=== PATIENT | female | born 1945 | race Caucasian/White ===

== ENCOUNTER 2021-07-05 03:56 | Emergency (ER) | payer MEDICARE, SELFPAY ==
[2021-07-05 03:57] VITALS: BP 142/79; PULSE 58; RESP 12; TEMP 36.3; O2SAT 94; BMI 33.4
--- NOTE | 2021-07-05 04:05 | EDS_ITS ---
HPI History of Present Illness Chief Complaint: Syncope Informant: patient and spouse/S.O. Narrative Narrative: Patient presents with a spinning sensation and fall. Patient got up to go to the restroom which is a common thing she does at night. When she was walking to the bathroom she felt as though things were spinning around her. She got to the bathroom and her legs gave out from under her. She did not hurt herself but she did go down to the ground. She did not lose consciousness. She had no chest pain or palpitations or abnormal heartbeats. She notes that if she stays still she has minimal if any dizziness. But if she moves in any direction she gets a spinning sensation. She has felt a little nauseated a couple times but has never vomited. She has no headache. Patient has had heart disease and strokes. She is on essentially maximal therapy for strokes. She is on Eliquis, Plavix, blood pressure management and Lipitor. [facility] Medical History Coronary artery disease Stroke/cerebrovascular accident Home Medications adalimumab [Humira] SUBCUT 07/05/21 [History Last Taken Unknown] apixaban [Eliquis] 5 mg PO BID 07/05/21 [History Last Taken Unknown] atorvastatin [Lipitor] 80 mg PO DAILY 07/05/21 [History Last Taken Unknown] carvedilol [Coreg] 6.25 mg PO BID 07/05/21 [History Last Taken Unknown] clopidogrel [Plavix] 75 mg PO DAILY 07/05/21 [History Last Taken Unknown] omeprazole [Prilosec] 20 mg PO DAILY 07/05/21 [History Last Taken Unknown] Allergy/AdvReac Type Severity Reaction Status Date / Time No Known Allergies Allergy Verified 07/05/21 04:00 Social History Smoking Status: Never smoker ROS ROS ED Constitutional Constitutional ED: Denies chills or fever(s) Eyes Eyes: Reports other Details: She had a sense of spinning but no decrease or loss of vision. ENT ENT ED: Denies rhinorrhea or sore throat Cardiovascular Cardiovascular: Denies chest pain, palpitations or racing heartbeat Respiratory/Chest Respiratory/Chest: Denies cough or dyspnea Gastrointestinal Gastrointestinal: Reports nausea; Denies abdominal pain, constipation, diarrhea, melena or vomiting Genitourinary Genitourinary ED: Denies dysuria Musculoskeletal Musculoskeletal: Denies arthralgias, back pain, myalgias or neck pain Integumentary Denies rash Neurologic Neurologic: Reports other Details: See history of present illness. ; Denies headache(s), paresthesias or weakness Psychiatric Psychiatric: Denies depression Endocrine Endocrinology: Denies polydipsia or polyuria Allergic/Immunologic Allergic/Immunologic ED: Denies urticaria EXAM Physical Exam Const Vital Signs: 07/05/21 03:57 07/05/21 05:52 Temperature 97.3 F L Temperature Source Oral Pulse Rate 58 L 74 Respiratory Rate 12 16 Blood Pressure 142/79 H 120/66 Blood Pressure Mean 100 84 Pulse Ox 94 98 Oxygen Delivery Method Room Air Room Air Positive well nourished and well developed; Negative for unkempt General Appearance ED: well developed and NAD; Negative for unkempt, cyanotic, diaphoretic or pallor HEENT Reports moist mucous membranes; Denies dry mucous membranes HEENT Narrative: No facial rash or signs of trauma. trauma Mouth ED: No dry mucous membranes Mouth: No dry mucous membranes Eyes PERRL and EOMs intact bilaterally Eyes Narrative: Pupillary responses normal. If I have the patient sit up or move to either side she gets vertigo and she gets some horizontal nystagmus. It is hard for her to keep her eyes open to see which is the fast component. If I keep her still it gets better. General Eye ED: Negative for pale conjunctiva or scleral icterus Neck no JVD Chest Wall inspection of chest normal Resp normal respiratory effort and clear to auscultation bilaterally Effort and Inspection: Negative for pain with movement Auscultation: Negative for rales, rhonchi or wheezes Cardio regular rhythm Rate: bradycardia and other Other Details: Heart rate is about 60. But she has normal blood pressure. GI normal to inspection, nondistended, normoactive bowel sounds and non-tender Palpation: soft Back/Spine no CVA tenderness Extremity normal to inspection General Extremety ED: Negative for edema or tenderness General Extremity: Negative for edema Neuro oriented x3 and no sensory deficits noted Neuro Narrative: Patient has an NIH of zero. She is awake alert appropriate. No weakness in strength. No facial asymmetry. Visual vela are normal. Sensorium / Orientation: alert; Negative for orientation impaired, lethargic or stuporous Sensory Exam: No sensory level loss detected Motor Exam: strength 5/5 throughout; Negative for general weakness or strength abnormal Psych mental status grossly normal Appearance: Negative for unkempt Skin no rashes or lesions noted General Skin Exam: Negative for jaundice or pallor MDM MDM MDM Narrative Medical decision making narrative: Patient's blood work showed normal CBC. Electrolytes showed minimal elevation of glucose and chloride. She also had a slight elevation in BUN to creatinine ratio consistent with mild dehydration. She was treated with some IV fluids. She also received meclizine. Her troponin was negative. Meclizine did seem to help her symptoms but did not completely resolve them. But she could turn side to side without getting significantly dizzy. There is no nausea. She seemed to have more symptoms when she turned to look to the left. The right cause some symptoms but not as much. Therefore we did Cheryl maneuver starting to the left. When we sat her up she was feeling better. She can now turn side to side and had almost no symptoms. We will let her rest. We will get her up and try ambulation to see how she does. This patient is certainly at risk for stroke as a cause of dizziness. However, she is also on maximal therapy at this time. Her history is more consistent with vertigo as it is very motion sensitive, is associated with nausea and is more to 1 side. She also improved with Cheryl. We got the patient up and walked. She states her symptoms are completely resolved now. After the Cheryl she is able to turn left right look up and down. She walked easily. She is completely resolved. We discussed risk benefits but I think going home is appropriate. They agree. Her will drive. I will write for some meclizine in case she has any return of symptoms. We also discussed that the Cheryl maneuver can be done at home. Lab Data Labs: Laboratory Results - last 24 hr 07/05/21 07/05/21 04:05 04:05 WBC 4.4 RBC 4.63 Hgb 14.1 Hct 41.8 MCV 90.3 MCH 30.5 MCHC 33.7 RDW Std Deviation 45.4 H RDW Coeff of Nafisa 13.7 Plt Count 179 MPV 11.4 Immature Gran % (Auto) 0.200 Neut % (Auto) 39.6 L Lymph % (Auto) 46.9 H [place]att % (Auto) 9.2 Eos % (Auto) 3.0 Baso % (Auto) 1.1 H Absolute Neuts (auto) 1.7 L Absolute Lymphs (auto) 2.04 Nucleated RBC % 0 Sodium 142 Potassium 3.5 Chloride 113 H Carbon Dioxide 25.0 Anion Gap 4 L BUN 20 H Creatinine 0.86 Estim Creat Clear Calc 48.81 Est GFR (MDRD) Af Amer 83 Est GFR (MDRD) Non-Af 69 BUN/Creatinine Ratio 23.3 H Glucose 131 H Calcium 9.1 Troponin I High Sens 6 Radiography Diagnostic Testing: Clinical Impression(s) from Imaging Studies Brain CT 07/05/21 04:12 IMPRESSION: 1. No acute intracranial pathology. 2. No acute calvarial fracture. 3. 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 Electronically Signed: Omkar Henson MD at 4:44 EST Reading Location ID and State: [facility]– [place] / [place] Tel , Service support , EKG Initial EKG: Comments: EKG done as part of lightheadedness work-up read by me showed sinus rhythm with bradycardic rate at 55. No ventricular ectopy. No acute significant ST elevation or depression but there is some nonspecific T wave abnormalities. FL interval, QRS duration and QTc is normal. Although I do not have the actual EKG from 02/23/2012, this EKG is read as normal sinus rhythm with left axis deviation, poor R wave progression and nonspecific T wave changes. This sounds similar to what I am seeing now. That EKG had a heart rate of 66. Discharge Plan Triage Chief Complaint: Syncope ED Provider: Chapincito Reynolds Dx/Rx/DC Orders Clinical Impression: Vertigo Instructions: ED Vertigo, Unspecified Prescriptions: No Action atorvastatin [Lipitor] 80 mg Tablet 80 mg PO DAILY RF: 0 carvedilol [Coreg] 6.25 mg Tablet 6.25 mg PO BID RF: 0 clopidogrel [Plavix] 75 mg Tablet 75 mg PO DAILY RF: 0 omeprazole [Prilosec] 20 mg Capsule,Delayed Release(Dr/Ec) 20 mg PO DAILY RF: 0 Eliquis 5 mg Tablet 5 mg PO BID RF: 0 Humira 10 mg/0.2 mL Syringe Kit SUBCUT RF: 0 Referrals: STEW QUINTANA [Other] - 1-2 Days if not improving Disposition Disposition: Home, Self Care
--- NOTE | 2021-07-05 04:12 | EKG12_ITS ---
Test Reason : SYNCOPE Blood Pressure : / mmHG Vent. Rate : 055 BPM Atrial Rate : 055 BPM P-R Int : 174 ms QRS Dur : 096 ms QT Int : 444 ms P-R-T Axes : -06 -36 007 degrees QTc Int : 424 ms Sinus bradycardia Left axis deviation Nonspecific T wave abnormality Poor R wave progression Abnormal ECG Confirmed by KIMBERLY HERRON, MANUEL ([id number]), editor magazine GRISELDA GALLARDO ([id number]) on 07/08/2021 10:02:48 AM Referred By: LALA Confirmed By:MANUEL HARRIS MD
--- NOTE | 2021-07-05 04:12 | CT_ITS ---
EXAM: CT HEAD WITHOUT INTRAVENOUS CONTRAST CLINICAL INDICATION: fall TECHNIQUE: Multiple axial images were obtained of the head without intravenous contrast. CTDIvol = ( 44.99 ) mGy, DLP = ( 829.85 ) mGycm This CT exam was performed using one or more of the following dose reduction techniques: automated exposure control, adjustment of the mA and/or kV according to patient size, and/or use of iterative reconstruction technique. This report was created using [email or web address] report generation technology. COMPARISON: CT head 02/22/2012 FINDINGS: BRAIN AND EXTRA-AXIAL SPACES: Old infarct involving the left occipital lobe and the posterior left parietal lobe. Chronic ischemic small vessel white matter disease and diffuse parenchymal atrophy. No midline shift or hydrocephalus. No acute infarct or acute intracranial hemorrhage. Basal cisterns are patent. BONES/JOINTS: No acute calvarial fracture. No discrete lytic or blastic abnormalities. SINUSES: Small air-fluid level involving the left sphenoid sinus. MASTOID AIR CELLS: Unremarkable. Clear. ORBITS: Visualized globes, extraocular muscles, optic nerves and retrobulbar fat appear unremarkable. CT/Brain/Head without Contrast IMPRESSION: 1. No acute intracranial pathology. 2. No acute calvarial fracture. 3. 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 Electronically Signed: Omkar Henson MD at 4:44 EST ,
[2021-07-05 04:21] LABS: Absolute Lymphocyte Count 2.04 X10^3/uL (0.83-4.51); Absolute Neutrophil Count 1.7 X10^3/uL (2.0-7.7); Basophil# 0.05 X10^3/uL; Basophil% 1.1 % (0-1); Eosinophil# 0.13 X10^3/uL; Hematocrit 41.8 % (37-47); Hemoglobin 14.1 g/dL (12.0-15.0); Lymphocyte # 2.04 X10^3/ul (0.83-4.51); Lymphocyte % 46.9 % (19-41); Mean Corp Hgb Conc 33.7 g/dL (32-36); Mean Corpuscular Hgb 30.5 pg (27.0-32.0); Mean Corpuscular Volume 90.3 fL (81-99); Mean Platelet Vol. 11.4 fl (6.2-12.0); Monocyte% 9.2 % (0-10); NRBC Flagged by Analyzer 0 % (0-5); Neutrophil # 1.72 X10^3/uL (2.7-7.7); Neutrophil % 39.6 % (47-70); Platelet Count 179 K/mm3 (150-450); RBC Distribution Width CV 13.7 % (11.6-14.6); RBC Distribution Width SD 45.4 fl (35.1-43.9); Red Blood Count 4.63 M/mm3 (4.2-5.4); White Blood Count 4.4 K/mm3 (4.4-11.0)
[2021-07-05] MEDS: Meclizine HCl 25 MG Tablet PO (04:34)
[2021-07-05 04:37] LABS: Anion Gap 4 (5-15); BUN 20 mg/dL (7-18); BUN/Creat Ratio 23.3 RATIO (10-20); Calcium,Total 9.1 mg/dL (8.5-10.1); Chloride 113 mmol/L (98-107); Creatinine, Serum 0.86 mg/dL (0.55-1.02); EST Glomerular Filtration Rate 69 mL/min (>60); Est Glom Filt Rate - Afr Amer 83 mL/min (>60); Estimated Creatinine Clearance 48.81 ml/min; Glucose 131 mg/dL (74-106); Potassium 3.5 mmol/L (3.5-5.1); Sodium Level 142 mmol/L (136-145); Troponin-I HS 6 pg/mL (3.0-54.0)
[2021-07-05 05:52] VITALS: BP 120/66; PULSE 74; RESP 16; O2SAT 98
[2021-07-05 06:06] VITALS: PULSE 74; RESP 17; O2SAT 99
== END 2021-07-05 23:59 | disposition home or self-care (01) ==
PROVIDERS: Emergency Provider Emergency Medicine; Visit Provider Emergency Medicine
DX: R42 Dizziness and giddiness (principal); R73.9 Hyperglycemia, unspecified; I25.10 Atherosclerotic heart disease of native coronary artery without angina pectoris; Z86.73 Personal history of transient ischemic attack (TIA), and cerebral infarction without residual deficits; Z79.01 Long term (current) use of anticoagulants; Z79.02 Long term (current) use of antithrombotics/antiplatelets; Z79.899 Other long term (current) drug therapy
CPT/HCPCS: 70450; 80048; 84484; 85025; 93005; 96360; 99285; J7040; A4216

== ENCOUNTER → 2022-05-22 | Outpatient (CLI) | payer MEDICARE, SELFPAY ==
--- NOTE | 2022-05-22 16:51 | RAD_ITS ---
STUDY: X-RAY - LUMBAR SPINE REASON FOR EXAM: Female, 77 years old. Lower back pain radiating into the shoulders when standing for one year. TECHNIQUE: 4 view(s) of the lumbar spine were obtained. COMPARISON: None FINDINGS: Normal lumbar lordosis. There is no substantial scoliosis. There is a normal alignment of the vertebrae. Normal vertebral bodies and endplates. Minimal disc space narrowing most marked at L4-5 and L5-S1. There is no evidence of acute fracture or loss of vertebral axial height. There is no demonstrated spondylolysis of the pars interarticulares. There is atherosclerotic calcification of the abdominal aorta without a demonstrated aneurysm. RAD/L/S Spine Min 4 Views IMPRESSION: Degenerative changes of the spine, as detailed above. Electronically Signed: Sebastián Caro DO at 23:52 EST ,
== END | disposition home or self-care (01) ==
LOC: RAD 16:43
DX: M51.36 Other intervertebral disc degeneration, lumbar region (principal); I70.0 Atherosclerosis of aorta; M47.816 Spondylosis without myelopathy or radiculopathy, lumbar region
CPT/HCPCS: 72110

== ENCOUNTER 2022-09-30 11:42 | Emergency (ER) | payer MEDICARE, SELFPAY ==
[2022-09-30 11:43] VITALS: BP 139/115; PULSE 70; RESP 18; TEMP 36.1; O2SAT 97; BMI 32.9
--- NOTE | 2022-09-30 12:04 | CT_ITS ---
CT/Abdomen/Pelvis W IV Cont ONLY IMPRESSION: Diffuse sigmoid diverticulosis and mild degree of diverticulitis without evidence of abscess or fluid collection. 3 mm nonobstructive catheter is in the upper pole calyx of the left kidney. Moderate amount of material is seen in the colon. Electronically Signed: Jose Castle MD at 13:29 EDT ,
--- NOTE | 2022-09-30 12:06 | EDS_ITS ---
HPI HPI - GI History of Present Illness Chief Complaint: Constipation Informant: patient and spouse/S.O. Narrative Narrative: Patient presents with abdominal pain stating she is constipated. This patient has not had a good bowel movement for about a week. She normally does not have significant problems with constipation. She did have surgery in her left carotid endarterectomy about a week ago. She initially took some pain meds but has not been on them for several days. She is having no issues directly related to the surgery. She states she is having pain across her lower abdomen for the last 2 or 3 days. It is constant. Does not seem like anything specifically makes it worse or better. She denies urinary symptoms. She denies nausea or vomiting. She denies fevers or chills. On review of systems I do find out that she has had diverticulitis. Only abdominal surgery is total abdominal hysterectomy years ago. She has restarted her Eliquis but has not been having any blood in the stool or anywhere else that she knows of. She does not have back or flank pain. [facility] Medical History Coronary artery disease Stroke/cerebrovascular accident Home Medications adalimumab 10 mg/0.2 mL subcutaneous syringe kit subcut 07/05/21 [History Last Taken Unknown] apixaban 5 mg tablet (Eliquis) 5 mg PO BID 07/05/21 [History Last Taken Unknown] atorvastatin 80 mg tablet (Lipitor) 80 mg PO DAILY 07/05/21 [History Last Taken Unknown] carvedilol 6.25 mg tablet (Coreg) 6.25 mg PO BID 07/05/21 [History Last Taken Unknown] clopidogrel 75 mg tablet (Plavix) 75 mg PO DAILY 07/05/21 [History Last Taken Unknown] omeprazole 20 mg capsule,delayed release 20 mg PO DAILY 07/05/21 [History Last Taken Unknown] amlodipine 5 mg tablet 5 mg PO DAILY 09/30/22 [History Last Taken Unknown] amoxicillin 875 mg-potassium clavulanate 125 mg tablet 875 mg PO Q12H #20 TABLETS 09/30/22 [Rx Last Taken Unknown] ondansetron 4 mg disintegrating tablet 4 mg PO Q8H PRN PRN Nausea #10 tabs 09/30/22 [Rx Last Taken Unknown] peg 3350-electrolytes 236 gram-22.74 gram-6.74 gram-5.86 gram solution (Golytely) 240 ml PO Q10M PRN #4,000 mL 09/30/22 [Rx Last Taken Unknown] Allergy/AdvReac Type Severity Reaction Status Date / Time No Known Allergies Allergy Verified 09/30/22 11:47 Social History Smoking Status: Never smoker ROS ROS ED ROS Narrative A complete review of systems was performed and is negative except as documented in the history of present illness. Some specific details below. Constitutional: No recent fevers or chills. No malaise. EYE: No visual complaints or pain. ENT: No difficulty swallowing. No swelling. No pain. CV: No chest pain or palpitations. No syncope or Respiratory: No dyspnea. No hemoptysis. No difficulty taking breaths. GI: Please see history of present illness. : No frequency dysuria or hematuria. No change in output. Musculoskeletal: No recent trauma. No pains. No back pains. Skin: No rash. Nondiaphoretic. Neuro: No weakness or numbness. Endocrine: No polyuria or polydipsia. EXAM Physical Exam Narrative Exam Narrative: CONSTITUTIONAL: Patient is nontoxic in appearance. The patient looks mildly uncomfortable. HEENT: No notable trauma. Mucous membranes moist. No sinus tenderness. No indication of pain with swallowing. EYES: No conjunctival injection. No proptosis. Neck shows healing incision on the left. Mild local bruising. No sign of infection or drainage at all. CARDIOVASCULAR: Regular rate. Regular rhythm. No notable murmur. No JVD. RESPIRATORY: No respiratory distress. Breathing is unlabored. No wheezes. No rhonchi. No rales. No pain with a deep breath. GASTROINTESTINAL: Not distended. Bowel sounds are normal. Patient does have some mild tenderness in the lower abdomen more central. It does not seem to localize left or right. There is no rebound or guarding. I am not able to appreciate a mass. GENITOURINARY: No tenderness over the bladder. No CVA tenderness. MUSCULOSKELETAL: Atraumatic. No peripheral edema. NEUROLOGICAL: Patient is alert and appropriate. No focal deficit noted. SKIN: No noted rashes. No diaphoresis. PSYCHIATRIC: Patient is calm. Mood is appropriate. Const Vital Signs: 09/30/22 11:43 Temperature 97 F L Temperature Source Temporal Pulse Rate 70 Respiratory Rate 18 Blood Pressure 139/115 H Blood Pressure Mean 123 Pulse Ox 97 Oxygen Delivery Method Room Air MDM MDM MDM Narrative Medical decision making narrative: Patient CBC is normal. Patient's electrolytes showed minimal dehydration with elevated BUN/creatinine ratio but she was given some IV fluids. Minimal elevation of glucose of 151. Urinalysis was not a clean-catch. No convincing evidence of UTI and she has no symptoms of UTI. My independent her potation of her CT scan does show some increased stool but no sign of ileus or obstruction. There is question of a little bit of diverticulitis. Final reading does show diverticulosis and mild degree of diverticulitis without abscess or fluid collection. There is also moderate material in the colon. I think this patient's symptoms are mixed because. I think the pain that she feels on a constant basis is likely diverticulitis. But I also do feel like she has some constipation. She has not had bleeding. She is eating and drinking. No nausea or vomiting. I think she can go home. We will treat with antibiotics. I do not want to do an enema because of this diverticulitis. But we will have her do the GoLytely from above. I think with her recent immobility, diverticulitis and constipation we need to get her moving promptly. We discussed reasons to return that would include worsening pain, fevers, vom iting. I think we do need to provide something for moderate pain relief for her. Lab Data Attestation: I reviewed the patient's lab results. Labs: Laboratory Results - last 24 hr 09/30/22 09/30/22 09/30/22 12:15 12:15 12:35 WBC 8.4 RBC 4.78 Hgb 14.2 Hct 43.1 MCV 90.2 MCH 29.7 MCHC 32.9 RDW Std Deviation 42.6 RDW Coeff of Nafisa 12.8 Plt Count 211 MPV 11.9 Immature Gran % (Auto) 0.400 Neut % (Auto) 82.4 H Lymph % (Auto) 10.5 L [place] % (Auto) 5.0 Eos % (Auto) 1.2 Baso % (Auto) 0.5 Absolute Neuts (auto) 6.9 Absolute Lymphs (auto) 0.88 Nucleated RBC % 0 Sodium 144 Potassium 3.5 Chloride 113 H Carbon Dioxide 24.0 Anion Gap 7 BUN 19 H Creatinine 0.80 Estim Creat Clear Calc 51.66 Est GFR (MDRD) Af Amer 90 Est GFR (MDRD) Non-Af 74 BUN/Creatinine Ratio 23.8 H Glucose 151 H Calcium 9.5 Urine Color Yellow Urine Clarity Sl. Cloudy Urine pH 7.0 Ur Specific [place] 1.020 Urine Protein 30 H Urine Glucose (UA) Normal Urine Ketones 15 H Urine Occult Blood 10 H Urine Nitrite Negative Urine Bilirubin 3 H Urine Urobilinogen 8 H Ur Leukocyte Esterase 100 H Urine RBC 0-5 SEEN Urine WBC 10-25 SEEN Ur Squamous Epith Cells 10-25 SEEN Calcium Oxalate Crystal 2+ Urine Bacteria 1+ Urine Mucus 0 SEEN Radiography Diagnostic Testing: Clinical Impression(s) from Imaging Studies Abdomen/Pelvis CT 09/30/22 12:04 IMPRESSION: Diffuse sigmoid diverticulosis and mild degree of diverticulitis without evidence of abscess or fluid collection. 3 mm nonobstructive catheter is in the upper pole calyx of the left kidney. Moderate amount of material is seen in the colon. Electronically Signed: Jose Castle MD at 13:29 EDT , Discharge Plan Triage Chief Complaint: Constipation ED Provider: Chapincito Reynolds Dx/Rx/DC Orders Clinical Impression: Diverticulitis, Constipation Instructions: ED Constipation (Adult), ED Diverticulitis Prescriptions: New ondansetron [ondansetron] 4 mg tablet,disintegrating 4 mg PO Q8H PRN PRN (Reason: Nausea) Qty: 10 0RF amoxicillin-pot clavulanate [amoxicillin-pot clavulanate] 875-125 mg tablet 875 mg PO Q12H Qty: 20 0RF peg 3350-electrolytes [Golytely] 236-22.74-6.74 -5.86 gram recon soln 240 ml PO Q10M PRN Qty: 4000 0RF Rx Instructions: until prominent fecal movement occurs No Action atorvastatin [Lipitor] 80 mg Tablet 80 mg PO DAILY carvedilol [Coreg] 6.25 mg Tablet 6.25 mg PO BID clopidogrel [Plavix] 75 mg Tablet 75 mg PO DAILY omeprazole [Prilosec] 20 mg Capsule,Delayed Release(Dr/Ec) 20 mg PO DAILY Eliquis 5 mg Tablet 5 mg PO BID Humira 10 mg/0.2 mL Syringe Kit SUBCUT amlodipine 5 mg tablet 5 mg PO DAILY Primary Care Provider: STEW QUINTANA Referrals: STEW QUINTANA [Other] - 3-5 Days Activity Restrictions/Additional Instructions: Use your pain medication if needed for abdominal pain but try to use sparingly as it can worsen constipation. After bowel motion occurs, start MiraLAX to keep regular for several days. Disposition Disposition: Home, Self Care
[2022-09-30] MEDS: Ondansetron 4 MG/2 ML Vial IV (12:26)
[2022-09-30] MEDS: Morphine 4 MG/ML Syringe IV (12:27)
[2022-09-30 12:35] LABS: Anion Gap 7 (5-15); BUN 19 mg/dL (7-18); BUN/Creat Ratio 23.8 RATIO (10-20); Calcium,Total 9.5 mg/dL (8.5-10.1); Chloride 113 mmol/L (98-107); EST Glomerular Filtration Rate 74 mL/min (>60); Est Glom Filt Rate - Afr Amer 90 mL/min (>60); Estimated Creatinine Clearance 51.66 ml/min; Glucose 151 mg/dL (74-106); Potassium 3.5 mmol/L (3.5-5.1); Sodium Level 144 mmol/L (136-145)
[2022-09-30 12:37] LABS: Mucous, Urine 0 SEEN /hpf (<or=2+)
[2022-09-30 12:47] LABS: Absolute Lymphocyte Count 0.88 X10^3/uL (0.83-4.51); Absolute Neutrophil Count 6.9 X10^3/uL (2.0-7.7); Basophil# 0.04 X10^3/uL; Basophil% 0.5 % (0-1); Eosinophils% 1.2 % (0-5); Hematocrit 43.1 % (37-47); Hemoglobin 14.2 g/dL (12.0-15.0); Lymphocyte # 0.88 X10^3/ul (0.83-4.51); Lymphocyte % 10.5 % (19-41); Mean Corp Hgb Conc 32.9 g/dL (32-36); Mean Corpuscular Hgb 29.7 pg (27.0-32.0); Mean Corpuscular Volume 90.2 fL (81-99); Mean Platelet Vol. 11.9 fl (6.2-12.0); Monocyte# 0.42 X10^3/uL; NRBC Flagged by Analyzer 0 % (0-5); Neutrophil # 6.91 X10^3/uL (2.7-7.7); Neutrophil % 82.4 % (47-70); Platelet Count 211 K/mm3 (150-450); RBC Distribution Width CV 12.8 % (11.6-14.6); RBC Distribution Width SD 42.6 fl (35.1-43.9); Red Blood Count 4.78 M/mm3 (4.2-5.4); White Blood Count 8.4 K/mm3 (4.4-11.0)
[2022-09-30 12:50] LABS: Color, Urine Yellow (Yellow); Glucose, Dipstick Normal (Normal); Ketone-Dipstick 15 mg/dl (Negative); Leukocyte Esterase-Dipstick 100 /ul (Negative); Nitrite-Dipstick Negative (Negative); Occult Blood-Urine 10 /ul (Negative); Protein-Dipstick 30 mg/dl (Negative); Urine Clarity Sl. Cloudy (Clear); Urine Urobilinogen 8 mg/dl (Normal)
[2022-09-30 12:51] LABS: Urine Bilirubin Dipstick 3 mg/dL (Negative)
[2022-09-30 12:59] LABS: Bacteria 1+ /hpf (None Seen); Calcium Oxalate Crystals Ur 2+ /hpf (<or=2+); Red Blood Cells-Urine 0-5 SEEN /hpf (0-5); Squamous Epithelial Cells - UA 10-25 SEEN /hpf (5-10); White Blood Cells 10-25 SEEN /hpf (0-5)
[2022-09-30 14:54] VITALS: BP 159/69; PULSE 62; RESP 14; O2SAT 96
== END 2022-09-30 14:56 | disposition home or self-care (01) ==
PROVIDERS: Emergency Provider Emergency Medicine; Visit Provider Emergency Medicine
DX: K57.32 Diverticulitis of large intestine without perforation or abscess without bleeding (principal); I25.10 Atherosclerotic heart disease of native coronary artery without angina pectoris; E86.0 Dehydration; K59.00 Constipation, unspecified
CPT/HCPCS: 74177; 80048; 81001; 85025; 96361; 96374; 96375; 99283; Q9967; J2405

== ENCOUNTER 2022-10-20 20:05 | Observation (INO) | payer MEDICARE, SELFPAY ==
[2022-10-20 20:06] VITALS: BP 148/91; PULSE 77; RESP 15; TEMP 37.2; O2SAT 95; BMI 32.1
[2022-10-20 21:08] LABS: Absolute Lymphocyte Count 1.28 X10^3/uL (0.83-4.51); Absolute Neutrophil Count 2.7 X10^3/uL (2.0-7.7); Basophil# 0.04 X10^3/uL; Basophil% 0.9 % (0-1); Eosinophil# 0.15 X10^3/uL; Eosinophils% 3.2 % (0-5); Hematocrit 41.3 % (37-47); Hemoglobin 13.3 g/dL (12.0-15.0); Lymphocyte # 1.28 X10^3/ul (0.83-4.51); Lymphocyte % 27.4 % (19-41); Mean Corp Hgb Conc 32.2 g/dL (32-36); Mean Corpuscular Hgb 29.8 pg (27.0-32.0); Mean Corpuscular Volume 92.4 fL (81-99); Mean Platelet Vol. 11.5 fl (6.2-12.0); Monocyte# 0.45 X10^3/uL; Monocyte% 9.6 % (0-10); NRBC Flagged by Analyzer 0 % (0-5); Neutrophil # 2.73 X10^3/uL (2.7-7.7); Neutrophil % 58.5 % (47-70); Platelet Count 171 K/mm3 (150-450); RBC Distribution Width CV 13.2 % (11.6-14.6); RBC Distribution Width SD 44.4 fl (35.1-43.9); Red Blood Count 4.47 M/mm3 (4.2-5.4); White Blood Count 4.7 K/mm3 (4.4-11.0)
--- NOTE | 2022-10-20 21:24 | EDS_ITS ---
HPI HPI - GI History of Present Illness Chief Complaint: GI Bleed Narrative Narrative: 77-year-old female on Eliquis presenting with black stools. She states she had developed diarrhea about 3 days ago and noted that it was initially brown. She has been taking [id number] antidiarrheal but states that she still having diarrhea and now it is turned black started yesterday and has been black all day today. She does admit to a little bit of lightheadedness. PFSH PFSH Medical History Coronary artery disease Myocardial infarction Stroke/cerebrovascular accident Home Medications adalimumab 10 mg/0.2 mL subcutaneous syringe kit subcut 07/05/21 [History Last Taken Unknown] apixaban 5 mg tablet (Eliquis) 5 mg PO BID 07/05/21 [History Last Taken Unknown] atorvastatin 80 mg tablet (Lipitor) 80 mg PO DAILY 07/05/21 [History Last Taken Unknown] carvedilol 6.25 mg tablet (Coreg) 6.25 mg PO BID 07/05/21 [History Last Taken Unknown] clopidogrel 75 mg tablet (Plavix) 75 mg PO DAILY 07/05/21 [History Last Taken Unknown] omeprazole 20 mg capsule,delayed release 20 mg PO DAILY 07/05/21 [History Last Taken Unknown] amlodipine 5 mg tablet 5 mg PO DAILY 09/30/22 [History Last Taken Unknown] amoxicillin 875 mg-potassium clavulanate 125 mg tablet 875 mg PO Q12H #20 TABLETS 09/30/22 [Rx Last Taken Unknown] ondansetron 4 mg disintegrating tablet 4 mg PO Q8H PRN PRN Nausea #10 tabs 09/30/22 [Rx Last Taken Unknown] peg 3350-electrolytes 236 gram-22.74 gram-6.74 gram-5.86 gram solution (Golytely) 240 ml PO Q10M PRN #4,000 mL 09/30/22 [Rx Last Taken Unknown] Allergy/AdvReac Type Severity Reaction Status Date / Time No Known Allergies Allergy Verified 10/20/22 20:11 Social History Smoking Status: Never smoker EXAM Physical Exam Const Vital Signs: 10/20/22 20:06 10/20/22 21:26 10/20/22 23:12 Temperature 98.9 F Temperature Source Temporal Pulse Rate 77 63 Pulse Rate [Lying] 63 Pulse Rate [Sitting (for 1 minute prior to obtaining)] 68 Pulse Rate [Standing (for 1 minute prior to obtaining)] 84 Respiratory Rate 15 16 Blood Pressure 148/91 H 150/76 H Blood Pressure [Lying] 148/70 H Blood Pressure [Sitting (for 1 minute prior to obtaining)] 150/78 H Blood Pressure [Standing (for 1 minute prior to obtaining)] 113/69 Blood Pressure Mean 110 100 Blood Pressure Mean [Lying] 96 Blood Pressure Mean [Sitting (for 1 minute prior to obtaining)] 102 Blood Pressure Mean [Standing (for 1 minute prior to obtaining)] 83 Pulse Ox 95 97 Oxygen Delivery Method Room Air Room Air Positive well nourished General Appearance ED: NAD; Negative for pallor HEENT Reports moist mucous membranes normocephalic and atraumatic Eyes PERRL and EOMs intact bilaterally Resp normal respiratory effort and clear to auscultation bilaterally Auscultation: Negative for rales, rhonchi or wheezes Cardio regular rate and regular rhythm GI non-tender GI Narrative: Rectal exam deferred by patient Neuro CN's II-XII intact bilaterally and moves all extremities Sensorium / Orientation: alert Psych mental status grossly normal Skin no wounds General Skin Exam: Negative for jaundice or pallor MDM MDM MDM Narrative Medical decision making narrative: Patient presenting with black stools which have been present since yesterday. She initially started with diarrhea. She not have any abdominal pain. No fevers or chills. Patient is on Eliquis however. She does states she is a little lightheaded so I did obtain orthostatic vital signs which were positive. Patient's orthostatic vitals show a blood pressure drop of 148/70 to 113/69. Heart rate goes from 63-84. CBC shows a normal white blood cell count. Hemoglobin 13.3, hematocrit 41.3, platelets 175. Renal function and electrolytes within normal limits. Liver function normal. Patient was able to give a stool sample and I did send this off for an occult. It is black. Hemoccult positive. Patient given Protonix 40 mg IV. Will discuss with Dr. Baker from GI. Patient discussed with hospitalist for admission. Impression: 1. Upper GI bleed 2. Orthostatic hypotension Lab Data Labs: Laboratory Results - last 24 hr 10/20/22 10/20/22 10/20/22 20:45 20:45 21:40 WBC 4.7 RBC 4.47 Hgb 13.3 Hct 41.3 MCV 92.4 MCH 29.8 MCHC 32.2 RDW Std Deviation 44.4 H RDW Coeff of Nafisa 13.2 Plt Count 171 MPV 11.5 Immature Gran % (Auto) 0.400 Neut % (Auto) 58.5 Lymph % (Auto) 27.4 [place] % (Auto) 9.6 Eos % (Auto) 3.2 Baso % (Auto) 0.9 Absolute Neuts (auto) 2.7 Absolute Lymphs (auto) 1.28 Nucleated RBC % 0 Sodium 144 Potassium 3.6 Chloride 113 H Carbon Dioxide 22.0 Anion Gap 9 BUN 20 H Creatinine 0.68 Estim Creat Clear Calc 41.33 Est GFR (MDRD) Af Amer 109 Est GFR (MDRD) Non-Af 90 BUN/Creatinine Ratio 29.5 H Glucose 98 Calcium 9.9 Total Bilirubin 0.60 AST 15 ALT 16 Alkaline Phosphatase 88 Total Protein 7.1 Albumin 3.7 Globulin 3.4 Albumin/Globulin Ratio 1.1 Blood Type O POSITIVE Antibody Screen NEGATIVE Discharge Plan Triage Chief Complaint: GI Bleed ED Provider: Willam Ball Dx/Rx/DC Orders Prescriptions: No Action atorvastatin [Lipitor] 80 mg Tablet 80 mg PO DAILY carvedilol [Coreg] 6.25 mg Tablet 6.25 mg PO BID clopidogrel [Plavix] 75 mg Tablet 75 mg PO DAILY omeprazole [Prilosec] 20 mg Capsule,Delayed Release(Dr/Ec) 20 mg PO DAILY Eliquis 5 mg Tablet 5 mg PO BID Humira 10 mg/0.2 mL Syringe Kit SUBCUT amlodipine 5 mg tablet 5 mg PO DAILY ondansetron [ondansetron] 4 mg tablet,disintegrating 4 mg PO Q8H PRN PRN (Reason: Nausea) Qty: 10 0RF amoxicillin-pot clavulanate [amoxicillin-pot clavulanate] 875-125 mg tablet 875 mg PO Q12H Qty: 20 0RF peg 3350-electrolytes [Golytely] 236-22.74-6.74 -5.86 gram recon soln 240 ml PO Q10M PRN Qty: 4000 0RF Rx Instructions: until prominent fecal movement occurs Primary Care Provider: STEW QUINTANA Referrals: STEW QUINTANA [Other]
[2022-10-20 21:26] VITALS: BP 113/69; BP 148/70; BP 150/78; PULSE 63; PULSE 68; PULSE 84
[2022-10-20 21:26] LABS: ALB/GLOB Ratio 1.1 RATIO (0.9-2.4); AST(SGOT) 15 U/L (15-37); Alanine Aminotransfer ALT/SGPT 16 U/L (13-56); Albumin, Serum 3.7 g/dL (3.2-5.0); Alkaline Phosphatase 88 U/L (45-117); Anion Gap 9 (5-15); BUN 20 mg/dL (7-18); BUN/Creat Ratio 29.5 RATIO (10-20); Calcium,Total 9.9 mg/dL (8.5-10.1); Chloride 113 mmol/L (98-107); Creatinine, Serum 0.68 mg/dL (0.55-1.02); EST Glomerular Filtration Rate 90 mL/min (>60); Est Glom Filt Rate - Afr Amer 109 mL/min (>60); Estimated Creatinine Clearance 41.33 ml/min; Globulin 3.4 g/dL (2.2-4.2); Glucose 98 mg/dL (74-106); Potassium 3.6 mmol/L (3.5-5.1); Protein, Total 7.1 g/dL (6.4-8.2); Sodium Level 144 mmol/L (136-145)
[2022-10-20] MEDS: 0.9% Normal Saline 1,000 ML 999 ML IV (23:10)
[2022-10-20 23:12] VITALS: BP 150/76; PULSE 63; RESP 16; O2SAT 97
--- NOTE | 2022-10-20 23:30 | CON.PCM.GI_ITS ---
HPI Consult Data Date of Consult: 10/20/22 HPI Narrative Reason for Consultation: GI bleeding HPI Narrative: VINITA PHILLIPS, is a 77-year-old female on Eliquis presenting with black stools.? She states she had developed diarrhea about 3 days ago and noted that it was initially brown.? She has been taking [id number] antidiarrheal but states that she still having diarrhea and now it is turned black started yesterday and has been black all day today.? She does admit to a little bit of lightheadedness. This is new and the patient has not had a previous symptom of melena. She was recently seen here for constipation (atypical for her but thought due to her recent surgery) and was put on antibiotics for a possible diverticulitis. The patient denies abdominal pain, and denies bright red blood per rectum. She has no vomiting/hematemesis. She denies NSAID use, and has been on Plavix and Eliquis since stent placement. [facility] Medical History Coronary artery disease Myocardial infarction Stroke/cerebrovascular accident Home Medications apixaban 5 mg tablet (Eliquis) 5 mg PO BID Check with primary doctor 07/05/21 [History Last Taken 10/20/22 08:00] atorvastatin 80 mg tablet (Lipitor) 80 mg PO DAILY Check with primary doctor 07/05/21 [History Last Taken 10/20/22 08:00] carvedilol 6.25 mg tablet (Coreg) 6.25 mg PO BID Check with primary doctor 07/05/21 [History Last Taken 10/20/22 08:00] clopidogrel 75 mg tablet (Plavix) 75 mg PO DAILY Check with primary doctor 07/05/21 [History Last Taken 10/20/22 08:00] omeprazole 20 mg capsule,delayed release 20 mg PO DAILY Check with primary doctor 07/05/21 [History Last Taken 10/20/22 08:00] amlodipine 5 mg tablet 5 mg PO DAILY Check with primary doctor 09/30/22 [History Last Taken 10/20/22 08:00] acetaminophen 500 mg capsule 1,000 mg PO Q6H PRN Pain 10/21/22 [History Last Taken Unknown] Allergy/AdvReac Type Severity Reaction Status Date / Time No Known Allergies Allergy Verified 10/20/22 20:11 Social History Smoking Status: Never smoker ROS ROS Narrative pertinent positives/negatives as above. Physical Exam Narrative GENERAL: cooperative HEENT: Atraumatic; normocephalic EYES; Anicteric, Normal Conjunctiva NECK; supple, normal thyroid, RESPIRATORY: Diminished to auscultation CARDIOVASCULAR: Regular S1 S2, GI: soft, normoactive bowel sounds, : No Renal angle tenderness; EXTREMITIES: No edema, no clubbing, MUSCULOSKELETAL: no muscle wasting NEURO: Awake; no lateralizing signs. SKIN: No Rash PSYCH; Flat affect Lab / Micro Data Result Diagrams: 10/21/22 05:40 10/21/22 05:40 Labs: Laboratory Results - last 24 hr 10/20/22 20:45: WBC 4.7, RBC 4.47, Hgb 13.3, Hct 41.3, MCV 92.4, MCH 29.8, MCHC 32.2, RDW Std Deviation 44.4 H, RDW Coeff of Nafisa 13.2, Plt Count 171, MPV 11.5, Immature Gran % (Auto) 0.400, Neut % (Auto) 58.5, Lymph % (Auto) 27.4, [place] % (Auto) 9.6, Eos % (Auto) 3.2, Baso % (Auto) 0.9, Absolute Neuts (auto) 2.7, Absolute Lymphs (auto) 1.28, Nucleated RBC % 0 10/20/22 20:45: Sodium 144, Potassium 3.6, Chloride 113 H, Carbon Dioxide 22.0, Anion Gap 9, BUN 20 H, Creatinine 0.68, Estim Creat Clear Calc 41.33, Est GFR (MDRD) Af Amer 109, Est GFR (MDRD) Non-Af 90, BUN/Creatinine Ratio 29.5 H, Glucose 98, Calcium 9.9, Total Bilirubin 0.60, AST 15, ALT 16, Alkaline Phosphatase 88, Total Protein 7.1, Albumin 3.7, Globulin 3.4, Albumin/Globulin Ratio 1.1 10/20/22 21:40: Blood Type O POSITIVE, Antibody Screen NEGATIVE 10/21/22 05:40: WBC 4.1 L, RBC 4.37, Hgb 13.1, Hct 40.6, MCV 92.9, MCH 30.0, MCHC 32.3, RDW Std Deviation 44.2 H, RDW Coeff of Nafisa 12.9, Plt Count 146 L, MPV 11.4, Immature Gran % (Auto) 0.000, Neut % (Auto) 51.6, Lymph % (Auto) 32.8, [place] % (Auto) 10.5 H, Eos % (Auto) 3.9, Baso % (Auto) 1.2 H, Absolute Neuts (auto) 2.1, Absolute Lymphs (auto) 1.34, Nucleated RBC % 0 10/21/22 05:40: Sodium 146 H, Potassium 3.5, Chloride 117 H, Carbon Dioxide 22.0, Anion Gap 7, BUN 13, Creatinine 0.55, Estim Creat Clear Calc 41.33, Est GFR (MDRD) Af Amer 137, Est GFR (MDRD) Non-Af 114, BUN/Creatinine Ratio 23.6 H, Glucose 92, Calcium 9.1 Micro: Microbiology 10/20/22 22:40 Stool Stool Occult Blood (MICHAEL) - Final Occult Blood Positive Assessment & Plan Assessment/Plan (1) Melena: (2) HTN (hypertension): PLAN: Plan Melena - Hgb with 1 pt drop 14>13s - Hold AC, begin PPI twice a day - NPO status - EGD tomorrow - [place] scale of 3. - Monitor Hgb - Give IV 100 ml/hr Cardiac disease - Continue Asa, hold eliquis and plavix - resume home meds HTN - Resume Norvasc HLD - Statin - Recent endarterectomy
[2022-10-21] VITALS (14 sets, daily range): BP systolic 120–161; BP diastolic 63–84; PULSE 50–89; RESP 16–18; TEMP 36.6–37.3; O2SAT 94–98; BMI 32.1
--- NOTE | 2022-10-21 00:34 | PCM.HP.STD ---
HPI - General General Date of Admission: 10/21/22 Chief Complaint: black stool HPI Narrative VINITA PHILLIPS, is a 77 F who presents with diarrhea, with black stool over 1 day. This is new and the patient has not had a previous symptom of melena. She was recently seen here for constipation (atypical for her but thought due to her recent surgery) and was put on antibiotics for a possible diverticulitis. The patient denies abdominal pain, and denies bright red blood per rectum. She has no vomiting/hematemesis. She denies NSAID use, and has been on Plavix and Eliquis since stent placement. She has hx of 6 cardiac stents She has never had EGD. Takes Tylenol for pain. [facility] Medical History (Updated 10/21/22 @ 00:[address] Collin Vázquez MD) Coronary artery disease Myocardial infarction Stroke/cerebrovascular accident Home Medications apixaban 5 mg tablet (Eliquis) 5 mg PO BID Check with primary doctor 07/05/21 [History Last Taken Unknown] atorvastatin 80 mg tablet (Lipitor) 80 mg PO DAILY Check with primary doctor 07/05/21 [History Last Taken Unknown] carvedilol 6.25 mg tablet (Coreg) 6.25 mg PO BID Check with primary doctor 07/05/21 [History Last Taken Unknown] clopidogrel 75 mg tablet (Plavix) 75 mg PO DAILY Check with primary doctor 07/05/21 [History Last Taken Unknown] omeprazole 20 mg capsule,delayed release 20 mg PO DAILY Check with primary doctor 07/05/21 [History Last Taken Unknown] amlodipine 5 mg tablet 5 mg PO DAILY Check with primary doctor 09/30/22 [History Last Taken Unknown] acetaminophen 500 mg capsule 1,000 mg PO Q6H PRN Pain 10/21/22 [History Last Taken Unknown] Allergy/AdvReac Type Severity Reaction Status Date / Time No Known Allergies Allergy Verified 10/20/22 20:11 Social History Smoking Status: Never smoker ROS ROS Narrative pertinent positives/negatives as above. Vital Signs Vital Signs Vital Signs: 10/20/22 20:06 10/20/22 21:26 10/20/22 23:12 Temperature 98.9 F Temperature Source Temporal Pulse Rate 77 63 Pulse Rate [Lying] 63 Pulse Rate [Sitting (for 1 minute prior to obtaining)] 68 Pulse Rate [Standing (for 1 minute prior to obtaining)] 84 Respiratory Rate 15 16 Blood Pressure 148/91 H 150/76 H Blood Pressure [Lying] 148/70 H Blood Pressure [Sitting (for 1 minute prior to obtaining)] 150/78 H Blood Pressure [Standing (for 1 minute prior to obtaining)] 113/69 Blood Pressure Mean 110 100 Blood Pressure Mean [Lying] 96 Blood Pressure Mean [Sitting (for 1 minute prior to obtaining)] 102 Blood Pressure Mean [Standing (for 1 minute prior to obtaining)] 83 Pulse Ox 95 97 Oxygen Delivery Method Room Air Room Air Weight Weight: 187 lb Body Mass Index (BMI) 32.1 Physical Exam Const alert and no apparent distress General Appearance: cooperative HEENT normocephalic and head/scalp atraumatic Eyes PERRL and EOMs intact bilaterally Neck no lymphadenopathy Resp normal respiratory effort Cardio regular rate and regular rhythm GI normal to inspection, nondistended, normoactive bowel sounds Psych affect normal Results Medical Records Data Attestation: I reviewed the patient's medical records Lab / Micro Data Attestation: I reviewed the patient's lab results. Result Diagrams: 10/20/22 20:45 10/20/22 20:45 Labs: Laboratory Results - last 24 hr 10/20/22 20:45: WBC 4.7, RBC 4.47, Hgb 13.3, Hct 41.3, MCV 92.4, MCH 29.8, MCHC 32.2, RDW Std Deviation 44.4 H, RDW Coeff of Nafisa 13.2, Plt Count 171, MPV 11.5, Immature Gran % (Auto) 0.400, Neut % (Auto) 58.5, Lymph % (Auto) 27.4, [place] % (Auto) 9.6, Eos % (Auto) 3.2, Baso % (Auto) 0.9, Absolute Neuts (auto) 2.7, Absolute Lymphs (auto) 1.28, Nucleated RBC % 0 10/20/22 20:45: Sodium 144, Potassium 3.6, Chloride 113 H, Carbon Dioxide 22.0, Anion Gap 9, BUN 20 H, Creatinine 0.68, Estim Creat Clear Calc 41.33, Est GFR (MDRD) Af Amer 109, Est GFR (MDRD) Non-Af 90, BUN/Creatinine Ratio 29.5 H, Glucose 98, Calcium 9.9, Total Bilirubin 0.60, AST 15, ALT 16, Alkaline Phosphatase 88, Total Protein 7.1, Albumin 3.7, Globulin 3.4, Albumin/Globulin Ratio 1.1 10/20/22 21:40: Blood Type O POSITIVE, Antibody Screen NEGATIVE Micro: Microbiology 10/20/22 22:40 Stool Stool Occult Blood (MICHAEL) - Final Occult Blood Positive Assessment & Plan Assessment/Plan (1) Melena: (2) HTN (hypertension): PLAN: Plan Melena - Hgb with 1 pt drop 14>13s - Hold AC, begin PPI twice a day - NPO status - Gastro consult for EGD consideration - [place] scale of 3. - Monitor Hgb - Give IV 100 ml/hr Cardiac disease - Continue Asa, hold eliquis and plavix - resume home meds HTN - Resume Norvasc HLD - Statin - Recent endarterectomy Charges/Coding Visit Charges Inpatient E&M: 08732 Init Hosp L2
[2022-10-21] MEDS: 0.9% Normal Saline 1,000 ML 100 ML IV (01:15)
[2022-10-21 05:51] LABS: Absolute Lymphocyte Count 1.34 X10^3/uL (0.83-4.51); Absolute Neutrophil Count 2.1 X10^3/uL (2.0-7.7); Basophil# 0.05 X10^3/uL; Basophil% 1.2 % (0-1); Eosinophil# 0.16 X10^3/uL; Eosinophils% 3.9 % (0-5); Hematocrit 40.6 % (37-47); Hemoglobin 13.1 g/dL (12.0-15.0); Lymphocyte # 1.34 X10^3/ul (0.83-4.51); Lymphocyte % 32.8 % (19-41); Mean Corp Hgb Conc 32.3 g/dL (32-36); Mean Corpuscular Volume 92.9 fL (81-99); Mean Platelet Vol. 11.4 fl (6.2-12.0); Monocyte# 0.43 X10^3/uL; Monocyte% 10.5 % (0-10); NRBC Flagged by Analyzer 0 % (0-5); Neutrophil # 2.11 X10^3/uL (2.7-7.7); Neutrophil % 51.6 % (47-70); Platelet Count 146 K/mm3 (150-450); RBC Distribution Width CV 12.9 % (11.6-14.6); RBC Distribution Width SD 44.2 fl (35.1-43.9); Red Blood Count 4.37 M/mm3 (4.2-5.4); White Blood Count 4.1 K/mm3 (4.4-11.0)
[2022-10-21 06:34] LABS: Anion Gap 7 (5-15); BUN 13 mg/dL (7-18); BUN/Creat Ratio 23.6 RATIO (10-20); Calcium,Total 9.1 mg/dL (8.5-10.1); Chloride 117 mmol/L (98-107); Creatinine, Serum 0.55 mg/dL (0.55-1.02); EST Glomerular Filtration Rate 114 mL/min (>60); Est Glom Filt Rate - Afr Amer 137 mL/min (>60); Estimated Creatinine Clearance 41.33 ml/min; Glucose 92 mg/dL (74-106); Potassium 3.5 mmol/L (3.5-5.1); Sodium Level 146 mmol/L (136-145)
--- NOTE | 2022-10-21 07:25 | PCM.PN.HOSP ---
Reason for Visit Reason for Visit: Diagnoses Essential (primary) hypertension (10/21/22) Melena (10/21/22) Subjective Subjective Patient is a 77-year-old lady who presented with melenic stools. Admitted to regular nursing floor with consultation placed to GI Objective Data Objective Data Vital Signs: Vital Signs Temp Pulse Resp BP Pulse Ox O2 Del Method 98.2 F 63 16 156/72 H 98 Room Air 10/21/22 05:25 10/21/22 05:25 10/21/22 05:25 10/21/22 05:25 10/21/22 05:25 10/21/22 05:25 Oxygen Delivery Method Room Air Weight: 85 kg Body Mass Index (BMI) 32.1 Intake & Output: Intake and Output for Last 24 Hours 10/19/22 10/20/22 10/21/22 23:59 23:59 23:59 Intake Total 1110 / 1110 Balance 1110 / 1110 Lab / Micro Data Result Diagrams: 10/21/22 05:40 10/21/22 05:40 Labs: Laboratory Results - last 24 hr 10/20/22 20:45: WBC 4.7, RBC 4.47, Hgb 13.3, Hct 41.3, MCV 92.4, MCH 29.8, MCHC 32.2, RDW Std Deviation 44.4 H, RDW Coeff of Nafisa 13.2, Plt Count 171, MPV 11.5, Immature Gran % (Auto) 0.400, Neut % (Auto) 58.5, Lymph % (Auto) 27.4, [place] % (Auto) 9.6, Eos % (Auto) 3.2, Baso % (Auto) 0.9, Absolute Neuts (auto) 2.7, Absolute Lymphs (auto) 1.28, Nucleated RBC % 0 10/20/22 20:45: Sodium 144, Potassium 3.6, Chloride 113 H, Carbon Dioxide 22.0, Anion Gap 9, BUN 20 H, Creatinine 0.68, Estim Creat Clear Calc 41.33, Est GFR (MDRD) Af Amer 109, Est GFR (MDRD) Non-Af 90, BUN/Creatinine Ratio 29.5 H, Glucose 98, Calcium 9.9, Total Bilirubin 0.60, AST 15, ALT 16, Alkaline Phosphatase 88, Total Protein 7.1, Albumin 3.7, Globulin 3.4, Albumin/Globulin Ratio 1.1 10/20/22 21:40: Blood Type O POSITIVE, Antibody Screen NEGATIVE 10/21/22 05:40: WBC 4.1 L, RBC 4.37, Hgb 13.1, Hct 40.6, MCV 92.9, MCH 30.0, MCHC 32.3, RDW Std Deviation 44.2 H, RDW Coeff of Nafisa 12.9, Plt Count 146 L, MPV 11.4, Immature Gran % (Auto) 0.000, Neut % (Auto) 51.6, Lymph % (Auto) 32.8, [place] % (Auto) 10.5 H, Eos % (Auto) 3.9, Baso % (Auto) 1.2 H, Absolute Neuts (auto) 2.1, Absolute Lymphs (auto) 1.34, Nucleated RBC % 0 10/21/22 05:40: Sodium 146 H, Potassium 3.5, Chloride 117 H, Carbon Dioxide 22.0, Anion Gap 7, BUN 13, Creatinine 0.55, Estim Creat Clear Calc 41.33, Est GFR (MDRD) Af Amer 137, Est GFR (MDRD) Non-Af 114, BUN/Creatinine Ratio 23.6 H, Glucose 92, Calcium 9.1 Micro: Microbiology 10/20/22 22:40 Stool Stool Occult Blood (MICHAEL) - Final Occult Blood Positive Physical Exam Narrative GENERAL: cooperative HEENT: Atraumatic; normocephalic EYES; Anicteric, Normal Conjunctiva NECK; supple, normal thyroid, RESPIRATORY: Diminished to auscultation CARDIOVASCULAR: Regular S1 S2, GI: soft, normoactive bowel sounds, : No Renal angle tenderness; EXTREMITIES: No edema, no clubbing, MUSCULOSKELETAL: no muscle wasting NEURO: Awake; no lateralizing signs. SKIN: No Rash PSYCH; Flat affect Assessment & Plan Assessment/Plan (1) Melena: (2) HTN (hypertension): PLAN: Plan Patient is a 77-year-old lady who presented with melenic stools. Admitted to regular nursing floor with consultation placed to GI. 1. Upper GI bleed ? Patient is on apixaban aspirin as well as Plavix. All the above medications held admitted to regular nursing floor started on PPI ordered every 6 H&H patient was typed and screened and consultation placed to GI 2. History of left carotid endarterectomy ? Patient is on dual antiplatelet therapy which is currently being held 3. Coronary artery disease ? With previous multiple PCI's with FLAQUITO. Patient is on dual antiplatelet therapy which is currently being held given her presentation 4. Systemic use of anticoagulation with Eliquis ? 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 Hypertension - Blood pressure controlled, home medications continued with dose adjustment as needed 6. Dyslipidemia -Patient is on statin therapy, continued at home dose 7.. GERD ? Patient on a PPI 8. Psoriasis ? Patient was previously on Humira which was subsequently discontinued by her rice drier operator. Patient to follow-up with her rice drier operator for subsequent care following her discharge Time spent in the patient's overall evaluation,decision-making process, review of diagnostic data, adjustment of management, discussion with other providers, nursing nursing and ancillary staff involved in patient's care documentation,50 Minutes Charges/Coding Visit Charges Inpatient E&M: 87394 [facility] L3
[2022-10-21] MEDS: Lactated Ringers 1,000 ML 15 ML IV (14:52)
--- NOTE | 2022-10-21 15:28 | CASEMGMT ---
BUCK CM into pt room to complete SLATER form, pt is off of the floor at this time.
--- NOTE | 2022-10-21 15:32 | CASEMGMT ---
BUCK CM into pt room to review SLATER form, pt states she is going home after her test and will not need to sign this. Pt is agreeable to sign in the morning if she stays the night.
--- NOTE | 2022-10-21 15:47 | NURSING ---
pt off floor for procedure
--- NOTE | 2022-10-21 16:52 | OP.CCLET_ITS ---
10/21/2022 Ann-Marie Re : Upper GI endoscopy procedure for Cynthia Jacobsen This procedure was performed on Friday, October 21, 2022. My impressions and recommendations are as follows: Impressions : - Grade II esophageal varices. - Normal lower third of esophagus. - Medium-sized hiatal hernia. - Multiple gastric polyps. - Three bleeding angiodysplastic lesions in the duodenum. Treated with a heater probe. - No specimens collected. Recommendations : - Discharge patient to home. - Resume previous diet. - Continue present medications. - Protonix 40 mg p.o. twice daily - Follow-up in the clinic for capsule endoscopy - Outpatient work-up for upper esophageal varices status likely secondary to underlying lung disease My findings are described in the full procedure note, which is enclosed. If I can be of further assistance, please feel free to contact me at . Sincerely, Thad Baker, 10/21/2022 4:51:56 PM This report has been signed electronically.
--- NOTE | 2022-10-21 16:52 | OP.EGD_ITS ---
Patient Name: Cynthia Robertson Procedure Date: 10/21/2022 4:26 PM Date of : 1945 Age: 77 Procedure: Upper GI endoscopy Indications: Melena Providers: Thad Baker DO Medicines: Monitored Anesthesia Care Patient Profile: This is a 77 year old female. Refer to note in patient chart for documentation of history and physical. Patient has symptoms of acute right upper quadrant abdominal pain. Complications: No immediate complications. Procedure: Pre-Anesthesia Assessment: - Prior to the procedure, a History and Physical was performed, and patient medications and allergies were reviewed. The risks and benefits of the procedure and the sedation options and risks were discussed with the patient. All questions were answered and informed consent was obtained. Patient identification and proposed procedure were verified by the physician. Mental Status Examination: normal. Prophylactic Antibiotics: The patient does not require prophylactic antibiotics. Prior Anticoagulants: The patient has taken no previous anticoagulant or antiplatelet agents. ASA Grade Assessment: II - A patient with mild systemic disease. After reviewing the risks and benefits, the patient was deemed in satisfactory condition to undergo the procedure. The anesthesia plan was to use moderate sedation / analgesia (conscious sedation). Immediately prior to administration of medications, the patient was re-assessed for adequacy to receive sedatives. The heart rate, respiratory rate, oxygen saturations, blood pressure, adequacy of pulmonary ventilation, and response to care were monitored throughout the procedure. The physical status of the patient was re-assessed after the procedure. After obtaining informed consent, the endoscope was passed under direct vision. Throughout the procedure, the patient's blood pressure, pulse, and oxygen saturations were monitored continuously. The gastroscope was introduced through the mouth, and advanced to the second part of duodenum. Scope In: 4:35:56 PM Scope Out: 4:39:51 PM Total Procedure Duration Time 0 hours 3 minutes 55 seconds Findings: Grade II varices were found in the upper third of the esophagus. They were 5 mm in largest diameter. The lower third of the esophagus was normal. A medium-sized hiatal hernia was present. Multiple 5 mm sessile polyps with no bleeding and no stigmata of recent bleeding were found in the gastric body. Three 5 mm angiodysplastic lesions with bleeding were found in the second portion of the duodenum. Coagulation for hemostasis using heater probe was successful. Estimated blood loss was minimal. Impression: - Grade II esophageal varices. - Normal lower third of esophagus. - Medium-sized hiatal hernia. - Multiple gastric polyps. - Three bleeding angiodysplastic lesions in the duodenum. Treated with a heater probe. - No specimens collected. Recommendation: - Discharge patient to home. - Resume previous diet. - Continue present medications. - Protonix 40 mg p.o. twice daily - Follow-up in the clinic for capsule endoscopy - Outpatient work-up for upper esophageal varices status likely secondary to underlying lung disease Procedure Code(s): --- Professional --- 50009, Esophagogastroduodenoscopy, flexible, transoral; with control of bleeding, any method CPT copyright 2017 [employer]. All rights reserved. The codes documented in this report are preliminary and upon load dispatcher review may be revised to meet current compliance requirements. Thad Baker DO 10/21/2022 4:51:56 PM This report has been signed electronically. Number of Addenda: 0 Note Initiated On: 10/21/2022 4:26 PM
[2022-10-21] MEDS: Pantoprazole Sodium 40 MG Tablet PO (20:26)
[2022-10-21] MEDS: Atorvastatin Calcium 80 MG Tablet PO (20:26)
[2022-10-22 05:00] LABS: Absolute Lymphocyte Count 1.26 X10^3/uL (0.83-4.51); Absolute Neutrophil Count 1.9 X10^3/uL (2.0-7.7); Basophil# 0.05 X10^3/uL; Basophil% 1.4 % (0-1); Eosinophil# 0.11 X10^3/uL; Hematocrit 37.8 % (37-47); Hemoglobin 12.4 g/dL (12.0-15.0); Lymphocyte # 1.26 X10^3/ul (0.83-4.51); Lymphocyte % 34.5 % (19-41); Mean Corp Hgb Conc 32.8 g/dL (32-36); Mean Corpuscular Hgb 30.3 pg (27.0-32.0); Mean Corpuscular Volume 92.4 fL (81-99); Mean Platelet Vol. 11.2 fl (6.2-12.0); Monocyte# 0.33 X10^3/uL; NRBC Flagged by Analyzer 0 % (0-5); Neutrophil # 1.89 X10^3/uL (2.7-7.7); Neutrophil % 51.8 % (47-70); Platelet Count 147 K/mm3 (150-450); RBC Distribution Width CV 12.8 % (11.6-14.6); RBC Distribution Width SD 43.4 fl (35.1-43.9); Red Blood Count 4.09 M/mm3 (4.2-5.4); White Blood Count 3.7 K/mm3 (4.4-11.0)
[2022-10-22 05:30] LABS: Anion Gap 6 (5-15); BUN 12 mg/dL (7-18); BUN/Creat Ratio 24.6 RATIO (10-20); Chloride 114 mmol/L (98-107); Creatinine, Serum 0.49 mg/dL (0.55-1.02); EST Glomerular Filtration Rate 131 mL/min (>60); Est Glom Filt Rate - Afr Amer 158 mL/min (>60); Estimated Creatinine Clearance 41.33 ml/min; Glucose 93 mg/dL (74-106); Potassium 3.5 mmol/L (3.5-5.1); Sodium Level 143 mmol/L (136-145)
[2022-10-22 06:02] VITALS: BP 124/66; PULSE 61; RESP 16; TEMP 36.6; O2SAT 97
--- NOTE | 2022-10-22 08:58 | CASEMGMT ---
BUCK QIU in to discuss SLATER form with patient. BUCK QIU explained SLATER form, patient voiced understanding and asked her who is present in room to sign form. Pt signed form and filed in chart. Pt and provided with a copy of signed SLATER form. Patient had no further questions or concerns at this time.
[2022-10-22] MEDS: Carvedilol 6.25 MG Tablet PO (09:02)
[2022-10-22] MEDS: Pantoprazole Sodium 40 MG Tablet PO (09:02)
[2022-10-22] MEDS: amLODIPine 5 MG Tablet PO (09:02)
[2022-10-22 09:03] VITALS: BP 170/73; PULSE 59; RESP 18; TEMP 36.7; O2SAT 98
--- NOTE | 2022-10-22 10:30 | PN.HOSP_ITS ---
Reason for Visit Reason for Visit: Diagnoses Essential (primary) hypertension (10/21/22) Melena (10/21/22) Subjective Subjective Patient underwent EGD by Dr. Baker results are as below Objective Data Objective Data Vital Signs: Vital Signs Temp Pulse Resp BP Pulse Ox O2 Del Method O2 Flow Rate 98.0 F 59 L 18 170/73 H 98 Room Air 2 10/22/22 09:03 10/22/22 09:03 10/22/22 09:03 10/22/22 09:03 10/22/22 09:03 10/22/22 09:03 10/21/22 16:55 Oxygen Flow Rate (L/min) 2 Oxygen Delivery Method Room Air Weight: 85 kg Body Mass Index (BMI) 32.1 Intake & Output: Intake and Output for Last 24 Hours 10/20/22 10/21/22 10/22/22 23:59 23:59 23:59 Intake Total 2165.5 / 2165.5 Output Total 0 / 0 Balance 2165.5 / 2165.5 Lab / Micro Data Result Diagrams: 10/22/22 04:35 10/22/22 04:35 Labs: Laboratory Results - last 24 hr 10/22/22 04:35: WBC 3.7 L, RBC 4.09 L, Hgb 12.4, Hct 37.8, MCV 92.4, MCH 30.3, MCHC 32.8, RDW Std Deviation 43.4, RDW Coeff of Nafisa 12.8, Plt Count 147 L, MPV 11.2, Immature Gran % (Auto) 0.300, Neut % (Auto) 51.8, Lymph % (Auto) 34.5, [place] % (Auto) 9.0, Eos % (Auto) 3.0, Baso % (Auto) 1.4 H, Absolute Neuts (auto) 1.9 L, Absolute Lymphs (auto) 1.26, Nucleated RBC % 0 10/22/22 04:35: Sodium 143, Potassium 3.5, Chloride 114 H, Carbon Dioxide 23.0, Anion Gap 6, BUN 12, Creatinine 0.49 L, Estim Creat Clear Calc 41.33, Est GFR (MDRD) Af Amer 158, Est GFR (MDRD) Non-Af 131, BUN/Creatinine Ratio 24.6 H, Glucose 93, Calcium 9.0 Micro: Microbiology 10/20/22 22:40 Stool Stool Occult Blood (MICHAEL) - Final Occult Blood Positive Physical Exam Narrative GENERAL: cooperative HEENT: Atraumatic; normocephalic EYES; Anicteric, Normal Conjunctiva NECK; supple, normal thyroid, RESPIRATORY: Diminished to auscultation CARDIOVASCULAR: Regular S1 S2, GI: soft, normoactive bowel sounds, : No Renal angle tenderness; EXTREMITIES: No edema, no clubbing, MUSCULOSKELETAL: no muscle wasting NEURO: Awake; no lateralizing signs. SKIN: No Rash PSYCH; Flat affect Assessment & Plan Assessment/Plan (1) Melena: (2) HTN (hypertension): PLAN: Plan Patient is a 77-year-old lady who presented with melenic stools. Admitted to regular nursing floor with consultation placed to GI. 1. Upper GI bleed ? Patient is on apixaban aspirin as well as Plavix. All the above medications held admitted to regular nursing floor started on PPI ordered every 6 H&H patient was typed and screened and consultation placed to GI ? 10/22/2022 patient underwent EGD results are as below Impressions : - Grade II esophageal varices. - Normal lower third of esophagus. - Medium-sized hiatal hernia. - Multiple gastric polyps. - Three bleeding angiodysplastic lesions in the duodenum.? Treated with a heater?probe. - No specimens collected. Recommendations : - Discharge patient to home. - Resume previous diet. - Continue present medications. - Protonix 40 mg p.o. twice daily - Follow-up in the clinic for capsule endoscopy - Outpatient work-up for upper esophageal varices status likely secondary to?underlying lung disease 2. History of left carotid endarterectomy ? Patient is on dual antiplatelet therapy which is currently being held 3. Coronary artery disease ? With previous multiple PCI's with FLAQUITO. Patient is on dual antiplatelet therapy which is currently being held given her presentation 4. Systemic use of anticoagulation with Eliquis ? Patient not sure of the indication did request for old records from patient's mental health nurse practitioner in [place] 5.. Hypertension - Blood pressure controlled, home medications continued with dose adjustment as needed 6. Dyslipidemia -Patient is on statin therapy, continued at home dose 7.. GERD ? Patient on a PPI 8. Psoriasis ? Patient was previously on Humira which was subsequently discontinued by her cognos administrator. Patient to follow-up with her cognos administrator for subsequent care following her discharge Time spent in the patient's overall evaluation,decision-making process, review of diagnostic data, adjustment of management, discussion with other providers, nursing nursing and ancillary staff involved in patient's care documentation, 35 Minutes Charges/Coding Visit Charges Inpatient E&M: 35863 Subs Hosp L2
--- NOTE | 2022-10-22 10:31 | PCM.DC.SUM ---
Providers Date of Admission: 10/21/22 Date of Discharge: 10/22/22 Primary Care Physician: STEW QUINTANA Consultations 10/21/22 04:51 Consult: Gastroenterology Routine Consulting Provider: Thad Baker Reason for Consult: melena EMERGENT Consult: No MD Notified: Yes Date Notified: 10/21/22 Time Notified: 06:19 Method of Notification: Text Reason For Visit: MELENA Diagnosis Discharge Diagnosis (1) Melena: Status: Acute Code(s): K92.1 - Melena (2) HTN (hypertension): Status: Chronic Code(s): I10 - Essential (primary) hypertension Plan Patient is a 77-year-old lady who presented with melenic stools. Admitted to regular nursing floor with consultation placed to GI. 1. Upper GI bleed ? Patient is on apixaban aspirin as well as Plavix. All the above medications held admitted to regular nursing floor started on PPI ordered every 6 H&H patient was typed and screened and consultation placed to GI ? 10/22/2022 patient underwent EGD results are as below Impressions : - Grade II esophageal varices. - Normal lower third of esophagus. - Medium-sized hiatal hernia. - Multiple gastric polyps. - Three bleeding angiodysplastic lesions in the duodenum.? Treated with a heater?probe. - No specimens collected. Recommendations : - Discharge patient to home. - Resume previous diet. - Continue present medications. - Protonix 40 mg p.o. twice daily - Follow-up in the clinic for capsule endoscopy - Outpatient work-up for upper esophageal varices status likely secondary to?underlying lung disease 2. History of left carotid endarterectomy ? Patient is on dual antiplatelet therapy which is currently being held 3. Coronary artery disease ? With previous multiple PCI's with FLAQUITO. Patient is on dual antiplatelet therapy which is currently being held given her presentation 4. Systemic use of anticoagulation with Eliquis ? Patient not sure of the indication did request for old records from patient's telecommunications line installer in [place] 5.. Hypertension - Blood pressure controlled, home medications continued with dose adjustment as needed 6. Dyslipidemia -Patient is on statin therapy, continued at home dose 7.. GERD ? Patient on a PPI 8. Psoriasis ? Patient was previously on Humira which was subsequently discontinued by her sr solutions consultant. Patient to follow-up with her sr solutions consultant for subsequent care following her discharge Time spent in the patient's overall evaluation,decision-making process, review of diagnostic data, adjustment of management, discussion with other providers, nursing nursing and ancillary staff involved in patient's care documentation, 35 Minutes Medications at Discharge Home Medications atorvastatin 80 mg tablet (Lipitor) 80 mg PO DAILY Check with primary doctor 07/05/21 carvedilol 6.25 mg tablet (Coreg) 6.25 mg PO BID Check with primary doctor 07/05/21 omeprazole 20 mg capsule,delayed release 20 mg PO DAILY Check with primary doctor 07/05/21 amlodipine 5 mg tablet 5 mg PO DAILY Check with primary doctor 09/30/22 acetaminophen 500 mg capsule 1,000 mg PO Q6H PRN Pain 10/21/22 apixaban 5 mg tablet (Eliquis) 5 mg PO BID Check with primary doctor #1 TAB 10/22/22 clopidogrel 75 mg tablet (Plavix) 75 mg PO DAILY Check with primary doctor #1 TAB 10/22/22 pantoprazole 40 mg tablet,delayed release 40 mg PO BID #120 tabs 10/22/22 Hospital Course Summary of Care Provided Minutes Spent on Discharge: 35 Physical Exam Narrative GENERAL: cooperative HEENT: Atraumatic; normocephalic EYES; Anicteric, Normal Conjunctiva NECK; supple, normal thyroid, RESPIRATORY: Diminished to auscultation CARDIOVASCULAR: Regular S1 S2, GI: soft, normoactive bowel sounds, : No Renal angle tenderness; EXTREMITIES: No edema, no clubbing, MUSCULOSKELETAL: no muscle wasting NEURO: Awake; no lateralizing signs. SKIN: No Rash PSYCH; Flat affect Weight / BMI Weight Weight: 85 kg Body Mass Index (BMI) 32.1 ABG / Lab / Microbiology Data Result Diagrams: 10/22/22 04:35 10/22/22 04:35 Laboratory: Laboratory Results - last 24 hr 10/22/22 04:35: WBC 3.7 L, RBC 4.09 L, Hgb 12.4, Hct 37.8, MCV 92.4, MCH 30.3, MCHC 32.8, RDW Std Deviation 43.4, RDW Coeff of Nafisa 12.8, Plt Count 147 L, MPV 11.2, Immature Gran % (Auto) 0.300, Neut % (Auto) 51.8, Lymph % (Auto) 34.5, [place] % (Auto) 9.0, Eos % (Auto) 3.0, Baso % (Auto) 1.4 H, Absolute Neuts (auto) 1.9 L, Absolute Lymphs (auto) 1.26, Nucleated RBC % 0 10/22/22 04:35: Sodium 143, Potassium 3.5, Chloride 114 H, Carbon Dioxide 23.0, Anion Gap 6, BUN 12, Creatinine 0.49 L, Estim Creat Clear Calc 41.33, Est GFR (MDRD) Af Amer 158, Est GFR (MDRD) Non-Af 131, BUN/Creatinine Ratio 24.6 H, Glucose 93, Calcium 9.0 Microbiology: Microbiology 10/20/22 22:40 Stool Stool Occult Blood (MICHAEL) - Final Occult Blood Positive D/C Instructions Discharge Diet: No restrictions Discharge Activity: Return to Normal Activity Call your doctor if you observe: Fever of 101 or Higher, Shortness of breath, Fainting spells and Chest pain Meaningful Use Info Meaningful Use Diagnoses (Choose all that apply): None applicable Discharge Plan Admission Admit Date/Time: 10/21/22 01:48 Attending Provider: Stew Robison Primary Care Provider: STEW QUINTANA Consulting Providers: Thad Baker ; Collin Vázquez Discharge Orders/Prescriptions Prescriptions: New pantoprazole 40 mg Tablet,Delayed Release (Dr/Ec) 40 mg PO BID Qty: 120 0RF Continued atorvastatin [Lipitor] 80 mg Tablet 80 mg PO DAILY carvedilol [Coreg] 6.25 mg Tablet 6.25 mg PO BID amlodipine 5 mg tablet 5 mg PO DAILY acetaminophen 500 mg Capsule 1,000 mg PO Q6H PRN (Reason: Pain) clopidogrel [Plavix] 75 mg Tablet 75 mg PO DAILY Qty: 1 0RF Rx Instructions: Patient to hold Plavix for 5 days Eliquis 5 mg Tablet 5 mg PO BID Qty: 1 0RF Rx Instructions: Patient to hold Eliquis for 5 days and to follow-up with primary care physician/telecommunications line installer to determine ongoing indication No Action omeprazole [Prilosec] 20 mg Capsule,Delayed Release(Dr/Ec) 20 mg PO DAILY Referrals / Follow Up: STEW QUINTANA [Other] STEW QUINTANA [Other] - In 1 Week Disposition Disposition (needs filled in before D/C Order can be placed): Home, Self Care Charges/Coding Visit Charges Inpatient E&M: 16542 Disch Hosp >30min
== END 2022-10-22 11:20 | disposition home or self-care (01) ==
LOC: ED 10-21 00:08 → MS3 10-21 01:53
PROVIDERS: Internal Medicine Gastroenterology; Admitting Provider Hospitalist; Emergency Provider Student in an Organized Health Care Education/Training Program; Visit Provider Internal Medicine
PROC: 0DJ08ZZ Inspection of Upper Intestinal Tract, Via Natural or Artificial Opening Endoscopic (ICD-10-PCS; CPT 43235; principal; 2022-10-21 16:25)
DX: K31.811 Angiodysplasia of stomach and duodenum with bleeding (principal); I85.00 Esophageal varices without bleeding; I10 Essential (primary) hypertension; Z79.01 Long term (current) use of anticoagulants; Z79.02 Long term (current) use of antithrombotics/antiplatelets; K31.7 Polyp of stomach and duodenum; Z95.5 Presence of coronary angioplasty implant and graft; K44.9 Diaphragmatic hernia without obstruction or gangrene; R19.7 Diarrhea, unspecified; I25.10 Atherosclerotic heart disease of native coronary artery without angina pectoris; I95.1 Orthostatic hypotension; Z79.899 Other long term (current) drug therapy; R00.1 Bradycardia, unspecified; E78.5 Hyperlipidemia, unspecified; K21.9 Gastro-esophageal reflux disease without esophagitis; L40.9 Psoriasis, unspecified
CPT/HCPCS: 43255; 36415; 80048; 80053; 82274; 85025; 86850; 86900; 86901; 93005; 96361; 96365; 99221; 99284; J7030; J7120; A4216; G0378

== ENCOUNTER 2023-02-05 14:51 | Emergency (ER) | payer MEDICARE, SELFPAY ==
[2023-02-05 14:53] VITALS: BP 139/84; PULSE 79; RESP 18; TEMP 36.2; O2SAT 95
[2023-02-05 15:48] LABS: AST(SGOT) 19 U/L (15-37); Alanine Aminotransfer ALT/SGPT 20 U/L (13-56); Alkaline Phosphatase 100 U/L (45-117); Anion Gap 3 (5-15); BUN 19 mg/dL (7-18); BUN/Creat Ratio 21.3 RATIO (10-20); Calcium,Total 9.2 mg/dL (8.5-10.1); Chloride 115 mmol/L (98-107); Creatinine, Serum 0.89 mg/dL (0.55-1.02); EST Glomerular Filtration Rate 65 mL/min (>60); Est Glom Filt Rate - Afr Amer 79 mL/min (>60); Globulin 3.9 g/dL (2.2-4.2); Glucose 111 mg/dL (74-106); Protein, Total 7.9 g/dL (6.4-8.2); Sodium Level 140 mmol/L (136-145)
[2023-02-05 16:02] LABS: Lipase 46 U/L (13-75)
[2023-02-05 16:20] LABS: Absolute Lymphocyte Count 1.78 X10^3/uL (0.83-4.51); Basophil# 0.06 X10^3/uL; Basophil% 1.1 % (0-1); Eosinophil# 0.15 X10^3/uL; Eosinophils% 2.8 % (0-5); Hematocrit 47.9 % (37-47); Hemoglobin 14.6 g/dL (12.0-15.0); Lymphocyte # 1.78 X10^3/ul (0.83-4.51); Lymphocyte % 33.3 % (19-41); Mean Corp Hgb Conc 30.5 g/dL (32-36); Mean Corpuscular Hgb 28.5 pg (27.0-32.0); Mean Corpuscular Volume 93.4 fL (81-99); Mean Platelet Vol. 11.9 fl (6.2-12.0); Monocyte# 0.38 X10^3/uL; Monocyte% 7.1 % (0-10); NRBC Flagged by Analyzer 0 % (0-5); Neutrophil # 2.96 X10^3/uL (2.7-7.7); Neutrophil % 55.3 % (47-70); Platelet Count 209 K/mm3 (150-450); RBC Distribution Width CV 13.6 % (11.6-14.6); RBC Distribution Width SD 46.6 fl (35.1-43.9); Red Blood Count 5.13 M/mm3 (4.2-5.4); White Blood Count 5.4 K/mm3 (4.4-11.0)
--- NOTE | 2023-02-05 16:49 | CT_ITS ---
INDICATION: abdominal pain EXAMINATION: CT ABDOMEN AND PELVIS WITH CONTRAST - CT Abdomen And Pelvis W/ Contrast Injection TECHNIQUE: Helically acquired images were obtained of the abdomen and pelvis following IV contrast. A radiation dose optimization technique was used for this scan. IV Contrast dosage and agent: 100 cc [id number] Oral contrast: None. COMPARISON: 09/30/2022 FINDINGS: LOWER CHEST: Lung bases are clear. No cardiomegaly or pericardial effusion. LIVER: Homogeneous. No focal mass. GALLBLADDER AND BILIARY TREE: No calcified gallstones. No gallbladder distension or wall edema. No intra- or extrahepatic biliary ductal dilation. PANCREAS: No focal cystic or solid mass. SPLEEN: Normal size without focal cystic or solid mass. ADRENAL GLANDS: No nodules. KIDNEYS AND URETERS: Normal renal size and position. No hydronephrosis. PERITONEUM: No ascites or free air. BOWEL: No evidence of acute appendicitis. No stomach or bowel distension. No focal inflammatory change. LYMPH NODES: No enlarged mesenteric or retroperitoneal lymph nodes. VESSELS: Aorta is non-dilated. URINARY BLADDER: Nondistended. REPRODUCTIVE ORGANS: Uterus absent. ABDOMINAL WALL: Small fat-containing umbilical hernia. BONES: No acute or aggressive abnormality. CT/Abdomen/Pelvis W IV Cont ONLY IMPRESSION: No acute findings in the abdomen or pelvis. Electronically Signed: Nicholas Hernandez MD at 17:38 EDT ,
[2023-02-05 16:59] LABS: Mucous, Urine 0 SEEN /hpf (<or=2+)
[2023-02-05 17:03] LABS: Color, Urine Yellow (Yellow); Glucose, Dipstick Normal (Normal); Ketone-Dipstick 5 mg/dl (Negative); Leukocyte Esterase-Dipstick 500 /ul (Negative); Nitrite-Dipstick Positive (Negative); Occult Blood-Urine 50 /ul (Negative); Protein-Dipstick 30 mg/dl (Negative); Specific Gravity, Urine 1.025 (1.002-1.030); Urine Bilirubin Dipstick Negative (Negative); Urine Clarity Sl. Cloudy (Clear); Urine Urobilinogen Normal (Normal)
[2023-02-05] MEDS: Ondansetron 4 MG/2 ML Vial IV (17:19)
[2023-02-05] MEDS: 0.9% Normal Saline (1000mL) 1,000 ML 999 ML IV (17:19)
[2023-02-05 17:22] LABS: Bacteria 2+ /hpf (None Seen); Squamous Epithelial Cells - UA 10-25 SEEN /hpf (5-10); White Blood Cells >100 SEEN /hpf (0-5)
[2023-02-05 17:24] LABS: Red Blood Cells-Urine 0-5 SEEN /hpf (0-5)
--- NOTE | 2023-02-05 17:24 | ED.VIS.GI ---
HPI HPI - GI History of Present Illness Chief Complaint: Abd Pain Narrative Narrative: 77-year-old female presenting with diarrhea. She has history of diverticulitis but she states this time this is not painful. Stool is brown and not black. But is loose. No fevers or chills. Nausea without vomiting. Patient states she feels weak generally. She was able to ambulate into the ER. Patient on Eliquis and concern for GI bleed. She has a history of upper GI bleed and was scoped by Dr. Baker and had some ulcers cauterized per the patient. [facility] Medical History Coronary artery disease Myocardial infarction Stroke/cerebrovascular accident Home Medications atorvastatin 80 mg tablet (Lipitor) 80 mg PO DAILY Check with primary doctor 07/05/21 [History Last Taken 10/20/22 08:00] carvedilol 6.25 mg tablet (Coreg) 6.25 mg PO BID Check with primary doctor 07/05/21 [History Last Taken 10/20/22 08:00] omeprazole 20 mg capsule,delayed release 20 mg PO DAILY Check with primary doctor 07/05/21 [History Last Taken 10/20/22 08:00] amlodipine 5 mg tablet 5 mg PO DAILY Check with primary doctor 09/30/22 [History Last Taken 10/20/22 08:00] acetaminophen 500 mg capsule 1,000 mg PO Q6H PRN Pain 10/21/22 [History Last Taken Unknown] apixaban 5 mg tablet (Eliquis) 5 mg PO BID Check with primary doctor #1 TAB 10/22/22 [Rx Last Taken 10/20/22 08:00] clopidogrel 75 mg tablet (Plavix) 75 mg PO DAILY Check with primary doctor #1 TAB 10/22/22 [Rx Last Taken 10/20/22 08:00] pantoprazole 40 mg tablet,delayed release 40 mg PO BID #120 tabs 10/22/22 [Rx Last Taken Unknown] cephalexin 500 mg capsule 500 mg PO Q12 #14 CAPSULES 02/05/23 [Rx Last Taken Unknown] Allergy/AdvReac Type Severity Reaction Status Date / Time No Known Allergies Allergy Verified 02/05/23 14:52 Social History Smoking Status: Never smoker ROS ROS ED Constitutional Constitutional ED: Denies chills, fever(s) or sweats Eyes Eyes: Denies blurry vision or change in vision ENT ENT ED: Denies ear pain or sore throat Cardiovascular Cardiovascular: Denies chest pain, palpitations or racing heartbeat Respiratory/Chest Respiratory/Chest: Denies cough, dyspnea or sputum Gastrointestinal Gastrointestinal: Reports diarrhea and nausea; Denies abdominal pain, constipation or vomiting Genitourinary Genitourinary ED: Denies dysuria, hematuria or urinary frequency Musculoskeletal Musculoskeletal: Denies arthralgias, myalgias or neck pain Integumentary Denies abscess, Abrasions or rash Neurologic Neurologic: Denies headache(s), paresthesias or weakness Psychiatric Psychiatric: Denies anxiety, depression, suicidal ideation or suicidal thoughts Endocrine Endocrinology: Denies polydipsia or polyuria EXAM Physical Exam Const Vital Signs: 02/05/23 14:53 Temperature 97.2 F L Temperature Source Temporal Pulse Rate 79 Respiratory Rate 18 Blood Pressure 139/84 H Blood Pressure Mean 102 Pulse Ox 95 Oxygen Delivery Method Room Air Positive well nourished General Appearance ED: NAD; Negative for pallor HEENT Reports moist mucous membranes normocephalic and atraumatic Eyes General Eye ED: Negative for pale conjunctiva or scleral icterus Neck no lymphadenopathy Resp normal respiratory effort and clear to auscultation bilaterally Auscultation: Negative for rales, rhonchi or wheezes Cardio regular rate and regular rhythm GI non-tender and non-distended Back/Spine no CVA tenderness Neuro CN's II-XII intact bilaterally Sensorium / Orientation: alert Motor Exam: strength 5/5 throughout Psych mental status grossly normal Skin no wounds General Skin Exam: Negative for jaundice or pallor MDM MDM MDM Narrative Medical decision making narrative: Diarrhea. Differential includes viral source, colitis, diverticulitis, lower GI bleed, upper GI bleed, electrolyte normalities, dehydration, gastritis, pancreatitis. CBC was obtained to assess white blood cell count, hemoglobin, platelets. CMP to assess liver function, renal function, electrolytes. Lipase to assess for pancreatitis. This is to assess for UTI. Order stool studies. I will obtain a CT pelvis to rule out diverticulitis. He shows no leukocytosis. Hemoglobin and hematocrit are stable. Platelets are normal. Renal function electrolytes within normal limits. Normal. Lipase is normal. This is positive nitrites, 500 leukocyte esterase, 2+ bacteria with white blood cells. There is some contamination of 10-25 epithelial cells. CBC and CMP unremarkable. Abdomen pelvis negative. No evidence of anemia. There is evidence of UTI and since the patient is feeling unwell started on Keflex. First dose given in the ED. Impression: 1. Weakness 2. UTI 3. Diarrhea Lab Data Attestation: I reviewed the patient's lab results. Labs: Laboratory Results - last 24 hr 02/05/23 02/05/23 02/05/23 15:00 16:00 16:56 WBC 5.4 RBC 5.13 Hgb 14.6 Hct 47.9 H MCV 93.4 MCH 28.5 MCHC 30.5 L RDW Std Deviation 46.6 H RDW Coeff of Nafisa 13.6 Plt Count 209 MPV 11.9 Immature Gran % (Auto) 0.400 Neut % (Auto) 55.3 Lymph % (Auto) 33.3 [place] % (Auto) 7.1 Eos % (Auto) 2.8 Baso % (Auto) 1.1 H Absolute Neuts (auto) 3.0 Absolute Lymphs (auto) 1.78 Nucleated RBC % 0 Sodium 140 Potassium 4.0 Chloride 115 H Carbon Dioxide 22.0 Anion Gap 3 L BUN 19 H Creatinine 0.89 Est GFR (MDRD) Af Amer 79 Est GFR (MDRD) Non-Af 65 BUN/Creatinine Ratio 21.3 H Glucose 111 H Calcium 9.2 Total Bilirubin 0.70 AST 19 ALT 20 Alkaline Phosphatase 100 Total Protein 7.9 Albumin 4.0 Globulin 3.9 Albumin/Globulin Ratio 1.0 Lipase 46 Urine Color Yellow Urine Clarity Sl. Cloudy Urine pH 6.0 Ur Specific [place] 1.025 Urine Protein 30 H Urine Glucose (UA) Normal Urine Ketones 5 H Urine Occult Blood 50 H Urine Nitrite Positive H Urine Bilirubin Negative Urine Urobilinogen Normal Ur Leukocyte Esterase 500 H Urine RBC 0-5 SEEN Urine WBC >100 SEEN Ur Squamous Epith Cells 10-25 SEEN Urine Bacteria 2+ Urine Mucus 0 SEEN Blood Type O POSITIVE Antibody Screen NEGATIVE Radiography Diagnostic Testing: Clinical Impression(s) from Imaging Studies Abdomen/Pelvis CT 02/05/23 16:49 IMPRESSION: No acute findings in the abdomen or pelvis. Electronically Signed: Nicholas Hernandez MD at 17:38 EDT , Discharge Plan Triage Chief Complaint: Abd Pain ED Provider: Willam Ball Dx/Rx/DC Orders Instructions: ED Diarrhea, Unknown Cause, ED Cystitis Female Adult Prescriptions: New cephalexin 500 mg capsule 500 mg PO Q12 Qty: 14 0RF No Action atorvastatin [Lipitor] 80 mg Tablet 80 mg PO DAILY carvedilol [Coreg] 6.25 mg Tablet 6.25 mg PO BID omeprazole [Prilosec] 20 mg Capsule,Delayed Release(Dr/Ec) 20 mg PO DAILY amlodipine 5 mg tablet 5 mg PO DAILY acetaminophen 500 mg Capsule 1,000 mg PO Q6H PRN (Reason: Pain) pantoprazole 40 mg Tablet,Delayed Release (Dr/Ec) 40 mg PO BID Qty: 120 0RF clopidogrel [Plavix] 75 mg Tablet 75 mg PO DAILY Qty: 1 0RF Rx Instructions: Patient to hold Plavix for 5 days Eliquis 5 mg Tablet 5 mg PO BID Qty: 1 0RF Rx Instructions: Patient to hold Eliquis for 5 days and to follow-up with primary care physician/other sports coach or instructor to determine ongoing indication Primary Care Provider: Bharat Reid,Out of Referrals: Bharat Reid,Out of [Primary Care Provider] - Disposition Disposition: Home, Self Care Discharge Date/Time: 02/05/23 19:04
[2023-02-05] MEDS: Cephalexin 250 MG Capsule 500 MG PO (19:01)
== END 2023-02-05 19:04 | disposition home or self-care (01) ==
PROVIDERS: Emergency Provider Student in an Organized Health Care Education/Training Program; Visit Provider Student in an Organized Health Care Education/Training Program
DX: N39.0 Urinary tract infection, site not specified (principal); R53.1 Weakness; I25.10 Atherosclerotic heart disease of native coronary artery without angina pectoris; R19.7 Diarrhea, unspecified; Z79.01 Long term (current) use of anticoagulants; Z79.899 Other long term (current) drug therapy; I25.2 Old myocardial infarction; Z87.19 Personal history of other diseases of the digestive system; Z86.73 Personal history of transient ischemic attack (TIA), and cerebral infarction without residual deficits
CPT/HCPCS: 74177; 80053; 81001; 83690; 85025; 86850; 86900; 86901; 96361; 96374; 99284; J7030; Q9967; A4216; J2405

== ENCOUNTER 2023-02-17 18:11 | Observation (INO) | payer MEDICARE, SELFPAY ==
[2023-02-17] VITALS (8 sets, daily range): BP systolic 111–168; BP diastolic 68–86; PULSE 55–67; RESP 14–16; TEMP 36.1–36.4; O2SAT 95–100; BMI 31.6; BMI 30.9
--- NOTE | 2023-02-17 18:44 | RAD_ITS ---
STUDY: X-RAY CHEST REASON FOR EXAM: Female, 77 years old. chest pain TECHNIQUE: Single AP portable view of the chest. COMPARISON: None. FINDINGS: Trace right basilar atelectasis. Otherwise the lungs are clear and expanded. There is no demonstrated pleural abnormality. Normal size heart. Normal mediastinum and edbbie. Normal visualized pulmonary arteries. There is atherosclerotic calcification of the aortic arch with tortuosity. There are diffuse degenerative changes of the visualized thoracic spine. There is degenerative osteoarthritis of the bilateral shoulders. There is no demonstrated abnormality of the visualized soft tissue structures of the upper abdomen. RAD/Chest 1 View (Portable) IMPRESSION: Minimal right basilar atelectasis. Otherwise no acute cardiopulmonary disease. Electronically Signed: Suyapa Ocampo MD at 19:13 EDT ,
--- NOTE | 2023-02-17 19:15 | EDS_ITS ---
HPI History of Present Illness Chief Complaint: Chest Pain Informant: patient and spouse/S.O. Narrative Narrative: Chest pain. Patient states that for 2 weeks she has been having episodes of chest pain. She has had at least 3 significant ones of these. They usually go away with 1 and occasionally 2 nitroglycerin. She describes them as pain in the left chest. She gets short of breath with them. She has gotten sweaty. She states she is nauseated all the time so she cannot tell if she gets more nauseated with these. She has a history of heart disease. She has had about 5 or 6 stents. Her last stent and heart cath was in 2017. She talk to her doctor about these episodes so she was actually set up to have a heart catheterization in [place] this . She is establishing locally with a chart clerk, Dr. Luna, not yet seen him. At this time the patient is not having pain. [facility] Medical History Arthritis Coronary artery disease GI bleed Ischemic cardiomyopathy Morbid obesity Myocardial infarction Patent foramen ovale Psoriasis Sleep apnea Stroke/cerebrovascular accident Home Medications atorvastatin 80 mg tablet (Lipitor) 80 mg PO DAILY Check with primary doctor 07/05/21 [History Last Taken 10/20/22 08:00] carvedilol 6.25 mg tablet (Coreg) 6.25 mg PO BID Check with primary doctor 07/05/21 [History Last Taken 10/20/22 08:00] amlodipine 5 mg tablet 5 mg PO DAILY Check with primary doctor 09/30/22 [History Last Taken 10/20/22 08:00] apixaban 5 mg tablet (Eliquis) 5 mg PO BID Check with primary doctor #1 TAB 10/22/22 [Rx Last Taken 10/20/22 08:00] clopidogrel 75 mg tablet (Plavix) 75 mg PO DAILY Check with primary doctor #1 TAB 10/22/22 [Rx Last Taken 10/20/22 08:00] pantoprazole 40 mg tablet,delayed release 40 mg PO BID #120 tabs 10/22/22 [Rx Last Taken Unknown] cephalexin 500 mg capsule 500 mg PO Q12 #14 CAPSULES 02/05/23 [Rx Last Taken Unknown] acetaminophen 500 mg capsule 500 mg PO Q6H PRN Pain 02/16/23 [History Last Taken Unknown] clobetasol 0.05 % scalp solution topical 02/16/23 [History Last Taken Unknown] escitalopram oxalate 10 mg tablet 10 mg PO DAILY 02/16/23 [History Last Taken Unknown] escitalopram oxalate 10 mg tablet mg PO 02/16/23 [History Last Taken Unknown] isosorbide mononitrate 30 mg tablet,extended release 24 hr 30 mg PO DAILY 02/16/23 [History Last Taken Unknown] nitroglycerin 0.4 mg sublingual tablet 0.4 mg sublingual Q5M PRN chest pain 02/16/23 [History Last Taken Unknown] omeprazole 10 mg capsule,delayed release 20 mg PO DAILY 02/16/23 [History Last Taken Unknown] Allergy/AdvReac Type Severity Reaction Status Date / Time lisinopril Allergy unknown Verified 02/17/23 18:12 pravastatin Allergy unknown Verified 02/17/23 18:12 promethazine Allergy unknown Verified 02/17/23 18:12 rosuvastatin Allergy unknown Verified 02/17/23 18:12 ticagrelor Allergy unknown Verified 02/17/23 18:12 amoxicillin Allergy unknown Uncoded 02/16/23 13:07 Family History Father Heart disease Cataracts, bilateral Mother Cataracts, bilateral Surgical History History of bilateral cataract extraction History of carotid endarterectomy History of colonoscopy History of coronary angioplasty with insertion of stent History of hysterectomy History of left heart catheterization (LHC) by cutdown History of surgery on left wrist History of tonsillectomy Social History Smoking Status: Never smoker alcohol intake: current substance use type: does not use caffeine: No ROS ROS ED ROS Narrative A complete review of systems was performed and is negative except as documented in the history of present illness. Some specific details below. Constitutional: No recent fevers or chills. Have some overall tiredness this is worse than normal. EYE: No discharge, visual complaints, or pain. ENT: No difficulty swallowing. No swelling. No pain. No reflux symptoms. CV: See history of present illness. Respiratory: See history of present illness. Short of breath now. GI: No abdominal pain. She has chronic nausea but no vomiting. : No frequency dysuria or hematuria. Musculoskeletal: No recent trauma. No pains. No swelling. Skin: No rash. Nondiaphoretic. Neuro: No weakness or numbness. Endocrine: No polyuria or polydipsia. EXAM Physical Exam Narrative Exam Narrative: CONSTITUTIONAL: Patient is nontoxic in appearance. The patient looks comfortable. Work of breathing looks normal. HEENT: No notable trauma. No indication of pain with swallowing. EYES: No conjunctival injection. No proptosis. NECK:No JVD. No stridor. CARDIOVASCULAR: Regular rate. Regular rhythm. No notable murmur. No JVD. RESPIRATORY: No respiratory distress. Breathing is unlabored. No wheezes. No rhonchi. No rales. No pain with a deep breath. No chest wall tenderness. GASTROINTESTINAL: Not distended. Bowel sounds are normal. No tenderness. GENITOURINARY: No tenderness over the bladder. No CVA tenderness. MUSCULOSKELETAL: Atraumatic. No peripheral edema. NEUROLOGICAL: Patient is alert and appropriate. No focal deficit noted. SKIN: No noted rashes. No diaphoresis. PSYCHIATRIC: Patient is calm. Mood is appropriate. Const Vital Signs: 02/17/23 18:13 02/17/23 18:16 02/17/23 18:46 Temperature 97.6 F L Temperature Source Temporal Pulse Rate 59 L Respiratory Rate 14 Respiratory Effort Normal Non-Labored Blood Pressure 168/84 H Blood Pressure Mean 112 Pulse Ox 99 95 Oxygen Delivery Method Room Air Room Air 02/17/23 19:11 02/17/23 20:11 02/17/23 21:11 Temperature Temperature Source Pulse Rate 67 65 67 Respiratory Rate 15 16 16 Respiratory Effort Blood Pressure 111/68 Blood Pressure Mean 82 Pulse Ox 100 97 98 Oxygen Delivery Method Room Air Room Air Room Air 02/17/23 22:00 02/17/23 22:28 Temperature 97.6 F L Temperature Source Temporal Pulse Rate 64 62 Respiratory Rate 16 16 Respiratory Effort Blood Pressure 115/70 115/70 Blood Pressure Mean 85 85 Pulse Ox 97 98 Oxygen Delivery Method Room Air Room Air Heart Score History: Moderately Suspicious ECG: Nonspecific Repolarization Age: >/= 65 years Risk Factors: >/= 3 Risk Factors or History of CAD Troponin: </= Normal Limit Score: 6 MDM MDM MDM Narrative Medical decision making narrative: Interpretation the patient's single AP view chest x-ray shows some localized eventration of the right hemidiaphragm but no other acute process. Final reading does mention minimal right basilar atelectasis. Patient CBC shows mildly low white count. Platelets hemoglobin normal. Patient's electrolytes are normal. Patient's troponin is negative. Discussed the case with Dr. Molina. He recommended admission. I talk with the patient. She is set to have a heart catheterization next week up in [place]. But she is trying to establish care here and would prefer to stay here. I then did discuss case with the hospitalist. Patient will be admitted here. She has a high heart score and she is not appropriate for discharge. Lab Data Attestation: I reviewed the patient's lab results. Labs: Laboratory Results - last 24 hr 02/17/23 02/17/23 18:35 20:57 WBC 3.9 L RBC 4.52 Hgb 13.1 Hct 41.1 MCV 90.9 MCH 29.0 MCHC 31.9 L RDW Std Deviation 45.8 H RDW Coeff of Nafisa 13.6 Plt Count 157 MPV 12.6 H Immature Gran % (Auto) 0.300 Neut % (Auto) 55.5 Lymph % (Auto) 32.4 [place] % (Auto) 7.4 Eos % (Auto) 3.1 Baso % (Auto) 1.3 H Absolute Neuts (auto) 2.2 Absolute Lymphs (auto) 1.27 Nucleated RBC % 0 Sodium 142 Potassium 3.8 Chloride 113 H Carbon Dioxide 24.0 Anion Gap 5 BUN 17 Creatinine 0.76 Estim Creat Clear Calc 41.33 Est GFR (MDRD) Af Amer 95 Est GFR (MDRD) Non-Af 78 BUN/Creatinine Ratio 22.3 H Glucose 137 H Calcium 8.8 Troponin I High Sens 5 5 Radiography Diagnostic Testing: Clinical Impression(s) from Imaging Studies Chest X-Ray 02/17/23 18:44 IMPRESSION: Minimal right basilar atelectasis. Otherwise no acute cardiopulmonary disease. Electronically Signed: Suyapa Ocampo MD at 19:13 EDT , EKG Initial EKG: Comments: My independent interpretation the patient's EKG shows a normal sinus rhythm with overall rate of 60. Nonspecific ST and T wave change but no sign of ST elevation or depression. VA interval, QRS duration and QTc are normal. Discharge Plan Dx/Rx/DC Orders Clinical Impression: Medication induced coagulopathy, History of CAD (coronary artery disease), Chest pain Disposition Disposition: Acute Care Hospital [facility]
[2023-02-17 19:17] LABS: Absolute Lymphocyte Count 1.27 X10^3/uL (0.83-4.51); Absolute Neutrophil Count 2.2 X10^3/uL (2.0-7.7); Basophil# 0.05 X10^3/uL; Basophil% 1.3 % (0-1); Eosinophil# 0.12 X10^3/uL; Eosinophils% 3.1 % (0-5); Hematocrit 41.1 % (37-47); Hemoglobin 13.1 g/dL (12.0-15.0); Lymphocyte # 1.27 X10^3/ul (0.83-4.51); Lymphocyte % 32.4 % (19-41); Mean Corp Hgb Conc 31.9 g/dL (32-36); Mean Corpuscular Volume 90.9 fL (81-99); Mean Platelet Vol. 12.6 fl (6.2-12.0); Monocyte# 0.29 X10^3/uL; Monocyte% 7.4 % (0-10); NRBC Flagged by Analyzer 0 % (0-5); Neutrophil # 2.18 X10^3/uL (2.7-7.7); Neutrophil % 55.5 % (47-70); Platelet Count 157 K/mm3 (150-450); RBC Distribution Width CV 13.6 % (11.6-14.6); RBC Distribution Width SD 45.8 fl (35.1-43.9); Red Blood Count 4.52 M/mm3 (4.2-5.4); White Blood Count 3.9 K/mm3 (4.4-11.0)
[2023-02-17 19:32] LABS: Anion Gap 5 (5-15); BUN 17 mg/dL (7-18); BUN/Creat Ratio 22.3 RATIO (10-20); Calcium,Total 8.8 mg/dL (8.5-10.1); Chloride 113 mmol/L (98-107); Creatinine, Serum 0.76 mg/dL (0.55-1.02); EST Glomerular Filtration Rate 78 mL/min (>60); Est Glom Filt Rate - Afr Amer 95 mL/min (>60); Estimated Creatinine Clearance 41.33 ml/min; Glucose 137 mg/dL (74-106); Potassium 3.8 mmol/L (3.5-5.1); Sodium Level 142 mmol/L (136-145); Troponin-I HS (w/2H Reflex) 5 pg/mL (3.0-54.0)
[2023-02-17 20:51] LABS: Reflex Troponin-HS? (from REC) Y
[2023-02-17 21:25] LABS: Troponin-I HS 5 pg/mL (3.0-54.0)
--- NOTE | 2023-02-17 22:04 | PCM.HP.STD ---
HPI - General General Date of Admission: 02/17/23 Date of Service: 02/17/23 Chief Complaint: Chest pain HPI Narrative VINITA PHILLIPS, is a 77 F patient is a 77-year-old female with a significant history of ischemic cardiomyopathy; patent sin ovale; and CAD status post 6 stents in 2017 who presents emergency department with chest pain. Chronically patient is on Plavix and Eliquis. Reportedly 2 weeks ago patient had an episode of chest pain. She took nitroglycerin and it went away. And on the day of presentation he had 2 episode of chest pain which was about 45 minutes to 1 hour apart. The first chest pain started after she had pulled some weeds while while sitting. She laid down and the chest pain went away. She had a second chest pain that went away after taking nitroglycerin. Her chest pain is located at the left side of her chest. The chest pain radiates to the right side of the chest. She described the chest pain as a burning sensation like fire. She reports shortness of breath and little diaphoresis with the chest pain. She has chronic nausea that she attributes to dyspepsia and that has not changed. Of note patient was scheduled to have a heart cath at [facility] with the same cardiology who stented him in 2017. However he also wanted to move his care locally so he was trying to see Dr. Luna, career technology teacher at [facility]. On presentation patient requested that she stays at the hospital. ED doctor discussed the case with Dr. Molina cardiology who said it was okay for patient to stay at our hospital ([facility]) COUNT INCLUDES THE [facility] Medical History Arthritis Coronary artery disease GI bleed Ischemic cardiomyopathy Morbid obesity Myocardial infarction Patent foramen ovale Psoriasis Sleep apnea Stroke/cerebrovascular accident Home Medications atorvastatin 80 mg tablet (Lipitor) 80 mg PO DAILY Check with primary doctor 07/05/21 [History Last Taken 10/20/22 08:00] carvedilol 6.25 mg tablet (Coreg) 6.25 mg PO BID Check with primary doctor 07/05/21 [History Last Taken 10/20/22 08:00] amlodipine 5 mg tablet 5 mg PO DAILY Check with primary doctor 09/30/22 [History Last Taken 10/20/22 08:00] apixaban 5 mg tablet (Eliquis) 5 mg PO BID Check with primary doctor #1 TAB 10/22/22 [Rx Last Taken 10/20/22 08:00] clopidogrel 75 mg tablet (Plavix) 75 mg PO DAILY Check with primary doctor #1 TAB 10/22/22 [Rx Last Taken 10/20/22 08:00] pantoprazole 40 mg tablet,delayed release 40 mg PO BID #120 tabs 10/22/22 [Rx Last Taken Unknown] acetaminophen 500 mg capsule 500 mg PO Q6H PRN Pain 02/16/23 [History Last Taken Unknown] clobetasol 0.05 % scalp solution topical 02/16/23 [History Last Taken Unknown] escitalopram oxalate 10 mg tablet 10 mg PO DAILY 02/16/23 [History Last Taken Unknown] escitalopram oxalate 10 mg tablet mg PO 02/16/23 [History Last Taken Unknown] isosorbide mononitrate 30 mg tablet,extended release 24 hr 30 mg PO DAILY 02/16/23 [History Last Taken Unknown] nitroglycerin 0.4 mg sublingual tablet 0.4 mg sublingual Q5M PRN chest pain 02/16/23 [History Last Taken Unknown] omeprazole 10 mg capsule,delayed release 20 mg PO DAILY 02/16/23 [History Last Taken Unknown] Allergy/AdvReac Type Severity Reaction Status Date / Time lisinopril Allergy unknown Verified 02/17/23 18:12 pravastatin Allergy unknown Verified 02/17/23 18:12 promethazine Allergy unknown Verified 02/17/23 18:12 rosuvastatin Allergy unknown Verified 02/17/23 18:12 ticagrelor Allergy unknown Verified 02/17/23 18:12 amoxicillin Allergy unknown Uncoded 02/16/23 13:07 Family History Father Heart disease Cataracts, bilateral Mother Cataracts, bilateral Surgical History History of bilateral cataract extraction History of carotid endarterectomy History of colonoscopy History of coronary angioplasty with insertion of stent History of hysterectomy History of left heart catheterization (LHC) by cutdown History of surgery on left wrist History of tonsillectomy Social History Smoking Status: Never smoker alcohol intake: current substance use type: does not use caffeine: No ROS ROS Narrative Pertinent positives and pertinent negatives as noted in HPI. All other systems were reviewed and are negative Vital Signs Vital Signs Vital Signs: 02/17/23 18:13 02/17/23 18:16 02/17/23 18:46 Temperature 97.6 F L Temperature Source Temporal Pulse Rate 59 L Respiratory Rate 14 Respiratory Effort Normal Non-Labored Blood Pressure 168/84 H Blood Pressure Mean 112 Pulse Ox 99 95 Oxygen Delivery Method Room Air Room Air 02/17/23 19:11 02/17/23 20:11 02/17/23 21:11 Temperature Temperature Source Pulse Rate 67 65 67 Respiratory Rate 15 16 16 Respiratory Effort Blood Pressure 111/68 Blood Pressure Mean 82 Pulse Ox 100 97 98 Oxygen Delivery Method Room Air Room Air Room Air Weight Weight: 83.5 kg Body Mass Index (BMI) 31.6 Physical Exam Narrative Physical exam: General: Well-nourished, well-developed. Head: Normocephalic, atraumatic, no tenderness Eyes: Vision is grossly intact. EOMI ENT, no trauma, moist mucous membranes, no rhinorrhea Neck: Nontender, No thyromegaly. CVS: Regular rate and rhythm. S1-S2 present. No murmur, gallop or rub. Respiratory : clear to auscultation bilaterally, chest wall nontender Abdomen: Soft, nontender, nondistended, normal bowel sounds, no masses : Deferred Back: Nontender, no CVA tenderness. Extremities: Nontender full range of motion, no trauma Skin: Normal color, no trauma, abrasions Neuro: Alert, oriented, cranial nerves II through XII grossly intact. Psychiatry: Normal mood. Normal affect. Not depressed. Not anxious. Results Lab / Micro Data 02/17/23 18:35 02/17/23 18:35 Labs: Laboratory Results - last 24 hr 02/17/23 18:35: WBC 3.9 L, RBC 4.52, Hgb 13.1, Hct 41.1, MCV 90.9, MCH 29.0, MCHC 31.9 L, RDW Std Deviation 45.8 H, RDW Coeff of Nafisa 13.6, Plt Count 157, MPV 12.6 H, Immature Gran % (Auto) 0.300, Neut % (Auto) 55.5, Lymph % (Auto) 32.4, [place] % (Auto) 7.4, Eos % (Auto) 3.1, Baso % (Auto) 1.3 H, Absolute Neuts (auto) 2.2, Absolute Lymphs (auto) 1.27, Nucleated RBC % 0, Sodium 142, Potassium 3.8, Chloride 113 H, Carbon Dioxide 24.0, Anion Gap 5, BUN 17, Creatinine 0.76, Estim Creat Clear Calc 41.33, Est GFR (MDRD) Af Amer 95, Est GFR (MDRD) Non-Af 78, BUN/Creatinine Ratio 22.3 H, Glucose 137 H, Calcium 8.8, Troponin I High Sens 5 02/17/23 20:57: Troponin I High Sens 5 Radiology Impression Chest X-Ray 02/17/23 18:44 IMPRESSION: Minimal right basilar atelectasis. Otherwise no acute cardiopulmonary disease. Electronically Signed: Suyapa Ocampo MD at 19:13 EDT Reading Location ID and State: [facility] / [place] , Service support , Assessment & Plan Assessment/Plan (1) Chest pain: QUALIFIERS: Chest pain type: unspecified Qualified Code(s): R07.9 - Chest pain, unspecified (2) History of CAD (coronary artery disease): (3) Ischemic cardiomyopathy: PLAN: Plan Chest pain Place on a monitored bed at progressive care unit Impression of chest x-ray by radiology: Minimal right basilar atelectasis. Otherwise no acute cardiopulmonary disease. Ted interpretation of chest x-ray: Agrees with radiologist impression. Actual EKG tracing was independently visualized. EKG tracing showed T wave inversions in lead V4 through V6 that appears to be a little more deeper than that of September 2022. There appears to be unchanged T wave flattening in leads I; II; III; aVF and V1. Hold home Eliquis. ASA 81 mg p.o. daily ordered. Hold Plavix. SL NTG 0.4 mg prn as needed for chest pain ordered High sensitive troponin continued. We will check lipid panel. Serial high-sensitivity troponin was unremarkable. Serial cardiac enzymes ordered Stat EKG as needed for chest pain With her high heart score and plans to do a heart cath at outside hospital with a note to hold Plavix for 5 days, cardiology consulted. We will check echocardiogram Hypertension Initial blood pressure on presentation was not within goal. Follow-up blood pressures were stable. Continue home blood pressure medications. Trend blood pressures. Ischemic cardiomyopathy Stable as patient has no edema or chest x-ray findings of infiltrates. Will check echocardiogram. DVT prophylaxis: SCDs ordered. Time spent in the patient's overall evaluation,decision-making process, review of diagnostic data, adjustment of management, discussion with other providers, nursing nursing and ancillary staff involved in patient's care documentation, 60 minutes. Charges/Coding Visit Charges Inpatient E&M: 09344 Init Hosp L3
[2023-02-18 00:18] LABS: Troponin-I HS 6 pg/mL (3.0-54.0)
[2023-02-18 05:11] VITALS: BP 141/87; PULSE 60; RESP 16; TEMP 36.1; O2SAT 96
--- NOTE | 2023-02-18 05:55 | ECHOD_ITS ---
Reason For Study: CHEST PAIN Procedure This was a 2D Doppler, Color Flow transthoracic echocardiogram. Exam performed portable in patient room. Left Ventricle Normal LV size. Mild concentric left ventricular hypertrophy. The left ventricular ejection fraction is 50 %. Mild inferior and inferior septal hypokinesis. Right Ventricle Normal right ventricle. Atria The left atrium is severely enlarged. Normal right atrium. Mitral Valve Mild focal mitral valve calcification. Mild (1+) mitral valve insufficiency. Tricuspid Valve Mild tricuspid valve insufficiency. Normal pulmonary artery pressure. Aortic Valve Aortic sclerosis, no stenosis. Mild (1+) aortic valve insufficiency. Pulmonic Valve The pulmonic valve is not well visualized. Great Vessels Mildly dilated aortic root. Pericardium/Pleural No pericardial effusion. MMode/2D Measurements & Calculations LVIDd: 4.7 cm IVSd: 1.0 cm Ao root diam: 4.0 cm LVIDs: 3.2 cm LVPWd: 1.3 cm FS: 31.8 % LAV(MOD-bp): 56.2 ml LVAd ap4: 24.3 cm2 LVAd ap2: 21.6 cm2 LAV(MOD-bp) Indexed: 30.1 ml/m2 LVLd ap4: 6.7 cm LVLd ap2: 7.0 cm LAV(MOD-sp2): 45.9 ml EDV(MOD-sp4): 72.4 ml EDV(MOD-sp2): 57.8 ml LAV(MOD-sp4): 62.9 ml EDV(sp4-el): 74.7 ml EDV(sp2-el): 56.9 ml LVAs ap4: 15.7 cm2 LVAs ap2: 14.5 cm2 LVLs ap4: 5.6 cm LVLs ap2: 6.3 cm ESV(MOD-sp4): 37.0 ml ESV(MOD-sp2): 28.9 ml ESV(sp4-el): 37.3 ml ESV(sp2-el): 28.0 ml EF(MOD-sp4): 48.9 % EF(MOD-sp2): 50.0 % EF(sp4-el): 50.1 % SV(MOD-sp4): 35.4 ml SV(MOD-sp2): 28.9 ml SV(sp4-el): 37.4 ml LA dimension(2D): 3.2 cm LA A4 area: 21.7 cm2 RA A4 area: 11.9 cm2 TAPSE: 2.3 cm Time Measurements MV dec time: 0.46 sec Doppler Measurements & Calculations MV E max carlos: 57.2 cm/sec Lat Peak E' Carlos: 3.4 cm/sec Med Peak E' Carlos: 5.6 cm/sec MV A max carlos: 107.2 cm/sec E/E' lat: 17.0 E/E' med: 10.3 MV E/A: 0.53 MV V2 max: 118.6 cm/sec MV dec slope: 133.1 cm/sec2 Ao V2 max: 119.2 cm/sec MV max P.6 mmHg Ao max P.7 mmHg MV V2 mean: 52.0 cm/sec Ao V2 mean: 83.0 cm/sec MV mean P.4 mmHg Ao mean P.2 mmHg MV V2 VTI: 31.4 cm Ao V2 VTI: 31.7 cm AV (velocity ratio): 0.80 AI max carlos: 396.9 cm/sec LV V1 max: 104.1 cm/sec TR max carlos: 240.9 cm/sec AI max P.0 mmHg LV V1 max P.3 mmHg TR max P.2 mmHg AI dec slope: 169.3 cm/sec2 LV V1 mean P.6 mmHg AI P1/2t: 686.7 msec LV V1 mean: 75.9 cm/sec LV V1 VTI: 25.4 cm ECHO/Echo Complete Interpretation Summary The left ventricular ejection fraction is 50 %. Mild inferior and inferior septal hypokinesis. The left atrium is severely enlarged. Mild (1+) mitral valve insufficiency. Mild tricuspid valve insufficiency. Aortic sclerosis, no stenosis. Mild (1+) aortic valve insufficiency. Mildly dilated aortic root. Ordering Physician: Aj Ruiz Referring Physician: LAURYN PCP Performed By: Dilma Yen RCS
[2023-02-18 07:21] VITALS: O2SAT 97
[2023-02-18 07:31] LABS: Absolute Lymphocyte Count 1.42 X10^3/uL (0.83-4.51); Absolute Neutrophil Count 2.6 X10^3/uL (2.0-7.7); Basophil# 0.04 X10^3/uL; Basophil% 0.9 % (0-1); Eosinophil# 0.12 X10^3/uL; Eosinophils% 2.7 % (0-5); Hematocrit 41.3 % (37-47); Lymphocyte # 1.42 X10^3/ul (0.83-4.51); Lymphocyte % 31.7 % (19-41); Mean Corp Hgb Conc 31.5 g/dL (32-36); Mean Corpuscular Hgb 28.4 pg (27.0-32.0); Mean Corpuscular Volume 90.2 fL (81-99); Mean Platelet Vol. 12.1 fl (6.2-12.0); Monocyte# 0.32 X10^3/uL; Monocyte% 7.1 % (0-10); NRBC Flagged by Analyzer 0 % (0-5); Neutrophil # 2.58 X10^3/uL (2.7-7.7); Neutrophil % 57.6 % (47-70); Platelet Count 157 K/mm3 (150-450); RBC Distribution Width CV 13.5 % (11.6-14.6); RBC Distribution Width SD 44.3 fl (35.1-43.9); Red Blood Count 4.58 M/mm3 (4.2-5.4); White Blood Count 4.5 K/mm3 (4.4-11.0)
[2023-02-18 07:56] LABS: Troponin-I HS 6 pg/mL (3.0-54.0)
[2023-02-18 08:01] LABS: Anion Gap 5 (5-15); BUN 14 mg/dL (7-18); BUN/Creat Ratio 22.1 RATIO (10-20); Chloride 115 mmol/L (98-107); Cholesterol 104 mg/dL (200); Creatinine, Serum 0.63 mg/dL (0.55-1.02); EST Glomerular Filtration Rate 97 mL/min (>60); Est Glom Filt Rate - Afr Amer 117 mL/min (>60); Estimated Creatinine Clearance 41.33 ml/min; Glucose 99 mg/dL (74-106); High Density Lipoprotein 43 mg/dL; Potassium 3.7 mmol/L (3.5-5.1); Sodium Level 142 mmol/L (136-145); Triglycerides 72 mg/dL; Very Low Density Lipoprotein 14 mg/dL (5-40)
--- NOTE | 2023-02-18 09:52 | CON.PCM.CA_ITS ---
Assessment & Plan Assessment/Plan (1) Angina pectoris: PLAN: History of coronary artery disease with percutaneous intervention in the past. Continue Plavix. Start aspirin. Nitrates. Beta-blockers. Recommend coronary angiography with possible revascularization. Risks benefits and alternatives explained to the patient. She understand these and wishes to proceed. She took her apixaban last night and we will hold that. Schedule coronary angiography for tomorrow. (2) Coronary artery disease: PLAN: See #1 above. We will try and get records from patient's vehicle operator technician's office. (3) HTN (hypertension): PLAN: Amlodipine, carvedilol. Nitrates. (4) Ischemic cardiomyopathy: PLAN: Check echo. (5) Dyslipidemia: PLAN: Atorvastatin. (6) Carotid artery disease: PLAN: History of carotid endarterectomy. Continue Plavix. HPI Consult Data Date of Consult: 02/18/23 HPI Narrative Reason for Consultation: Chest pain HPI Narrative: 77-year-old female with past medical history significant for ischemic cardiomyopathy, coronary artery disease, PFO and hypertension. For the past month or so, she reports feeling extremely weak with exertion. She feels as if she is going to pass out. Yesterday she has had 2 episodes of chest discomfort that were relieved with sublingual nitroglycerin. According to the patient, she is scheduled for cardiac catheterization with her vehicle operator technician at [place] for next week. She is wondering if she could establish cardiac care with us here at [facility] and wishes to have any procedures done here. [facility] Medical History Arthritis Coronary artery disease GI bleed Ischemic cardiomyopathy Morbid obesity Myocardial infarction Patent foramen ovale Psoriasis Sleep apnea Stroke/cerebrovascular accident Home Medications atorvastatin 80 mg tablet (Lipitor) 80 mg PO DAILY Check with primary doctor 07/05/21 [History Last Taken 10/20/22 08:00] carvedilol 6.25 mg tablet (Coreg) 6.25 mg PO BID Check with primary doctor 07/05/21 [History Last Taken 10/20/22 08:00] amlodipine 5 mg tablet 5 mg PO DAILY Check with primary doctor 09/30/22 [History Last Taken 10/20/22 08:00] apixaban 5 mg tablet (Eliquis) 5 mg PO BID Check with primary doctor #1 TAB 0 10/22/22 [Rx Last Taken 10/20/22 08:00] clopidogrel 75 mg tablet (Plavix) 75 mg PO DAILY Check with primary doctor #1 TAB 10/22/22 [Rx Last Taken 10/20/22 08:00] acetaminophen 500 mg capsule 500 mg PO Q6H PRN Pain 02/16/23 [History Last Taken Unknown] escitalopram oxalate 10 mg tablet 10 mg PO DAILY 02/16/23 [History Last Taken Unknown] escitalopram oxalate 10 mg tablet 10 mg PO DAILY as directed 02/16/23 [History Last Taken Unknown] isosorbide mononitrate 30 mg tablet,extended release 24 hr 30 mg PO DAILY 02/16/23 [History Last Taken Unknown] nitroglycerin 0.4 mg sublingual tablet 0.4 mg sublingual Q5M PRN chest pain 02/16/23 [History Last Taken Unknown] omeprazole 10 mg capsule,delayed release 20 mg PO DAILY PRN gi symptoms 02/16/23 [History Last Taken Unknown] Allergy/AdvReac Type Severity Reaction Status Date / Time amoxicillin Allergy NEEDS Verified 02/18/23 09:25 FOLLOW-UP lisinopril Allergy unknown Verified 02/17/23 18:12 pravastatin Allergy unknown Verified 02/17/23 18:12 promethazine Allergy unknown Verified 02/17/23 18:12 rosuvastatin Allergy unknown Verified 02/17/23 18:12 ticagrelor Allergy unknown Verified 02/17/23 18:12 Family History Father Heart disease Cataracts, bilateral Mother Cataracts, bilateral Surgical History History of bilateral cataract extraction History of carotid endarterectomy History of colonoscopy History of coronary angioplasty with insertion of stent History of hysterectomy History of left heart catheterization (LHC) by cutdown History of surgery on left wrist History of tonsillectomy Social History household members: spouse housing: other number of children: 3 pets and animals: Yes Smoking Status: Never smoker alcohol intake: current substance use type: does not use caffeine: No Physical Exam Const Constitutional Narrative: Comfortable. No apparent distress. Heart sounds 1 and 2 are normal. No murmurs or rubs are noted. Chest is clear to auscultation bilaterally. Abdomen soft. Bowel sounds positive. Alert oriented x3. No ankle edema. Risk Stratification Risk Stratification Applicable: No Objective Data Vital Signs: Vital Signs Temp Pulse Resp BP Pulse Ox O2 Del Method 97.0 F L 60 16 141/87 H 97 Room Air 02/18/23 05:11 02/18/23 05:11 02/18/23 05:11 02/18/23 05:11 02/18/23 07:21 02/18/23 07:35 Oxygen Delivery Method Room Air Weight: 180 lb 8.937 oz Body Mass Index (BMI) 30.9 Intake & Output: Intake and Output for Last 24 Hours 02/16/23 02/17/23 02/18/23 23:59 23:59 23:59 Intake Total 0 / 0 Balance 0 / 0 Lab / Micro Data 02/18/23 06:59 02/18/23 06:59 Labs: Laboratory Results - last 24 hr 02/17/23 18:35: WBC 3.9 L, RBC 4.52, Hgb 13.1, Hct 41.1, MCV 90.9, MCH 29.0, MCHC 31.9 L, RDW Std Deviation 45.8 H, RDW Coeff of Nafisa 13.6, Plt Count 157, MPV 12.6 H, Immature Gran % (Auto) 0.300, Neut % (Auto) 55.5, Lymph % (Auto) 32.4, [place] % (Auto) 7.4, Eos % (Auto) 3.1, Baso % (Auto) 1.3 H, Absolute Neuts (auto) 2.2, Absolute Lymphs (auto) 1.27, Nucleated RBC % 0, Sodium 142, Potassium 3.8, Chloride 113 H, Carbon Dioxide 24.0, Anion Gap 5, BUN 17, Creatinine 0.76, Estim Creat Clear Calc 41.33, Est GFR (MDRD) Af Amer 95, Est GFR (MDRD) Non-Af 78, BUN/Creatinine Ratio 22.3 H, Glucose 137 H, Calcium 8.8, Troponin I High Sens 5 02/17/23 20:57: Troponin I High Sens 5 02/17/23 23:50: Troponin I High Sens 6 02/18/23 06:59: WBC 4.5, RBC 4.58, Hgb 13.0, Hct 41.3, MCV 90.2, MCH 28.4, MCHC 31.5 L, RDW Std Deviation 44.3 H, RDW Coeff of Nafisa 13.5, Plt Count 157, MPV 12.1 H, Immature Gran % (Auto) 0.000, Neut % (Auto) 57.6, Lymph % (Auto) 31.7, [place] % (Auto) 7.1, Eos % (Auto) 2.7, Baso % (Auto) 0.9, Absolute Neuts (auto) 2.6, Absolute Lymphs (auto) 1.42, Nucleated RBC % 0, Sodium 142, Potassium 3.7, Chloride 115 H, Carbon Dioxide 22.0, Anion Gap 5, BUN 14, Creatinine 0.63, Estim Creat Clear Calc 41.33, Est GFR (MDRD) Af Amer 117, Est GFR (MDRD) Non-Af 97, BUN/Creatinine Ratio 22.1 H, Glucose 99, Calcium 9.0, Troponin I High Sens 6, Triglycerides 72, Cholesterol 104, LDL Cholesterol 47, VLDL Cholesterol 14, HDL Cholesterol 43 Rhythm Strip Rhythm Strip: Sinus Rhythm Cardiology Labs/Tests 02/17/23 18:35: WBC 3.9 L, RBC 4.52, Hgb 13.1, Hct 41.1, MCV 90.9, MCH 29.0, MCHC 31.9 L, Plt Count 157, MPV 12.6 H, Immature Gran % (Auto) 0.300, Neut % (Auto) 55.5, Lymph % (Auto) 32.4, [place] % (Auto) 7.4, Eos % (Auto) 3.1, Baso % (Auto) 1.3 H, Absolute Neuts (auto) 2.2, Nucleated RBC % 0, Sodium 142, Potass ium 3.8, Chloride 113 H, Carbon Dioxide 24.0, Anion Gap 5, BUN 17, Creatinine 0.76, Est GFR (MDRD) Af Amer 95, Est GFR (MDRD) Non-Af 78, BUN/Creatinine Ratio 22.3 H, Glucose 137 H, Calcium 8.8 02/18/23 06:59: WBC 4.5, RBC 4.58, Hgb 13.0, Hct 41.3, MCV 90.2, MCH 28.4, MCHC 31.5 L, Plt Count 157, MPV 12.1 H, Immature Gran % (Auto) 0.000, Neut % (Auto) 57.6, Lymph % (Auto) 31.7, [place] % (Auto) 7.1, Eos % (Auto) 2.7, Baso % (Auto) 0.9, Absolute Neuts (auto) 2.6, Nucleated RBC % 0, Sodium 142, Potassium 3.7, Chloride 115 H, Carbon Dioxide 22.0, Anion Gap 5, BUN 14, Creatinine 0.63, Est GFR (MDRD) Af Amer 117, Est GFR (MDRD) Non-Af 97, BUN/Creatinine Ratio 22.1 H, Glucose 99, Calcium 9.0, Triglycerides 72, Cholesterol 104, LDL Cholesterol 47, VLDL Cholesterol 14, HDL Cholesterol 43 Rhythm: EKG: Sinus rhythm with no ischemic changes. ECHO: Stress Test: Cardiac Cath: PCI: CT Surgery: Holter monitor: EPS: PPM: CXR: Chest CT Scan: Radiography Diagnostic Testing: Radiology Impression Chest X-Ray 02/17/23 18:44 IMPRESSION: Minimal right basilar atelectasis. Otherwise no acute cardiopulmonary disease. Electronically Signed: Suyapa Ocampo MD at 19:13 EDT ,
[2023-02-18 10:52] VITALS: BP 158/69; PULSE 57; RESP 18; TEMP 37.2; O2SAT 97
[2023-02-18] MEDS: Aspirin E.C. 81 MG Tablet PO (11:32)
[2023-02-18] MEDS: Clopidogrel Bisulfate 75 MG Tablet PO (11:32)
[2023-02-18] MEDS: Escitalopram Oxalate 10 MG Tablet PO (11:33)
[2023-02-18] MEDS: Isosorbide Mononitrate 30 MG Tablet PO (11:33)
[2023-02-18] MEDS: amLODIPine 5 MG Tablet PO (11:33)
--- NOTE | 2023-02-18 12:34 | PCM.PN.HOSP ---
Subjective Subjective Doing well, no significant chest pain this morning Objective Data Objective Data Vital Signs: Vital Signs Temp Pulse Resp BP Pulse Ox O2 Del Method 98.9 F 57 L 18 158/69 H 97 Room Air 02/18/23 10:52 02/18/23 10:52 02/18/23 10:52 02/18/23 10:52 02/18/23 10:52 02/18/23 10:52 Oxygen Delivery Method Room Air Weight: 180 lb 8.937 oz Body Mass Index (BMI) 30.9 Intake & Output: Intake and Output for Last 24 Hours 02/17/23 02/18/23 02/19/23 03:59 03:59 03:59 Intake Total 240 / 240 Balance 240 / 240 Lab / Micro Data 02/18/23 06:59 02/18/23 06:59 Labs: Laboratory Results - last 24 hr 02/17/23 18:35: WBC 3.9 L, RBC 4.52, Hgb 13.1, Hct 41.1, MCV 90.9, MCH 29.0, MCHC 31.9 L, RDW Std Deviation 45.8 H, RDW Coeff of Nafisa 13.6, Plt Count 157, MPV 12.6 H, Immature Gran % (Auto) 0.300, Neut % (Auto) 55.5, Lymph % (Auto) 32.4, [place] % (Auto) 7.4, Eos % (Auto) 3.1, Baso % (Auto) 1.3 H, Absolute Neuts (auto) 2.2, Absolute Lymphs (auto) 1.27, Nucleated RBC % 0, Sodium 142, Potassium 3.8, Chloride 113 H, Carbon Dioxide 24.0, Anion Gap 5, BUN 17, Creatinine 0.76, Estim Creat Clear Calc 41.33, Est GFR (MDRD) Af Amer 95, Est GFR (MDRD) Non-Af 78, BUN/Creatinine Ratio 22.3 H, Glucose 137 H, Calcium 8.8, Troponin I High Sens 5 02/17/23 20:57: Troponin I High Sens 5 02/17/23 23:50: Troponin I High Sens 6 02/18/23 06:59: WBC 4.5, RBC 4.58, Hgb 13.0, Hct 41.3, MCV 90.2, MCH 28.4, MCHC 31.5 L, RDW Std Deviation 44.3 H, RDW Coeff of Nafisa 13.5, Plt Count 157, MPV 12.1 H, Immature Gran % (Auto) 0.000, Neut % (Auto) 57.6, Lymph % (Auto) 31.7, [place] % (Auto) 7.1, Eos % (Auto) 2.7, Baso % (Auto) 0.9, Absolute Neuts (auto) 2.6, Absolute Lymphs (auto) 1.42, Nucleated RBC % 0, Sodium 142, Potassium 3.7, Chloride 115 H, Carbon Dioxide 22.0, Anion Gap 5, BUN 14, Creatinine 0.63, Estim Creat Clear Calc 41.33, Est GFR (MDRD) Af Amer 117, Est GFR (MDRD) Non-Af 97, BUN/Creatinine Ratio 22.1 H, Glucose 99, Calcium 9.0, Troponin I High Sens 6, Triglycerides 72, Cholesterol 104, LDL Cholesterol 47, VLDL Cholesterol 14, HDL Cholesterol 43 Radiography Diagnostic Testing: Radiology Impression Chest X-Ray 02/17/23 18:44 IMPRESSION: Minimal right basilar atelectasis. Otherwise no acute cardiopulmonary disease. Electronically Signed: Suyapa Ocampo MD at 19:13 EDT , Rhythm Strip Rhythm Strip: Sinus Rhythm Physical Exam Narrative General: Alert, Oriented x3, Cooperative, No apparent distress HEENT: Atraumatic, PERRLA, EOMI, Normocephalic Oral: Moist Mucosa Neck: Supple, No JVD Lungs: Diminished, Normal air movement, No rhonchi, No wheeze, No rales Cardiovascular: Regular rate, Regular Rhythm, Normal S1, Normal S2, No murmurs Abdomen: Soft, Non Tender, Non-Distended, No Hepato-splenomegaly Extremities: No edema, Capillary Refill Less than 3 Seconds Skin: No rashes, No breakdown Musculoskeletal: No Tenderness to Palpation of Joints or Extremities Neurological: Cranial nerves II-XII grossly intact, Motor Exam 5/5 strength throughout, Sensory exam intact to light touch and pain Psych/Mental Status: Normal Affect, Appropriate Assessment & Plan Assessment/Plan (1) Chest pain: QUALIFIERS: Chest pain type: unspecified Qualified Code(s): R07.9 - Chest pain, unspecified (2) History of CAD (coronary artery disease): (3) Ischemic cardiomyopathy: PLAN: Plan 1. Unstable angina/HTN/HLD/peripheral vascular disease status post left endarterectomy ? We will proceed with a cardiac cath it was supposed to be today however she did take her Eliquis last night this will be held ? Troponins are unremarkable but she was supposed to have an outpatient cath ? Continue with her blood pressure occasions ? Continue with her antiplatelet medication and ? Appreciate cardiology's assistance ? Echo is pending 2. Anxiety/depression ? Stable ? Continue with escitalopram 3. GERD ? Stable ? Continue with PPI DVT: SCDs Charges/Coding Visit Charges Inpatient E&M: 90566 Subs Hosp L2
--- NOTE | 2023-02-18 15:49 | CASEMGMT ---
Insurance review for hospitals [facility] if transfer is recommended is as follows:. [facility], [place], [place], [facility], [facility], [facility], [facility], [facility]), and . Shaylee Echols, Discharge Planning Asst.
--- NOTE | 2023-02-18 16:17 | CHAPLAIN ---
Type of Pastoral Visit _x__ Initial Visit ___ Follow-up Visit ___ On-call Visit ___ General Patient Visit ___ Spiritual Assessment ___ Family Conference ___ Bereavement ___ Rapid Response ___ Code Blue ___ Other (describe below) Pastoral Care Referral From _x__ Patient ___ Family ___ Nurse ___ Physician ___ Through Freight Engineer ___ Practicing Dermatologist ___ Other (describe below) Sacrament/Intervention _x__ Active listening ___ Anointing ___ Yazidi ___ Bereavement ___ Communion ___ Miya exploration ___ _x__ Life review _x__ Prayer ___ Reconciliation ___ Sacrament of Sick _x__ Supportive presence ___ Wedding ___ Other (describe below) Pastoral Comments patient has had long history of heart disease and states that I know what to expect; pt has moved to [place] and looking for new doctors so this is part of her goal and concern; pt will have procedure most likely tomorrow so she is trying to rest; pt welcomes the visit and the prayers for her support; pt does not have a adventism connection in this community yet
--- NOTE | 2023-02-18 16:25 | CASEMGMT ---
Social Work SW met with pt to discuss advance directives.? Pt denies having completed a living will or health care POA and is not interested in additional information at this time. Pt made aware that SW is available for to assist with completing documents if pt changes their mind. AHMET Merino
--- NOTE | 2023-02-18 16:34 | CASEMGMT ---
Patient presented with Restrepo form and acknowledged understanding. However, patient declined to sign the form, stating that her takes care of such things. I offered to call him and she stated that he would be sleeping and asked that I come back tomorrow. Shaylee Echols, Discharge Planning Asst.
[2023-02-18 16:50] VITALS: BP 122/88; PULSE 56; RESP 18; TEMP 36.8; O2SAT 95
[2023-02-18] MEDS: Atorvastatin Calcium 80 MG Tablet PO (19:34)
[2023-02-18 21:13] VITALS: BP 122/72; PULSE 62; RESP 16; TEMP 36.4; O2SAT 95
[2023-02-19] VITALS (14 sets, daily range): BP systolic 120–159; BP diastolic 70–88; PULSE 52–64; RESP 16–18; TEMP 36.6–36.9; O2SAT 92–98
[2023-02-19] MEDS: Escitalopram Oxalate 10 MG Tablet PO (07:49)
[2023-02-19] MEDS: Isosorbide Mononitrate 30 MG Tablet PO (07:49)
[2023-02-19] MEDS: amLODIPine 5 MG Tablet PO (07:49)
[2023-02-19] MEDS: Clopidogrel Bisulfate 75 MG Tablet PO (07:49)
[2023-02-19] MEDS: Aspirin E.C. 81 MG Tablet PO (07:52)
--- NOTE | 2023-02-19 09:23 | NURSING ---
report given to catheter finisher and inspector prior to heart cath @ approx. 9:20 am
--- NOTE | 2023-02-19 10:51 | CL.D_ITS ---
Patient Name: VINITA PHILLIPS OCTOBER Study Date: 02/19/2023 Performing: Ivonne Molina MD Ht: 64 inches 162.56 cm : 1945 Wt: 180.8 lbs 81.9 kg Age: 77 Gender: female BSA: 1.87 PROCEDURE(S) PERFORMED DC02-([id number])LHC/COR IC10-([id number])FFR, CORONARY OR GRAFT, INITIAL VESSEL CLINICAL PROFILE AND INDICATIONS Indications: New Onset Angina <= 2 months Heart Failure: None Stress/Imaging Stress/Image Study Performed: No CAD Presentations: Stable angina. CONCLUSIONS Stents to LMCA/LAD patent 40-50% ISR ostial LCX 60-65% Prox RCA (FFR 0.91) RECOMMENDATIONS Medical therapy DESCRIPTION OF PROCEDURE The patient arrived to the procedure lab. The risks and benefits of the procedure as well as a full description of our services here and current unavailability of surgical backup were fully explained to the patient and/or their significant other prior to the catheterization. The Timeout was completed, verifying the correct patient and procedure. The patient's procedural site was prepped and draped in the usual fashion. Local anesthetic was given subcutaneously to right radial region with Lidocaine 2%. Using a modified Seldinger technique, arterial access was obtained via the right radial artery, a 6Fr sheath was inserted. Left Coronary Artery selective angiography was performed in multiple views using a 5 Fr. 4.0 Independence catheter. Right Coronary Artery selective angiography was then performed in multiple views using a 5 Fr. 4.0 Independence catheter.The arterial sheath was pulled and a TR Band was applied for hemostasis w/ 14ml air CORONARY ANGIOGRAPHY DOMINANCE: Right Dominant LEFT MAIN: 30% Mid LMCA; Stent to Mid LMCA into Prox LAD patent Ostial/Prox D2 patent CIRCUMFLEX ARTERY: Stent to ostial LCX 40-50% ISR CIRCUMFLEX: In-Stent Restenosis 50% Ostial lesion in Circumflex RIGHT CORONARY ARTERY: 60% Prox RCA (FFR 0.91) RCA: Calcified 60% Proximal lesion in RCA COMPLICATIONS No Complications PROCEDURE MEDICATIONS Versed 1 mg IV Fentanyl 50 mcg IV Oxygen: 2 L/min via nasal cannula Adenosine drip for FFR 29.6ml IV @ 02/19/2023 10:12:21 Heparin given IA 02/19/2023 09:46:53 Heparin 2000 unit(s) IV 02/19/2023 09:49:05 Heparin 5000 unit(s) IV 02/19/2023 10:05:29 Verapamil 2.5mg, Ntg 200mcgs, 2000 units of Heparin given IA 02/19/2023 09:46:53 IV Bolus: .9 NaCl 250 ml total 02/19/2023 09:46:47 SUMMARY OF HEMODYNAMIC DATA Time AIR REST ECG 09:32:17 AO 99/47 (71) SA 09:50:25 Signed By Ivonne Molina MD On 02/19/2023 13:28:40 Ivonne Molina MD
--- NOTE | 2023-02-19 11:39 | PCM.PN.BLA ---
Progress Note Coronary angiography performed. Please see report for details. Stents to left main coronary artery/LAD/left circumflex patent. 60% proximal RCA with nonsignificant FFR. Continue medical management. Restart beta-blockers. Monitor heart rate. May discharge home later today or tomorrow morning.
--- NOTE | 2023-02-19 12:40 | CASEMGMT ---
RN?CM?LEATHER STRIPPING MACHINE OPERATOR?CM?to room to meet with patient for initial transition planning/care coordination?assessment.?RN?CM?introduced self and role at [facility].? Pt voices understanding and consents to?assessment?at this time.? Pt resting in bed in no distress at this time.? and son @ bedside and pt agreeable to them being present during assessment. Pt is A/O at this time and answers all questions appropriately.?? Care providers, pharmacy, and demographics verified/updated at this time. PCP: Dr Rush-pt has initial appt scheduled for 02/22 @ 1:20 PM. This was added to d/c plan Specialists: Dr Luna/cardiology-pt has appt scheduled for 02/23 @ 2 PM. This was added to d/c plan [facility]erred [facility]acy: [facility] Insurance: Minda VALENTE Prescription Benefit:?Yes Living Will/HPOA:?Pt does not currently have LW/HCPOA and interested in completing. Made aware SW will not be available to meet w/her today, but this can be completed as an OP and instructed on how to schedule an appt. LNOK: [place] Living Arrangements: Lives w/her in mobile home w/4 steps to enter and states does okay with the stairs. Independent w/ADL's. Pt and share home mgnt tasks. Transportation:?Pt states drives self and states no transportation concerns at this time.? also drives. DME: ? Has a cane she uses on occasion. Pt states no need for further DME at this time.? HHC/SNF: No hx of either. No needs identified. Pt wishes to return home and states has no concerns with going home at time of discharge.? CM?to follow for any discharge planning/needs.? Pt and family voice no further concerns/needs at this time.? Advised them to ask for?CM?if any further questions/concerns/needs arise.? They voice understanding. PLAN:??Home Rey BRANDTN?RN?CM
[2023-02-19] MEDS: 0.9% Normal Saline (1000mL) 1,000 ML 100 ML IV (13:11)
[2023-02-19] MEDS: Carvedilol 3.125 MG TABLET PO (13:11)
--- NOTE | 2023-02-19 13:43 | PCM.DC ---
Discharge Instructions Diet Discharge Diet: Low fat / Low cholesterol Activity Discharge Activity: Return to Normal Activity Dressing / Incision Call your doctor if you observe: Fever of 101 or Higher, Shortness of breath, Dizziness, Fainting spells, Swelling in the ankles, Chest pain and Increased palpitations (irregular heartbeat) Follow Up Care Test Results: Test results from this visit will be discussed in further detail at your follow-up appointment, if applicable. Discharge Plan Admission Admit Date/Time: 02/18/23 17:17 Attending Provider: Alexander Bryant Primary Care Provider: Care Physician,Jackie Primary Consulting Providers: Ivonne Molina; Aj Ruiz Discharge Orders/Prescriptions Prescriptions: New isosorbide mononitrate 60 mg Tablet Extended Release 24 Hr 60 mg PO DAILY 30 Days Qty: 30 0RF carvedilol 3.125 mg Tablet 3.125 mg PO BID 30 Days Qty: 60 0RF Continued nitroglycerin 0.4 mg tablet, sublingual 0.4 mg sublingual Q5M PRN (Reason: chest pain) Rx Instructions: do not exceed 3 doses per episode omeprazole 10 mg capsule,delayed release(DR/EC) 20 mg PO DAILY PRN (Reason: gi symptoms) escitalopram oxalate 10 mg tablet 10 mg PO DAILY atorvastatin [Lipitor] 80 mg Tablet 80 mg PO DAILY amlodipine 5 mg tablet 5 mg PO DAILY clopidogrel [Plavix] 75 mg Tablet 75 mg PO DAILY Qty: 1 0RF Rx Instructions: Patient to hold Plavix for 5 days Eliquis 5 mg Tablet 5 mg PO BID Qty: 1 0RF Rx Instructions: Patient to hold Eliquis for 5 days and to follow-up with primary care physician/cardboard cutter to determine ongoing indication acetaminophen 500 mg capsule 500 mg PO Q6H PRN (Reason: Pain) Discontinued escitalopram oxalate 10 mg tablet 10 mg PO DAILY Patient Comments: take 1 tablet by mouth once daily isosorbide mononitrate 30 mg tablet extended release 24 hr 30 mg PO DAILY carvedilol [Coreg] 6.25 mg Tablet 6.25 mg PO BID Referrals / Follow Up: Thanh Rush MD [Med Staff - Factorer] - 02/22/23 1:20 pm (As previously scheduled ) Ced Luna MD [Med Staff - Active Staff] - 10/03/23 2:00 pm (As scheduled) Disposition Disposition (needs filled in before D/C Order can be placed): Home, Self Care
[2023-02-19] MEDS: Acetaminophen 500 MG Tablet PO (13:50)
--- NOTE | 2023-02-19 14:45 | CASEMGMT ---
Met with patient and her to complete SLATER form. SLATER form explained to both who voiced understanding and signed form. Original form placed in pt?s chart and copy provided to patient. Shaylee Echols, Discharge Planning Asst.
--- NOTE | 2023-02-19 15:01 | CASEMGMT ---
Patient has order for discharge. RN CM in to patient's room to discuss needs at discharge. Patient denies needs at discharge. Patient and family had no further questions or concerns.
--- NOTE | 2023-02-19 16:12 | PCM.DC.SUM ---
Providers Date of Admission: 02/18/23 Primary Care Physician: Jackie Primary Care Phys Consultations 02/17/23 23:16 Consult: Cardiology Routine Consulting Provider: Ivonne Molina Reason for Consult: Chest Pain with high Heart score EMERGENT Consult: No MD Notified: Yes Date Notified: 02/17/23 Time Notified: 22:18 Method of Notification: ED Physician Initiated Method of Consult:: In-Person Reason For Visit: CHEST PAIN Diagnosis Discharge Diagnosis (1) Chest pain: Status: Acute Code(s): R07.9 - Chest pain, unspecified Qualifiers: Chest pain type: unspecified Qualified Code(s): R07.9 - Chest pain, unspecified (2) History of CAD (coronary artery disease): Status: Acute Code(s): Z86.79 - Personal history of other diseases of the circulatory system (3) Ischemic cardiomyopathy: Status: Acute Code(s): I25.5 - Ischemic cardiomyopathy Medications at Discharge Home Medications atorvastatin 80 mg tablet (Lipitor) 80 mg PO DAILY cholesterol 07/05/21 amlodipine 5 mg tablet 5 mg PO DAILY blood pressure 09/30/22 apixaban 5 mg tablet (Eliquis) 5 mg PO BID blood thinner #1 TAB 10/22/22 clopidogrel 75 mg tablet (Plavix) 75 mg PO DAILY anti platelet #1 TAB 10/22/22 acetaminophen 500 mg capsule 500 mg PO Q6H PRN Pain 02/16/23 escitalopram oxalate 10 mg tablet 10 mg PO DAILY mental health 02/16/23 nitroglycerin 0.4 mg sublingual tablet 0.4 mg sublingual Q5M PRN chest pain 02/16/23 omeprazole 10 mg capsule,delayed release 20 mg PO DAILY PRN gi symptoms 02/16/23 carvedilol 3.125 mg tablet 3.125 mg PO BID 30 days #60 tabs 02/19/23 isosorbide mononitrate 60 mg tablet,extended release 24 hr 60 mg PO DAILY 30 days #30 tabs 02/19/23 Hospital Course Operations None Procedures 2-D Echocardiogram and Cardiac catheterization Summary of Care Provided Minutes Spent on Discharge: 34 Hospital Course: Per HPI: VINITA PHILLIPS, is a 77 F patient is a 77-year-old female with a significant history of ischemic cardiomyopathy; patent sin ovale; and CAD status post 6 stents in 2017 who presents emergency department with chest pain. Chronically patient is on Plavix and Eliquis. Reportedly 2 weeks ago patient had an episode of chest pain. She took nitroglycerin and it went away. And on the day of presentation he had 2 episode of chest pain which was about 45 minutes to 1 hour apart. The first chest pain started after she had pulled some weeds while while sitting. She laid down and the chest pain went away. She had a second chest pain that went away after taking nitroglycerin. Her chest pain is located at the left side of her chest. The chest pain radiates to the right side of the chest. She described the chest pain as a burning sensation like fire. She reports shortness of breath and little diaphoresis with the chest pain. She has chronic nausea that she attributes to dyspepsia and that has not changed. Of note patient was scheduled to have a heart cath at hospital in [place] with the same cardiology who stented him in 2017. However he also wanted to move his care locally so he was trying to see Dr. Luna, debarker operator at [facility]. On presentation patient requested that she stays at the hospital. ED doctor discussed the case with Dr. Molina cardiology who said it was okay for patient to stay at our hospital ([facility]) Hospital Course: 1. Unstable angina/HTN/HLD/peripheral vascular disease status post left carotid endarterectomy?77-year-old female presented to the hospital with increasing chest pain and some shortness of breath. She had taken some nitroglycerin which caused the chest pain to resolve and she was scheduled by her previous debarker operator to be having an outpatient cardiac catheterization here in the near future. She presented to the hospital because it is closer as her debarker operator is in [place]. Troponins were unremarkable however she had an echo that demonstrated an EF of 50% with mild inferior and inferior septal hypokinesis so she was scheduled for a heart catheterization. This was slightly delayed secondary to having taken Eliquis the night of admission. Her cardiac cath today was uneventful, it demonstrated previous stents to the LMCA/LAD which were patent, she had a 40 to 50% ISR ostial left circumflex as well as a 6065% stenosis in the proximal RCA. Cardiology recommended medical therapy, given her heart rate her Coreg was decreased from 6.25 mg twice daily to 3.125 mg p.o. twice daily, her isosorbide was increased from 30 mg daily to 60 mg daily. She is already scheduled for outpatient cardiology evaluation next week which she will keep. Cardiology also recommended continuing both the Plavix as well as her Eliquis on discharge. I discussed with her the plan for possible discharge today and both she and her family expressed understanding of the risk and benefits of going home and is okay with going home today. 2. Anxiety, depression, GERD are all chronic medical conditions which complicate her care. Her home medications were continued where appropriate Physical Exam Narrative General: Alert, Oriented x3, Cooperative, No apparent distress HEENT: Atraumatic, PERRLA, EOMI, Normocephalic Oral: Moist Mucosa Neck: Supple, No JVD Lungs: Diminished, Normal air movement, No rhonchi, No wheeze, No rales Cardiovascular: Regular rate, Regular Rhythm, Normal S1, Normal S2, No murmurs Abdomen: Soft, Non Tender, Non-Distended, No Hepato-splenomegaly Extremities: No edema, Capillary Refill Less than 3 Seconds Skin: No rashes, No breakdown Musculoskeletal: No Tenderness to Palpation of Joints or Extremities Neurological: Cranial nerves II-XII grossly intact, Motor Exam 5/5 strength throughout, Sensory exam intact to light touch and pain Psych/Mental Status: Normal Affect, Appropriate Weight / BMI Weight Weight: 180 lb 8.937 oz Body Mass Index (BMI) 30.9 ABG / Lab / Microbiology Data 02/18/23 06:59 02/18/23 06:59 D/C Instructions Discharge Diet: Low fat / Low cholesterol Call your doctor if you observe: Fever of 101 or Higher, Shortness of breath, Dizziness, Fainting spells, Swelling in the ankles, Chest pain and Increased palpitations (irregular heartbeat) Meaningful Use Info Meaningful Use Diagnoses (Choose all that apply): None applicable Discharge Plan Admission Admit Date/Time: 02/18/23 17:17 Attending Provider: Alexander Bryant Primary Care Provider: Care Physician,No Primary Consulting Providers: Ivonne Molina; Aj Ruiz Discharge Orders/Prescriptions Prescriptions: New isosorbide mononitrate 60 mg Tablet Extended Release 24 Hr 60 mg PO DAILY 30 Days Qty: 30 0RF carvedilol 3.125 mg Tablet 3.125 mg PO BID 30 Days Qty: 60 0RF Continued nitroglycerin 0.4 mg tablet, sublingual 0.4 mg sublingual Q5M PRN (Reason: chest pain) Rx Instructions: do not exceed 3 doses per episode omeprazole 10 mg capsule,delayed release(DR/EC) 20 mg PO DAILY PRN (Reason: gi symptoms) escitalopram oxalate 10 mg tablet 10 mg PO DAILY atorvastatin [Lipitor] 80 mg Tablet 80 mg PO DAILY amlodipine 5 mg tablet 5 mg PO DAILY clopidogrel [Plavix] 75 mg Tablet 75 mg PO DAILY Qty: 1 0RF Rx Instructions: Patient to hold Plavix for 5 days Eliquis 5 mg Tablet 5 mg PO BID Qty: 1 0RF Rx Instructions: Patient to hold Eliquis for 5 days and to follow-up with primary care physician/debarker operator to determine ongoing indication acetaminophen 500 mg capsule 500 mg PO Q6H PRN (Reason: Pain) Discontinued escitalopram oxalate 10 mg tablet 10 mg PO DAILY Patient Comments: take 1 tablet by mouth once daily isosorbide mononitrate 30 mg tablet extended release 24 hr 30 mg PO DAILY carvedilol [Coreg] 6.25 mg Tablet 6.25 mg PO BID Referrals / Follow Up: Thanh Rush MD [Med Staff - [employer]] - 02/22/23 1:20 pm (As previously scheduled ) Ced Luna MD [Med Staff - Active Staff] - 02/23/23 2:00 pm (As scheduled) Disposition Disposition (needs filled in before D/C Order can be placed): Home, Self Care Charges/Coding Visit Charges Inpatient E&M: 58360 Disch Hosp >30min
--- NOTE | 2023-02-19 18:27 | NURSING ---
reviewed charting with Ra Garcia RN
== END 2023-02-19 18:15 | disposition home or self-care (01) | DRG 287 ==
LOC: ED 22:35 → PCU 22:50
PROVIDERS: Admitting Provider Hospitalist; Emergency Provider Emergency Medicine; Visit Provider Family Medicine
DX: I25.110 Atherosclerotic heart disease of native coronary artery with unstable angina pectoris (principal); I73.9 Peripheral vascular disease, unspecified; T82.855A Stenosis of coronary artery stent, initial encounter; I10 Essential (primary) hypertension; F32.A Depression, unspecified; E78.5 Hyperlipidemia, unspecified; I25.5 Ischemic cardiomyopathy; K21.9 Gastro-esophageal reflux disease without esophagitis; F41.9 Anxiety disorder, unspecified; I25.2 Old myocardial infarction; Y71.2 Prosthetic and other implants, materials and accessory cardiovascular devices associated with adverse incidents; Y83.8 Other surgical procedures as the cause of abnormal reaction of the patient, or of later complication, without mention of misadventure at the time of the procedure; Z79.02 Long term (current) use of antithrombotics/antiplatelets; Z79.01 Long term (current) use of anticoagulants; Z79.899 Other long term (current) drug therapy; Z95.5 Presence of coronary angioplasty implant and graft; Q21.12 Patent foramen ovale
CPT/HCPCS: C1769 ×2; C1894; 36415; 71045; 80048; 80061; 84484; 85025; 93005; 93306; 93454; 93571; 96360; 96361; 99152; 99153; 99221; 99285; J0153; J7030; J7040; Q9967; A4216; G0378

== ENCOUNTER 2023-03-13 04:16 | Emergency (ER) | payer MEDICARE, SELFPAY ==
[2023-03-13 04:17] VITALS: BP 179/78; PULSE 60; RESP 16; TEMP 36.6; O2SAT 99; BMI 30.5
--- NOTE | 2023-03-13 05:42 | EX.ED.DYSGE1 ---
HPI History of Present Illness Chief Complaint: Ear Problem Informant: patient and spouse/S.O. Narrative Narrative: Patient is a 77-year-old female with past medical history of psoriasis hypertension and coronary artery disease currently on Plavix and Eliquis. She states that because of her psoriasis she has recurrent itching. She states approximately 24 hours ago she was scratching her left ear when she actually caused a neck with her fingernails. She then developed bleeding because she is on Eliquis and Plavix that would not stop. She states she went to an urgent care where they packed her ear. She states she remove the packing as directed and there was persistent bleeding and therefore she comes in for repeat evaluation [facility] Medical History Arthritis Coronary artery disease GI bleed Ischemic cardiomyopathy Morbid obesity Myocardial infarction Patent foramen ovale Psoriasis Sleep apnea Stroke/cerebrovascular accident Home Medications atorvastatin 80 mg tablet (Lipitor) 80 mg PO DAILY cholesterol 07/05/21 [History Last Taken 10/20/22 08:00] amlodipine 5 mg tablet 5 mg PO DAILY blood pressure 09/30/22 [History Last Taken 10/20/22 08:00] apixaban 5 mg tablet (Eliquis) 5 mg PO BID blood thinner #1 TAB 10/22/22 [Rx Last Taken 10/20/22 08:00] clopidogrel 75 mg tablet (Plavix) 75 mg PO DAILY anti platelet #1 TAB 10/22/22 [Rx Last Taken 10/20/22 08:00] acetaminophen 500 mg capsule 500 mg PO Q6H PRN Pain 02/16/23 [History Last Taken Unknown] escitalopram oxalate 10 mg tablet 10 mg PO DAILY mental health 02/16/23 [History Last Taken Unknown] nitroglycerin 0.4 mg sublingual tablet 0.4 mg sublingual Q5M PRN chest pain 02/16/23 [History Last Taken Unknown] omeprazole 10 mg capsule,delayed release 20 mg PO DAILY PRN gi symptoms 02/16/23 [History Last Taken Unknown] carvedilol 3.125 mg tablet 3.125 mg PO BID 30 days #60 tabs 02/19/23 [Rx Last Taken Unknown] isosorbide mononitrate 60 mg tablet,extended release 24 hr 60 mg PO DAILY 30 days #30 tabs 02/19/23 [Rx Last Taken Unknown] Allergy/AdvReac Type Severity Reaction Status Date / Time amoxicillin Allergy NEEDS Verified 03/13/23 04:17 FOLLOW-UP lisinopril Allergy unknown Verified 03/13/23 04:17 pravastatin Allergy unknown Verified 03/13/23 04:17 promethazine Allergy unknown Verified 03/13/23 04:17 rosuvastatin Allergy unknown Verified 03/13/23 04:17 ticagrelor Allergy unknown Verified 03/13/23 04:17 Family History Father Heart disease Cataracts, bilateral Mother Cataracts, bilateral Surgical History History of bilateral cataract extraction History of carotid endarterectomy History of colonoscopy History of coronary angioplasty with insertion of stent History of hysterectomy History of left heart catheterization (LHC) by cutdown History of surgery on left wrist History of tonsillectomy Social History household members: spouse housing: other number of children: 3 pets and animals: Yes Smoking Status: Never smoker alcohol intake: current substance use type: does not use caffeine: No ROS ROS ED Constitutional Constitutional ED: Denies chills or fever(s) ENT ENT ED: Reports ear pain and other Details: Positive left ear bleeding ; Denies sore throat Cardiovascular Cardiovascular: Denies chest pain Respiratory/Chest Respiratory/Chest: Denies cough or dyspnea Gastrointestinal Gastrointestinal: Denies abdominal pain, diarrhea, nausea or vomiting Genitourinary Genitourinary ED: Denies dysuria Musculoskeletal Musculoskeletal: Denies myalgias Integumentary Denies rash Neurologic Neurologic: Denies headache(s) Hematologic/Lymphatic Hematologic/Lymphatic: Reports easy bleeding and easy bruising EXAM Physical Exam Const Vital Signs: 03/13/23 04:17 Temperature 97.8 F Temperature Source Temporal Pulse Rate 60 Respiratory Rate 16 Blood Pressure 179/78 H Blood Pressure Mean 111 Pulse Ox 99 Positive well nourished and well developed General Appearance ED: well developed HEENT HEENT Narrative: Right ear canal and TM are normal. Left TM is normal. Along the medial portion of the middle third of the left ear canal is a small laceration consistent with her report of scratching her ear. There is persistent ooze of dark red blood from this. No secondary changes to suggest infection Eyes PERRL and EOMs intact bilaterally Neck supple Resp normal respiratory effort and clear to auscultation bilaterally Cardio regular rate and regular rhythm Extremity normal to inspection Neuro oriented x3 and CN's II-XII intact bilaterally Sensorium / Orientation: alert Psych mental status grossly normal Skin Skin Narrative: Abrasion/laceration to the left ear canal as documented above MDM MDM MDM Narrative Medical decision making narrative: Patient presented to the ER with stable vitals. She reported direct trauma to her ear canal and on physical exam had a superficial abrasion/laceration consistent with this. Because of her Eliquis and Plavix bleeding had persisted. At this time there are no secondary changes to suggest infection or tympanic perforation. She also has stable vitals and I do not believe there is enough blood loss for acute blood loss anemia and therefore do not feel need for imaging or laboratory studies. In order to provide hemostasis I did elect to take 1 mL of 2% lidocaine with epinephrine and injected at the site of the abrasion/laceration. Following this I took a gauze pad and soaked it with TXA and then packed this into the ear canal. At this time there is no obvious bleeding through the packing and I feel that this site should stay packed for approximately 4 to 6 hours to ensure hemostasis. Patient and were informed of this plan and they are agreeable to it and therefore patient is otherwise safe for discharge. History & Record Review Discussion w/independent historian: Patient and Significant other Discharge Plan Triage Chief Complaint: Ear Problem ED Provider: Omkar Pedroza Dx/Rx/DC Orders Clinical Impression: Current use of bed bug exterminator anticoagulation, Laceration of left ear canal, Psoriasis, History of CAD (coronary artery disease), HTN (hypertension) Prescriptions: No Action nitroglycerin 0.4 mg tablet, sublingual 0.4 mg sublingual Q5M PRN (Reason: chest pain) Rx Instructions: do not exceed 3 doses per episode omeprazole 10 mg capsule,delayed release(DR/EC) 20 mg PO DAILY PRN (Reason: gi symptoms) escitalopram oxalate 10 mg tablet 10 mg PO DAILY atorvastatin [Lipitor] 80 mg Tablet 80 mg PO DAILY amlodipine 5 mg tablet 5 mg PO DAILY clopidogrel [Plavix] 75 mg Tablet 75 mg PO DAILY Qty: 1 0RF Rx Instructions: Patient to hold Plavix for 5 days Eliquis 5 mg Tablet 5 mg PO BID Qty: 1 0RF Rx Instructions: Patient to hold Eliquis for 5 days and to follow-up with primary care physician/turbine subassembler to determine ongoing indication acetaminophen 500 mg capsule 500 mg PO Q6H PRN (Reason: Pain) isosorbide mononitrate 60 mg Tablet Extended Release 24 Hr 60 mg PO DAILY 30 Days Qty: 30 0RF carvedilol 3.125 mg Tablet 3.125 mg PO BID 30 Days Qty: 60 0RF Primary Care Provider: Thanh Rush Referrals: Thanh Rush MD [Primary Care Provider] - Disposition Disposition: Home, Self Care Discharge Date/Time: 03/13/23 05:46
[2023-03-13] MEDS: Lidocaine 2% /Epi 1:100 (20ml) 20 ML VIAL INFILT (05:43)
[2023-03-13] MEDS: TRANEXAMIC ACID 1,000 MG/10 ML ML OPERA.SITE (05:43)
== END 2023-03-13 05:46 | disposition home or self-care (01) ==
PROVIDERS: Emergency Provider Emergency Medicine; PCP Family Medicine; Visit Provider Emergency Medicine
DX: S01.312A Laceration without foreign body of left ear, initial encounter (principal); X58.XXXA Exposure to other specified factors, initial encounter; I25.10 Atherosclerotic heart disease of native coronary artery without angina pectoris; L40.9 Psoriasis, unspecified; I25.5 Ischemic cardiomyopathy; I10 Essential (primary) hypertension; Z79.01 Long term (current) use of anticoagulants; Z79.02 Long term (current) use of antithrombotics/antiplatelets; Z79.899 Other long term (current) drug therapy; Z86.73 Personal history of transient ischemic attack (TIA), and cerebral infarction without residual deficits; Z95.5 Presence of coronary angioplasty implant and graft
CPT/HCPCS: 99282

== ENCOUNTER → 2023-03-23 | Outpatient (CLI) | payer MEDICARE, SELFPAY | END | disposition home or self-care (01) | LOC: LABSPEC 11:06 | PROVIDERS: PCP Family Medicine; Referring Provider Surgery; Visit Provider Surgery | DX: R19.7 Diarrhea, unspecified (principal); K58.9 Irritable bowel syndrome, unspecified | CPT/HCPCS: 82274; 83630; 87177; 87209; 87493; 87506 ==

== ENCOUNTER 2023-04-20 07:23 | Day surgery (SDC) | payer MEDICARE, SELFPAY ==
[2023-04-20] VITALS (11 sets, daily range): BP systolic 74–108; BP diastolic 50–74; PULSE 60–68; RESP 15–18; TEMP 36.1–36.3; O2SAT 89–98
[2023-04-20] MEDS: Lactated Ringers 1,000 ML 15 ML IV (08:00)
--- NOTE | 2023-04-20 08:07 | HP.PCM_ITS ---
History and Physical Date of Admission: 04/20/23 Intake Vital Signs 03/13/2304:17 Height 5 ft 4 in Intake Visit Reasons: BLOODY STOOL Chief Complaint: diarrhea/ blood in stool Road Sign Installer Required: No Is patient in pain?: No Allergies amoxicillin Allergy (Verified 03/18/23 14:42) NEEDS FOLLOW-UPlisinopril Allergy (Verified 03/18/23 14:42) unknownpravastatin Allergy (Verified 03/18/23 14:42) unknownpromethazine Allergy (Verified 03/18/23 14:42) unknownrosuvastatin Allergy (Verified 03/18/23 14:42) unknownticagrelor Allergy (Verified 03/18/23 14:42) unknown Medications atorvastatin 80 mg tablet (Lipitor) 80 mg PO DAILY cholesterol 07/05/21 [History Confirmed 03/18/23] amlodipine 5 mg tablet 5 mg PO DAILY blood pressure 09/30/22 [History Confirmed 03/18/23] apixaban 5 mg tablet (Eliquis) 5 mg PO BID blood thinner #1 TAB 10/22/22 [Rx Confirmed 03/18/23] clopidogrel 75 mg tablet (Plavix) 75 mg PO DAILY anti platelet #1 TAB 10/22/22 [Rx Confirmed 03/18/23] acetaminophen 500 mg capsule 500 mg PO Q6H PRN Pain 02/16/23 [History Confirmed 03/18/23] escitalopram oxalate 10 mg tablet 10 mg PO DAILY mental health 02/16/23 [History Confirmed 03/18/23] nitroglycerin 0.4 mg sublingual tablet 0.4 mg sublingual Q5M PRN chest pain 02/16/23 [History Confirmed 03/18/23] omeprazole 10 mg capsule,delayed release 20 mg PO DAILY PRN gi symptoms 02/16/23 [History Confirmed 03/18/23] carvedilol 3.125 mg tablet 3.125 mg PO BID 30 days #60 tabs 02/19/23 [Rx Confirmed 03/18/23] isosorbide mononitrate 60 mg tablet,extended release 24 hr 60 mg PO DAILY 30 days #30 tabs 02/19/23 [Rx Confirmed 03/18/23] calcitriol 3 mcg/gram topical ointment topical 03/18/23 [History Confirmed 03/18/23] [facility] Medical History (Updated 03/18/23 @ 16:[address] Ugo Nieto MD) Arthritis Coronary artery disease Diarrhea GI bleed Ischemic cardiomyopathy Morbid obesity Myocardial infarction Patent foramen ovale Psoriasis Sleep apnea Stroke/cerebrovascular accident Surgical History History of bilateral cataract extraction History of carotid endarterectomy History of colonoscopy History of coronary angioplasty with insertion of stent History of hysterectomy History of left heart catheterization (LHC) by cutdown History of surgery on left wrist History of tonsillectomy Family History Father Heart disease Cataracts, bilateralMother Cataracts, bilateral Social History household members: spouse housing: other number of children: 3 pets and animals: Yes Smoking Status: Never smoker alcohol intake: current substance use type: does not use caffeine: No HPI HPI HPI: Patient is a 77-year-old female here with chronic diarrhea. Patient reports that she has been having diarrhea since the summer. She says has been at least 3 to 4 months. She does not have any abdominal pain. She reports that occasionally she does have blood in her stool. ROS General General: No weight change or fatigue HEENT HEENT: No difficulty swallowing Endo Endocrine: No thyroid disease Musc Musculoskeletal: No back problems or arthritis Cardio Cardiovascular: No pacemaker, heart disease, atrial fibrillation, high blood pressure, heart attack, heart stent, palpitations or chest pain Psych Psychiatric: No depression or anxiety Resp Respiratory: No shortness of breath, No cough, No COPD, No asthma and No emphysema Gastro Gastrointestinal: No abdominal pain, No nausea or vomiting, Yes diarrhea, No constipation, Yes blood in stool, No acid reflux, No hemorrhoids, No ulcers, No gallbladder problem and No black,tarry stools [place] Hematologic: Yes blood thinners Exam Const General: cooperative Orientation: alert and oriented x3 HENMT Head: normal to inspection Neck Neck: normal visual inspection and full ROM Chest Chest palpation & inspection: normal inspection of the chest Resp Effort & Inspection: normal respiratory effort Auscultation: clear to auscultation bilaterally Cardio Rate: regular rate Rhythm: regular rhythm GI Inspection: non-distended Palpation: soft and nontender Skin General: no rashes or lesions noted Neuro General: patient alert and patient oriented x3 Extrem General: full ROM Psych Appearance: grossly normal Mental Status: mental status grossly normal Assessment and Plan Assessment and Plan (1) Diarrhea: Status: Acute Qualifiers: Diarrhea type: unspecified type Qualified Code(s): R19.7 - Diarrhea, unspecified Plan: The patient has diarrhea of several months duration. I am ordering stool studies and a fecal occult blood. I have also asked her to stop dairy for the next week or 2 to see if this improves anything. I will also be performing a colonoscopy with random biopsies to check for colitis. I have asked her to hold her Plavix and Eliquis for 5 days prior to surgery. I explained endoscopy in detail to the patient. I explained the risks including but not limited to stroke or heart attack with anesthesia, perforation of the GI tract, bleeding, infection. I explained that any of these could necessitate further emergency surgery. The patient understands and all questions were answered sufficiently. The patient wishes to proceed with procedure. Ugo Nieto MD Pager: [facility] [address] [place] [address], [address] [place] [address] Office: I have examined the patient and the H&P has been reviewed. There are no clinical changes since date of exam.
--- NOTE | 2023-04-20 08:41 | OP.COLON_ITS ---
Patient Name: Cynthia Robertson Procedure Date: 04/20/2023 8:12 AM Date of : 1945 Age: 78 Procedure: Colonoscopy Indications: Chronic diarrhea Providers: Ugo Nieto MD Medicines: Monitored Anesthesia Care Patient Profile: Last Colonoscopy: several years ago. Complications: No immediate complications. Estimated blood loss: Minimal. Procedure: Pre-Anesthesia Assessment: - Prior to the procedure, a History and Physical was performed, and patient medications and allergies were reviewed. The patient's tolerance of previous anesthesia was also reviewed. The risks and benefits of the procedure and the sedation options and risks were discussed with the patient. All questions were answered, and informed consent was obtained. Prior Anticoagulants: The patient has taken Plavix (clopidogrel), last dose was 5 days prior to procedure. After reviewing the risks and benefits, the patient was deemed in satisfactory condition to undergo the procedure. After I obtained informed consent, the scope was passed under direct vision. Throughout the procedure, the patient's blood pressure, pulse, and oxygen saturations were monitored continuously. The Colonoscope was introduced through the anus and advanced to the sigmoid colon. The colonoscopy was extremely difficult due to restricted mobility of the colon. Scope In: 8:27:21 AM Scope Out: 8:34:21 AM Total Procedure Duration Time 0 hours 7 minutes 0 seconds Findings: The procedure was performed with difficulty due to restricted mobility of the colon. Impression: - No specimens collected. Recommendation: - Discharge patient to home. - Resume previous diet. - Continue present medications. - Repeat colonoscopy at appointment to be scheduled because the examination was incomplete. - Refer to a digitizer operator at appointment to be scheduled. Procedure Code(s): --- Professional --- 01328, 53, Colonoscopy, flexible; diagnostic, including collection of specimen(s) by brushing or washing, when performed (separate procedure) Diagnosis Code(s): --- Professional --- K52.9, Noninfective gastroenteritis and colitis, unspecified CPT copyright 2021 [employer]. All rights reserved. The codes documented in this report are preliminary and upon digital media manager review may be revised to meet current compliance requirements. Ugo Nieto MD 04/20/2023 8:40:30 AM This report has been signed electronically. Number of Addenda: 0 Note Initiated On: 04/20/2023 8:12 AM
--- NOTE | 2023-04-20 08:41 | OP.CCLET_ITS ---
04/20/2023 Thanh Rush Md Re : Colonoscopy procedure for Cynthia Srinivasan Victor Manuel This procedure was performed on Thursday, April 20, 2023. My impressions and recommendations are as follows: Impressions : - No specimens collected. Recommendations : - Discharge patient to home. - Resume previous diet. - Continue present medications. - Repeat colonoscopy at appointment to be scheduled because the examination was incomplete. - Refer to a electro mechanical solar technician at appointment to be scheduled. My findings are described in the full procedure note, which is enclosed. If I can be of further assistance, please feel free to contact me at Doctor phone number(s): , Work: . Sincerely, Ugo Nieto MD 04/20/2023 8:40:30 AM This report has been signed electronically.
== END 2023-04-20 10:01 | disposition home or self-care (01) ==
LOC: EN 07:24 → AC 07:26
PROVIDERS: PCP Family Medicine; Referring Provider Family Medicine; Visit Provider Surgery
PROC: 0DJD8ZZ Inspection of Lower Intestinal Tract, Via Natural or Artificial Opening Endoscopic (ICD-10-PCS; CPT 45378; principal; 2023-04-20 08:40)
DX: K52.9 Noninfective gastroenteritis and colitis, unspecified (principal); E66.01 Morbid (severe) obesity due to excess calories; I25.10 Atherosclerotic heart disease of native coronary artery without angina pectoris; Z79.01 Long term (current) use of anticoagulants; Z79.02 Long term (current) use of antithrombotics/antiplatelets; Z79.899 Other long term (current) drug therapy; I10 Essential (primary) hypertension; Z53.09 Procedure and treatment not carried out because of other contraindication
CPT/HCPCS: 45378; J7120; J2405

== ENCOUNTER → 2023-04-28 | Outpatient (CLI) | payer MEDICARE, SELFPAY ==
[2023-04-28 18:25] LABS: CRP < 2.90 mg/L (0.0-3.0)
[2023-04-30 15:08] LABS: Immunoglobulin A 178 mg/dL (64-422); t-Transglutaminase IgA <2 U/mL (0-3)
== END | disposition home or self-care (01) ==
LOC: MFPLAB 15:34
PROVIDERS: PCP Family Medicine
DX: K52.9 Noninfective gastroenteritis and colitis, unspecified (principal)
CPT/HCPCS: 36415; 82784; 83516; 86140

== ENCOUNTER → 2023-04-29 | Outpatient (CLI) | payer MEDICARE, SELFPAY ==
[2023-05-07 00:07] LABS: Calprotectin, Stool 42 ug/g (0-120)
== END | disposition home or self-care (01) ==
LOC: LABSPEC 15:59
PROVIDERS: PCP Family Medicine
DX: K52.9 Noninfective gastroenteritis and colitis, unspecified (principal)
CPT/HCPCS: 83993

== ENCOUNTER 2023-06-17 14:27 | Observation (INO) | payer MEDICARE, SELFPAY ==
[2023-06-17] VITALS (9 sets, daily range): BP systolic 124–158; BP diastolic 68–87; PULSE 63–82; RESP 12–18; TEMP 36–36.9; O2SAT 94–100; BMI 31.6; BMI 31.7
--- NOTE | 2023-06-17 14:54 | EDS_ITS ---
HPI History of Present Illness Chief Complaint: Chest Pain Informant: patient Onset/Context/Timing Onset: Weeks Narrative Narrative: Patient present secondary to chest pain with dizziness and nausea. She has been having chest pain that is rather atypical. She describes a hot sensation in her right lower chest that radiates up to her epigastrium. She feels like I think it is cold and then hot again. She had been taking sublingual nitro which she states helped the pain. When she called the cardiology office they started her on Ranolazine. Patient states she is not using the sublingual nitro any longer but she is continue to have this pain. She states that she will often get lightheaded and dizzy. Today she felt near syncopal. She is also had some nausea today. does report that she has been quite depressed recently. [facility] Medical History Arthritis Coronary artery disease Diarrhea Diverticulosis of colon GI bleed History of echocardiogram History of GI bleed History of stress test Ischemic cardiomyopathy Loss of hearing Morbid obesity Myocardial infarction Patent foramen ovale Psoriasis Sleep apnea Stroke/cerebrovascular accident Wears dentures Wears glasses Home Medications atorvastatin 80 mg tablet (Lipitor) 80 mg PO DAILY cholesterol 07/05/21 [History Last Taken 10/20/22 08:00] apixaban 5 mg tablet (Eliquis) 5 mg PO BID blood thinner #1 TAB 10/22/22 [Rx Last Taken 04/16/23] clopidogrel 75 mg tablet (Plavix) 75 mg PO DAILY anti platelet #1 TAB 10/22/22 [Rx Last Taken 04/15/23] acetaminophen 500 mg capsule 500 mg PO Q6H PRN Pain 02/16/23 [History Last Taken Unknown] escitalopram oxalate 10 mg tablet 10 mg PO DAILY mental health 02/16/23 [History Last Taken Unknown] carvedilol 3.125 mg tablet 3.125 mg PO BID 30 days #60 tabs 02/19/23 [Rx Last Taken Unknown] isosorbide mononitrate 60 mg tablet,extended release 24 hr 60 mg PO DAILY 30 days #30 tabs 02/19/23 [Rx Last Taken Unknown] calcitriol 3 mcg/gram topical ointment 1 applic topical Q12H 03/18/23 [History Last Taken Unknown] nitroglycerin 0.4 mg sublingual tablet 0.4 mg sublingual Q5M PRN chest pain #25 tabs 03/26/23 [Rx Last Taken Unknown] ranolazine 500 mg tablet,extended release,12 hr 500 mg PO BID #60 tabs 06/09/23 [Rx Last Taken Unknown] Allergy/AdvReac Type Severity Reaction Status Date / Time amoxicillin Allergy NEEDS Verified 06/17/23 14:30 FOLLOW-UP lisinopril Allergy unknown Verified 06/17/23 14:30 pravastatin Allergy unknown Verified 06/17/23 14:30 promethazine Allergy unknown Verified 06/17/23 14:30 rosuvastatin Allergy unknown Verified 06/17/23 14:30 ticagrelor Allergy unknown Verified 06/17/23 14:30 Family History Father Heart disease Cataracts, bilateral Mother Cataracts, bilateral Surgical History History of bilateral cataract extraction History of cardiac catheterization History of carotid endarterectomy History of colonoscopy History of coronary angioplasty with insertion of stent History of coronary artery stent placement History of hysterectomy History of left heart catheterization (LHC) by cutdown History of surgery on left wrist History of tonsillectomy Social History household members: spouse housing: other number of children: 3 pets and animals: Yes Smoking Status: Never smoker alcohol intake: current substance use type: does not use caffeine: No ROS ROS ED Constitutional Constitutional ED: Denies chills or fever(s) Eyes Eyes: Denies discharge from eye(s) ENT ENT ED: Denies discharge from eye(s), rhinorrhea or sore throat Cardiovascular Cardiovascular: Reports chest pain; Denies palpitations Respiratory/Chest Respiratory/Chest: Denies cough or dyspnea Gastrointestinal Gastrointestinal: Reports abdominal pain and nausea; Denies diarrhea or vomiting Genitourinary Genitourinary ED: Denies difficulty urinating or dysuria Musculoskeletal Musculoskeletal: Denies back pain or extremity pain Integumentary Denies Abrasions or rash Neurologic Neurologic: Denies headache(s) or weakness Psychiatric Psychiatric: Reports depression; Denies anxiety Allergic/Immunologic Allergic/Immunologic ED: Denies lip swelling or urticaria EXAM Physical Exam Const Vital Signs: 06/17/23 14:30 06/17/23 14:42 06/17/23 15:30 Temperature 98.4 F Temperature Source Temporal Pulse Rate 82 69 66 Respiratory Rate 18 12 17 Blood Pressure 124/87 H 154/79 H 127/68 H Blood Pressure Mean 99 104 87 Pulse Ox 100 96 94 Oxygen Delivery Method 06/17/23 15:08 06/17/23 16:39 Temperature Temperature Source Pulse Rate 65 Respiratory Rate 12 Blood Pressure 127/72 H Blood Pressure Mean 90 Pulse Ox 95 Oxygen Delivery Method Room Air Room Air Positive well nourished and well developed General Appearance ED: well developed HEENT Reports moist mucous membranes Eyes EOMs intact bilaterally Chest Wall inspection of chest normal and palpation of chest normal Resp normal respiratory effort and clear to auscultation bilaterally Cardio regular rate and regular rhythm GI soft to palpation and non-tender Extremity normal to inspection Neuro oriented x3 and no sensory deficits noted Motor Exam: strength 5/5 throughout Psych Mood & Affect: depressed Skin no rashes or lesions noted MDM MDM MDM Narrative Medical decision making narrative: Patient placed on floatlight powder mixer. EKG obtained to evaluate for cardiac arrhythmia/ischemia. IV line established. Labwork obtained to evaluate for leukocytosis, anemia, and electrolyte derangement. Chest x-ray obtained to evaluate for acute lung pathology, cardiac size, or mediastinal abnormality. History & Record Review Discussion w/independent historian: Patient and Significant other Additional record(s) reviewed:: Prior inpatient record, Prior outpatient record, Prior ED visit and Prior labs Lab Data Attestation: I reviewed the patient's lab results. Labs: Laboratory Results - last 24 hr 06/17/23 06/17/23 14:45 17:24 WBC 5.1 RBC 4.86 Hgb 13.7 Hct 42.4 MCV 87.2 MCH 28.2 MCHC 32.3 RDW Std Deviation 44.9 H RDW Coeff of Nafisa 14.0 Plt Count 179 MPV 12.1 H Immature Gran % (Auto) 0.400 Neut % (Auto) 54.7 Lymph % (Auto) 25.6 Clinch % (Auto) 7.9 Eos % (Auto) 10.0 H Baso % (Auto) 1.4 H Absolute Neuts (auto) 2.8 Absolute Lymphs (auto) 1.30 Nucleated RBC % 0 D-Dimer Quant (PE/DVT) 0.30 Sodium 143 Potassium 3.6 Chloride 113 H Carbon Dioxide 26.0 Anion Gap 4 L BUN 13 Creatinine 0.94 Estim Creat Clear Calc 52.38 Est GFR (MDRD) Af Amer 74 Est GFR (MDRD) Non-Af 61 BUN/Creatinine Ratio 13.8 Glucose 112 H Calcium 9.4 Total Bilirubin 0.80 Direct Bilirubin 0.27 AST 13 L ALT 17 Alkaline Phosphatase 94 Troponin I High Sens 7 6 Total Protein 6.8 Albumin 3.6 Globulin 3.2 Lipase 39 Radiography Chest X-Ray - ED: 1 View, Read by ED Physician, Chronic Changes and No Infiltrates Diagnostic Testing: Clinical Impression(s) from Imaging Studies Chest X-Ray 06/17/23 15:18 IMPRESSION: Stable elevation of the right hemidiaphragm. No acute abnormality is seen. Electronically Signed: Jose Castle MD at 15:37 EST , EKG Initial EKG: Attestation: I personally reviewed and interpreted this EKG as follows: Interpretation: Sinus Rhythm (Sinus at [address] change.) Treatment and Re-Evaluation :: CBC was normal white count 5.1 with a hemoglobin of 13.7. Differential unremarkable. Chemistry studies unremarkable with normal renal function. Initial troponin is 7 with delta troponin of 6. LFTs and lipase are normal. D- dimer is negative at 0.30. Portable chest x-ray per my interpretation was chronic changes with no evidence of infiltrate. Radiology interpretation reviewed and agrees. EKG is sinus rhythm with no obvious ischemia. Test results were discussed with the patient. I was to do have concerns given the patient has had continued intermittent chest pain that is relieved with sublingual nitro. She called her cardiology office and was switched to Ranolazine without improvement. I will speak with hospitalist regarding observation for further testing. Discharge Plan Triage Chief Complaint: Chest Pain ED Provider: Isabel Chapman Dx/Rx/DC Orders Clinical Impression: Chest pain Prescriptions: No Action escitalopram oxalate 10 mg tablet 10 mg PO DAILY nitroglycerin 0.4 mg tablet, sublingual 0.4 mg sublingual Q5M PRN (Reason: chest pain) Qty: 25 3RF Rx Instructions: do not exceed 3 doses per episode calcitriol 3 mcg/gram ointment 1 applic topical Q12H Patient Comments: apply topically to affected area twice a day atorvastatin [Lipitor] 80 mg Tablet 80 mg PO DAILY clopidogrel [Plavix] 75 mg Tablet 75 mg PO DAILY Qty: 1 0RF Rx Instructions: Patient to hold Plavix for 5 days Eliquis 5 mg Tablet 5 mg PO BID Qty: 1 0RF Rx Instructions: Patient to hold Eliquis for 5 days and to follow-up with primary care physician/sales and leasing consultant to determine ongoing indication acetaminophen 500 mg capsule 500 mg PO Q6H PRN (Reason: Pain) isosorbide mononitrate 60 mg Tablet Extended Release 24 Hr 60 mg PO DAILY 30 Days Qty: 30 0RF carvedilol 3.125 mg Tablet 3.125 mg PO BID 30 Days Qty: 60 0RF ranolazine 500 mg tablet extended release 12 hr 500 mg PO BID Qty: 60 11RF Primary Care Provider: Thanh Rush Referrals: Thanh Rush MD [Primary Care Provider] - Disposition Disposition: Acute Care Hospital [facility]
[2023-06-17] MEDS: 0.9% Normal Saline (1000mL) 1,000 ML 150 ML IV (15:06)
[2023-06-17 15:08] LABS: Absolute Neutrophil Count 2.8 X10^3/uL (2.0-7.7); Basophil# 0.07 X10^3/uL; Basophil% 1.4 % (0-1); Eosinophil# 0.51 X10^3/uL; Hematocrit 42.4 % (37-47); Hemoglobin 13.7 g/dL (12.0-15.0); Lymphocyte % 25.6 % (19-41); Mean Corp Hgb Conc 32.3 g/dL (32-36); Mean Corpuscular Hgb 28.2 pg (27.0-32.0); Mean Corpuscular Volume 87.2 fL (81-99); Mean Platelet Vol. 12.1 fl (6.2-12.0); Monocyte% 7.9 % (0-10); NRBC Flagged by Analyzer 0 % (0-5); Neutrophil # 2.78 X10^3/uL (2.7-7.7); Neutrophil % 54.7 % (47-70); Platelet Count 179 K/mm3 (150-450); RBC Distribution Width SD 44.9 fl (35.1-43.9); Red Blood Count 4.86 M/mm3 (4.2-5.4); White Blood Count 5.1 K/mm3 (4.4-11.0)
--- NOTE | 2023-06-17 15:18 | RAD_ITS ---
STUDY: X-RAY CHEST REASON FOR EXAM: Female, 78 years old. Chest pain TECHNIQUE: Single AP portable view of the chest. COMPARISON: Comparison is made with prior study dated February 17, 2023. FINDINGS: EKG electrodes are seen. Stable elevation of the right hemidiaphragm. There is no demonstrated pleural abnormality. Normal size heart. Normal mediastinum and debbie. Normal visualized pulmonary arteries. There is atherosclerotic calcification of the aortic arch with tortuosity. Normal visualized thoracic spine. Normal visualized ribs, clavicles, and shoulders. There is no demonstrated abnormality of the visualized soft tissue structures of the upper abdomen. RAD/Chest 1 View (Portable) IMPRESSION: Stable elevation of the right hemidiaphragm. No acute abnormality is seen. Electronically Signed: Jose Castle MD at 15:37 EST ,
[2023-06-17] MEDS: Pantoprazole Sodium 40 MG in 0.9% Normal Saline (100mL MB+) 100 ML 330 MG IV (15:23)
[2023-06-17 15:26] LABS: AST(SGOT) 13 U/L (15-37); Alanine Aminotransfer ALT/SGPT 17 U/L (13-56); Albumin, Serum 3.6 g/dL (3.2-5.0); Alkaline Phosphatase 94 U/L (45-117); Anion Gap 4 (5-15); BUN 13 mg/dL (7-18); BUN/Creat Ratio 13.8 RATIO (10-20); Bilirubin, Direct 0.27 mg/dL (0.00-0.30); Calcium,Total 9.4 mg/dL (8.5-10.1); Chloride 113 mmol/L (98-107); Creatinine, Serum 0.94 mg/dL (0.55-1.02); EST Glomerular Filtration Rate 61 mL/min (>60); Est Glom Filt Rate - Afr Amer 74 mL/min (>60); Estimated Creatinine Clearance 52.38 ml/min; Globulin 3.2 g/dL (2.2-4.2); Glucose 112 mg/dL (74-106); Lipase 39 U/L (13-75); Potassium 3.6 mmol/L (3.5-5.1); Protein, Total 6.8 g/dL (6.4-8.2); Sodium Level 143 mmol/L (136-145); Troponin-I HS (w/2H Reflex) 7 pg/mL (3.0-54.0)
--- OUTSIDE RECORDS SUMMARY | 2023-06-17 15:52 | XMS RPT_ITS | CCD ---
Author Name Unknown Address [address] [place] [address] Organization [facility] Care Team Providers Care Grocery Clerk Marking Name Role Phone Stew Quintana Unavailable Unavailable PROVIDER, UNKNOWN Unavailable Unavailable Stew Quintana Unavailable Unavailable STEW QUINTANA Attending Unavailable PROVIDER, UNKNOWN Referring Unavailable STEW QUINTANA Primary Care Unavailable Rodriguez Barone Attending Unavailable PROVIDER, UNKNOWN Referring Unavailable STEW QUINTANA Primary Care Unavailable STEW QUINTANA Attending Unavailable PROVIDER, UNKNOWN Referring Unavailable STEW QUINTANA Primary Care Unavailable Raoul Breaux Attending Unavailable PROVIDER, UNKNOWN Referring Unavailable STWE QUINTANA Primary Care Unavailable Trev Huff Attending Unavailable PROVIDER, UNKNOWN Referring Unavailable STEW QUINTANA Primary Care Unavailable Stew Quintana Primary Care Provider Stew Quintana Primary Care Provider Stew Quintana DO Primary Care Provider Stew Quintana DO Primary Care Provider Stew Quintana DO Primary Care Provider Stew Quintana DO Primary Care Provider Ernestina Potter PA-C Unavailable Kathy HERRON, Rowan Unavailable Stew Quintana DO Primary Care Provider Ernestina Potter PA-C Unavailable Kathy HERRON, Rowan Unavailable KATHY, ROWAN Admitting Unavailable ROWAN CHAVEZ Attending Unavailable STEW QUINTANA Primary Care Unavailable DEAN ASHTON Admitting Unavailable DEAN ASHTON Attending Unavailable STEW QUINTANA Primary Care Unavailable POTTER, ERNESTINA Referring Unavailable MARIANO, STEW Primary Care Unavailable KATHY, ROWAN Attending Unavailable POTTER, ERNESTINA Referring Unavailable MARIANO, STEW Primary Care Unavailable KATHY, ROWAN Attending Unavailable MARIANO, STEW Primary Care Unavailable POTTER, ERNESTINA Attending Unavailable MARIANO, STEW Primary Care Unavailable KATHY, ROWAN Attending Unavailable MARIANO, STEW Primary Care Unavailable POTTER, ERNESTINA Attending Unavailable MARIANO, STEW Primary Care Unavailable POTTER, ERNESTINA Attending Unavailable MARIANO, STEW Primary Care Unavailable KATHY, ROWAN Admitting Unavailable KATHY, ROWAN Attending Unavailable KATHY, ROWAN Referring Unavailable MARIANO, STEW Primary Care Unavailable POTTER, ERNESTINA Attending Unavailable POTTER, ERNESTINA Referring Unavailable MARIANO, STEW Primary Care Unavailable Stew Quintana DO Primary Care Provider Allergies Allergy Classification Reported Allergen(s) Allergy Type Date of Onset Reaction(s) Facility Angiotensin Converting Enzyme (BRIELLE) Inhibitors (2 sources) Lisinopril Drug Allergy 7 Other (See Comments) [facility] Work Phone: HMG-CoA Reductase Inhibitors (statins) (2 sources) rosuvastatin Drug Allergy 7 Diarrhea [facility] Nitrate Vasodilator (2 sources) Nitroglycerin Drug Allergy 2 Other (See Comments) [facility] Penicillins (antibiotic) (2 sources) Amoxicillin Drug Allergy 7 [facility] Promethazine (2 sources) Promethazine Drug Allergy 7 Anxiety [facility] Ticagrelor (2 sources) Ticagrelor Drug Allergy 7 Other (See Comments) [facility] Work Phone: (20 sources) Amoxicillin Drug Allergy 7 Other (See Comments), Other [place] (7 sources) Lisinopril Drug Allergy 7 Other (See Comments) [place] (7 sources) Nitroglycerin Drug Allergy 2 Other (See Comments) [place] (7 sources) Promethazine Drug Allergy 7 Anxiety [place] (7 sources) rosuvastatin Drug Allergy 7 Diarrhea [place] (7 sources) Ticagrelor Drug Allergy 7 Other (See Comments) [place] (20 sources) Lisinopril Propensity to adverse reactions 7 Other [facility] (10 sources) Nitroglycerin Propensity to adverse reactions 2 Other [facility] (20 sources) Pravastatin Drug Allergy 2 Other [facility] (20 sources) Promethazine Drug Allergy 7 Anxiety [facility] (20 sources) Rosuvastatin calcium Propensity to adverse reactions 7 Diarrhea [facility] (20 sources) Ticagrelor Propensity to adverse reactions 7 Other [facility] Medications Current Medications Medication Drug Class(es) Dates Sig (Normalized) Sig (Original) acetaminophen 325 mg / oxyCODONE hydrochloride 5 mg oral tablet (4 sources) Opioid Agonist Start: 09-22-2022 End: 09-26-2022 take 1 tablet by mouth every six hours as needed for pain oxyCODONE-acetami nophen (Percocet) 5-325 MG tablet Indications: Stenosis of left carotid artery Take 1 tablet by mouth every 6 hours as needed for severe pain (7-10) for up to 3 days. 12 tablet 0 09/22/2022 09/26/2022 Active Completed/Discontinued Medications Medication Drug Class(es) Dates Sig (Normalized) Sig (Original) acetaminophen 500 mg oral tablet (20 sources) Start: 09-22-2022 End: 09-23-2022 take 1 tablet by mouth every eight hours 1,000 mg, Oral, Every 8 hours, First dose on Wed09/22/22 at 1315, Phase II/On Unit Maximum dose of acetaminophen is 4000 mg from all sources in 24 hours. Problems Active Problems Problem Classification Problem Date Documented Da te Episodic/Chronic Acute cerebrovascular disease (20 sources) Ischemic stroke; Translations: [Cerebral infarction due to unspecified occlusion or stenosis of left posterior cerebral artery] Onset: 7 11-24-2016 Chronic Acute myocardial infarction (7 sources) Myocardial infarction; Translations: [Non-ST elevation (NSTEMI) myocardial infarction] Onset: 7 12-18-2016 Chronic Allergic reactions (4 sources) Allergy status to penicillin; Translations: [Allergy status to other drugs, medicaments and biological substances status] Onset: 9 Episodic Cardiac and circulatory congenital anomalies (2 sources) Atrial septal defect; Translations: [Atrial septal defect] Onset: 9 Chronic Conduction disorders (1 source) Prolonged QT interval Onset: 7 12-20-2016 Chronic Coronary atherosclerosis and other heart disease (20 sources) Ischemic cardiomyopathy; Translations: [Atherosclerotic heart disease of [place] coronary artery without angina pectoris] Onset: 0 Chronic Coronary atherosclerosis and other heart disease (2 sources) Presence of coronary angioplasty implant and graft; Translations: [Presence of coronary angioplasty implant and graft] Onset: 9 Episodic Disorders of lipid metabolism (20 sources) Hyperlipidemia, unspecified; Translations: [Hyperlipidemia] Onset: 7 12-18-2016 Chronic Diverticulosis and diverticulitis (20 sources) Diverticular disease; Translations: [Diverticulosis of intestine, part unspecified, without perforation or abscess without bleeding] Onset: 9 05-02-2019 Chronic Essential hypertension (20 sources) Essential (primary) hypertension; Translations: [Hypertensive disorder] Onset: 2 Resolved: 0 12-18-2016 Chronic Genitourinary symptoms and ill-defined conditions (20 sources) Female stress incontinence; Translations: [Stress incontinence (female) (male)] Onset: 1 01-09-2020 Chronic Headache; including migraine (2 sources) Cyclical vomiting, not intractable; Translations: [Cyclical vomiting, not intractable] Onset: 9 Chronic Menopausal disorders (20 sources) Menopausal symptom; Translations: [Menopausal and female climacteric states] Onset: 1 01-09-2020 Chronic Mood disorders (20 sources) Depressive disorder; Translations: [Major depressive disorder, single episode, unspecified] Onset: 0 01-09-2020 Chronic Nausea and vomiting (2 sources) Nausea with vomiting, unspecified; Translations: [Nausea with vomiting, unspecified] Onset: 9 Episodic Noninfectious gastroenteritis (2 sources) Noninfective gastroenteritis and colitis, unspecified; Translations: [Noninfective gastroenteritis and colitis, unspecified] Onset: 9 Episodic Occlusion or stenosis of precerebral arteries (20 sources) Left carotid artery stenosis; Translations: [Occlusion and stenosis of left carotid artery] Onset: 3 Chronic Osteoarthritis (2 sources) Unspecified osteoarthritis, unspecified site; Translations: [Unspecified osteoarthritis, unspecified site] Onset: 9 Chronic Other aftercare (2 sources) intermodal customer service (current) use of antithrombotics/antipl atelets; Translations: [intermodal customer service (current) use of antithrombotics/antipl atelets] Onset: 9 Episodic Other and ill-defined heart disease (2 sources) Heart disease, unspecified; Translations: [Heart disease, unspecified] Onset: 9 Chronic Other and ill-defined heart disease (20 sources) Left atrial enlargement; Translations: [Cardiomegaly] Onset: 7 11-26-2016 Chronic Other circulatory disease (2 sources) Personal history of transient ischemic attack (TIA), and cerebral infarction without residual deficits; Translations: [Prsnl hx of TIA (TIA), and cereb infrc w/o resid deficits] Onset: 9 Episodic Other circulatory disease (1 source) Symptom: chest wall; Translations: [Other specified symptoms and signs involving the circulatory and respiratory systems] Episodic Other circulatory disease (1 source) Orthostatic hypotension; Translations: [Orthostatic hypotension] 01-07-2023 Episodic Other circulatory disease (1 source) Unequal blood pressure in arms; Translations: [Other specified symptoms and signs involving the circulatory and respiratory systems] 02-09-2023 Episodic Other circulatory disease (2 sources) Other specified symptoms and signs involving the circulatory and respiratory systems; Translations: [Other specified symptoms and signs involving the circulatory and respiratory systems] Onset: 3 Episodic Other ear and sense organ disorders (20 sources) Sensorineural hearing loss; Translations: [Unspecified sensorineural hearing loss] Onset: 0 01-09-2020 Chronic Other gastrointestinal disorders (1 source) History of upper gastrointestinal tract hemorrhage; Translations: [Personal history of other diseases of the digestive system] 01-07-2023 Episodic Other inflammatory condition of skin (20 sources) Psoriasis; Translations: [Psoriasis, unspecified] Onset: 2 01-09-2020 Chronic Other non-traumatic joint disorders (2 sources) Pain in right knee; Translations: [Pain in right knee] Onset: 9 Episodic Other non-traumatic joint disorders (2 sources) Effusion, right knee; Translations: [Effusion, right knee] Onset: 9 Episodic Other nutritional; endocrine; and metabolic disorders (2 sources) Morbid (severe) obesity due to excess calories; Translations: [Morbid (severe) obesity due to excess calories] Onset: 9 Chronic Other nutritional; endocrine; and metabolic disorders (20 sources) Body mass index 30+ - obesity; Translations: [Obesity, unspecified] Onset: 7 11-26-2016 Chronic Other screening for suspected conditions (not mental disorders or infectious disease) (20 sources) Encounter for screening mammogram for malignant neoplasm of breast; Translations: [Encounter for screening for osteoporosis] Onset: 7 12-20-2016 Episodic Otitis media and related conditions (1 source) Chronic purulent otitis media; Translations: [Other chronic suppurative otitis media of left ear] Chronic Otitis media and related conditions (1 source) Non-suppurative otitis media; Translations: [Other nonsuppurative otitis media of left ear, unspecified chronicity] Episodic Peripheral and visceral atherosclerosis (3 sources) Peripheral vascular disease; Translations: [Peripheral vascular disease, unspecified] Onset: 3 02-09-2023 Chronic Prolapse of female genital organs (20 sources) Midline cystocele; Translations: [Cystocele, midline] Onset: 1 01-09-2020 Chronic Residual codes; unclassified (18 sources) Sleep apnea; Translations: [Sleep apnea, unspecified] Onset: 7 11-24-2016 Chronic Residual codes; unclassified (16 sources) Obstructive sleep apnea syndrome; Translations: [Obstructive sleep apnea (adult) (pediatric)] Onset: 7 09-11-2022 Chronic Residual codes; unclassified (2 sources) Acquired absence of both cervix and uterus; Translations: [Acquired absence of both cervix and uterus] Onset: 9 Episodic Residual codes; unclassified (2 sources) Sleep apnea, unspecified; Translations: [Sleep apnea, unspecified] Onset: 9 Unclassified (3 sources) H/O: Bilateral cataract extraction; Translations: [H/O bilateral cataract extraction] Onset: 7 12-14-2016 Unclassified (1 source) Sprain of left knee; Translations: [Sprain of left knee, unspecified ligament, initial encounter] Unclassified (1 source) Sprain of right ankle; Translations: [Sprain of right ankle, unspecified ligament, initial encounter] Unclassified (2 sources) Post-op; Translations: [Post-op] Onset: 3 Past or Other Problems Problem Classification Problem Date Documented Date Episodic/Chronic Abdominal hernia (20 sources) Diaphragmatic hernia; Translations: [Diaphragmatic hernia without obstruction or gangrene] Onset: 05-26-2011 01-09-2020 Episodic Blindness and vision defects (20 sources) Homonymous bilateral field defects, right side; Translations: [Other visual disturbances] Onset: 11-26-2016 12-13-2017 Episodic Conditions associated with dizziness or vertigo (20 sources) Dizziness; Translations: [Benign paroxysmal positional vertigo] Onset: 01-21-2019 01-21-2019 Episodic Conduction disorders (5 sources) Prolonged QT interval; Translations: [QT prolongation] Onset: 12-20-2016 12-20-2016 Episodic Diabetes mellitus without complication (20 sources) Hyperglycemia; Translations: [Hyperglycemia, unspecified] Onset: 12-18-2016 12-18-2016 Episodic Gastritis and duodenitis (20 sources) Gastritis; Translations: [Gastritis, unspecified, without bleeding] Onset: 11-26-2016 11-26-2016 Episodic Genitourinary symptoms and ill-defined conditions (20 sources) Urgent desire to urinate; Translations: [Urgency of urination] Onset: 04-07-2011 01-09-2020 Episodic Other aftercare (2 sources) longterm (current) use of anticoagulants; Translations: [longterm (current) use of anticoagulants] Onset: 12-13-2017 Episodic Other bone disease and musculoskeletal deformities (2 sources) Other specified disorders of bone density and structure, unspecified site; Translations: [Oth disrd of bone density and structure, unspecified site] Onset: 04-18-2018 Episodic Other circulatory disease (1 source) History of cerebrovascular accident; Translations: [History of multiple cerebrovascular accidents (CVAs)] Episodic Other ear and sense organ disorders (20 sources) Bilateral tinnitus; Translations: [Tinnitus, bilateral] Onset: 01-09-2020 01-09-2020 Episodic Other eye disorders (3 sources) History of cataract extraction; Translations: [H/O bilateral cataract extraction] Onset: 12-14-2016 12-14-2016 Episodic Other eye disorders (20 sources) H/O: Bilateral cataract extraction; Translations: [Cataract extraction status, right eye] Onset: 12-14-2016 12-14-2016 Episodic Other nervous system disorders (1 source) Unsteady gait; Translations: [Unsteady gait] Episodic Other upper respiratory infections (20 sources) Acute ethmoidal sinusitis; Translations: [Acute ethmoidal sinusitis, unspecified] Onset: 07-09-2009 01-09-2020 Episodic Residual codes; unclassified (20 sources) Family history of breast cancer; Translations: [Family history of malignant neoplasm of breast] Onset: 04-07-2011 01-09-2020 Episodic Residual codes; unclassified (2 sources) Other specified postprocedural states; Translations: [Other specified postprocedural states] Onset: 10-23-2022 Episodic Spondylosis; intervertebral disc disorders; other back problems (2 sources) Low back pain; Translations: [Low back pain] Onset: 04-06-2017 Episodic Results Test Name Value Interpretation Reference Range Facil ity Vital Signs Date Time Vital Sign Value Performing Clinician Charlene hernandez 02-09-2023 10:23-0400 Diastolic blood pressure 62 mm[Hg] Ernestina Potter PA-C Work Phone: [employer] 02-09-2023 10:23-0400 Systolic blood pressure 98 mm[Hg] Ernestina SILVERI[employer]ol [employer] Work Phone: [employer] 02-09-2023 09:49-0400 Body height 162.6 cm Ernestina Potter NUSR[employer]Sol [employer] Work Phone: [employer] 02-09-2023 09:49-0400 Body mass index (BMI) [Ratio] 30.95 kg/m2 Ernestina Potter PA-C Work Phone: [employer] 02-09-2023 09:49-0400 Body weight 81.78 kg Ernestina Potter PA-C Work Phone: [employer] 02-09-2023 09:49-0400 Heart rate 61 /min Ernestina Potter PA-C Work Phone: [facility] 02-09-2023 09:49-0400 SaO2% (BldA) [Mass fraction] 96 % Ernestina Potter PA-C Work Phone: [facility] 01-07-2023 08:51-0400 Diastolic blood pressure 60 mm[Hg] Ernestina Potter PA-C Work Phone: [facility] 01-07-2023 08:51-0400 Heart rate 70 /min Ernestina Potter PA-C Work Phone: [facility] 01-07-2023 08:51-0400 SaO2% (BldA) [Mass fraction] 94 % Ernestina Potter PA-C Work Phone: [facility] 01-07-2023 08:51-0400 Systolic blood pressure 90 mm[Hg] Ernestina Potter PA-C Work Phone: [facility] 01-07-2023 08:49-0400 Body height 162.6 cm Ernestina Potter PA-C Work Phone: [facility] 01-07-2023 08:49-0400 Body mass index (BMI) [Ratio] 31.62 kg/m2 Ernestina Potter PA-C Work Phone: [facility] 01-07-2023 08:49-0400 Body weight 83.55 kg Ernestina Potter PA-C Work Phone: [facility] 10-05-2022 14:37-0400 Body height 162.6 cm Rowan Chavez MD Work Phone: [facility] 10-05-2022 14:37-0400 Body mass index (BMI) [Ratio] 30.9 kg/m2 Rowan Chavez MD Work Phone: [facility] 10-05-2022 14:37-0400 Body weight 81.65 kg Rowan Chavez MD Work Phone: [facility] 10-05-2022 14:37-0400 Respiratory rate 18 /min Rowan Chavez MD Work Phone: [facility] 09-23-2022 07:52-0400 Body temperature 97.5 [degF] Rowan Chavez MD Work Phone: [facility] 09-23-2022 07:52-0400 Heart rate 71 /min Rowan Chavez MD Work Phone: [facility] 09-23-2022 07:52-0400 SaO2% (BldA) [Mass fraction] 93 % Rowan Chavez MD Work Phone: [facility] 09-23-2022 07:46-0400 Diastolic blood pressure 56 mm[Hg] Rowan Chavez MD Work Phone: [facility] 09-23-2022 07:46-0400 Respiratory rate 17 /min Rowan Chavez MD Work Phone: [facility] 09-23-2022 07:46-0400 Systolic blood pressure 141 mm[Hg] Rowan Chavez MD Work Phone: [facility] 09-22-2022 05:52-0400 Body height 162.6 cm Rowan Chavez MD Work Phone: [facility] 09-22-2022 05:52-0400 Body mass index (BMI) [Ratio] 30.9 kg/m2 Rowan Chavez MD Work Phone: [facility] 09-22-2022 05:52-0400 Body weight 81.65 kg Rowan Chavez MD Work Phone: [facility] 09-02-2022 11:15-0400 Body mass index (BMI) [Ratio] 33.27 kg/m2 Rowan Chavez MD Work Phone: [facility] 09-02-2022 11:15-0400 Body temperature 96.91 [degF] Rowan Chavez MD Work Phone: [facility] 09-02-2022 11:15-0400 Body weight 87.91 kg Rowan Chavez MD Work Phone: [facility] 09-02-2022 11:15-0400 Diastolic blood pressure 87 mm[Hg] Rowan Chavez MD Work Phone: [facility] 09-02-2022 11:15-0400 Heart rate 89 /min Rowan Chavez MD Work Phone: [facility] 09-02-2022 11:15-0400 Systolic blood pressure 150 mm[Hg] Rowan Chavez MD Work Phone: [facility] 12-01-2019 14:11-0400 BMI (Body Mass Index) 38.45 kg/m2 Stew Lopez [facility], [place] 12-01-2019 14:11-0400 Body Temperature 99.81 [degF] Stew Quintana [facility] [place] 12-01-2019 14:11-0400 Body weight 101.61 kg Stew Quintana [facility] , [place] 12-01-2019 14:11-0400 BP Diastolic 82 mm[Hg] [facility] [place] [facility] 14:11-0400 BP Systolic 128 mm[Hg] [facility] [place] 12-01-2019 14:11-0400 Pulse (Heart Rate) 82 /min Stew Lopez [place], [place] 12-01-2019 14:11-0400 Pulse Oximetry 100 % Stew Quintana [place], [place] 12-01-2019 14:11-0400 Respiratory Rate 18 /min Stew Quintana [place], [place] 05-02-2019 13:12-0500 Diastolic blood pressure 72 mm[Hg] Av Martinez MD Work Phone: [facility] Work Phone: 05-02-2019 13:12-0500 Heart rate 70 /min Av Martinez MD Work Phone: [facility] Work Phone: 05-02-2019 13:12-0500 Respiratory rate 18 /min Av Martinez MD Work Phone: [facility] Work Phone: 05-02-2019 13:12-0500 SaO2% (BldA) [Mass fraction] 99 % Av Martinez MD Work Phone: [employer] Work Phone: 05-02-2019 13:12-0500 Systolic blood pressure 139 mm[Hg] Av Martinez MD [facility] Phone: [facility] Work Phone: 05-02-2019 11:21-0500 Body height 162.6 cm vA Martinez MD Work Phone: [employer] Work Phone: 05-02-2019 11:21-0500 Body mass index (BMI) [Ratio] 39.82 kg/m2 Av Martinez MD Work Phone: [employer] Work Phone: 05-02-2019 11:21-0500 Body temperature 98.1 [degF] Av Martinez MD Work Phone: [employer] Work Phone: 05-02-2019 11:21-0500 Body weight 105.23 kg Av Martinez MD Work Phone: [employer] Work Phone: 02-07-2019 06:36-0400 BP Diastolic 74 mm[Hg] Willam Twonq [facility] , [place] 02-07-2019 06:36-0400 BP Systolic 127 mm[Hg] [facility] [place] 02-07-2019 06:36-0400 Pulse (Heart Rate) 52 /min Willam Art [facility] 02-07-2019 06:36-0400 Pulse Oximetry 93 % [facility] [place] 02-07-2019 06:36-0400 Respiratory Rate 16 /min Willam [employer], [place] 02-07-2019 05:06-0400 BMI (Body Mass Index) 39.48 kg/m2 [facility], [place] 02-07-2019 05:06-0400 Body Temperature 97.59 [degF] Willam [employer] 02-07-2019 05:06-0400 Body weight 104.33 kg Willam Art [facility] [place] 02-07-2019 05:06-0400 Height 162.6 cm Willam Art [facility] [place] 01-27-2019 20:17-0400 Pulse Oximetry 94 % Stew Quintana [facility] [place] 01-27-2019 20:17-0400 Respiratory Rate 16 /min Stew Lopez [facility], [place] 01-27-2019 19:33-0400 BP Diastolic 56 mm[Hg] Stew Quintana [facility] [place] 01-27-2019 19:33-0400 BP Systolic 124 mm[Hg] Stew Quintana [facility] [place] 01-27-2019 19:31-0400 Pulse (Heart Rate) 59 /min Stew Quintana [facility] 01-27-2019 17:44-0400 BMI (Body Mass Index) 41.71 kg/m2 Stew Lopez [facility] 01-27-2019 17:44-0400 Body Temperature 98.4 [degF] Stew Quintana [facility], [place] 01-27-2019 17:44-0400 Body weight 110.22 kg Stew Quintana [facility] [place] 01-27-2019 17:44-0400 Height 162.6 cm tSew Lopez [facility] , [place] 01-22-2019 11:26-0400 Body Temperature 98.2 [degF] Jose Lopez [facility] 01-22-2019 11:26-0400 BP Diastolic 74 mm[Hg] Jose Lopez [facility] [place] 01-22-2019 11:26-0400 BP Systolic 130 mm[Hg] Jose Roman [facility] [place] 01-22-2019 11:26-0400 Pulse Oximetry 94 % Jose Lopez [facility] , [place] 01-22-2019 11:26-0400 Respiratory Rate 20 /min Jose Lopez [facility] 01-22-2019 08:00-0400 Pulse (Heart Rate) 57 /min Jose Lopez [facility] 01-21-2019 14:22-0400 BMI (Body Mass Index) 40.51 kg/m2 Jose Lopez [facility], [place] 01-21-2019 14:0400 Body weight 107.05 kg Jose Roman [facility] [place] 01-21-2019 14:-0400 Height 162.6 cm Jose Lopez [facility] , [place] Encounters Encounter Date Encounter Type Care Provider Facility Start: 05-10-2023 Refill Ernestina rahman PA-C Work Phone: [facility] Cardiology Start: 02-17-2023 ambulatory DEAN ASHTON [facility] Start: 02-10-2023 Telephone encounter Trev benjamin MD Work Phone: [facility] Cardiology Procedures Date Procedure Procedure Detail Performing Clinician Start: 02-09-2023 Ecg routine ecg w/least 12 lds w/i&r Trev Huff MD Work Phone: Start: 01-07-2023 Ecg routine ecg w/least 12 lds w/i&r Trev Huff MD Work Phone: Start: 10-23-2022 Duplex scan extracranial art compl bi study Rowan Chavez MD Work Phone: Start: 09-23-2022 Basic metabolic panel calcium total Sonia Worrell MD Work Phone: Start: 09-22-2022 PULSE OXIMETRY, SPOT Petey Renteria MD Work Phone: Start: 09-22-2022 End: 09-22-2022 Teaec w/patch grf carotid vertb subclav neck inc Rowan Chavez MD Work Phone: Start: 08-24-2022 Myocardial spect multiple studies Ernestina Potter PA-C Work Phone: Start: 08-24-2022 Duplex scan extracranial art compl bi study Ernestina Potter PA-C Work Phone: Start: 09-01-2021 Mri brain brain stem w/o w/contrast material Stew Quintana DO Work Phone: Start: 11-21-2020 Duplex scan extracranial art compl bi study Stew Quintana DO Work Phone: Start: 10-22-2020 Myocardial spect multiple studies Nona Stein MD Work Phone: Start: 12-01-2019 Radex ankle complete minimum 3 views Isa Dahl Work Phone: Start: 12-01-2019 Radiologic examination knee 3 views Isa Dahl Work Phone: Start: 06-27-2019 Screening digital breast tomosynthesis bi Stew Quintana Work Phone: Start: 05-02-2019 End: 05-02-2019 Colonoscopy 3m Scanning Start: 01-27-2019 Basic metabolic panel calcium total Lindsey Sexton Work Phone: Start: 01-27-2019 Blood count complete auto&auto difrntl wbc Lindsey Sexton Work Phone: Start: 01-22-2019 Mra neck w/o &w/contrast material Gabriela Stratton Work Phone: Start: 01-22-2019 Mri brain brain stem w/o w/contrast material Gabriela Stratton Work Phone: Start: 01-22-2019 Mra head w/o contrst material Gabriela Stratton Work Phone: Start: 01-22-2019 Assay of troponin quantitative Gabrielaleodan Stratton Work Phone: Start: 01-22-2019 Blood count complete auto&auto difrntl wbc Gabrielaleodan Stratton Work Phone: Start: 01-22-2019 Blood count complete automated Gabrielaleodan Stratton Work Phone: Start: 01-22-2019 Hemoglobin glycosylated a1c Gabriela Stratton Work Phone: Start: 01-22-2019 Lipid panel Gabriela Stratton Work Phone: Start: 01-21-2019 Speech and language therapy regime Gabriela Abdur Stratton Work Phone: Start: 01-21-2019 Ecg routine ecg w/least 12 lds w/i&r Aviva Almaguer Work Phone: Start: 01-21-2019 Assay of troponin quantitative Aviva Almaguer Work Phone: Start: 01-21-2019 Blood count complete auto&auto difrntl wbc Aviva Almaguer Work Phone: Start: 01-21-2019 Prothrombin time Aviva Almaguer Work Phone: Start: 01-21-2019 Thromboplastin time partial plasma/whole blood Aviva Almaguer Work Phone: Start: 01-21-2019 Radiologic exam chest single view Aviva Almaguer Work Phone: Start: 01-21-2019 Ct head/brain w/o contrast material Aviva Almaguer Work Phone: Start: 01-21-2019 INITIATE OXYGEN THERAPY PROTOCOL Aviva Almaguer Work Phone: History of carotid endarterectomy S/P carotid endarterectomy Rowan Chavez MD Work Phone: History of carotid endarterectomy S/P carotid endarterectomy Rowan Chavez MD Work Phone: Plan of Treatment Date Care Activity Detail Author Start: 05-02-2029 Colon cancer screen colonoscopy Colon cancer screen colonoscopy [facility] Work Phone: Start: 05-02-2029 Screening for malign ant neoplasm of colon [facility] Start: 03-15-2029 Colon cancer screen colonoscopy Colon cancer screen colonoscopy [facility] Work Phone: Start: 01-23-2024 Lipid screen Lipid screen Jessica Herrera - [place], [place] Start: 03-01-2023 End: 03-01-2023 Patient encounter procedure 03/01/2023 10:20 AM EDT Appointment [facility] [address] [place] [address] [facility] Start: 02-25-2023 End: 02-25-2023 Admission to [facility] Cath/EP Lab Immunizations Immunization Date Immunization Notes Care Provider Aranza saqib 01-28-2022 influenza virus vaccine, unspecified formulation Nicole Henson RN [facility] 04-03-2019 influenza, high dose seasonal, preservative-free Nona Stein MD Work Phone: [facility] Work Phone: 03-02-2012 influenza virus vaccine, unspecified formulation Nona Stein MD Work Phone: [facility] Work Phone: Payers Date Payer Category Payer Medicare [id number] 2017 Medicare BCBS MEDICARE AN THEM MEDIBLUE ESSENTIAL/PLUS xxxxxxxxxxxx 2017-Present [address] [address] [place] [address] xxxxxxxxxxxx [id number] 2017 Medicare [id number] 1945 Unknown [id number] 1945 Unknown [id number] 1945 Unknown [id number] 1945 Unknown [id number] 1945 Unknown [id number] Unknown Social History Date Type Detail Facility Start: 06-11-2016 End: 01-22-2019 Tobacco [facility] status [facility] Start: 01-22-2019 End: 02-09-2023 Alcohol intake Yes [facility] Start: 12-14-2016 Alcohol Comment occassionally Jessica [facility] S[facility] Start: 1945 Sex Assigned At Not on file M rachael [facility] Start: 05-02-2019 End: 02-09-2023 Alcohol intake Current drinker of alcohol (finding) [facility] Phone: Exposure to SARS-CoV-2 (event) Unable to assess [facility] Start: 06-11-2016 End: 10-22-2020 Tobacco use and exposure Never used [facility] Start: 08-14-2022 End: 02-09-2023 Exposure to SARS-CoV-2 (event) Not sure [facility] Start: 08-06-2022 Alcohol Comment 1 time a month [facility] Start: 10-05-2022 End: 02-09-2023 History of Social function [facility] Clinical Notes 07-18-2020 to 02-22-2023 Telephone Encounter - Ernestina Potter PA-C - 02/22/2023 3:54 PM EDTTelephone Encounter - Ernestina Pottre PA-C - 02/22/2023 3:54 PM SUDHAKAR Jackman - 02/09/2023 10:00 AM EDTAttachments Note Date & Type Note Facility 02-22-2023 Telephone encounter Note I called and spoke with the patient. She reports she underwent LHC at [place]. She states that she was told that there was no evidence of restenosis or need for additional PCI. She was subsequently advised medical therapy per the patient. She is already scheduled then to follow with freelance programmer/app developer, Dr. Luna in [place] as she was already planning on establishing with him after the LHC secondary to location as she and her now live in [place]. She was appreciative of the care she received in [place] and just wanted us to be updated. [facility] 02-22-2023 Miscellaneous Notes I called and spoke with the patient. She reports she underwent LHC at [place]. She states that she was told that there was no evidence of restenosis or need for additional PCI. She was subsequently advised medical therapy per the patient. She is already scheduled then to follow with freelance programmer/app developer, Dr. Luna in [place] as she was already planning on establishing with him after the LHC secondary to location as she and her now live in [place]. She was appreciative of the care she received in [place] and just wanted us to be updated. Patient's called and is cancelling CATH with Nils on 02/25, patient went to hospital sooner at [place] and had CATH there instead due to other issues patient had, spoke with Reyna in surgery scheduling and case cancelled Surg/ proc orders done You are scheduled for LHC with Dr Ashton on 02/25/23 at 9:00 am. Report to [facility], 1st Floor [facility] by 7:30am. You can park in the [address] Deck or use [employer] parking (for a nominal fee of $6-7) and enter the hospital using the [address] entrance across from the parking deck You will need a designated auto crane driver for the day of your procedure to take you home Nothing to eat or drink after midnight Please take your am medications with sips of water prior to leaving for the hospital. Please take your Plavix as usual before leaving for the hospital. Hold Eliquis 2 days prior to LHC. Get blood work done by MARY JO- was done and will be scanned into chart. Please call the office at [phone] if you have any questions. Reviewed allergies-No iodine allergy. Dx: CAD Procedure: [facility] Date/Time: 02/25/23 at 9am Surgeon: Nils Location: [facility] Admission: OUTPATIENT Per Ernestnia, [facility] scheduled with Dr Ashton on 02-25-23 9 am. Patient had recent labs at [place] ER to be scanned in [place] will do teaching. documented in this encounter [facility] 02-22-2023 Telephone encounter Note Patient's called and is cancelling CATH with Nils on 02/25, patient went to hospital sooner at [place] and had CATH there instead due to other issues patient had, spoke with Reyna in surgery scheduling and case cancelled [facility] 02-10-2023 Telephone encounter Note I scheduled vascular ultrasound upper extremity 03-01-23 10:20 am [facility] Patient notified. [facility] 02-10-2023 Miscellaneous Notes I scheduled vascular ultrasound upper extremity 03-01-23 10:20 am [facility] Patient notified. documented in this encounter [facility] 02-09-2023 Note [facility] Office Note DATE of SERVICE: 02/09/23 TIME of SERVICE: 2:29 PM Chief Complaint: Chief Complaint Patient presents with Follow-up History of Present Illness: Cynthia Robertson is a 77 y.o. female with a known history of CAD s/p FLAQUITO x6 to the LM into proximal LAD, ostial and proximal CFX (kissing balloon) and mid-distal LAD and ostial and proximal second diagonal (kissing balloon) 2017, history of stroke, hypertension, hyperlipidemia, recovered ischemic cardiomyopathy/HFrEF and PVD s/p left carotid endarterectomy 09/22/2022 who presents for cardiac reassessment. Most recently the patient was evaluated with complaints of 2 episodes of exertional chest pain. She had undergone a Lexiscan nuclear stress test evaluation earlier in the year which showed no evidence of ischemia with an EF of 52%. She subsequently was advised to add Imdur 30 mg daily and return for reassessment with consideration for LHC if she continued to remain symptomatic despite medical therapy. She then contacted our office with complaints of dizziness/lightheadedness and low blood pressure readings at which time she was advised to reduce her carvedilol medication down to 3.125 mg twice daily. Currently the patient reports she has continued to have chest pain. It occurs with activity and is relieved with 4-5 minutes of rest. It occurs in the center of her chest. She reports it does not seem as severe since starting the nitrates/Imdur therapy although she is still having the symptoms. She also has had decreased appetite and dizziness and lightheadedness with wide fluctuations in her blood pressure. She did recently have diarrhea for 5 days and subsequently went to the ER in [place] 2 days ago. She states that she was diagnosed with a urinary tract infection for which she is currently on antibiotic therapy. She states she has not had diarrhea in the last 2 days. She states now that she and her are living in [place], she is planning on establishing with a primary care physician closer to home and a new freelance programmer/app developer in the area, Dr. Luna for which she has a new patient appointment scheduled 02/24/2023. Past Medical History: Medical History Past Medical History: Diagnosis Date Arthritis Blurry vision CAD (coronary artery disease) Cerebral artery occlusion with cerebral infarction (HCC) peripheral vision defect bilaterally Decreased vision H/O left heart catheterization by cutdown no stents Headache Heart disease Hyperlipidemia Hypertension Ischemic cardiomyopathy With recovered left ventricular systolic function post PCI and medical therapy Morbid obesity (HCC) PFO (patent foramen ovale) Psoriasis Sleep apnea Past Surgical History Surgical History Past Surgical History: Procedure Laterality Date CAROTID ENDARTERECTOMY Left 09/22/2022 COLONOSCOPY 05/02/2019 diverticulosis sigmoid colon CORONARY ANGIOPLASTY WITH STENT PLACEMENT 12/21/2016 FLAQUITO x 6 LM into prox LAD, ostial and prox CFX (kissing balloon) and mid-distal LAD and ostial and prox Diag 2 (kissing balloon) EYE SURGERY Bilateral cataract FRACTURE SURGERY Left wrist HYSTERECTOMY HYSTERECTOMY TONSILLECTOMY (HISTORICAL) FamilyHistory Family History Family History Problem Relation Name Age of Onset Amblyopia Neg Hx Glaucoma Neg Hx Macular degeneration Neg Hx Cataracts Father Heart disease Father mi,pacer Strabismus Neg Hx Blindness Neg Hx Retinal detachment Neg Hx Cataracts Mother Social History Social History Tobacco Use Smoking status: Never Smokeless tobacco: Never Substance Use Topics Alcohol use: Yes Comment: 1 time a month Drug use: No Comment: caffeine use: no caffeine Medications: Current Outpatient Medications: acetaminophen (Tylenol) 500 MG tablet, Take 500 mg by mouth every 6 hours as needed., Disp: , Rfl: apixaban (Eliquis) 5 MG tablet, TAKE ONE TABLET BY MOUTH TWO TIMES A DAY, Disp: 180 tablet, Rfl: 3 atorvastatin (Lipitor) 80 MG tablet, Take 1 tablet by mouth daily., Disp: , Rfl: carvedilol (Coreg) 6.25 MG tablet, Take 0.5 tablets (3.125 mg) by mouth in the morning and 0.5 tablets (3.125 mg) in the evening. Take with meals., Disp: 180 tablet, Rfl: 3 cephalexin (Keflex) 500 MG capsule, Take 500 mg by mouth 2 times daily., Disp: , Rfl: clopidogrel (Plavix) 75 MG tablet, Take 75 mg by mouth daily., Disp: , Rfl: escitalopram (Lexapro) 10 MG tablet, Take 10 mg by mouth daily., Disp: , Rfl: isosorbide mononitrate ER (Imdur) 30 MG 24 hr tablet, Take 1 tablet (30 mg) by mouth daily. Do not crush or chew., Disp: 30 tablet, Rfl: 3 nitroglycerin (Nitrostat) 0.4 MG SL tablet, Place 0.4 mg under the tongue every 5 minutes as needed for chest pain., Disp: , Rfl: omeprazole (PriLOSEC) [address] capsule, Take 10 mg by mouth daily., Disp: , Rfl: clobetasol (Temovate) 0.05 % external solution, apply topically to scalp o (more content not included)... [facility] 02-09-2023 Telephone encounter Note Surg/ proc orders done [facility] 02-09-2023 Miscellaneous Notes Surg/ proc orders done You are scheduled for [facility] with Dr Ashton on 02/25/23 at 9:00 am. Report to [facility], 1st [facility] by 7:30am. You can park in the [address] or use [employer] parking (for a nominal fee of $6-7) and enter the hospital using the [address] across from the parking deck You will need a designated auto crane driver for the day of your procedure to take you home Nothing to eat or drink after midnight Please take your am medications with sips of water prior to leaving for the hospital. Please take your Plavix as usual before leaving for the hospital. Hold Eliquis 2 days prior to LHC. Get blood work done by NA- was done and will be scanned into chart. Please call the office at [phone] if you have any questions. Reviewed allergies-No iodine allergy. Dx: CAD Procedure: [facility] Date/Time: 02/25/23 at 9am Surgeon: Nils Location: [facility] Admission: OUTPATIENT Per Ernestina, [facility] scheduled with Dr Ashton on 02-25-23 9 am. Patient had recent labs at [facility] to be scanned in [place] schultz do teaching. documented in this encounter [facility] 02-09-2023 Note Dx: CAD Procedure: [facility] Date/Time: 02/25/23 at 9am Surgeon: Nils Location: [facility] Admission: OUTPATIENT [facility] 02-09-2023 Telephone encounter Note You are scheduled for [facility] with Dr Ashton on 02/25/23 at 9:00 am. Report to [facility], 1st Floor [facility] by 7:30am. You can park in the [address] or use [employer] parking (for a nominal fee of $6-7) and enter the hospital using the [address] across from the parking deck You will need a designated auto crane driver for the day of your procedure to take you home Nothing to eat or drink after midnight Please take your am medications with sips of water prior to leaving for the hospital. Please take your Plavix as usual before leaving for the hospital. Hold Eliquis 2 days prior to C. Get blood work done by MARY JO- was done and will be scanned into chart. Please call the office at [phone] if you have any questions. Reviewed allergies-No iodine allergy. [facility] 02-09-2023 Telephone encounter Note Dx: CAD Procedure: [facility] Date/Time: 02/25/23 at 9am Surgeon: Nils Location: [facility] Admission: OUTPATIENT [facility] 02-09-2023 Telephone encounter Note Per Ernestina, [facility] scheduled with Dr Ashton on 02-25-23 9 am. Patient had recent labs at [facility] to be scanned in [place]. [facility] 02-09-2023 History of Present illness Narrative Images from the original note were not included. [facility] Cardiology Office Note DATE of SERVICE: 02/09/23 TIME of SERVICE: 2:29 PM Chief Complaint: Chief Complaint Patient presents with Follow-up History of Present Illness: Cynthia Robertson is a 77 y.o. female with a known history of CAD s/p FLAQUITO x6 to the LM into proximal LAD, ostial and proximal CFX (kissing balloon) and mid-distal LAD and ostial and proximal second diagonal (kissing balloon) 2017, history of stroke, hypertension, hyperlipidemia, recovered ischemic cardiomyopathy/HFrEF and PVD s/p left carotid endarterectomy 09/22/2022 who presents for cardiac reassessment. Most recently the patient was evaluated with complaints of 2 episodes of exertional chest pain. She had undergone a Lexiscan nuclear stress test evaluation earlier in the year which showed no evidence of ischemia with an EF of 52%. She subsequently was advised to add Imdur 30 mg daily and return for reassessment with consideration for C if she continued to remain symptomatic despite medical therapy. She then contacted our office with complaints of dizziness/lightheadedness and low blood pressure readings at which time she was advised to reduce her carvedilol medication down to 3.125 mg twice daily. Currently the patient reports she has continued to have chest pain. It occurs with activity and is relieved with 4-5 minutes of rest. It occurs in the center of her chest. She reports it does not seem as severe since starting the nitrates/Imdur therapy although she is still having the symptoms. She also has had decreased appetite and dizziness and lightheadedness with wide fluctuations in her blood pressure. She did recently have diarrhea for 5 days and subsequently went to the ER in [place] 2 days ago. She states that she was diagnosed with a urinary tract infection for which she is currently on antibiotic therapy. She states she has not had diarrhea in the last 2 days. She states now that she and her are living in [place], she is planning on establishing with a primary care physician closer to home and a new freelance programmer/app developer in the area, Dr. Luna for which she has a new patient appointment scheduled 02/24/2023. Past Medical History: Past Medical History: Diagnosis Date Arthritis Blurry vision CAD (coronary artery disease) Cerebral artery occlusion with cerebral infarction (HCC) peripheral vision defect bilaterally Decreased vision H/O left heart catheterization by cutdown no stents Headache Heart disease Hyperlipidemia Hypertension Ischemic cardiomyopathy With recovered left ventricular systolic function post PCI and medical therapy Morbid obesity (HCC) PFO (patent foramen ovale) Psoriasis Sleep apnea Past Surgical History Past Surgical History: Procedure Laterality Date CAROTID ENDARTERECTOMY Left 09/22/2022 COLONOSCOPY 05/02/2019 diverticulosis sigmoid colon CORONARY ANGIOPLASTY WITH STENT PLACEMENT 12/21/2016 FLAQUITO x 6 LM into prox LAD, ostial and prox CFX (kissing balloon) and mid-distal LAD and ostial and prox Diag 2 (kissing balloon) EYE SURGERY Bilateral cataract FRACTURE SURGERY Left wrist HYSTERECTOMY HYSTERECTOMY TONSILLECTOMY (HISTORICAL) FamilyHistory Family History Problem Relation Name Age of Onset Amblyopia Neg Hx Glaucoma Neg Hx Macular degeneration Neg Hx Cataracts Father Heart disease Father mi,pacer Strabismus Neg Hx Blindness Neg Hx Retinal detachment Neg Hx Cataracts Mother Social History Social History Tobacco Use Smoking status: Never Smokeless tobacco: Never Substance Use Topics Alcohol use: Yes Comment: 1 time a month Drug use: No Comment: caffeine use: no caffeine Medications: Current Outpatient Medications: acetaminophen (Tylenol) 500 MG tablet, Take 500 mg by mouth every 6 hours as needed., Disp: , Rfl: apixaban (Eliquis) 5 MG tablet, TAKE ONE TABLET BY MOUTH TWO TIMES A DAY, Disp: 180 tablet, Rfl: 3 atorvastatin (Lipitor) 80 MG tablet, Take 1 tablet by mouth daily., Disp: , Rfl: carvedilol (Coreg) 6.25 MG tablet, Take 0.5 tablets (3.125 mg) by mouth in the morning and 0.5 tablets (3.125 mg) in the evening. Take with meals., Disp: 180 tablet, Rfl: 3 cephalexin (Keflex) 500 MG capsule, Take 500 mg by mouth 2 times daily., Disp: , Rfl: clopidogrel (Plavix) 75 MG tablet, Take 75 mg by mouth daily., Disp: , Rfl: escitalopram (Lexapro) 10 MG tablet, Take 10 mg by mouth daily., Disp: , Rfl: isosorbide mononitrate ER (Imdur) 30 MG 24 hr tablet, Take 1 tablet (30 mg) by mouth daily. Do not crush or chew., Disp: 30 tablet, Rfl: 3 nitroglycerin (Nitrostat) 0.4 MG SL tablet, Place 0.4 mg under the tongue every 5 minutes as needed for chest pain., Disp: , Rfl: omeprazole (PriLOSEC) [address] capsule, Take 10 mg by mouth daily., Disp: , Rfl: clobetasol (Temovate) 0.05 % external solution, apply topically to scalp once daily if needed for FLARES *MAY RED... (REFER TO PRESCRIPTION NOTES)., Disp: , Rfl: Review of Systems: Review of Systems Constitutional: Positive for appetite change (decreased appetite) and fatigue. Negative for chills and fever. Respiratory: Negative for cough and shortness of breath. Cardiovascular: Positive for chest pain. Negative for palpitations and leg swelling. Gastrointestinal: Negative for abdominal pain, blood in stool and vomiting. Genitourinary: Negative for hematuria. Neurological: Positive for dizziness. Negative for syncope. Psychiatric/Behavioral: Positive for sleep disturbance. Physical Examination: Vitals: Vitals: 02/09/23 0949 02/09/23 1022 02/09/23 1023 BP: (!) 78/48 128/64 98/62 BP Location: Right arm Right arm Left arm Patient Position: Sitting Sitting Sitting BP Cuff Size: Large adult Pulse: 61 SpO2: 96% Weight: 180 lb 4.8 oz (81.8 kg) Height: 5' 4 (1.626 m) Body mass index is 30.95 kg/m . Physical Exam Constitutional: Appearance: Normal appearance. HENT: Head: Normocephalic. Eyes: General: No scleral icterus. Right eye: No discharge. Left eye: No discharge. Cardiovascular: Rate and Rhythm: Normal rate and regular rhythm. Pulses: Normal pulses. Heart sounds: Normal heart sounds. No murmur heard. Pulmonary: Effort: Pulmonary effort is normal. Breath sounds: Normal breath sounds. Abdominal: General: Abdomen is flat. Palpations: Abdomen is soft. Musculoskeletal: General: Normal range of motion. Cervical back: Normal range of motion. Skin: General: Skin is warm and dry. Capillary Refill: Capillary refill takes less than 2 seconds. Neurological: Mental Status: She is alert and oriented to person, place, and time. Psychiatric: Mood and Affect: Mood normal. Laboratory Tests: Lab Results Component Value Date WBC 8.4 09/23/2022 HGB 13.0 09/23/2022 HCT 39.5 09/23/2022 MCV 90.5 09/23/2022 PLT 159 09/23/2022 Lab Results Component Value Date GLUCOSE 119 (H) 09/23/2022 CALCIUM 9.1 09/23/2022 NA 139 09/23/2022 K 3.8 09/23/2022 CO2 22 09/23/2022 CL 111 (H) 09/23/2022 BUN 12 09/23/2022 CREATININE 0.54 09/23/2022 No results found for: HGBA1C No results found for: CHLPL, CHOL No results found for: TRIG No results found for: HDL No results found for: LDLCALC No results found for: VLDL No results found for: CHOLHDLRATIO Laboratory data from [facility] 02/05/2023 shows white blood cell 5.4, hemoglobin 14.6, hematocrit 47.9, platelet 209, sodium 140, potassium 4.0, chloride 115, CO2 22, BUN 19, creatinine 0.89, glucose 111, AST 19, ALT 20 Coronary Appropriate Use Criteria Coronary Presentation (select one): Worsening Angina History of CABG (select one): No Diabetes (select one): No Anginal Classification (CCS) within 2 weeks (select one): CCS III - Symptoms with everyday living activities, i.e. moderate limitation Anti-anginal Meds within 2 weeks (select all that apply): Yes: Beta Blockers and Long Acting Nitrates (Any) Stress or Imaging studies performed (select one), risk/extent of ischemia (select one if applicable): No, abnormal EKG Patient undergoing renal transplant or percutaneous valve procedure (select one): No [facility] Class[facility] : I Frailty Score :4 Cardiac Tests: ECG: EKG in the office shows sinus rhythm with old anterior TN and T wave abnormality with a heart rate of 61 bpm Last Echo: 06/02/17: SUMMARY: 1. Left ventricle: The cavity size is mildly dilated. Wall thickness is normal. Resting SB rates 55-60/min. Systolic function is normal by the biplane method of disks. The estimated ejection fraction is 73%. Although the EF is thought an overestimate, function clearly appears preserved. There are no regional wall motion abnormalities. Doppler parameters are consistent with abnormal left ventricular relaxation (grade 1 diastolic dysfunction). In comparison to previous study done end November 2016, EF was calculated 35% at time of acute event with grade 2 diastolic abnormality. Both systolic and diastolic parameters appear to have recovered. Last stress test 08/24/22: Lexiscan nuclear stress test shows: Interpretation Summary No evidence of induced ischemia is identified on perfusion images following vasodilator stress. Stress Combined Conclusion: Normal pharmacological myocardial perfusion study. Stress ECG: Conclusion: The stress test is normal. Left ventricular ejection fraction and wall motion appear normal on gated SPECT images. Assessment and Plan: CAD s/p FLAQUITO x6 LM into proximal LAD, ostial and proximal CFX (kissing balloon) and mid-distal LAD and ostial and proximal diag 2 (kissing balloon) 2016-the patient currently reports typical anginal/exertional chest pain relieved with rest despite dual antianginal therapy with beta-uriel and long-acting nitrate therapy. Prior stress test evaluation 08/24/22 showed no evidence of ischemia with normal LV systolic function. She does have T wave abnormality noted on EKG in the office today. Her case, clinical findings and treatment plan were reviewed with the in office physician, Dr. Trev Huff. Given the patient's typical symptoms despite dual antianginal therapy she was advised [facility] for further assessment. The risks and benefits were discussed with the patient. She is agreeable to proceed. The patient would like to have the procedure done with Dr. Ashton as he previously performed her PCI in 2017. Recent BMP and CBC from [facility] 02/05/2023 will order stable and therefore she does not need additional blood work at this time. She is to continue on carvedilol, Imdur, atorvastatin and Plavix. Hypertension-the patient has significant difference in blood pressure readings between the bilateral upper extremities concerning for possible subclavian artery stenosis. She is known to have PVD with prior carotid endarterectomy earlier this year. She subsequently is to undergo PVR studies of the upper extremities. PVD/carotid disease s/p left carotid endarterectomy 09/22/2022-followed by vascular surgery-the patient is to continue on Plavix and atorvastatin. Hyperlipidemia-on high intensity statin therapy with atorvastatin. History of prior stroke-felt to be likely cardioembolic-the patient is now on chronic anticoagulation with Eliquis. Recovered HFrEF/ischemic cardiomyopathy-the patient remains compensated at this time. She previously was intolerant to BRIELLE inhibitor therapy secondary to dizziness. She is to continue on carvedilol. History of GI bleed/peptic ulcer disease s/p prior cautery on EGD-most recent CBC 02/05/23 shows the patient's blood count is now within normal range with a hemoglobin level of 14.6. She denies any further bleeding problems. She is currently on PPI therapy/omeprazole per primary care. -The patient ultimately plans on establishing with local freelance programmer/app developer, Dr. Luna, in [place] due to location as she and her now live in [place] but has requested to undergo her current recommended cardiac testing/invasive cardiac evaluation in [place] prior to establishing in [place]. documented in this encounter [facility] 02-09-2023 Instructions Ernestina Potter PA-C - 02/09/2023 10:00 AM EDT -the carvedilol should be 1/2 pill in the morning and 1/2 pill at night -check blood pressure in right arm -bring home blood pressure monitor to next appointment -heart cath soon -test on arteries in your upper extremities soon documented in this encounter [facility] 01-07-2023 History of Present illness Narrative [facility] Cardiology Office Note DATE of SERVICE: 01/07/23 TIME of SERVICE: 9:45 AM Chief Complaint: Chief Complaint Patient presents with Chest Pain History of Present Illness: Cynthia Robertson is a 77 y.o. female with a known history of CAD s/p FLAQUITO x 6 LM into prox LAD, ostial and prox CFX (kissing balloon) and mid-distal LAD and ostial and prox Diag 2 (kissing balloon) 2016, history of stroke, hypertension, hyperlipidemia and recovered ischemic cardiomyopathy/HFrEF. In addition the patient has a history of PVD s/p left carotid endarterectomy 09/22/2022. Currently the patient reports recently she was pulling weeds in the yard when she developed a burning pain radiating down her chest. She took a sublingual nitroglycerin and it resolved quickly. She states then a few days later she was walking and again experienced an episode of chest discomfort which was relieved with 1 sublingual nitroglycerin tablet. She has had no other episodes. She denies any chest pains at rest. She denies shortness of breath, orthopnea, PND, palpitations or syncope. However she is frequently dizzy and lightheaded especially with positional changes or after standing for prolonged periods. She also states since she was last evaluated in our office she had rectal bleeding and was hospitalized at [facility]. She states she had an EGD performed and 2 areas were cauterized. She believes they may have changed her stomach pill although she is not sure. Records are unavailable at the time of dictation. She also states she had a follow-up blood test done with her primary care physician. Records were requested from [facility] and labs were requested from the primary care physician. Past Medical History: Past Medical History: Diagnosis Date Arthritis Blurry vision CAD (coronary artery disease) Cerebral artery occlusion with cerebral infarction (HCC) peripheral vision defect bilaterally Decreased vision H/O left heart catheterization by cutdown no stents Headache Heart disease Hyperlipidemia Hypertension Ischemic cardiomyopathy With recovered left ventricular systolic function post PCI and medical therapy Morbid obesity (HCC) PFO (patent foramen ovale) Psoriasis Sleep apnea Past Surgical History Past Surgical History: Procedure Laterality Date CAROTID ENDARTERECTOMY Left 09/22/2022 COLONOSCOPY 05/02/2019 diverticulosis sigmoid colon CORONARY ANGIOPLASTY WITH STENT PLACEMENT 12/21/2016 FLAQUITO x 6 LM into prox LAD, ostial and prox CFX (kissing balloon) and mid-distal LAD and ostial and prox Diag 2 (kissing balloon) EYE SURGERY Bilateral cataract FRACTURE SURGERY Left wrist HYSTERECTOMY HYSTERECTOMY TONSILLECTOMY (HISTORICAL) FamilyHistory Family History Problem Relation Name Age of Onset Amblyopia Neg Hx Glaucoma Neg Hx Macular degeneration Neg Hx Cataracts Father Heart disease Father mi,pacer Strabismus Neg Hx Blindness Neg Hx Retinal detachment Neg Hx Cataracts Mother Social History Social History Tobacco Use Smoking status: Never Smokeless tobacco: Never Substance Use Topics Alcohol use: Yes Comment: 1 time a month Drug use: No Comment: caffeine use: no caffeine Medications: Current Outpatient Medications: acetaminophen (Tylenol) 500 MG tablet, Take 500 mg by mouth every 6 hours as needed., Disp: , Rfl: atorvastatin (Lipitor) 80 MG tablet, Take 1 tablet by mouth daily., Disp: , Rfl: carvedilol (Coreg) 6.25 MG tablet, Take 1 tablet (6.25 mg) by mouth in the morning and 1 tablet (6.25 mg) in the evening. Take with meals., Disp: 180 tablet, Rfl: 3 clobetasol (Temovate) 0.05 % external solution, apply topically to scalp once daily if needed for FLARES *MAY RED... (REFER TO PRESCRIPTION NOTES)., Disp: , Rfl: clopidogrel (Plavix) 75 MG tablet, Take 75 mg by mouth daily., Disp: , Rfl: escitalopram (Lexapro) 10 MG tablet, Take 10 mg by mouth daily., Disp: , Rfl: nitroglycerin (Nitrostat) 0.4 MG SL tablet, Place 0.4 mg under the tongue every 5 minutes as needed for chest pain., Disp: , Rfl: omeprazole (PriLOSEC) [address] capsule, Take 10 mg by mouth daily., Disp: , Rfl: apixaban (Eliquis) 5 MG tablet, TAKE ONE TABLET BY MOUTH TWO TIMES A DAY, Disp: 180 tablet, Rfl: 3 isosorbide mononitrate ER (Imdur) 30 MG 24 hr tablet, Take 1 tablet (30 mg) by mouth daily. Do not crush or chew., Disp: 30 tablet, Rfl: 3 Review of Systems: Review of Systems Constitutional: Negative for chills and fever. Respiratory: Negative for cough and shortness of breath. Cardiovascular: Positive for chest pain. Negative for palpitations and leg swelling. Gastrointestinal: Negative for abdominal pain, blood in stool and vomiting. Genitourinary: Negative for hematuria. Neurological: Positive for dizziness. Negative for syncope. Physical Examination: Vitals: Vitals: 01/07/23 0849 01/07/23 0850 01/07/23 0851 BP: 130/62 108/60 90/60 BP Location: Right arm Right arm Right arm Patient Position: Lying Sitting Standing BP Cuff Size: Large adult Large adult Large adult Pulse: 55 68 70 SpO2: 96% 93% 94% Weight: 184 lb 3.2 oz (83.6 kg) Height: 5' 4 (1.626 m) Body mass index is 31.62 kg/m . Physical Exam Constitutional: Appearance: Normal appearance. HENT: Head: Normocephalic. Eyes: General: No scleral icterus. Right eye: No discharge. Left eye: No discharge. Cardiovascular: Rate and Rhythm: Regular rhythm. Bradycardia present. Pulses: Normal pulses. Heart sounds: Normal heart sounds. No murmur heard. Pulmonary: Effort: Pulmonary effort is normal. Breath sounds: Normal breath sounds. Abdominal: General: Abdomen is flat. Palpations: Abdomen is soft. Musculoskeletal: General: Normal range of motion. Cervical back: Normal range of motion. Skin: General: Skin is warm and dry. Capillary Refill: Capillary refill takes less than 2 seconds. Neurological: Mental Status: She is alert and oriented to person, place, and time. Psychiatric: Mood and Affect: Mood normal. Laboratory Tests: Lab Results Component Value Date WBC 8.4 09/23/2022 HGB 13.0 09/23/2022 HCT 39.5 09/23/2022 MCV 90.5 09/23/2022 PLT 159 09/23/2022 Lab Results Component Value Date GLUCOSE 119 (H) 09/23/2022 CALCIUM 9.1 09/23/2022 NA 139 09/23/2022 K 3.8 09/23/2022 CO2 22 09/23/2022 CL 111 (H) 09/23/2022 BUN 12 09/23/2022 CREATININE 0.54 09/23/2022 No results found for: HGBA1C No results found for: CHLPL, CHOL No results found for: TRIG No results found for: HDL No results found for: LDLCALC No results found for: VLDL No results found for: CHOLHDLRATIO Cardiac Tests: ECG: EKG in the office today shows sinus bradycardia with LAFB and old anteroseptal TN with T wave abnormality and a heart rate of 55 bpm Last Echo: 06/02/17: SUMMARY: 1. Left ventricle: The cavity size is mildly dilated. Wall thickness is normal. Resting SB rates 55-60/min. Systolic function is normal by the biplane method of disks. The estimated ejection fraction is 73%. Although the EF is thought an overestimate, function clearly appears preserved. There are no regional wall motion abnormalities. Doppler parameters are consistent with abnormal left ventricular relaxation (grade 1 diastolic dysfunction). In comparison to previous study done end November 2016, EF was calculated 35% at time of acute event with grade 2 diastolic abnormality. Both systolic and diastolic parameters appear to have recovered. Last stress test 08/24/22: Lexiscan nuclear stress test evaluation shows: Interpretation Summary No evidence of induced ischemia is identified on perfusion images following vasodilator stress. Stress Combined Conclusion: Normal pharmacological myocardial perfusion study. Stress ECG: Conclusion: The stress test is normal. Left ventricular ejection fraction and wall motion appear normal on gated SPECT images. Assessment and Plan: CAD s/p FLAQUITO x6 LM into proximal LAD, ostial and proximal CFX (kissing balloon) and mid-distal LAD and ostial and proximal diag 2 (kissing balloon) 2016-the patient reports 2 isolated episodes of exertional chest discomfort. Recent Lexiscan nuclear stress test evaluation/08/13 showed no evidence of ischemia with an EF of 52%. EKG in the office today shows no significant interval changes. She was advised to add Imdur 30 mg daily and continue Plavix, and carvedilol and atorvastatin. She was advised on the use of sublingual nitroglycerin and 911 protocol. She is then to follow-up in the office in 3-4 weeks. If she remains symptomatic despite medical therapy may consider C. Hypertension-borderline on today's physical examination-she had evidence of orthostatic hypotension on today's physical examination and is symptomatic. She subsequently was advised to stop the amlodipine and to increase her fluid intake. PVD/carotid disease s/p left carotid endarterectomy 09/22/2022-followed by vascular surgery. Hyperlipidemia-on high intensity statin therapy with atorvastatin-followed by the primary care physician. History of prior stroke-felt to be likely cardioembolic-the patient is now on chronic anticoagulation with Eliquis. Recovered HFrEF/ischemic cardiomyopathy-the patient remains compensated at this time. She was previously intolerant to ACEi secondary to dizziness. She is to continue on carvedilol. Recent GI bleed-treated with cautery on EGD per patient and -records have been requested. She denies any further bleeding problems. Follow-up CBC was requested from the primary care physician's office and records were requested from [facility]. She is currently on PPI therapy-pending review of records may increase dosage of PPI therapy. In the absence of further cardiac complaints, the patient is to return for cardiac reassessment in 3-4 weeks. documented in this encounter [facility] 01-07-2023 Instructions Ernestina Potter PA-C - 01/07/2023 8:30 AM EDT -stop the amlodipine -start Imdur (isosorbide) 30 mg- 1 pill each morning -increase water intake -appointment in 4 weeks documented in this encounter [facility] 01-04-2023 Telephone encounter Note You can add on to my schedule at 8:30 on . Mehdi Bacon [facility] 01-04-2023 Miscellaneous Notes You can add on to my schedule at 8:30 on . Mehdi Bacon Spoke with patient and pt's . Pt was doing yard work on Wednesday and suddenly felt a shooting chest pain downward. Pt stopped and took 1 SL nitroglycerin. After taking, the chest pain went away. Today, patient was walking out of the bathroom and chest pain occurred again; however it was more centralized. Again, the patient took 1 SL nitroglycerin tablet and the pain went away. Pt c/o dizziness, lightheadedness and SOB when episodes occur; however, she states she is frequently dizzy and lightheaded when she does not have chest pain. Denies swelling or severe headache at this time. BP 129/72 HR 58 while on phone. Pt last took other prescribed medications at 830 this morning. Medication list confirmed and current. Will route to Mary Potter to advise. Notified if worsening symptoms or if having to take a 2nd nitroglycerin and no relief, to report to nearest ER. Pt and pt's spouse verbalized understanding. Patient's called requesting an appt with Dr Huff or Ernestina on this week. Currently, we do not have any openings, but I said that I can watch for cancellations. Familia states that his has taken 2 Nitroglycerin in the last couple of days for chest pain. I advised that I will have a nurse call back to triage. Please call Familia on his cell [phone] documented in this encounter [facility] 01-04-2023 Telephone encounter Note Spoke with patient and pt's . Pt was doing yard work on Wednesday and suddenly felt a shooting chest pain downward. Pt stopped and took 1 SL nitroglycerin. After taking, the chest pain went away. Today, patient was walking out of the bathroom and chest pain occurred again; however it was more centralized. Again, the patient took 1 SL nitroglycerin tablet and the pain went away. Pt c/o dizziness, lightheadedness and SOB when episodes occur; however, she states she is frequently dizzy and lightheaded when she does not have chest pain. Denies swelling or severe headache at this time. BP 129/72 HR 58 while on phone. Pt last took other prescribed medications at 830 this morning. Medication list confirmed and current. Will route to Mary Potter to advise. Notified if worsening symptoms or if having to take a 2nd nitroglycerin and no relief, to report to nearest ER. Pt and pt's spouse verbalized understanding. [facility] 01-04-2023 Telephone encounter Note Patient's called requesting an appt with Dr Huff or Ernestina on this week. Currently, we do not have any openings, but I said that I can watch for cancellations. Familia states that his has taken 2 Nitroglycerin in the last couple of days for chest pain. I advised that I will have a nurse call back to triage. Please call Familia on his cell [phone] [facility] 11-16-2022 Telephone encounter Note S: Patient's spoke with [facility] nurse regarding making an appt for his . B: Onset of symptoms/concern N/A A: Pt calling requesting to schedule an appt for his on Monday 11/20. Declined sharing reason for appt; just states there are some things we want to discuss with her doctor. No acute symptoms. R: Unable to schedule with [facility] office per practice page (only acute visits). Offered to send message, but pt's states he will back back tomorrow morning. No further needs at this time. [facility] 11-16-2022 Miscellaneous Notes S: Patient's spoke with [facility] nurse regarding making an appt for his . B: Onset of symptoms/concern N/A A: Pt calling requesting to schedule an appt for his on Monday 11/20. Declined sharing reason for appt; just states there are some things we want to discuss with her doctor. No acute symptoms. R: Unable to schedule with [facility] office per practice page (only acute visits). Offered to send message, but pt's states he will back back tomorrow morning. No further needs at this time. documented in this encounter [facility] 10-05-2022 History of Present illness Narrative 10/05/2022 Cynthia Robertson 1945 Chief Complaint Patient presents with Post-op 1ST PO LEFT CAROTID ENDARTERECTOMY 09/22/2022 Patient returns for post operative evaluation status post left carotid endarterectomy. She reports numbness around the incision and left ear. She also notes some minor pain when swallowing but denies any swallowing difficulty. She denies headache. She also notes having bilateral blurry vision like a cloud coming over her eyes . This lasted approximately 4-5 minutes. She is on Eliquis and plavix. Past Surgical History: Procedure Laterality Date COLONOSCOPY 05/02/2019 diverticulosis sigmoid colon CORONARY ANGIOPLASTY WITH STENT PLACEMENT 12/21/2016 FLAQUITO x 6 LM into prox LAD, ostial and prox CFX (kissing balloon) and mid-distal LAD and ostial and prox Diag 2 (kissing balloon) EYE SURGERY Bilateral cataract FRACTURE SURGERY Left wrist HYSTERECTOMY HYSTERECTOMY TONSILLECTOMY (HISTORICAL) Physical Exam: The neck incision is healing without evidence of infection. Heart rhythm is regular. Radial pulse are appreciated bilaterally. 5/5 strength in all extremities. Assessment: Post-operative left carotid endarterectomy. Problem List Items Addressed This Visit None Visit Diagnoses Carotid stenosis, left - Primary Relevant Orders Vascular US carotid artery duplex bilateral Vascular US carotid artery duplex bilateral S/P carotid endarterectomy Relevant Orders Vascular US carotid artery duplex bilateral Vascular US carotid artery duplex bilateral I reviewed with the patient that normal activities can be resumed as tolerated. Plan for a carotid duplex now to establish her new baseline as well as in 6 months with a follow up appointment at that time. We will call her with the results of her one month duplex. Follow up in 6 months. Continue Plavix and Eliquis. Rowan Chavez MD Vascular Surgery documented in this encounter [facility] 09-23-2022 Note Discharge Summary Cynthia Robertson : 1945 ADMIT DATE: 09/22/2022 DISCHARGE DATE: 09/23/2022 PRIMARY CARE PHYSICIAN: STEW QUINTANA VISIT STATUS: Admission CODE STATUS: Full Code DISCHARGE DIAGNOSES: Principal Problem: Stenosis of left carotid artery HOSPITAL COURSE: Patient presented to the hospital on 09/22 for left carotid endarterectomy for left carotid artery stenosis. She tolerated the procedure well. Her remaining hospital course was not further complicated. She was discharged home on POD#1. SIGNIFICANT DIAGNOSTIC STUDIES: See chart CONSULTANTS: None RECOMMENDED NEXT STEPS: F/U as outpatient DISCHARGE MEDICATIONS: Medication List START taking these medications ondansetron 4 MG tablet Commonly known as: Zofran Take 1 tablet (4 mg) by mouth every 6 hours as needed for nausea or vomiting for up to 5 days. oxyCODONE-acetaminophen 5-325 MG tablet Commonly known as: Percocet Take 1 tablet by mouth every 6 hours as needed for severe pain (7-10) for up to 3 days. CONTINUE taking these medications acetaminophen 500 MG tablet Commonly known as: Tylenol amLODIPine 5 MG tablet Commonly known as: Norvasc atorvastatin 80 MG tablet Commonly known as: Lipitor carvedilol 12.5 MG tablet Commonly known as: Coreg clopidogrel 75 MG tablet Commonly known as: Plavix Eliquis 5 MG tablet Generic drug: apixaban TAKE ONE TABLET BY MOUTH TWO TIMES A DAY omeprazole [address] capsule Commonly known as: PriLOSEC Where to Get Your Medications These medications were sent to [facility] [address] [place] [address], [facility] [id number] Hours: Wednesday to Wednesday 10 am to 6 pm ondansetron 4 MG tablet oxyCODONE-acetaminophen 5-325 MG tablet DIET: Adult diet Regular ACTIVITY: No heavy lifting. COMPLEXITY OF FOLLOW UP: [x] Moderate Complexity: follow up within 7-14 calendar days (11204) [] Severe Complexity: follow up within 7 calendar days (60087) FOLLOW UP TESTING, PENDING RESULTS OR REFERRALS AT TRANSITIONAL CARE VISIT: [] Yes [x] No PENDING STUDIES: None DISPOSITION: Home FACILITY/HOME CARE AGENCY NAME: Follow up with Rowan Chavez MD [address] [place] [address] [phone] Schedule an appointment as soon as possible for a visit in 2 week(s) Post-operative follow up INSTRUCTIONS TO MA/SW: Please call patient on day after discharge (must document patient contacted within 2 business days of discharge). FOLLOW UP QUESTIONS FOR MA/SW: 1. Did you get medications filled and taking them as instructed from discharge? 2. Are you following your discharge instructions from your hospital stay? 3. Please confirm patient is scheduled for a follow up appointment within the above time frame. DISCHARGE TIME: > 30 minutes SIGNED: Petey Renteria MD 09/23/2022, 12:51 PM [facility] 09-23-2022 Hospital course Narrative Discharge Summary Cynthia Rivasage : 1945 ADMIT DATE: 09/22/2022 DISCHARGE DATE: 09/23/2022 PRIMARY CARE PHYSICIAN: STEW QUINTANA VISIT STATUS: Admission CODE STATUS: Full Code DISCHARGE DIAGNOSES: Principal Problem: Stenosis of left carotid artery HOSPITAL COURSE: Patient presented to the hospital on 09/22 for left carotid endarterectomy for left carotid artery stenosis. She tolerated the procedure well. Her remaining hospital course was not further complicated. She was discharged home on POD#1. SIGNIFICANT DIAGNOSTIC STUDIES: See chart CONSULTANTS: None RECOMMENDED NEXT STEPS: F/U as outpatient DISCHARGE MEDICATIONS: Medication List START taking these medications ondansetron 4 MG tablet Commonly known as: Zofran Take 1 tablet (4 mg) by mouth every 6 hours as needed for nausea or vomiting for up to 5 days. oxyCODONE-acetaminophen 5-325 MG tablet Commonly known as: Percocet Take 1 tablet by mouth every 6 hours as needed for severe pain (7-10) for up to 3 days. CONTINUE taking these medications acetaminophen 500 MG tablet Commonly known as: Tylenol amLODIPine 5 MG tablet Commonly known as: Norvasc atorvastatin 80 MG tablet Commonly known as: Lipitor carvedilol 12.5 MG tablet Commonly known as: Coreg clopidogrel 75 MG tablet Commonly known as: Plavix Eliquis 5 MG tablet Generic drug: apixaban TAKE ONE TABLET BY MOUTH TWO TIMES A DAY omeprazole [address] capsule Commonly known as: PriLOSEC Where to Get Your Medications These medications were sent to [facility] [address] [place] [address] Hours: Wednesday to Wednesday 10 am to 6 pm ondansetron 4 MG tablet oxyCODONE-acetaminophen 5-325 MG tablet DIET: Adult diet Regular ACTIVITY: No heavy lifting. COMPLEXITY OF FOLLOW UP: [x] Moderate Complexity: follow up within 7-14 calendar days (68612) [] Severe Complexity: follow up within 7 calendar days (85427) FOLLOW UP TESTING, PENDING RESULTS OR REFERRALS AT TRANSITIONAL CARE VISIT: [] Yes [x] No PENDING STUDIES: None DISPOSITION: Home FACILITY/HOME CARE AGENCY NAME: MARY JO Follow up with Rowan Chavez MD [address] [address] Schedule an appointment as soon as possible for a visit in 2 week(s) Post-operative follow up INSTRUCTIONS TO MA/SW: Please call patient on day after discharge (must document patient contacted within 2 business days of discharge). FOLLOW UP QUESTIONS FOR MA/SW: 1. Did you get medications filled and taking them as instructed from discharge? 2. Are you following your discharge instructions from your hospital stay? 3. Please confirm patient is scheduled for a follow up appointment within the above time frame. DISCHARGE TIME: > 30 minutes SIGNED: Petey Renteria MD 09/23/2022, 12:51 PM documented in this encounter [facility] 09-23-2022 Nurse Note 1105 pt IV access removed, discharge instructions and stroke booklet given, pt states she does not have any questions at this time. All belonging with patient, meds to beds delivered from pharmacy. 1220 pt assisted off unit in wheelchair, no questions at time of discharge. [facility] 09-23-2022 Nurse Note 1105 pt IV access removed, discharge instructions and stroke booklet given, pt states she does not have any questions at this time. All belonging with patient, meds to beds delivered from pharmacy. 1220 pt assisted off unit in wheelchair, no questions at time of discharge. 1325 Nurse from PACU came to assist in assessing pt neck, states that it is more swollen then when pt was in PACU. Ice applied to incision site, hob elevated Pt given PRN hydralazine for bp 173/73 Dr Orellana notified via secure chat. Dr Orellana at bedside, states okay to follow arterial line for BP. documented in this encounter [facility] 09-23-2022 Hospital Discharge instructions Annabelle Drummond RN - 09/23/2022 10:39 AM EDT Refer to the Understanding Stroke Booklet given to you, written material provided to patient/family, addressing all signs & symptoms of a stroke, which are: sudden numbness or weakness of the face, arm or leg, especially on one side of the body sudden confusion sudden difficulty speaking or understanding sudden trouble seeing in one or both eyes sudden trouble walking,dizziness, loss of balance or coordination sudden severe headache with no known cause syncope or temporary loss of consciousness seizure Explained the need to call EMS ([phone]) immediately if signs & symptoms occur. 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 Annabelle Drummond RN on 09/23/22 at 10:38 AM Discussed the patient s personal risk factors for Stroke /TIA with patient/family, and ways to reduce the risk for a recurrent stroke. Patient's personal risk factors which were identified are: [x] High blood pressure [x] High cholesterol [] Atrial fibrillation [] Diabetes [] Smoking/e-cigarettes/vaping [] Smokeless tobacco [x] Overweight [] Lack of Exercise [x] Sleep apnea [x] Prior heart disease or heart attack [] Excessive alcohol use [] Use of illicit drugs [] Personal history of previous TIA or stroke [] Family history of stroke or heart disease [] Carotid stenosis [] Heart failure [] Patent Foramen Ovale [] Migraine [] Hormone replacement therapy [] Current (up to six weeks post ) [] Depression [] Sickle Cell [] Renal insufficiency - chronic [] None Refer to Understanding Stroke Booklet. Advised patient that risk for stroke/TIA can be reduced by modifying/controlling risk factors. Patient advised to take medications as prescribed, which will be detailed in the discharge instructions, and to not stop taking them without consulting a physician. In addition, pt. advised to maintain a healthy diet, exercise regularly and to not smoke. Annabelle Drummond RN on 09/23/22 at 10:38 AM The following attachments cannot be sent through Care Everywhere.Carotid Artery Endarterectomy Discharge Instructions (Malawian)documented in this encounter [facility] 09-23-2022 History of Present illness Narrative Department of Vascular Surgery - Progress Note PATIENT NAME: Cynthia Robertson : 1945 ATTENDING PHYSICIAN: Rowan Chavez MD ADMIT DATE: 09/22/2022 TODAY'S DATE: 09/23/2022 SUBJECTIVE Patient doing ok. Pain is well controlled. She denies complaint. Tolerated diet. Voiding without issue. Review of Systems Constitutional: Negative for chills and fever. HENT: Negative for congestion and dental problem. Mild neck soreness, tingling of left ear lobe Eyes: Negative for pain and redness. Respiratory: Negative for chest tightness and shortness of breath. Cardiovascular: Negative for chest pain and palpitations. Gastrointestinal: Negative for abdominal distention. Endocrine: Negative for cold intolerance and heat intolerance. Genitourinary: Negative for difficulty urinating and dysuria. Musculoskeletal: Negative for gait problem and joint swelling. Skin: Negative for color change and rash. Neurological: Negative for dizziness and light-headedness. Psychiatric/Behavioral: Negative for agitation and behavioral problems. OBJECTIVE VITALS: BP (!) 141/56 Pulse 71 Temp 36.4 C (97.5 F) (Temporal) Resp 17 Ht 5' 4 (1.626 m) Wt 180 lb (81.6 kg) SpO2 93% BMI 30.90 kg/m PHYSICAL EXAM: Physical Exam Constitutional: General: She is not in acute distress. Appearance: She is obese. HENT: Right Ear: External ear normal. Left Ear: External ear normal. Mouth/Throat: Pharynx: No oropharyngeal exudate or posterior oropharyngeal erythema. Eyes: Extraocular Movements: Extraocular movements intact. Pupils: Pupils are equal, round, and reactive to light. Neck: Comments: Incision is clean and dry. Some bruising. Area is soft. Dermabond in place. Cardiovascular: Rate and Rhythm: Normal rate and regular rhythm. Pulmonary: Effort: No respiratory distress. Breath sounds: No stridor. Abdominal: General: There is no distension. Tenderness: There is no abdominal tenderness. Musculoskeletal: General: No deformity or signs of injury. Cervical back: Tenderness present. No rigidity. Skin: Findings: No bruising or erythema. Neurological: Sensory: No sensory deficit. Motor: No weakness. Psychiatric: Mood and Affect: Mood normal. Behavior: Behavior normal. Vascular Surgery Neurological Examination Post Procedure Patient is awake yes Oriented self / place yes Following commands yes Responding verbally to questions yes Normal Vision yes Eye deviation no Facial asymmetry no Normal motor exam arms & legs yes Normal sensory exam arms & legs yes Normal coordination arms and legs yes Normal Speech yes Data Recent Labs 09/23/22 0021 WBC 8.4 HGB 13.0 HCT 39.5 PLT 159 Recent Labs 09/23/22 0021 NA 139 K 3.8 CL 111* CO2 22 BUN 12 CREATININE 0.54 GLUCOSE 119* No results for input(s): AST, ALT, BILITOT, ALKPHOS in the last 72 hours. No lab exists for component: ALB ASSESSMENT AND PLAN 77 y.o. female status post left carotid endarterectomy on 09/22/2022. Post-operatively she is doing well. -Continue plavix/eliquis/statin -remove arterial line -regular diet -saline lock -Ambulate -pertinent home medications restarted -Discharge later today Associated attestation - Rowan Chavez MD - 09/23/2022 2:08 PM EDT I saw and evaluated the patient. I agree with the findings and plan of care as documented in the resident s note unless otherwise noted below. The patient is doing well. She denies dysphagia. She denies weakness in her upper and lower extremities. There is some ecchymosis present surrounding the incision. No worsening when compared to yesterday's post-operative exam. OK for discharge. Follow up as scheduled. Asked to evaluate patient for incision monitoring. Patient states she is doing well. States pain is well controlled. She has some nausea, no vomiting. Neck has some bruising, but overall it is soft. No significant hematoma. Overall, neck is soft and not expanding. -PRN labetalol and hydralazine for BP -PRN zofran for nausea -Continue to monitor neck documented in this encounter [facility] 09-22-2022 Note Problem: Knowledge D eficit Goal: Patient/family/caregiver demonstrates understanding of disease process, treatment plan, medications, and discharge instructions Outcome: Progressing [facility] 09-22-2022 Plan of care note Problem: Knowledge Deficit Goal: Patient/family/caregiver demonstrates understanding of disease process, treatment plan, medications, and discharge instructions Outcome: Progressing [facility] 09-22-2022 Miscellaneous Notes Problem: Knowledge Deficit Goal: Patient/family/caregiver demonstrates understanding of disease process, treatment plan, medications, and discharge instructions Outcome: Progressing Family updated via phone call OPERATIVE REPORT DATE OF SERVICE: 09/22/2022 PRE-PROCEDURE DIAGNOSIS: Asymptomatic Left Carotid Stenosis POST-PROCEDURE DIAGNOSIS: As above PROCEDURE PERFORMED: Left carotid endarterectomy with bovine pericardial patch angioplasty SURGEON: Rowan Chavez MD ASSISTANTS: Petey Renteria MD (PGY-5) FINDINGS: Calcific and caseous appearing plaque present at the carotid bulb and proximal internal carotid artery. The patient remained neurologically intact at the conclusion of the case. ANESTHESIA: General ESTIMATED BLOOD LOSS: 150 ml COMPLICATIONS: None SPECIMENS: Left Carotid Plaque IMPLANTS: Xenosure bovine pericardial patch. WOUND CLASS: 1 INDICATIONS FOR PROCEDURE: The patient is a 77 yo female with asymptomatic carotid artery stenosis of 70-79%. Carotid endarterectomy was recommended for stroke risk reduction. Risks, benefits, and alternatives were discussed with the patient and she elected to proceed. PROCEDURE IN DETAIL: The patient was taken to the operating room and placed in the supine position. General anesthesia was induced. Perioperative antibiotics of Ancef were administered. The patient was then positioned with her left neck exposed and prepped and draped in usual sterile fashion. A timeout was performed verifying the correct patient, side, site, and procedure to be performed. An incision was made just anterior to the sternocleidomastoid muscle on the right using a 10 blade scalpel. Dissection was carried down through the subcutaneous tissues using electrocautery. The platysma was encountered and incised along the length of the incision. The external jugular vein was identified and ligated. Dissection was again continued until the carotid sheath was identified. This was then incised carefully using Metzenbaum scissors and the internal jugular vein was identified. The internal jugular vein was then cleared of surrounding tissues using Metzenbaum scissors. The confluence of the facial vein and internal jugular vein was identified. The facial vein was then ligated and transected. The common carotid artery was identified. This was then cleared of surrounding tissues and encircled with a vessel loop. The vagus nerve was identified and carefully preserved. Next, the common carotid artery was followed cephalad and cleared of surrounding tissues. The external carotid artery was identified. A vessel loop was then placed around the external carotid artery. The patient was then given 8000 units of heparin for anticoagulation. The internal carotid artery was identified and cleared of surrounding tissues cephalad. An area above the level of disease was identified and deemed clampable. The hypoglossal nerve was identified and preserved. A vessel loop was then placed for distal control. Of note, the internal carotid artery was quite tortuous beyond the level of disease. After was confirmed 3 minutes had passed since heparin administration, a kerchner clamp was placed at the distal internal carotid artery, a Kate hydrogrip at the common carotid artery, and the Vesseloops were tightened around the external carotid artery and superior thyroid arteries. Using 11 blade scalpel, an arteriotomy was created in the anterior surface of the common carotid artery and extended using Crawford scissors. Once above the level of the disease, a Sundt shunt was placed first in the internal carotid artery followed by the common carotid artery and in circulation held in place by Zach clamps proximally and distally. Of note, there was backbleeding noted from the internal carotid artery. Doppler confirmed flow through the shunt. We next proceeded with endarterectomy. Using an endarterectomy blade the plaque was removed from the common carotid artery, internal carotid artery, and eversion endarterectomy was performed of the external carotid artery. The external carotid artery was then flushed with heparinized saline and the vessel loop used for control. Distally, the distal endpoint of the endarterectomy was feathered. 7-0 Prolene tacking sutures were placed to ensure no flap would form. The plaque was removed and sent to pathology as specimen. The plaque was calcific and caseous in nature. Once the vessel was sufficiently endarterectomized and there was no remaining debris, we proceeded with performing the patch anastomosis. Using 6-0 Prolene suture in a running fashion, the patch anastomosis was created between a bovine pericardial patch and the internal and common carotid arteries. Prior to completion of the patch, the shunt was removed and backbleeding and forward bleeding was allowed in order to vent the artery of air and debris. The artery was then flushed with heparinized saline, and the patch anastomosis was completed. Following completion of the patch, the common carotid artery was opened followed by the external carotid artery and then the internal carotid artery. Doppler was used to confirm flow through the repair with appropriate Doppler signals obtained distal to the patch on the internal carotid artery as well as in the external carotid artery. Intraoperative ultrasound was performed which showed no distal flap and good color flow through the repair. Hemostasis was achieved at the incision. The patient was given protamine for reversal of anticoagulation. Once hemostasis was secured, we proceeded with closure. 3-0 Vicryl suture in a running fashion was used to reapproximate the platysma. 4-0 Monocryl suture was then run in a subcuticular fashion at the skin. Dermabond skin glue was placed as sterile dressing. All sponge and needle counts were correct at the conclusion of the case. The patient was awakened from general anesthesia and transferred to the recovery area in stable condition. She remained neurologically intact at the conclusion of the case. Rowan Chavez MD Vascular Surgery Date: 09/22/2022 Location: [facility] OR Name: Cynthia Robertson, : 1945, Diagnosis Pre-op Diagnosis * Occlusion and stenosis of left carotid artery [I65.22] Post-op Diagnosis * Occlusion and stenosis of left carotid artery [I65.22] Procedures LEFT CAROTID ENDARTERECTOMY 94562 - ND TEAEC W/PATCH GRF CAROTID VERTB SUBCLAV NECK INC Surgeons * Rowan Chavez - Primary Petey Renteria, PGY-5 (Assisting) Procedure Summary Anesthesia: General ASA: III Estimated Blood Loss: 150 mL Drains: * None in log * Specimens ID Source Type Tests Collected By Collected At Frozen? Priority Lab ID 1 Neck Other TISSUE EXAM Rowan Chavez MD 09/22/22917 No Routine Description: LEFT CAROTID PLAQUE Implants Type Name Action Serial No. Shunt SHUNT CAROTID 14-9F - [id number] Used, Not Implanted Staff: Seat Covers Trimmer: Lindsey Faustin RN Scrub Person: Vania Kwok RN Findings: Consistent with diagnosis. Calcific and caseous plaque present. Good doppler signals post-operatively with color flow and no flap formation on intraoperative ultrasound. Vascular Surgery Neurological Examination Post Procedure Patient is awake Sedated Oriented self / place Sedated Following commands yes Responding verbally to questions Sedated Normal Vision Sedated Eye deviation no Facial asymmetry no Normal motor exam arms & legs yes Normal sensory exam arms & legs yes Normal coordination arms and legs yes Normal Speech Sedated Complications: None; patient tolerated the procedure well. Specimens Collected: Order Name Source Comment Collection Info Order Time POTASSIUM WITH MG REFLEX For patients on dialysis to draw potassium day of surgery 09/22/2022 5:50 AM PROTHROMBIN TIME If patient on coumadin within 4 days prior. 09/22/2022 5:50 AM TISSUE EXAM Neck Pre-op diagnosis: Occlusion and stenosis of left carotid artery [I65.22] Collected By: Rowan Chavez MD 09/22/2022 9:19 AM Wound Class: Class I: Clean Blood Products: None Prophylactic Antibiotics: Procedure appropriate prophylactic antibiotic(s) given within 1 hour of surgical incision (two hours if receiving Vancomycin or flouroquinolone) PRE-PROCEDURE ROUNDING COMPLETE. documented in this encounter [facility] 09-22-2022 Nurse Note 1325 Nurse from PACU came to assist in assessing pt neck, states that it is more swollen then when pt was in PACU. Ice applied to incision site, hob elevated Pt given PRN hydralazine for bp 173/73 Dr Orellana notified via secure chat. Dr Orellana at bedside, states okay to follow arterial line for BP. [facility] 09-22-2022 Note Patient: Cynthia martini Procedure Summary Date: 09/22/22 Room / Location: [facility] Operating Room Anesthesia Start: 736 Anesthesia Stop: 1050 Procedure: LEFT CAROTID ENDARTERECTOMY (Left: Neck) Diagnosis: Occlusion and stenosis of left carotid artery (Occlusion and stenosis of left carotid artery [I65.22]) Surgeons: Rowan Chavez MD Responsible Provider: TRISTIN Vásquez CRNA Anesthesia Type: general ASA Status: 3 Anesthesia Type: general Vitals Value Taken Time BP 169/82 09/22/22 1041 Temp 36.1 ?C (97 ?F) 09/22/22 1041 Pulse 86 09/22/22 1041 Resp 20 09/22/22 1041 SpO2 100 % 09/22/22 1041 Anesthesia Post Evaluation Patient location during evaluation: PACU Patient participation: complete - patient participated Level of consciousness: awake and alert Pain management: satisfactory to patient Airway patency: patent Dental Injury: no Cardiovascular status: acceptable, blood pressure returned to baseline and hemodynamically stable Respiratory status: acceptable and spontaneous ventilation Hydration status: euvolemic Nausea/Vomiting: controlled No notable events documented. Patient can be discharged once all PACU criteria has been met. [facility] 09-22-2022 Note Patient: Cynthia martini Procedure Summary Date: 09/22/22 Room / Location: [facility] Operating Room Anesthesia Start: 736 Anesthesia Stop: 1050 Procedure: LEFT CAROTID ENDARTERECTOMY (Left: Neck) Diagnosis: Occlusion and stenosis of left carotid artery (Occlusion and stenosis of left carotid artery [I65.22]) Surgeons: Rowan Chavez MD Responsible Provider: TRISTIN Vásquez CRNA Anesthesia Type: general ASA Status: 3 Anesthesia Type: general Vitals Value Taken Time BP 169/82 09/22/22 1041 Temp 36.1 ?C (97 ?F) 09/22/22 1041 Pulse 86 09/22/22 1041 Resp 20 09/22/22 1041 SpO2 100 % 09/22/22 1041 Anesthesia Post Evaluation Patient location during evaluation: PACU Patient participation: complete - patient participated Level of consciousness: awake and alert Pain management: satisfactory to patient Multimodal analgesia pain management approach Airway patency: patent Two or more strategies used to mitigate risk of obstructive sleep apnea Cardiovascular status: acceptable and hemodynamically stable Respiratory status: acceptable and face mask Hydration status: acceptable No notable events documented. MIPS #430 PONV Patient received an inhalational anesthetic (4554F) Patient exhibits three or more risk factors for PONV (4556F) Patient received at leaset 2 prophylactic Rx PONV anti-emtic agents of different classes preop and/or intraop (G9775) MIPS # 424 Perioperative Temperature Management Anesthesia time was 60 minutes or longer (4255F) Anesthesai administered was General (inhalational or TIVA) or Neuraxial block (X0424) At least one body temperature greater than 95.8F/35.5C achieved within the 30 mins immediately prior to or the 15 minutes immediately following anesthesia end time (G9771) MIPS #477 Multimodal Pain Management Not emergent case Patient was administered multimodal pain management (two or more drugs and/or interventions excluding systemic opioids) in the periopeartive period occurring at some time between 6 hours prior to anesthesia start time until discharged from PACU (G2148) MIPS #404 Anesthesiology Smoking Abstinence The patient is not a current smoker (e.g. cigarette, cigar, pipe, e-cigarette/vaping/marijuana) If no stop here (XX404) I completed my handoff to the receiving clinician during which we: 1. Identified the patient 2. Identified the responsible provider 3. Reviewed the pertinent medical history 4. Discussed the surgical course 5. Reviewed intra-op anesthesia management and issues during anesthesia 6. Set expectations for post-procedure period 7. Allowed opportunity for questions and acknowledgement of understanding. [facility] 09-22-2022 Note Formatting of this n ote might be different from the original. Family updated via phone call [facility] 09-22-2022 Note Formatting of this n ote might be different from the original. Family updated via phone call [facility] 09-22-2022 Note Airway Date/Time: 09/22/2022 7:45 AM Urgency: scheduled Airway not difficult General Information and Staff Patient location during procedure: Procedural Anesthesiologist: Kurtis Bolivar MD Resident/SEAM SEWER: Sona Rogers APRN - SEAM SEWER Performed: anesthesiologist Indications and Patient Condition Indications for airway management: anesthesia Sedation level: Asleep Preoxygenated: yes Patient position: sniffing Mask difficulty assessment: 2 - vent by mask + OA or adjuvant +/- NMBA Final Airway Details Final airway type: endotracheal airway Successful airway: ETT Cuffed: yes Successful intubation technique: direct laryngoscopy Facilitating devices/methods: intubating stylet Endotracheal tube insertion site: oral Blade: Tyree Blade size: #3 ETT size (mm): 7.0 Cormack-Lehane Classification: grade I - full view of glottis Placement verified by: chest auscultation and capnometry Measured from: lips ETT to lips (cm): 21 Number of attempts at approach: 1 [facility] 09-22-2022 Note H&P reviewed. The pa tient was examined and there are no changes to the H&P. Plan for left CEA for stroke risk reduction. We discussed the risks of carotid endarterectomy including the risks of bleeding, infection, nerve damage and damage to surrounding structures, stroke, and myocardial infarction. She has elected to proceed. Last dose of Eliquis was yesterday morning. Vascular Surgery Neurological Examination Pre Procedure Patient is awake yes Oriented self / place yes Following commands yes Responding verbally to questions yes Normal Vision yes Eye deviation no Facial asymmetry no Normal motor exam arms & legs yes Normal sensory exam arms & legs yes Normal coordination arms and legs yes Normal Speech yes [facility] 09-22-2022 Note OPERATIVE REPORT DATE OF SERVICE: 09/22/2022 PRE-PROCEDURE DIAGNOSIS: Asymptomatic Left Carotid Stenosis POST-PROCEDURE DIAGNOSIS: As above PROCEDURE PERFORMED: Left carotid endarterectomy with bovine pericardial patch angioplasty SURGEON: Rowan Chavez MD ASSISTANTS: Petey Renteria MD ([id number]-[id number]) FINDINGS: Calcific and caseous appearing plaque present at the carotid bulb and proximal internal carotid artery. The patient remained neurologically intact at the conclusion of the case. ANESTHESIA: General ESTIMATED BLOOD LOSS: 150 ml COMPLICATIONS: None SPECIMENS: Left Carotid Plaque IMPLANTS: Xenosure bovine pericardial patch. WOUND CLASS: 1 INDICATIONS FOR PROCEDURE: The patient is a 77 yo female with asymptomatic carotid artery stenosis of 70-79%. Carotid endarterectomy was recommended for stroke risk reduction. Risks, benefits, and alternatives were discussed with the patient and she elected to proceed. PROCEDURE IN DETAIL: The patient was taken to the operating room and placed in the supine position. General anesthesia was induced. Perioperative antibiotics of Ancef were administered. The patient was then positioned with her left neck exposed and prepped and draped in usual sterile fashion. A timeout was performed verifying the correct patient, side, site, and procedure to be performed. An incision was made just anterior to the sternocleidomastoid muscle on the right using a 10 blade scalpel. Dissection was carried down through the subcutaneous tissues using electrocautery. The platysma was encountered and incised along the length of the incision. The external jugular vein was identified and ligated. Dissection was again continued until the carotid sheath was identified. This was then incised carefully using Metzenbaum scissors and the internal jugular vein was identified. The internal jugular vein was then cleared of surrounding tissues using Metzenbaum scissors. The confluence of the facial vein and internal jugular vein was identified. The facial vein was then ligated and transected. The common carotid artery was identified. This was then cleared of surrounding tissues and encircled with a vessel loop. The vagus nerve was identified and carefully preserved. Next, the common carotid artery was followed cephalad and cleared of surrounding tissues. The external carotid artery was identified. A vessel loop was then placed around the external carotid artery. The patient was then given 8000 units of heparin for anticoagulation. The internal carotid artery was identified and cleared of surrounding tissues cephalad. An area above the level of disease was identified and deemed clampable. The hypoglossal nerve was identified and preserved. A vessel loop was then placed for distal control. Of note, the internal carotid artery was quite tortuous beyond the level of disease. After was confirmed 3 minutes had passed since heparin administration, a kerchner clamp was placed at the distal internal carotid artery, a Kate hydrogrip at the common carotid artery, and the Vesseloops were tightened around the external carotid artery and superior thyroid arteries. Using 11 blade scalpel, an arteriotomy was created in the anterior surface of the common carotid artery and extended using Crawford scissors. Once above the level of the disease, a Sundt shunt was placed first in the internal carotid artery followed by the common carotid artery and in circulation held in place by Zach clamps proximally and distally. Of note, there was backbleeding noted from the internal carotid artery. Doppler confirmed flow through the shunt. We next proceeded with endarterectomy. Using an endarterectomy blade the plaque was removed from the common carotid artery, internal carotid artery, and eversion endarterectomy was performed of the external carotid artery. The external carotid artery was then flushed with heparinized saline and the vessel loop used for control. Distally, the distal endpoint of the endarterectomy was feathered. 7-0 Prolene tacking sutures were placed to ensure no flap would form. The plaque was removed and sent to pathology as specimen. The plaque was calcific and caseous in nature. Once the vessel was sufficiently endarterectomized and there was no remaining debris, we proceeded with performing the patch anastomosis. Using 6-0 Prolene suture in a running fashion, the patch anastomosis was created between a bovine pericardial patch and the internal and common carotid arteries. Prior to completion of the patch, the shunt was removed and backbleeding and forward bleeding was allowed in order to vent the artery of air and debris. The artery was then flushed with heparinized saline, and the patch anastomosis was completed. Following completion of the patch, the common carotid artery was opened followed by the external carotid artery and then the internal carotid artery. Doppler was used to (more content not included)... [facility] 09-22-2022 Note PRE-PROCEDURE ROUNDING COMPLETE. [facility] 09-22-2022 Attending History and physical note H&P reviewed. The patient was examined and there are no changes to the H&P. Plan for left CEA for stroke risk reduction. We discussed the risks of carotid endarterectomy including the risks of bleeding, infection, nerve damage and damage to surrounding structures, stroke, and myocardial infarction. She has elected to proceed. Last dose of Eliquis was yesterday morning. Vascular Surgery Neurological Examination Pre Procedure Patient is awake yes Oriented self / place yes Following commands yes Responding verbally to questions yes Normal Vision yes Eye deviation no Facial asymmetry no Normal motor exam arms & legs yes Normal sensory exam arms & legs yes Normal coordination arms and legs yes Normal Speech yes Source Note - NUSRAT Hall - 09/11/2022 8:00 AM EDT Images from the original note were not included. Comprehensive PreSurgical History and Physical ? Name: Cynthia Robertson : 1945 (Age-77 y.o.) Date of Service: Pt seen/examined on 09/11/2022 Procedure Information Date/Time: 09/22/22729 Procedure: LEFT CAROTID ENDARTERECTOMY (Left: Neck) Location: [facility] OR Operating Room Surgeons: Rowan Chavez MD Chief Complaint: Carotid stenosis History Of Present Illness: 77 y.o. female who presents with chief complaint mentioned above. Per surgeon's note pt presents with findings of 70-79% stenosis of the left internal carotid artery. The patient denies any upper and lower extremity weakness. She does report some difficulty in seeing from the left eye on occasion however she notes that when she rubs the eye it returns to normal. She reports numbness in her left hand however this has been present for quite some time and occurs typically when she has her arm up of the window while driving or while sitting in chair. Pt with past medical history of remote left hemispheric CVA and CAD s/p PCI in 2017 Pt has seen the surgeon and elected for above procedure. Pt reports couple weeks ago had 1 episode where she bent over and had left eye burning and redness, went away afterward. - Advised pt to discuss with PCP/optometry/surgeon if persists. Denies Hx of DM, Asthma/COPD, CHF, DVT/PE, a fib Hx problems with anesthesia? -no Dental? - top and bottom dentures Snore at night? -snores. +CED no cpap Past Medical History: Past Medical History: No date: Arthritis No date: Blurry vision No date: CAD (coronary artery disease) No date: Cerebral artery occlusion with cerebral infarction (HCC) Comment: peripheral vision defect bilaterally No date: Decreased vision No date: H/O left heart catheterization by cutdown Comment: no stents No date: Headache No date: Heart disease No date: Hyperlipidemia No date: Hypertension No date: Ischemic cardiomyopathy Comment: With recovered left ventricular systolic function post PCI and medical therapy No date: Morbid obesity (HCC) No date: PFO (patent foramen ovale) No date: Psoriasis No date: Sleep apnea Past Surgical History: Past Surgical History: 05/02/2019: COLONOSCOPY Comment: diverticulosis sigmoid colon 12/21/2016: CORONARY ANGIOPLASTY WITH STENT PLACEMENT Comment: FLAQUITO x 6 LM into prox LAD, ostial and prox CFX (kissing balloon) and mid-distal LAD and ostial and prox Diag 2 (kissing balloon) No date: EYE SURGERY; Bilateral Comment: cataract No date: FRACTURE SURGERY; Left Comment: wrist No date: HYSTERECTOMY No date: HYSTERECTOMY No date: TONSILLECTOMY (HISTORICAL) Medications Prior to Admission: Current Outpatient Medications: acetaminophen (Tylenol) 500 MG tablet, Take 500 mg by mouth every 6 hours as needed., Disp: , Rfl: amLODIPine (Norvasc) 5 MG tablet, Every 24 hours., Disp: , Rfl: apixaban (Eliquis) 5 MG tablet, TAKE ONE TABLET BY MOUTH TWO TIMES A DAY, Disp: 180 tablet, Rfl: 3 atorvastatin (Lipitor) 80 MG tablet, Take 1 tablet by mouth daily., Disp: , Rfl: carvedilol (Coreg) 12.5 MG tablet, take 1/2 tablet by mouth twice a day with meals, Disp: , Rfl: clopidogrel (Plavix) 75 MG tablet, Take 75 mg by mouth daily., Disp: , Rfl: omeprazole (PriLOSEC) [address] capsule, Take 10 mg by mouth daily., Disp: , Rfl: CHRONIC NARCOTIC USE: No Allergies: Lisinopril, Nitroglycerin, Pravastatin, Rosuvastatin, Ticagrelor, Amoxicillin, and Promethazine If patient has opioid allergy, is it okay to take Acetaminophen: N/A Social History: TOBACCO: reports that she has never smoked. She has never used smokeless tobacco. ETOH: reports current alcohol use. Social History Substance and Sexual Activity Drug Use No Comment: caffeine use: no caffeine Family History: Family History Problem Relation Name Age of Onset Amblyopia Neg Hx Glaucoma Neg Hx Macular degeneration Neg Hx Cataracts Father Heart disease Father mi,pacer Strabismus Neg Hx Blindness Neg Hx Retinal detachment Neg Hx Cataracts Mother REVIEW OF SYSTEMS: Review of Systems Constitutional: Negative for chills and fever. Respiratory: Negative for shortness of breath. Cardiovascular: Negative for chest pain. Pertinent positives as noted in the HPI. Physical Exam: Physical Exam Constitutional: General: She is awake. She is not in acute distress. Appearance: Normal appearance. HENT: Head: Normocephalic and atraumatic. Eyes: Extraocular Movements: Extraocular movements intact. Conjunctiva/sclera: Conjunctivae normal. Cardiovascular: Rate and Rhythm: Normal rate and regular rhythm. Heart sounds: Normal heart sounds. Pulmonary: Effort: Pulmonary effort is normal. Breath sounds: Normal breath sounds. Abdominal: Palpations: Abdomen is soft. Musculoskeletal: General: Normal range of motion. Cervical back: Normal range of motion. Skin: General: Skin is warm and dry. Neurological: General: No focal deficit present. Mental Status: She is alert and oriented to person, place, and time. Psychiatric: Mood and Affect: Mood normal. Behavior: Behavior normal. Vitals: Vitals Value Taken Time BP 149/90 09/11/22 0820 Temp 36.5 C (97.7 F) 09/11/22 0820 Pulse 63 09/11/22 0820 Resp 20 09/11/22 0820 SpO2 96 % 09/11/22 0820 BP (!) 149/90 Pulse 63 Temp 36.5 C (97.7 F) (Temporal) Resp 20 Ht 1.626 m (5' 4.02 ) Wt 86.8 kg (191 lb 6.4 oz) SpO2 96% BMI 32.84 kg/m Labs: Lab Results Component Value Date WBC 3.7 09/11/2022 HGB 13.3 09/11/2022 HCT 39.9 09/11/2022 MCV 88.9 09/11/2022 PLT 164 09/11/2022 Lab Results Component Value Date NA 143 09/11/2022 K 3.9 09/11/2022 CL 114 (H) 09/11/2022 CO2 20 (L) 09/11/2022 BUN 20 (H) 09/11/2022 CREATININE 0.58 09/11/2022 GLUCOSE 100 09/11/2022 CALCIUM 9.4 09/11/2022 PROT 7.1 07/22/2021 ALKPHOS 81 07/22/2021 AST 24 07/22/2021 EGFR >90.0 09/11/2022 James's Simple Cardiac Risk Index: JAMES'S SIMPLE CARDIAC RISK SCORE: 2 Interpretation: 0 Points Class I 0.5% 1 Point Class II 1.3% 2 Points Class III 3.6% 3+ Points Class IV 9.1% METS >4 METS (Able to climb a flight of stairs with no chest pain or shortness of breath): Yes Walk indoors, such as around the house (1.75 METs), Do light work around the house, such as dusting or washing dishes (2.70 METs), Take care of self, that is eating, dressing, bathing, using the toilet (2.75 METs), Do moderate work around the house such as vacuuming, sweeping floors, or carrying in groceries (3.50 METs), Do yardwork, such as raking leaves, weeding,or pushing a power mower (4.50 METs), Climb a flight of stairs or walk up a hill (5.50 METs) PAT Pain Score: 0 Postop Pain Management Plan (Pain consult ordered?): Pain consult not indicated at this time ? EKG: Encounter Date: 08/06/22 ECG 12 lead - CLINIC PERFORMED Narrative Sinus Rhythm -Left axis -anterior fascicular block. -Old anteroseptal infarct. -Diffuse nonspecific T-abnormality. ABNORMAL Last Echo 06/02/17: SUMMARY: 1. Left ventricle: The cavity size is mildly dilated. Wall thickness is normal. Resting SB rates 55-60/min. Systolic function is normal by the biplane method of disks. The estimated ejection fraction is 73%. Although the EF is thought an overestimate, function clearly appears preserved. There are no regional wall motion abnormalities. Doppler parameters are consistent with abnormal left ventricular relaxation (grade 1 diastolic dysfunction). In comparison to previous study done end November 2016, EF was calculated 35% at time of acute event with grade 2 diastolic abnormality. Both systolic and diastolic parameters appear to have recovered. Stress test 4/3/23: Interpretation Summary No evidence of induced ischemia is identified on perfusion images following vasodilator stress. Stress Combined Conclusion: Normal pharmacological myocardial perfusion study. Stress ECG: Conclusion: The stress test is normal. Left ventricular ejection fraction and wall motion appear normal on gated SPECT images. ASSESSMENT/PLAN: Patient is considered intermediate risk for this intermediate risk procedure/surgery noted above () with no reducible risk factors. Based on the above evaluation, the benefits of the planned procedure likely exceed the risks. The patient is medically optimized to proceed with the planned procedure without any further cardiopulmonary testing. Cardiology clearance uploaded in media 09/08/22: 1) Occlusion and stenosis of left carotid artery Managed per surgery 2) CAD S/p FLAQUITO x 6 LM into prox LAD, ostial and prox CFX (kissing balloon) and mid-distal LAD and ostial and prox Diag 2 (kissing balloon) 2017 Currently taking coreg, statin, plavix Follows with cardiology Dr Potter, OV 08/06/22 Patient instructed to continue plavix uninterrupted as noted above 3) HTN Currently taking coreg, norvasc BP Readings from Last 3 Encounters: 09/11/22 (!) 149/90 09/02/22 (!) 150/87 08/06/22 (!) 140/64 4) CVA Occurred few years ago, unsure exact date Residual peripheral vision issues Currently taking eliquis, plavix, statin 5) CED Not compliant with CPAP 6) HLD Currently taking statin 7) GERD Stable. Currently taking PPI Avoidance of triggers encouraged Visit Type: Pre-Admission Testing Visit Labs Ordered: YES - PER PAT PROTOCOL Sleep Referral Ordered: NO - ALREADY DIAGNOSED WITH CED AND PATIENT IS NOT COMPLIANT WITH CPAP Electronically signed by: NUSRAT Hall Date: 09/11/2022 at 9:24 AM PAT Protocol referenced includes: 1. Anesthesia Lab Protocol Orders 2. Perioperative Cardiovascular Risk Assessment 3. Anesthesia Assessment 4. Pain Assessment and Acute Pain Service Consult (if appropriate) 5. Medical Clearance/Consult from Internal Medicine ([facility]) 6. Shower/Wash Order (for designated surgeries) 7. CED Screen and Sleep Clinic Referral (if appropriate) [employer] Phone: 09-22-2022 History and physical note H&P reviewed. The patient was examined and there are no changes to the H&P. Plan for left CEA for stroke risk reduction. We discussed the risks of carotid endarterectomy including the risks of bleeding, infection, nerve damage and damage to surrounding structures, stroke, and myocardial infarction. She has elected to proceed. Last dose of Eliquis was yesterday morning. Vascular Surgery Neurological Examination Pre Procedure Patient is awake yes Oriented self / place yes Following commands yes Responding verbally to questions yes Normal Vision yes Eye deviation no Facial asymmetry no Normal motor exam arms & legs yes Normal sensory exam arms & legs yes Normal coordination arms and legs yes Normal Speech yes Source Note - NUSRAT Hall - 09/11/2022 8:00 AM EDT Images from the original note were not included. Comprehensive PreSurgical History and Physical ? Name: Cynthia Robertson : 1945 (Age-77 y.o.) Date of Service: Pt seen/examined on 09/11/2022 Procedure Information Date/Time: 09/22/22729 Procedure: LEFT CAROTID ENDARTERECTOMY (Left: Neck) Location: [facility] Operating Room Surgeons: Rowan Chavez MD Chief Complaint: Carotid stenosis History Of Present Illness: 77 y.o. female who presents with chief complaint mentioned above. Per surgeon's note pt presents with findings of 70-79% stenosis of the left internal carotid artery. The patient denies any upper and lower extremity weakness. She does report some difficulty in seeing from the left eye on occasion however she notes that when she rubs the eye it returns to normal. She reports numbness in her left hand however this has been present for quite some time and occurs typically when she has her arm up of the window while driving or while sitting in chair. Pt with past medical history of remote left hemispheric CVA and CAD s/p PCI in 2017 Pt has seen the surgeon and elected for above procedure. Pt reports couple weeks ago had 1 episode where she bent over and had left eye burning and redness, went away afterward. - Advised pt to discuss with PCP/optometry/surgeon if persists. Denies Hx of DM, Asthma/COPD, CHF, DVT/PE, a fib Hx problems with anesthesia? -no Dental? - top and bottom dentures Snore at night? -snores. +CED no cpap Past Medical History: Past Medical History: No date: Arthritis No date: Blurry vision No date: CAD (coronary artery disease) No date: Cerebral artery occlusion with cerebral infarction (HCC) Comment: peripheral vision defect bilaterally No date: Decreased vision No date: H/O left heart catheterization by cutdown Comment: no stents No date: Headache No date: Heart disease No date: Hyperlipidemia No date: Hypertension No date: Ischemic cardiomyopathy Comment: With recovered left ventricular systolic function post PCI and medical therapy No date: Morbid obesity (HCC) No date: PFO (patent foramen ovale) No date: Psoriasis No date: Sleep apnea Past Surgical History: Past Surgical History: 05/02/2019: COLONOSCOPY Comment: diverticulosis sigmoid colon 12/21/2016: CORONARY ANGIOPLASTY WITH STENT PLACEMENT Comment: FLAQUITO x 6 LM into prox LAD, ostial and prox CFX (kissing balloon) and mid-distal LAD and ostial and prox Diag 2 (kissing balloon) No date: EYE SURGERY; Bilateral Comment: cataract No date: FRACTURE SURGERY; Left Comment: wrist No date: HYSTERECTOMY No date: HYSTERECTOMY No date: TONSILLECTOMY (HISTORICAL) Medications Prior to Admission: Current Outpatient Medications: acetaminophen (Tylenol) 500 MG tablet, Take 500 mg by mouth every 6 hours as needed., Disp: , Rfl: amLODIPine (Norvasc) 5 MG tablet, Every 24 hours., Disp: , Rfl: apixaban (Eliquis) 5 MG tablet, TAKE ONE TABLET BY MOUTH TWO TIMES A DAY, Disp: 180 tablet, Rfl: 3 atorvastatin (Lipitor) 80 MG tablet, Take 1 tablet by mouth daily., Disp: , Rfl: carvedilol (Coreg) 12.5 MG tablet, take 1/2 tablet by mouth twice a day with meals, Disp: , Rfl: clopidogrel (Plavix) 75 MG tablet, Take 75 mg by mouth daily., Disp: , Rfl: omeprazole (PriLOSEC) [address] capsule, Take 10 mg by mouth daily., Disp: , Rfl: CHRONIC NARCOTIC USE: No Allergies: Lisinopril, Nitroglycerin, Pravastatin, Rosuvastatin, Ticagrelor, Amoxicillin, and Promethazine If patient has opioid allergy, is it okay to take Acetaminophen: N/A Social History: TOBACCO: reports that she has never smoked. She has never used smokeless tobacco. ETOH: reports current alcohol use. Social History Substance and Sexual Activity Drug Use No Comment: caffeine use: no caffeine Family History: Family History Problem Relation Name Age of Onset Amblyopia Neg Hx Glaucoma Neg Hx Macular degeneration Neg Hx Cataracts Father Heart disease Father mi,pacer Strabismus Neg Hx Blindness Neg Hx Retinal detachment Neg Hx Cataracts Mother REVIEW OF SYSTEMS: Review of Systems Constitutional: Negative for chills and fever. Respiratory: Negative for shortness of breath. Cardiovascular: Negative for chest pain. Pertinent positives as noted in the HPI. Physical Exam: Physical Exam Constitutional: General: She is awake. She is not in acute distress. Appearance: Normal appearance. HENT: Head: Normocephalic and atraumatic. Eyes: Extraocular Movements: Extraocular movements intact. Conjunctiva/sclera: Conjunctivae normal. Cardiovascular: Rate and Rhythm: Normal rate and regular rhythm. Heart sounds: Normal heart sounds. Pulmonary: Effort: Pulmonary effort is normal. Breath sounds: Normal breath sounds. Abdominal: Palpations: Abdomen is soft. Musculoskeletal: General: Normal range of motion. Cervical back: Normal range of motion. Skin: General: Skin is warm and dry. Neurological: General: No focal deficit present. Mental Status: She is alert and oriented to person, place, and time. Psychiatric: Mood and Affect: Mood normal. Behavior: Behavior normal. Vitals: Vitals Value Taken Time BP 149/90 09/11/22 0820 Temp 36.5 C (97.7 F) 09/11/22 0820 Pulse 63 09/11/22 0820 Resp 20 09/11/22 0820 SpO2 96 % 09/11/22 0820 BP (!) 149/90 Pulse 63 Temp 36.5 C (97.7 F) (Temporal) Resp 20 Ht 1.626 m (5' 4.02 ) Wt 86.8 kg (191 lb 6.4 oz) SpO2 96% BMI 32.84 kg/m Labs: Lab Results Component Value Date WBC 3.7 09/11/2022 HGB 13.3 09/11/2022 HCT 39.9 09/11/2022 MCV 88.9 09/11/2022 PLT 164 09/11/2022 Lab Results Component Value Date NA 143 09/11/2022 K 3.9 09/11/2022 CL 114 (H) 09/11/2022 CO2 20 (L) 09/11/2022 BUN 20 (H) 09/11/2022 CREATININE 0.58 09/11/2022 GLUCOSE 100 09/11/2022 CALCIUM 9.4 09/11/2022 PROT 7.1 07/22/2021 ALKPHOS 81 07/22/2021 AST 24 07/22/2021 EGFR >90.0 09/11/2022 James's Simple Cardiac Risk Index: JAMES'S SIMPLE CARDIAC RISK SCORE: 2 Interpretation: 0 Points Class I 0.5% 1 Point Class II 1.3% 2 Points Class III 3.6% 3+ Points Class IV 9.1% METS >4 METS (Able to climb a flight of stairs with no chest pain or shortness of breath): Yes Walk indoors, such as around the house (1.75 METs), Do light work around the house, such as dusting or washing dishes (2.70 METs), Take care of self, that is eating, dressing, bathing, using the toilet (2.75 METs), Do moderate work around the house such as vacuuming, sweeping floors, or carrying in groceries (3.50 METs), Do yardwork, such as raking leaves, weeding,or pushing a power mower (4.50 METs), Climb a flight of stairs or walk up a hill (5.50 METs) PAT Pain Score: 0 Postop Pain Management Plan (Pain consult ordered?): Pain consult not indicated at this time ? EKG: Encounter Date: 08/06/22 ECG 12 lead - CLINIC PERFORMED Narrative Sinus Rhythm -Left axis -anterior fascicular block. -Old anteroseptal infarct. -Diffuse nonspecific T-abnormality. ABNORMAL Last Echo 06/02/17: SUMMARY: 1. Left ventricle: The cavity size is mildly dilated. Wall thickness is normal. Resting SB rates 55-60/min. Systolic function is normal by the biplane method of disks. The estimated ejection fraction is 73%. Although the EF is thought an overestimate, function clearly appears preserved. There are no regional wall motion abnormalities. Doppler parameters are consistent with abnormal left ventricular relaxation (grade 1 diastolic dysfunction). In comparison to previous study done end November 2016, EF was calculated 35% at time of acute event with grade 2 diastolic abnormality. Both systolic and diastolic parameters appear to have recovered. Stress test 08/24/22: Interpretation Summary No evidence of induced ischemia is identified on perfusion images following vasodilator stress. Stress Combined Conclusion: Normal pharmacological myocardial perfusion study. Stress ECG: Conclusion: The stress test is normal. Left ventricular ejection fraction and wall motion appear normal on gated SPECT images. ASSESSMENT/PLAN: Patient is considered intermediate risk for this intermediate risk procedure/surgery noted above () with no reducible risk factors. Based on the above evaluation, the benefits of the planned procedure likely exceed the risks. The patient is medically optimized to proceed with the planned procedure without any further cardiopulmonary testing. Cardiology clearance uploaded in media 09/08/22: 1) Occlusion and stenosis of left carotid artery Managed per surgery 2) CAD S/p FLAQUITO x 6 LM into prox LAD, ostial and prox CFX (kissing balloon) and mid-distal LAD and ostial and prox Diag 2 (kissing balloon) 2017 Currently taking coreg, statin, plavix Follows with cardiology Dr Potter, OV 08/06/22 Patient instructed to continue plavix uninterrupted as noted above 3) HTN Currently taking coreg, norvasc BP Readings from Last 3 Encounters: 09/11/22 (!) 149/90 09/02/22 (!) 150/87 08/06/22 (!) 140/64 4) CVA Occurred few years ago, unsure exact date Residual peripheral vision issues Currently taking eliquis, plavix, statin 5) CED Not compliant with CPAP 6) HLD Currently taking statin 7) GERD Stable. Currently taking PPI Avoidance of triggers encouraged Visit Type: Pre-Admission Testing Visit Labs Ordered: YES - PER PAT PROTOCOL Sleep Referral Ordered: NO - ALREADY DIAGNOSED WITH CED AND PATIENT IS NOT COMPLIANT WITH CPAP Electronically signed by: NUSRAT Hall Date: 09/11/2022 at 9:24 AM PAT Protocol referenced includes: 1. Anesthesia Lab Protocol Orders 2. Perioperative Cardiovascular Risk Assessment 3. Anesthesia Assessment 4. Pain Assessment and Acute Pain Service Consult (if appropriate) 5. Medical Clearance/Consult from Internal Medicine (IMS) 6. Shower/Wash Order (for designated surgeries) 7. CED Screen and Sleep Clinic Referral (if appropriate) documented in this encounter [facility] 09-22-2022 Note Formatting of this n ote might be different from the original. OPERATIVE REPORT DATE OF SERVICE: 09/22/2022 PRE-PROCEDURE DIAGNOSIS: Asymptomatic Left Carotid Stenosis POST-PROCEDURE DIAGNOSIS: As above PROCEDURE PERFORMED: Left carotid endarterectomy with bovine pericardial patch angioplasty SURGEON: Rowan Chavez MD ASSISTANTS: Petey Renteria MD (PGY-5) FINDINGS: Calcific and caseous appearing plaque present at the carotid bulb and proximal internal carotid artery. The patient remained neurologically intact at the conclusion of the case. ANESTHESIA: General ESTIMATED BLOOD LOSS: 150 ml COMPLICATIONS: None SPECIMENS: Left Carotid Plaque IMPLANTS: Xenosure bovine pericardial patch. WOUND CLASS: 1 INDICATIONS FOR PROCEDURE: The patient is a 77 yo female with asymptomatic carotid artery stenosis of 70-79%. Carotid endarterectomy was recommended for stroke risk reduction. Risks, benefits, and alternatives were discussed with the patient and she elected to proceed. PROCEDURE IN DETAIL: The patient was taken to the operating room and placed in the supine position. General anesthesia was induced. Perioperative antibiotics of Ancef were administered. The patient was then positioned with her left neck exposed and prepped and draped in usual sterile fashion. A timeout was performed verifying the correct patient, side, site, and procedure to be performed. An incision was made just anterior to the sternocleidomastoid muscle on the right using a 10 blade scalpel. Dissection was carried down through the subcutaneous tissues using electrocautery. The platysma was encountered and incised along the length of the incision. The external jugular vein was identified and ligated. Dissection was again continued until the carotid sheath was identified. This was then incised carefully using Metzenbaum scissors and the internal jugular vein was identified. The internal jugular vein was then cleared of surrounding tissues using Metzenbaum scissors. The confluence of the facial vein and internal jugular vein was identified. The facial vein was then ligated and transected. The common carotid artery was identified. This was then cleared of surrounding tissues and encircled with a vessel loop. The vagus nerve was identified and carefully preserved. Next, the common carotid artery was followed cephalad and cleared of surrounding tissues. The external carotid artery was identified. A vessel loop was then placed around the external carotid artery. The patient was then given 8000 units of heparin for anticoagulation. The internal carotid artery was identified and cleared of surrounding tissues cephalad. An area above the level of disease was identified and deemed clampable. The hypoglossal nerve was identified and preserved. A vessel loop was then placed for distal control. Of note, the internal carotid artery was quite tortuous beyond the level of disease. After was confirmed 3 minutes had passed since heparin administration, a kerchner clamp was placed at the distal internal carotid artery, a Kate hydrogrip at the common carotid artery, and the Vesseloops were tightened around the external carotid artery and superior thyroid arteries. Using 11 blade scalpel, an arteriotomy was created in the anterior surface of the common carotid artery and extended using Crawford scissors. Once above the level of the disease, a Sundt shunt was placed first in the internal carotid artery followed by the common carotid artery and in circulation held in place by Zach clamps proximally and distally. Of note, there was backbleeding noted from the internal carotid artery. Doppler confirmed flow through the shunt. We next proceeded with endarterectomy. Using an endarterectomy blade the plaque was removed from the common carotid artery, internal carotid artery, and eversion endarterectomy was performed of the external carotid artery. The external carotid artery was then flushed with heparinized saline and the vessel loop used for control. Distally, the distal endpoint of the endarterectomy was feathered. 7-0 Prolene tacking sutures were placed to ensure no flap would form. The plaque was removed and sent to pathology as specimen. The plaque was calcific and caseous in nature. Once the vessel was sufficiently endarterectomized and there was no remaining debris, we proceeded with performing the patch anastomosis. Using 6-0 Prolene suture in a running fashion, the patch anastomosis was created between a bovine pericardial patch and the internal and common carotid arteries. Prior to completion of the patch, the shunt was removed and backbleeding and forward bleeding was allowed in order to vent the artery of air and debris. The artery was then flushed with heparinized saline, and the patch anastomosis was completed. Following completion of the patch, the common carotid artery was opened followed by the external carotid artery and then the internal carotid artery. Doppler was used to confirm flow through the repair with appropriate Doppler signals obtained distal to the patch on the internal carotid artery as well as in the external carotid artery. Intraoperative ultrasound was performed which showed no distal flap and good color flow through the repair. Hemostasis was achieved at the incision. The patient was given protamine for reversal of anticoagulation. Once hemostasis was secured, we proceeded with closure. 3-0 Vicryl suture in a running fashion was used to reapproximate the platysma. 4-0 Monocryl suture was then run in a subcuticular fashion at the skin. Dermabond skin glue was placed as sterile dressing. All sponge and needle counts were correct at the conclusion of the case. The patient was awakened from general anesthesia and transferred to the recovery area in stable condition. She remained neurologically intact at the conclusion of the case. Rowan Chavez MD Vascular Surgery [facility] 09-22-2022 Note Formatting of this n ote is different from the original. Date: 09/22/2022 Location: [facility] OR Name: Cynthia Robertson, : 1945, Diagnosis Pre-op Diagnosis * Occlusion and stenosis of left carotid artery [I65.22] Post-op Diagnosis * Occlusion and stenosis of left carotid artery [I65.22] Procedures LEFT CAROTID ENDARTERECTOMY 14512 - ND TEAEC W/PATCH GRF CAROTID VERTB SUBCLAV NECK INC Surgeons * Rowan Chavez - Primary Petey Renteria, PGY-5 (Assisting) Procedure Summary Anesthesia: General ASA: III Estimated Blood Loss: 150 mL Drains: * None in log * Specimens ID Source Type Tests Collected By Collected At [facility]? Priority Lab ID 1 Neck Other TISSUE EXAM Rowan Chavez MD 09/22/22 0918 No Routine Description: LEFT CAROTID PLAQUE Implants Type Name Action Serial No. Shunt SHUNT CAROTID 14-9F - [id number] Used, Not Implanted Staff: Seat Covers Trimmer: Lindsey Faustin RN Scrub Person: Vania Kwok RN Findings: Consistent with diagnosis. Calcific and caseous plaque present. Good doppler signals post-operatively with color flow and no flap formation on intraoperative ultrasound. Vascular Surgery Neurological Examination Post Procedure Patient is awake Sedated Oriented self / place Sedated Following commands yes Responding verbally to questions Sedated Normal Vision Sedated Eye deviation no Facial asymmetry no Normal motor exam arms & legs yes Normal sensory exam arms & legs yes Normal coordination arms and legs yes Normal Speech Sedated Complications: None; patient tolerated the procedure well. Specimens Collected: Order Name Source Comment Collection Info Order Time POTASSIUM WITH MG REFLEX For patients on dialysis to draw potassium day of surgery 09/22/2022 5:50 AM PROTHROMBIN TIME If patient on coumadin within 4 days prior. 09/22/2022 5:50 AM TISSUE EXAM Neck Pre-op diagnosis: Occlusion and stenosis of left carotid artery [I65.22] Collected By: Rowan Chavez MD 09/22/2022 9:19 AM Wound Class: Class I: Clean Blood Products: None Prophylactic Antibiotics: Procedure appropriate prophylactic antibiotic(s) given within 1 hour of surgical incision (two hours if receiving Vancomycin or flouroquinolone) [facility] 09-22-2022 Note Formatting of this n ote might be different from the original. OPERATIVE REPORT DATE OF SERVICE: 09/22/2022 PRE-PROCEDURE DIAGNOSIS: Asymptomatic Left Carotid Stenosis POST-PROCEDURE DIAGNOSIS: As above PROCEDURE PERFORMED: Left carotid endarterectomy with bovine pericardial patch angioplasty SURGEON: Rowan Chavez MD ASSISTANTS: Petey Renteria MD (PGY-5) FINDINGS: Calcific and caseous appearing plaque present at the carotid bulb and proximal internal carotid artery. The patient remained neurologically intact at the conclusion of the case. ANESTHESIA: General ESTIMATED BLOOD LOSS: 150 ml COMPLICATIONS: None SPECIMENS: Left Carotid Plaque IMPLANTS: Xenosure bovine pericardial patch. WOUND CLASS: 1 INDICATIONS FOR PROCEDURE: The patient is a 77 yo female with asymptomatic carotid artery stenosis of 70-79%. Carotid endarterectomy was recommended for stroke risk reduction. Risks, benefits, and alternatives were discussed with the patient and she elected to proceed. PROCEDURE IN DETAIL: The patient was taken to the operating room and placed in the supine position. General anesthesia was induced. Perioperative antibiotics of Ancef were administered. The patient was then positioned with her left neck exposed and prepped and draped in usual sterile fashion. A timeout was performed verifying the correct patient, side, site, and procedure to be performed. An incision was made just anterior to the sternocleidomastoid muscle on the right using a 10 blade scalpel. Dissection was carried down through the subcutaneous tissues using electrocautery. The platysma was encountered and incised along the length of the incision. The external jugular vein was identified and ligated. Dissection was again continued until the carotid sheath was identified. This was then incised carefully using Metzenbaum scissors and the internal jugular vein was identified. The internal jugular vein was then cleared of surrounding tissues using Metzenbaum scissors. The confluence of the facial vein and internal jugular vein was identified. The facial vein was then ligated and transected. The common carotid artery was identified. This was then cleared of surrounding tissues and encircled with a vessel loop. The vagus nerve was identified and carefully preserved. Next, the common carotid artery was followed cephalad and cleared of surrounding tissues. The external carotid artery was identified. A vessel loop was then placed around the external carotid artery. The patient was then given 8000 units of heparin for anticoagulation. The internal carotid artery was identified and cleared of surrounding tissues cephalad. An area above the level of disease was identified and deemed clampable. The hypoglossal nerve was identified and preserved. A vessel loop was then placed for distal control. Of note, the internal carotid artery was quite tortuous beyond the level of disease. After was confirmed 3 minutes had passed since heparin administration, a kerchner clamp was placed at the distal internal carotid artery, a Kate hydrogrip at the common carotid artery, and the Vesseloops were tightened around the external carotid artery and superior thyroid arteries. Using 11 blade scalpel, an arteriotomy was created in the anterior surface of the common carotid artery and extended using Crawford scissors. Once above the level of the disease, a Sundt shunt was placed first in the internal carotid artery followed by the common carotid artery and in circulation held in place by Zach clamps proximally and distally. Of note, there was backbleeding noted from the internal carotid artery. Doppler confirmed flow through the shunt. We next proceeded with endarterectomy. Using an endarterectomy blade the plaque was removed from the common carotid artery, internal carotid artery, and eversion endarterectomy was performed of the external carotid artery. The external carotid artery was then flushed with heparinized saline and the vessel loop used for control. Distally, the distal endpoint of the endarterectomy was feathered. 7-0 Prolene tacking sutures were placed to ensure no flap would form. The plaque was removed and sent to pathology as specimen. The plaque was calcific and caseous in nature. Once the vessel was sufficiently endarterectomized and there was no remaining debris, we proceeded with performing the patch anastomosis. Using 6-0 Prolene suture in a running fashion, the patch anastomosis was created between a bovine pericardial patch and the internal and common carotid arteries. Prior to completion of the patch, the shunt was removed and backbleeding and forward bleeding was allowed in order to vent the artery of air and debris. The artery was then flushed with heparinized saline, and the patch anastomosis was completed. Following completion of the patch, the common carotid artery was opened followed by the external carotid artery and then the internal carotid artery. Doppler was used to confirm flow through the repair with appropriate Doppler signals obtained distal to the patch on the internal carotid artery as well as in the external carotid artery. Intraoperative ultrasound was performed which showed no distal flap and good color flow through the repair. Hemostasis was achieved at the incision. The patient was given protamine for reversal of anticoagulation. Once hemostasis was secured, we proceeded with closure. 3-0 Vicryl suture in a running fashion was used to reapproximate the platysma. 4-0 Monocryl suture was then run in a subcuticular fashion at the skin. Dermabond skin glue was placed as sterile dressing. All sponge and needle counts were correct at the conclusion of the case. The patient was awakened from general anesthesia and transferred to the recovery area in stable condition. She remained neurologically intact at the conclusion of the case. Rowan Chavez MD Vascular Surgery [facility] 09-22-2022 Note Formatting of this n ote is different from the original. Date: 09/22/2022 Location: [facility] OR Name: Cynthia Robertson, : 1945, Diagnosis Pre-op Diagnosis * Occlusion and stenosis of left carotid artery [I65.22] Post-op Diagnosis * Occlusion and stenosis of left carotid artery [I65.22] Procedures LEFT CAROTID ENDARTERECTOMY 80870 - ND TEAEC W/PATCH GRF CAROTID VERTB SUBCLAV NECK INC Surgeons * Rowan Chavez - Primary Petey Renteria, PGY-5 (Assisting) Procedure Summary Anesthesia: General ASA: III Estimated Blood Loss: 150 mL Drains: * None in log * Specimens ID Source Type Tests Collected By Collected At [employer]? Priority Lab ID 1 Neck Other TISSUE EXAM Rowan Chavez MD 09/22/22917 No Routine Description: LEFT CAROTID PLAQUE Implants Type Name Action Serial No. Shunt SHUNT CAROTID 14-9F - [id number] Used, Not Implanted Staff: Seat Covers Trimmer: Lindsey Faustin RN Scrub Person: Vania Kwok RN Findings: Consistent with diagnosis. Calcific and caseous plaque present. Good doppler signals post-operatively with color flow and no flap formation on intraoperative ultrasound. Vascular Surgery Neurological Examination Post Procedure Patient is awake Sedated Oriented self / place Sedated Following commands yes Responding verbally to questions Sedated Normal Vision Sedated Eye deviation no Facial asymmetry no Normal motor exam arms & legs yes Normal sensory exam arms & legs yes Normal coordination arms and legs yes Normal Speech Sedated Complications: None; patient tolerated the procedure well. Specimens Collected: Order Name Source Comment Collection Info Order Time POTASSIUM WITH MG REFLEX For patients on dialysis to draw potassium day of surgery 09/22/2022 5:50 AM PROTHROMBIN TIME If patient on coumadin within 4 days prior. 09/22/2022 5:50 AM TISSUE EXAM Neck Pre-op diagnosis: Occlusion and stenosis of left carotid artery [I65.22] Collected By: Rowan Chavez MD 09/22/2022 9:19 AM Wound Class: Class I: Clean Blood Products: None Prophylactic Antibiotics: Procedure appropriate prophylactic antibiotic(s) given within 1 hour of surgical incision (two hours if receiving Vancomycin or flouroquinolone) [facility] [employer] [facility] 09-22-2022 Note Formatting of this n ote might be different from the original. PRE-PROCEDURE ROUNDING COMPLETE. INGER [facility] [employer] 09-22-2022 Note Formatting of this n ote might be different from the original. PRE-PROCEDURE ROUNDING COMPLETE. [facility] 09-11-2022 Note Patient: Cynthia martini Procedure Information Date/Time: 09/22/22729 Procedure: LEFT CAROTID ENDARTERECTOMY (Left: Neck) Location: [facility] Operating Room Surgeons: Rowan Chavez MD Past Medical History: Past Medical History: No date: Arthritis No date: Blurry vision No date: CAD (coronary artery disease) No date: Cerebral artery occlusion with cerebral infarction (HCC) Comment: peripheral vision defect bilaterally No date: Decreased vision No date: H/O left heart catheterization by cutdown Comment: no stents No date: Headache No date: Heart disease No date: Hyperlipidemia No date: Hypertension No date: Ischemic cardiomyopathy Comment: With recovered left ventricular systolic function post PCI and medical therapy No date: Morbid obesity (HCC) No date: PFO (patent foramen ovale) No date: Psoriasis No date: Sleep apnea Past Surgical History: Past Surgical History: 05/02/2019: COLONOSCOPY Comment: diverticulosis sigmoid colon 12/21/2016: CORONARY ANGIOPLASTY WITH STENT PLACEMENT Comment: FLAQUITO x 6 LM into prox LAD, ostial and prox CFX (kissing balloon) and mid-distal LAD and ostial and prox Diag 2 (kissing balloon) No date: EYE SURGERY; Bilateral Comment: cataract No date: FRACTURE SURGERY; Left Comment: wrist No date: HYSTERECTOMY No date: HYSTERECTOMY No date: TONSILLECTOMY (HISTORICAL) Social History: TOBACCO: reports that she has never smoked. She has never used smokeless tobacco. ETOH: reports current alcohol use. Social History Substance and Sexual Activity Drug Use No Comment: caffeine use: no caffeine Family History: Family History Problem Relation Name Age of Onset ? Amblyopia Neg Hx ? Glaucoma Neg Hx ? Macular degeneration Neg Hx ? Cataracts Father ? Heart disease Father mi,pacer ? Strabismus Neg Hx ? Blindness Neg Hx ? Retinal detachment Neg Hx ? Cataracts Mother Screening: Postmenopausal Clinical information reviewed: Tobacco Allergies Meds Med Hx Surg Hx OB Status Fam Hx Soc Hx Physical Exam Airway Mallampati: II TM distance: >3 FB Neck ROM: full Mouth Open: normal Cardiovascular Dental (+) Lower Dentures, Upper Dentures, edentulous Pulmonary Abdominal Anesthesia Plan ASA 3 general The patient is not a current smoker. Anesthetic plan and risks discussed with patient and spouse. patient is NPO CED Screening STOP-Bang Total Score: 3 Labs: Lab Results Component Value Date WBC 3.7 09/11/2022 HGB 13.3 09/11/2022 HCT 39.9 09/11/2022 MCV 88.9 09/11/2022 PLT 164 09/11/2022 Lab Results Component Value Date NA 143 09/11/2022 K 3.9 09/11/2022 CL 114 (H) 09/11/2022 CO2 20 (L) 09/11/2022 BUN 20 (H) 09/11/2022 CREATININE 0.58 09/11/2022 GLUCOSE 100 09/11/2022 CALCIUM 9.4 09/11/2022 PROT 7.1 07/22/2021 ALKPHOS 81 07/22/2021 AST 24 07/22/2021 EGFR >90.0 09/11/2022 No echocardiogram results found for the past 14 days 08/06/22 ECG 12-LEAD 08/17/2022 4:42 PM (Final) Narrative Sinus Rhythm -Left axis -anterior fascicular block. -Old anteroseptal infarct. -Diffuse nonspecific T-abnormality. ABNORMAL Signed by: Trev Huff MD on 08/17/2022 4:42 PM [facility] 09-11-2022 Note Comprehensive PreSur gical History and Physical ? Name: Cynthia Robertson : 1945 (Age-77 y.o.) Date of Service: Pt seen/examined on 09/11/2022 Procedure Information Date/Time: 09/22/22729 Procedure: LEFT CAROTID ENDARTERECTOMY (Left: Neck) Location: [facility] Operating Room Surgeons: Rowan Chavez MD Chief Complaint: Carotid stenosis History Of Present Illness: 77 y.o. female who presents with chief complaint mentioned above. Per surgeon's note pt presents with findings of 70-79% stenosis of the left internal carotid artery. The patient denies any upper and lower extremity weakness. She does report some difficulty in seeing from the left eye on occasion however she notes that when she rubs the eye it returns to normal. She reports numbness in her left hand however this has been present for quite some time and occurs typically when she has her arm up of the window while driving or while sitting in chair. Pt with past medical history of remote left hemispheric CVA and CAD s/p PCI in 2017 Pt has seen the surgeon and elected for above procedure. Pt reports couple weeks ago had 1 episode where she bent over and had left eye burning and redness, went away afterward. - Advised pt to discuss with PCP/optometry/surgeon if persists. Denies Hx of DM, Asthma/COPD, CHF, DVT/PE, a fib Hx problems with anesthesia? -no Dental? - top and bottom dentures Snore at night? -snores. +CED no cpap Past Medical History: Past Medical History: No date: Arthritis No date: Blurry vision No date: CAD (coronary artery disease) No date: Cerebral artery occlusion with cerebral infarction (HCC) Comment: peripheral vision defect bilaterally No date: Decreased vision No date: H/O left heart catheterization by cutdown Comment: no stents No date: Headache No date: Heart disease No date: Hyperlipidemia No date: Hypertension No date: Ischemic cardiomyopathy Comment: With recovered left ventricular systolic function post PCI and medical therapy No date: Morbid obesity (HCC) No date: PFO (patent foramen ovale) No date: Psoriasis No date: Sleep apnea Past Surgical History: Past Surgical History: 05/02/2019: COLONOSCOPY Comment: diverticulosis sigmoid colon 12/21/2016: CORONARY ANGIOPLASTY WITH STENT PLACEMENT Comment: FLAQUITO x 6 LM into prox LAD, ostial and prox CFX (kissing balloon) and mid-distal LAD and ostial and prox Diag 2 (kissing balloon) No date: EYE SURGERY; Bilateral Comment: cataract No date: FRACTURE SURGERY; Left Comment: wrist No date: HYSTERECTOMY No date: HYSTERECTOMY No date: TONSILLECTOMY (HISTORICAL) Medications Prior to Admission: Current Outpatient Medications: acetaminophen (Tylenol) 500 MG tablet, Take 500 mg by mouth every 6 hours as needed., Disp: , Rfl: amLODIPine (Norvasc) 5 MG tablet, Every 24 hours., Disp: , Rfl: apixaban (Eliquis) 5 MG tablet, TAKE ONE TABLET BY MOUTH TWO TIMES A DAY, Disp: 180 tablet, Rfl: 3 atorvastatin (Lipitor) 80 MG tablet, Take 1 tablet by mouth daily., Disp: , Rfl: carvedilol (Coreg) 12.5 MG tablet, take 1/2 tablet by mouth twice a day with meals, Disp: , Rfl: clopidogrel (Plavix) 75 MG tablet, Take 75 mg by mouth daily., Disp: , Rfl: omeprazole (PriLOSEC) [address] capsule, Take 10 mg by mouth daily., Disp: , Rfl: CHRONIC NARCOTIC USE: No Allergies: Lisinopril, Nitroglycerin, Pravastatin, Rosuvastatin, Ticagrelor, Amoxicillin, and Promethazine If patient has opioid allergy, is it okay to take Acetaminophen: N/A Social History: TOBACCO: reports that she has never smoked. She has never used smokeless tobacco. ETOH: reports current alcohol use. Social History Substance and Sexual Activity Drug Use No Comment: caffeine use: no caffeine Family History: Family History Problem Relation Name Age of Onset Amblyopia Neg Hx Glaucoma Neg Hx Macular degeneration Neg Hx Cataracts Father Heart disease Father mi,pacer Strabismus Neg Hx Blindness Neg Hx Retinal detachment Neg Hx Cataracts Mother REVIEW OF SYSTEMS: Review of Systems Constitutional: Negative for chills and fever. Respiratory: Negative for shortness of breath. Cardiovascular: Negative for chest pain. Pertinent positives as noted in the HPI. Physical Exam: Physical Exam Constitutional: General: She is awake. She is not in acute distress. Appearance: Normal appearance. HENT: Head: Normocephalic and atraumatic. Eyes: Extraocular Movements: Extraocular movements intact. Conjunctiva/sclera: Conjunctivae normal. Cardiovascular: Rate and Rhythm: Normal rate and regular rhythm. Heart sounds: Normal heart sounds. Pulmonary: Effort: Pulmonary effort is normal. Breath sounds: Normal breath sounds. Abdominal: Palpations: Abdomen is soft. Musculoskeletal: General: Normal range of motion. Cervical back: Normal range of motion. Skin: General: Skin is warm and dry. Neur (more content not included)... [facility] 09-11-2022 Note Comprehensive PreSur gical History and Physical ? Name: Cynthia Robertson : 1945 (Age-77 y.o.) Date of Service: Pt seen/examined on 09/11/2022 Procedure Information Date/Time: 09/22/22 5771 Procedure: LEFT CAROTID ENDARTERECTOMY (Left: Neck) Location: [facility] Operating Room Surgeons: Rowan Chavez MD Chief Complaint: Carotid stenosis History Of Present Illness: 77 y.o. female who presents with chief complaint mentioned above. Per surgeon's note pt presents with findings of 70-79% stenosis of the left internal carotid artery. The patient denies any upper and lower extremity weakness. She does report some difficulty in seeing from the left eye on occasion however she notes that when she rubs the eye it returns to normal. She reports numbness in her left hand however this has been present for quite some time and occurs typically when she has her arm up of the window while driving or while sitting in chair. Pt with past medical history of remote left hemispheric CVA and CAD s/p PCI in 2017 Pt has seen the surgeon and elected for above procedure. Pt reports couple weeks ago had 1 episode where she bent over and had left eye burning and redness, went away afterward. - Advised pt to discuss with PCP/optometry/surgeon if persists. Denies Hx of DM, Asthma/COPD, CHF, DVT/PE, a fib Hx problems with anesthesia? -no Dental? - top and bottom dentures Snore at night? -snores. +CED no cpap Past Medical History: Past Medical History: No date: Arthritis No date: Blurry vision No date: CAD (coronary artery disease) No date: Cerebral artery occlusion with cerebral infarction (HCC) Comment: peripheral vision defect bilaterally No date: Decreased vision No date: H/O left heart catheterization by cutdown Comment: no stents No date: Headache No date: Heart disease No date: Hyperlipidemia No date: Hypertension No date: Ischemic cardiomyopathy Comment: With recovered left ventricular systolic function post PCI and medical therapy No date: Morbid obesity (HCC) No date: PFO (patent foramen ovale) No date: Psoriasis No date: Sleep apnea Past Surgical History: Past Surgical History: 05/02/2019: COLONOSCOPY Comment: diverticulosis sigmoid colon 12/21/2016: CORONARY ANGIOPLASTY WITH STENT PLACEMENT Comment: FLAQUITO x 6 LM into prox LAD, ostial and prox CFX (kissing balloon) and mid-distal LAD and ostial and prox Diag 2 (kissing balloon) No date: EYE SURGERY; Bilateral Comment: cataract No date: FRACTURE SURGERY; Left Comment: wrist No date: HYSTERECTOMY No date: HYSTERECTOMY No date: TONSILLECTOMY (HISTORICAL) Medications Prior to Admission: Current Outpatient Medications: acetaminophen (Tylenol) 500 MG tablet, Take 500 mg by mouth every 6 hours as needed., Disp: , Rfl: amLODIPine (Norvasc) 5 MG tablet, Every 24 hours., Disp: , Rfl: apixaban (Eliquis) 5 MG tablet, TAKE ONE TABLET BY MOUTH TWO TIMES A DAY, Disp: 180 tablet, Rfl: 3 atorvastatin (Lipitor) 80 MG tablet, Take 1 tablet by mouth daily., Disp: , Rfl: carvedilol (Coreg) 12.5 MG tablet, take 1/2 tablet by mouth twice a day with meals, Disp: , Rfl: clopidogrel (Plavix) 75 MG tablet, Take 75 mg by mouth daily., Disp: , Rfl: omeprazole (PriLOSEC) [address] capsule, Take 10 mg by mouth daily., Disp: , Rfl: CHRONIC NARCOTIC USE: No Allergies: Lisinopril, Nitroglycerin, Pravastatin, Rosuvastatin, Ticagrelor, Amoxicillin, and Promethazine If patient has opioid allergy, is it okay to take Acetaminophen: N/A Social History: TOBACCO: reports that she has never smoked. She has never used smokeless tobacco. ETOH: reports current alcohol use. Social History Substance and Sexual Activity Drug Use No Comment: caffeine use: no caffeine Family History: Family History Problem Relation Name Age of Onset Amblyopia Neg Hx Glaucoma Neg Hx Macular degeneration Neg Hx Cataracts Father Heart disease Father mi,pacer Strabismus Neg Hx Blindness Neg Hx Retinal detachment Neg Hx Cataracts Mother REVIEW OF SYSTEMS: Review of Systems Constitutional: Negative for chills and fever. Respiratory: Negative for shortness of breath. Cardiovascular: Negative for chest pain. Pertinent positives as noted in the HPI. Physical Exam: Physical Exam Constitutional: General: She is awake. She is not in acute distress. Appearance: Normal appearance. HENT: Head: Normocephalic and atraumatic. Eyes: Extraocular Movements: Extraocular movements intact. Conjunctiva/sclera: Conjunctivae normal. Cardiovascular: Rate and Rhythm: Normal rate and regular rhythm. Heart sounds: Normal heart sounds. Pulmonary: Effort: Pulmonary effort is normal. Breath sounds: Normal breath sounds. Abdominal: Palpations: Abdomen is soft. Musculoskeletal: General: Normal range of motion. Cervical back: Normal range of motion. Skin: General: Skin is warm and dry. Neur (more content not included)... [facility] 09-04-2022 Telephone encounter Note I faxed this encounter to fax number provided. [facility] 09-04-2022 Miscellaneous Notes I faxed this encounter to fax number provided. I faxed letter to [facility] [phone] Recent stress test showed no evidence of ischemia. No cardiac contraindication for patient to proceed with the proposed carotid surgery. Ok to hold Eliquis therapy 2 days prior and continue plavix therapy. Thanks, Ernestina Potter PA-C Received a fax from [facility] for clearance/optimization for left carotid endarterectomy by Dr Rowan Chavez. Patient will hold 2 doses of Eliquis for surgery and will continue Plavix. I generated a letter to Dr Huff documented in this encounter [facility] 09-03-2022 Telephone encounter Note I faxed letter to [facility] [phone] [facility] 09-03-2022 Telephone encounter Note Recent stress test showed no evidence of ischemia. No cardiac contraindication for patient to proceed with the proposed carotid surgery. Ok to hold Eliquis therapy 2 days prior and continue plavix therapy. Thanks, Ernestina Potter PA-C [facility] 04-13-2023 Telephone encounter Note Received a fax from [facility] for clearance/optimization for left carotid endarterectomy by Dr Rowan Chavez. Patient will hold 2 doses of Eliquis for surgery and will continue Plavix. [phone] I generated a letter to Dr Huff [facility] 09-02-2022 Note Vascular Surgery Out patient Consultation Chief Complaint Patient presents with New Patient Ernestina Hylton carotid stenosis/CU 08/24/22 Reason for Consult: Carotid stenosis Requesting Provider: Ernestina Potter PA-C HISTORY OF PRESENT ILLNESS: The patient is a 77 y.o. female with past medical history of remote left hemispheric CVA and CAD s/p PCI in 2016 who presents to the clinic today to discuss findings of 70-79% stenosis of the left internal carotid artery. The patient denies any upper and lower extremity weakness. She does report some difficulty in seeing from the left eye on occasion however she notes that when she rubs the eye it returns to normal. She reports numbness in her left hand however this has been present for quite some time and occurs typically when she has her arm up of the window while driving or while sitting in chair. She has a history of a left wrist fracture status post repair and that may be related to this. She is on Plavix, Eliquis, and high-dose statin. She is a never smoker. Past Medical History: Past Medical History: Diagnosis Date Arthritis Blurry vision CAD (coronary artery disease) Cerebral artery occlusion with cerebral infarction (HCC) peripheral vision defect bilaterally Decreased vision H/O left heart catheterization by cutdown no stents Headache Heart disease Hyperlipidemia Hypertension Ischemic cardiomyopathy With recovered left ventricular systolic function post PCI and medical therapy Morbid obesity (HCC) PFO (patent foramen ovale) Sleep apnea Past SurgicalHistory: Past Surgical History: Procedure Laterality Date COLONOSCOPY 05/02/2019 diverticulosis sigmoid colon CORONARY ANGIOPLASTY WITH STENT PLACEMENT 12/21/2016 FLAQUITO x 6 LM into prox LAD, ostial and prox CFX (kissing balloon) and mid-distal LAD and ostial and prox Diag 2 (kissing balloon) EYE SURGERY Bilateral cataract FRACTURE SURGERY Left wrist HYSTERECTOMY HYSTERECTOMY TONSILLECTOMY (HISTORICAL) Current Medications: Prior to Admission medications Medication Sig Start Date End Date Taking? Authorizing Provider acetaminophen (Tylenol) 500 MG tablet Take 500 mg by mouth every 6 hours as needed. Yes Historical Provider, amLODIPine (Norvasc) 5 MG tablet Every 24 hours. 03/09/22 Yes Historical Provider, apixaban (Eliquis) 5 MG tablet TAKE ONE TABLET BY MOUTH TWO TIMES A DAY 02/04/22 02/04/23 Yes Ernestina Potter PA-C atorvastatin (Lipitor) 80 MG tablet Take 1 tablet by mouth daily. 10/24/21 Yes Historical Provider, carvedilol (Coreg) 12.5 MG tablet take 1/2 tablet by mouth twice a day with meals 09/26/21 Yes Historical Provider, clopidogrel (Plavix) 75 MG tablet Take 75 mg by mouth daily. 02/19/22 Yes Historical Provider, omeprazole (PriLOSEC) [address] capsule Take 10 mg by mouth daily. Yes Historical Provider, Allergies: Lisinopril, Nitroglycerin, Pravastatin, Rosuvastatin, Ticagrelor, Amoxicillin, and Promethazine Social History Socioeconomic History Marital status: Spouse name: Not on file Number of children: Not on file Years of education: Not on file Highest education level: Not on file Occupational History Not on file Tobacco Use Smoking status: Never Smokeless tobacco: Never Substance and Sexual Activity Alcohol use: Yes Comment: 1 time a month Drug use: No Comment: caffeine use: no caffeine Sexual activity: Not on file Other Topics Concern Not on file Social History Narrative Not on file Social Determinants of Health Financial Resource Strain: Not on file Food Insecurity: Not on file Transportation Needs: Not on file Physical Activity: Not on file Stress: Not on file Social Connections: Not on file Intimate Partner Violence: Not on file Housing Stability: Not on file Family History Problem Relation Name Age of Onset Amblyopia Neg Hx Glaucoma Neg Hx Macular degeneration Neg Hx Cataracts Father Heart disease Father mi,pacer Strabismus Neg Hx Blindness Neg Hx Retinal detachment Neg Hx Cataracts Mother Review of Systems HENT: Negative. Negative for hearing loss, trouble swallowing and voice change. Eyes: Negative. Negative for pain, redness and visual disturbance. Respiratory: Negative. Negative for apnea, chest tightness, shortness of breath and wheezing. Cardiovascular: Negative. Negative for chest pain, palpitations and leg swelling. Gastrointestinal: Negative. Negative for anal bleeding and blood in stool. Genitourinary: Negative. Negative for difficulty urinating and hematuria. Musculoskeletal: Negative. Negative for gait problem, neck pain and neck stiffness. Neurological: Positive for numbness (left hand fingers). Negative for dizziness, syncope and light-headedness. LABS: Lab Results Component Value Date CREATININE 0.71 07/22/2021 Lab Results Component Value Date WBC 4.7 07/22/2021 HGB 13.9 07/22/2021 MCV 88.0 07/22 (more content not included)... [facility] 09-02-2022 History of Present illness Narrative Vascular Surgery Outpatient Consultation Chief Complaint Patient presents with New Patient Ernestina Hylton carotid stenosis/CU 08/24/22 Reason for Consult: Carotid stenosis Requesting Provider: Ernestina Potter PA-C HISTORY OF PRESENT ILLNESS: The patient is a 77 y.o. female with past medical history of remote left hemispheric CVA and CAD s/p PCI in 2016 who presents to the clinic today to discuss findings of 70-79% stenosis of the left internal carotid artery. The patient denies any upper and lower extremity weakness. She does report some difficulty in seeing from the left eye on occasion however she notes that when she rubs the eye it returns to normal. She reports numbness in her left hand however this has been present for quite some time and occurs typically when she has her arm up of the window while driving or while sitting in chair. She has a history of a left wrist fracture status post repair and that may be related to this. She is on Plavix, Eliquis, and high-dose statin. She is a never smoker. Past Medical History: Past Medical History: Diagnosis Date Arthritis Blurry vision CAD (coronary artery disease) Cerebral artery occlusion with cerebral infarction (HCC) peripheral vision defect bilaterally Decreased vision H/O left heart catheterization by cutdown no stents Headache Heart disease Hyperlipidemia Hypertension Ischemic cardiomyopathy With recovered left ventricular systolic function post PCI and medical therapy Morbid obesity (HCC) PFO (patent foramen ovale) Sleep apnea Past SurgicalHistory: Past Surgical History: Procedure Laterality Date COLONOSCOPY 05/02/2019 diverticulosis sigmoid colon CORONARY ANGIOPLASTY WITH STENT PLACEMENT 12/21/2016 FLAQUITO x 6 LM into prox LAD, ostial and prox CFX (kissing balloon) and mid-distal LAD and ostial and prox Diag 2 (kissing balloon) EYE SURGERY Bilateral cataract FRACTURE SURGERY Left wrist HYSTERECTOMY HYSTERECTOMY TONSILLECTOMY (HISTORICAL) Current Medications: Prior to Admission medications Medication Sig Start Date End Date Taking? Authorizing Provider acetaminophen (Tylenol) 500 MG tablet Take 500 mg by mouth every 6 hours as needed. Yes Historical Provider, amLODIPine (Norvasc) 5 MG tablet Every 24 hours. 03/09/22 Yes Historical Provider, apixaban (Eliquis) 5 MG tablet TAKE ONE TABLET BY MOUTH TWO TIMES A DAY 02/04/22 02/04/23 Yes Ernestina Potter PA-C atorvastatin (Lipitor) 80 MG tablet Take 1 tablet by mouth daily. 10/24/21 Yes Historical Provider, carvedilol (Coreg) 12.5 MG tablet take 1/2 tablet by mouth twice a day with meals 09/26/21 Yes Historical Provider, clopidogrel (Plavix) 75 MG tablet Take 75 mg by mouth daily. 02/19/22 Yes Historical Provider, omeprazole (PriLOSEC) [address] capsule Take 10 mg by mouth daily. Yes Historical Provider, Allergies: Lisinopril, Nitroglycerin, Pravastatin, Rosuvastatin, Ticagrelor, Amoxicillin, and Promethazine Social History Socioeconomic History Marital status: Spouse name: Not on file Number of children: Not on file Years of education: Not on file Highest education level: Not on file Occupational History Not on file Tobacco Use Smoking status: Never Smokeless tobacco: Never Substance and Sexual Activity Alcohol use: Yes Comment: 1 time a month Drug use: No Comment: caffeine use: no caffeine Sexual activity: Not on file Other Topics Concern Not on file Social History Narrative Not on file Social Determinants of Health Financial Resource Strain: Not on file Food Insecurity: Not on file Transportation Needs: Not on file Physical Activity: Not on file Stress: Not on file Social Connections: Not on file Intimate Partner Violence: Not on file Housing Stability: Not on file Family History Problem Relation Name Age of Onset Amblyopia Neg Hx Glaucoma Neg Hx Macular degeneration Neg Hx Cataracts Father Heart disease Father mi,pacer Strabismus Neg Hx Blindness Neg Hx Retinal detachment Neg Hx Cataracts Mother Review of Systems HENT: Negative. Negative for hearing loss, trouble swallowing and voice change. Eyes: Negative. Negative for pain, redness and visual disturbance. Respiratory: Negative. Negative for apnea, chest tightness, shortness of breath and wheezing. Cardiovascular: Negative. Negative for chest pain, palpitations and leg swelling. Gastrointestinal: Negative. Negative for anal bleeding and blood in stool. Genitourinary: Negative. Negative for difficulty urinating and hematuria. Musculoskeletal: Negative. Negative for gait problem, neck pain and neck stiffness. Neurological: Positive for numbness (left hand fingers). Negative for dizziness, syncope and light-headedness. LABS: Lab Results Component Value Date CREATININE 0.71 07/22/2021 Lab Results Component Value Date WBC 4.7 07/22/2021 HGB 13.9 07/22/2021 MCV 88.0 07/22/2021 No results found for: INR, PROTIME No results found for: VLDL PHYSICAL EXAM: CONSTITUTIONAL: awake, alert, cooperative, no apparent distress, and appears stated age EYES: Perrla, Eomi ENT: normocepalic, without obvious abnormality, atraumatic NECK: supple, symmetrical, trachea midline, no jugular venous distension, no carotid bruits appreciated bilaterally, no masses LUNGS: no increased work of breathing, good air exchange and clear to auscultation CARDIOVASCULAR: regular rate and rhythm and no murmur noted ABDOMEN: soft, non-distended, non-tender, Aorta not palpated SKIN: no lesions EXTREMITIES: DP and PT pulses are palpable bilaterally. No edema present IMAGING: Carotid duplex performed on 08/24/22: <50% stenosis in the right internal carotid artery. Heterogeneous plaque (proximal) in the right internal carotid artery. 70-79% stenosis in the left internal carotid artery. Severe, heterogeneous and calcific plaque (proximal) in the left internal carotid artery. Normal antegrade flow involving the right vertebral artery. Normal antegrade flow involving the left vertebral artery. IMPRESSION/RECOMMENDATIONS: Problem List Items Addressed This Visit None Visit Diagnoses Carotid stenosis, left The patient has evidence of left carotid stenosis of 70 to 79%. Prior work-up at the time of her stroke evaluation revealed less than 60%. Is recommended the patient undergo carotid intervention for stroke risk reduction. The options for carotid intervention were discussed including transfemoral stenting, transcarotid artery revascularization, and carotid endarterectomy. The patient has elected to proceed with carotid endarterectomy. We discussed the risks of carotid endarterectomy including the risks of bleeding, infection, nerve damage and damage to surrounding structures, stroke, and myocardial infarction. We will work on scheduling. Rowan Chavez MD Vascular Surgery documented in this encounter [facility] 08-25-2022 Telephone encounter Note Pt informed. [facility] 08-25-2022 Miscellaneous Notes Pt informed. Please let her know that is fine that she is scheduled with [address] Valerio's partners. ThanksErnestina Patient called asking to talk to Ernestina. She was referred to Dr Valerio and he is not available, so she was schedule with another provider in their office. She is asking if this is ok? I called the patient with her carotid duplex result. She has evidence of severe proximal left internal carotid artery stenosis. She has prior history of stroke. Reviewed with Dr. Huff. Referred to vascular surgery-Dr. Valerio. I also provided the patient with the phone number for the vascular surgeons' office. I advised her to call their office if she does not hear from them within 1 week. documented in this encounter [facility] 08-25-2022 Telephone encounter Note Please let her know that is fine that she is scheduled with [address] Valerio's partners. ThanksErnestina [facility] 08-25-2022 Telephone encounter Note Patient called asking to talk to Ernestina. She was referred to Dr Valerio and he is not available, so she was schedule with another provider in their office. She is asking if this is ok? [facility] 08-24-2022 Telephone encounter Note I called the patient with her carotid duplex result. She has evidence of severe proximal left internal carotid artery stenosis. She has prior history of stroke. Reviewed with Dr. Huff. Referred to vascular surgery-Dr. Valerio. I also provided the patient with the phone number for the vascular surgeons' office. I advised her to call their office if she does not hear from them within 1 week. [facility] 08-24-2022 Miscellaneous Notes I called the patient with her carotid duplex result. She has evidence of severe proximal left internal carotid artery stenosis. She has prior history of stroke. Reviewed with Dr. Huff. Referred to vascular surgery-Dr. Valerio. I also provided the patient with the phone number for the vascular surgeons' office. I advised her to call their office if she does not hear from them within 1 week. documented in this encounter [facility] 08-24-2022 Miscellaneous Notes Spoke with patient and gave instructions for nuclear stress test. documented in this encounter [facility] 08-24-2022 Note Formatting of this n ote might be different from the original. Spoke with patient and gave instructions for nuclear stress test. [facility] 07-18-2020 Note HNO ID: [id number] Author: Carissa Dallas Service: ? Author Type: Physician Type: Progress Notes Filed: 07/18/2020 3:46 PM Note Text: New patient HANDP PATIENT NAME: Cynthia Robertson Assessment ASSESSMENT/PLAN: (R10.9) Abdominal cramping (primary encounter diagnosis) (R19.7) Diarrhea, unspecified type (Z01.812) Encounter for preprocedural laboratory examination Cynthia presents with a 1 month history of lower abdominal cramping and changes in bowel habits. She has a history of severe diverticulosis. Our plan is to proceed with colonoscopy. I will obtain stool studies as well.Risks, benefits and alternatives of proceeding with colonoscopy were discussed with risks to include but not limited to hemorrhage, infection, the possibility of perforation requiring surgical intervention and the possibility of missing an abnormality.Patient expressed understanding and wishes to proceed. She will need to hold Eliquis for 48 hours preop. The patient was offered a surgery/procedure at a [facility] facility. The surgeon/proceduralist and patient have discussed in detail the risk of exposure to and/or potential harm posed by the COVID-19 virus with having a surgery/procedure at this time versus the risk of delaying the surgery/procedure. It is not possible to know either the risk of delaying the surgery or procedure or chance of getting an infection with perfect accuracy, but a joint decision was made between the patient and the surgeon/proceduralist to proceed at this time with the scheduled surgery/procedure as indicated on the consent form. Office Visit on 07/18/20 - C. DIFFICILE PCR - FECAL LACTOFERRIN/LEUKOCYTES - STOOL CULTURE/EIA - PRE-PROCEDURE AND PRE-OPERATIVE COVID - apixaban (ELIQUIS) 5 mg tab(s) - atorvastatin (LIPITOR) 80 mg tablet - carvedilol (COREG) 12.5 mg tablet - cholecalciferol, vitamin D3, (D3-2000 ORAL) - risankizumab-rzaa (SKYRIZI SUBCUTANEOUS) SUBJECTIVE CHIEF COMPLAINT: Patient presents with: Consult: Diverticulitis, Abdominal Pain INTERVAL HISTORY OF PRESENT ILLNESS: Cynthia is a 75-year-old female who presents with a 1 month history of lower abdominal cramping and diarrhea. She has had diarrhea in the past however this has changed. She is only going very small amounts. Her stools are very loose. She denies blood. She denies nausea or vomiting. She has not been on recent antibiotics or had recent travel. She denies well water. Her last colonoscopy was performed in 2019. She had severe diverticulosis at that time. She presents today for surgical evaluation. Of note, she is on Eliquis. HISTORIES: PAST MEDICAL HISTORY Diagnosis Date - Acute [place] (HCC) 1996 mild per pt - Diaphragmatic hernia without mention of obstruction or gangrene - Diverticulitis - Diverticulosis of colon (without mention of hemorrhage) - Dysthymic disorder Depression (non-psychotic) - Esophageal reflux Gastroesophageal reflux - Esophageal reflux - Heart attack (HCC) - Irritable bowel - Migraine, unspecified, with intractable migraine, so stated, without mention of status migrainosus Migraine - Stroke (HCC) TIA's - TIA (transient ischemic attack) Last TIA- 05/2009 - Unspecified essential hypertension Essential hypertension PAST SURGICAL HISTORY Procedure Laterality Date - CARDIAC CATHETERIZATION HX x2 - COLONOSCOP W/ OR W/O [facility] SPE[facility] 15 to 20 years ago Colonoscopy - COLONOSCOP W/ OR W/O [facility] SPEC 05/26/2011 Colonoscopy - DANDC, DIAG AND/OR THERAPEUTIC Dilation AND curettage - EGD W/O OR W/BRUSH/WASH 05/26/2011 EGD - HYSTERECTOMY HX - LIGATE FALLOPIAN TUBE Tubal ligation - TONSILLECTOMY HX - TOTAL ABDOM HYSTERECTOMY 05/24/1994 Hysterectomy, RM/BSO ALLERGIES: Amoxil [Amoxicillin], Crestor [Rosuvastatin Calcium], Nitroglycerin, Phenergan [Promethazine Hcl], and Pravachol [Pravastatin Sodium] MEDICATIONS: Current Outpatient Medications Medication Sig - apixaban (ELIQUIS) 5 mg tab(s) Take by mouth twice daily. - atorvastatin (LIPITOR) 80 mg tablet Take 80 mg by mouth once daily. - carvedilol (COREG) 12.5 mg tablet Take 12.5 mg by mouth twice daily with meals. - cholecalciferol, vitamin D3, (D3-2000 ORAL) Take by mouth. - risankizumab-rzaa (SKYRIZI SUBCUTANEOUS) Inject subcutaneously. - Omeprazole Magnesium (PRILOSEC OTC) 20 mg tablet Take 1 tablet by mouth once daily. ON AN EMPTY STOMACH - ASPIRIN 81 MG TAB 1daily - acetaminophen(TYLENOL 325 MG TAB) as necessary - escitalopram 20 mg tablet Take 1 tablet by mouth once daily. For depression (Patient not taking: Reported on 07/18/2020 ) - triamcinolone acetonide 0.1 % cream Apply 1 application to affected area twice daily. (Patient not taking: Reported on 07/18/2020 ) - hydrochlorothiazide 25 mg tablet Take 1 tablet by mouth once daily. - dicyclomine 20 mg tablet Take 1 tablet by mouth three times daily as needed. (Patient not taking: (more content not included)... [facility] 07-18-2020 Note HNO ID: [id number] Author: Ainsley German LPN Service: ? Author Type: ? Type: Progress Notes Filed: 07/18/2020 3:46 PM Note Text: GENERAL:No weight loss, No malaise, No fevers HEENT:Negative for frequent or significant headaches, Positive for:, Wear glasses or contacts, Hearing loss or ringing CARDIOVASCULAR: Negative for chest pain, Negative for leg swelling, Negative for palpitaions, Positive for:, Heart trouble RESPIRATORY:Positive for:, Shortness of breath GASTROINTESTINAL: Negative for blood in stools, Negative for black stools, Positive for:, Loss of appetitie, Change in bowel movements, Frequent diarrhea and Abdominal pain GENITOURINARY: No history of dysuria, frequency or incontinence. ENDOCRINE: None LAP LAYER:Denies any concerns LAP LAYER: Age of first period: 17 Number of pregnancies: 5 Number of live births: 3 Your age at of first child: 21 Your age at start of menopause: Hysterectomy Taking hormone replacement: No Family History of Cancer: None MUSCULOSKELETAL: Positive for:, back pain NEUROLOGIC:Negative for focal numbness or weakness, headaches and dizziness or syncope. HEMATOLOGIC/LYMPHATIC/IMMUNOLOGIC: Positive for: and Bleeding or bruising tendancy [facility] documented in this encounter [facility] Work Phone: Evaluation note* Diagnosis Carotid stenosis, left- Primary Occlusion and stenosis of carotid artery without mention of cerebral infarction [facility] Diagnosis Bilateral carotid artery stenosis Occlusion and stenosis of carotid artery without mention of cerebral infarction [facility]* Diagnosis 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) Abnormal EKG Nonspecific abnormal electrocardiogram (ECG) (EKG) documented [facility]* Diagnosis Carotid stenosis, left Occlusion and stenosis of carotid artery without mention of cerebral infarction documented [facility]* Diagnosis Stenosis of left carotid artery- Primary Occlusion and stenosis of carotid artery without mention of cerebral infarction Occlusion and stenosis of left carotid artery documented in [facility]* Diagnosis Stenosis of left carotid artery- Primary Occlusion and stenosis of carotid artery without mention of cerebral infarction Stenosis of left carotid artery Occlusion and stenosis of carotid artery without mention of cerebral infarction Occlusion and stenosis of left carotid artery documented in this encounter [facility]* Diagnosis Carotid stenosis, left- Primary Occlusion and stenosis of carotid artery without mention of cerebral infarction S/P carotid endarterectomy Other postprocedural status documented in this encounter [facility]* Diagnosis Carotid stenosis, left Occlusion and stenosis of carotid artery without mention of cerebral infarction S/P carotid endarterectomy Other postprocedural status documented in [facility]* Diagnosis 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)- Primary Orthostatic hypotension Mixed hyperlipidemia H/O: upper GI bleed Personal history of other diseases of digestive disease documented in [facility]* Diagnosis 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 Discharge instructions* Instructions* Isabel Marshall RN - 05/02/2019 Colonoscopy: What to expect at home ACTIVITY: DO NOT DRIVE, OPERATE MACHINERY, OR DRINK ANY ALCOHOL TODAY. Avoid making critical decisions, signing legal documents, or performing any activity that requires alertness for the rest of the day. You may be bloated or have gas pains since air was introduced into the colon for the procedure. Youmay need to pass the gas throughout the day. You may experience a small amount of rectal bleeding; this can be normal after your colonoscopy. Notify your physician if the bleeding is enough to saturate your clothes. Rest the remainder of the day. You may resume normal activity tomorrow. You may return to work tomorrow. DIET: You may resume a normal diet unless notified or recommended by your physician. You may be eager to eat a large meal after fasting, but it is a good idea to start with light mealsand ease into solid foods the first day. (*) If your stomach is upset, try clear liquids and bland, low-fat foods like plain toast or rice. Drink plenty of fluids for the first 24 hours (unless your physician states otherwise). MEDICATION: Resume your normal home medications unless notified or recommended by your physician. If you take blood thinners (such as Coumadin, Eliquis, Plavix, Aspirin, etc.) or anti-inflammatory medications (Advil, Motrin, Aleve, etc.), ask your physician when you may resume these medications. FOLLOW-UP APPOINTMENT: Follow up with or call your physician as needed. When to call for help: Call your doctor IMMEDIATELY or seek medical care if you experience: ? Severe pain or vomiting ? A large amount (filling the toilet) of maroon, bloody stools or tar-like stools ? Your belly is swollen and firm with severe pain ? A fever greater than 101 degrees ? Redness or swelling of arm from the IV site for more than 48 hours ? Sudden onset of chest pain or shortness of breath ? If you become extremely dizzy or pass out (lose consciousness) IF YOU ARE UNABLE TO REACH YOUR PHYSICIAN GO TO NEAREST EMERGENCY DEPARTMENT [facility]: Reason for referral (narrative)* Consultation (Routine) - Pending Review Specialty Diagnoses / Procedures Referred By Erick saul Referred To Contact Vascular Surgery Diagnoses Carotid stenosis, left Procedures [place] OFFICE/OUTPATIENT [facility] 60-74 MINUTES Ernestina Potter PAWallace [address] [place] [address] Delio Valerio MD [address] [facility] [place] [address] Referral ID Status Reason Start Date Expiration Date Visits Requested Visits Authorized [id number] Pending Review Specialty Services Required 08/24/2022 08/24/2023 1 1 [facility] Summary Purpose Family History No Family History Records FoundNo Family History Records FoundNo Family History Records FoundNo Family History Records FoundNo Family History Records FoundNo Family History Records FoundNo Family History Records Found Advance Directives Documents on File Type Date 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 Advance Directives and Living Will Power of Exploitation Analyst Latest Code Status on File Code Status Date Activated Date Inactivated Comments Full Code 01/21/2019 8:31 PM 01/22/2019 6:44 PM Full Code 12/21/2016 3:21 PM 12/23/2016 12:30 PM Full Code 12/21/2016 10:48 AM 12/21/2016 3:21 PM Full Code 12/18/2016 8:52 AM 12/21/2016 10:48 AM Full Code 12/18/2016 8:52 AM 12/18/2016 8:52 AM Latest Code Status on File Code Status Date Activated Date Inactivated Comments Full Code 05/02/2019 10:50 AM 05/02/2019 3:38 PM Full Code 01/21/2019 8:31 PM 01/22/2019 6:44 PM Latest Code Status on File Code Status Date Activated Date Inactivated Comments Full Code 01/21/2019 8:31 PM Documents on File Type Date Recorded 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 ACP-Advance Directive ACP-Power of Exploitation Analyst Latest Code Status on File Code Status Date Activated Date Inactivated Comments Full Code 05/02/2019 10:50 AM 05/02/2019 3:38 PM Full Code 01/21/2019 8:31 PM 01/22/2019 6:44 PM Full Code 12/21/2016 3:21 PM 12/23/2016 12:30 PM Full Code 12/21/2016 10:48 AM 12/21/2016 3:21 PM Full Code 12/18/2016 8:52 AM 12/21/2016 10:48 AM Documents on File Type Date Recorded 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 ACP-Advance Directive ACP-Power of Exploitation Analyst Latest Code Status on File Code Status Date Activated Date Inactivated Comments Full Code 05/02/2019 10:50 AM Latest Code Status on File Code Status Date Activated Date Inactivated Comments Full Code 09/22/2022 1:08 PM 09/23/2022 3:27 PM Code Status History Code Status Date Activated Date Inactivated Comments Full Code 09/22/2022 5:50 AM 09/22/2022 1:08 PM Latest Code Status on File Code Status Date Activated Date Inactivated Comments Full Code 09/22/2022 1:08 PM 09/23/2022 3:27 PM Code Status History Code Status Date Activated Date Inactivated Comments Full Code 09/22/2022 5:50 AM 09/22/2022 1:08 PM Discharge Instructions * Attachments The following attachments cannot be sent through Care Everywhere. * Otitis Media (Malawian) documented in this encounter* Instructions* Rangel Hooks PA-C - 02/07/2019 Please follow-up with your primary physician Dr. Quintana in the next 2-3 days to be reevaluated. If you have any significant new or worsening of symptoms please contact your doctor or return to the ED if necessary. * Attachments The following attachments cannot be sent through Care Everywhere. * Vertigo: Exercises (Malawian) documented in this encounter* Attachments The following attachments cannot be sent through Care Everywhere. * Knee Sprain (Malawian) * Ankle Sprain (Malawian) * RICE: General Info (Malawian) documented in this encounter* Discharge Instr - Activity* Vaishali Winston MD - 01/22/2019 3:51 PM EDT Up as tolerated. Fall precautions. * Discharge Instr - Diet* Vaishali Winston MD - 01/22/2019 3:52 PM EDT ? Good nutrition is important when healing from an illness, injury, or surgery. Follow any nutrition recommendations given to you during your hospital stay. ? If you were given an oral nutrition supplement while in the hospital, continue to take this supplement at home. You can take it with meals, in-between meals, and/or before bedtime. These supplements can be purchased at most local grocery stores, pharmacies, and chain super-stores. ? If you have any questions about your diet or nutrition, call the hospital and ask for the dietitian. Diet cardiac (heart healthy). * Discharge Instr - SLICK* Vaishali Winston MD - 01/22/2019 3:53 PM EDT Continuity of Care Form Patient Name: Cynthia Robertson : 1945 Admit date: 01/21/2019 Discharge date: 01/22/2019 Code Status Order: Full Code Advance Directives: Advance Care Flowsheet Documentation Date/Time Healthcare Directive Type of Healthcare Directive Copy in Chart Healthcare Agent Appointed Healthcare Agent's Name Healthcare Agent's Phone Number 01/21/192035 No, patient does not have an advance directive for healthcare treatment -- -- -- -- -- Admitting Physician: Luigi Ibarra MD PCP: STEW QUINTANA DO Discharging Nurse: Discharging Hospital Unit/Room#: 1339/1339B Discharging Unit Phone Number: Emergency Contact: Extended Emergency Contact Information Primary Emergency Contact: Familia Robertson Address: [address] [place] [address] Relation: Spouse Secondary Emergency Contact: Murali Lawler [facility] Relation: Child Past Surgical History: Past Surgical History: Procedure Laterality Date CORONARY ANGIOPLASTY WITH STENT PLACEMENT 12/21/2016 FLAQUITO x 6 LM into prox LAD, ostial and prox CFX (kissing balloon) and mid-distal LAD and ostial and prox Diag 2 (kissing balloon) EYE SURGERY Bilateral cataract FRACTURE SURGERY Left wrist HYSTERECTOMY HYSTERECTOMY TONSILLECTOMY Immunization History: There is no immunization history on file for this patient. 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 H/O bilateral cataract extraction Z98.41, Z98.42 NSTEMI (non-ST elevated myocardial infarction) ([facility]) I21.4 Hyperglycemia R73.9 QT prolongation R94.31 Blurry vision, bilateral H53.8 Dizziness R42 BPPV (benign paroxysmal positional vertigo) H81.10 Isolation/Infection: Isolation No Isolation Nurse Assessment: Last Vital Signs: BP 130/74 Pulse 57 Temp 98.2 F (36.8 C) (Temporal) Resp 20 Ht 5' 4 (1.626 m) Wt 236 lb (107 kg) SpO2 94% BMI 40.51 kg/m Last documented pain score (0-10 scale): Pain Level: 3 Last Weight: Wt Readings from Last 1 Encounters: 01/21/19 236 lb (107 kg) Mental Status: {IP PT MENTAL STATUS:} IV Access: { SLICK IV ACCESS:499847825} Nursing Mobility/ADLs: Walking {CHP DME ADLs:246514879} Transfer {CHP DME ADLs:318580427} Bathing {CHP DME ADLs:283880847} Dressing {CHP DME ADLs:546650993} Toileting {CHP DME ADLs:454523318} Feeding {CHP DME ADLs:503612951} Nurse Staff {CHP DME ADLs:200268437} Med Delivery { SLICK MED Delivery:407007357} Wound Care Documentation and Therapy: Puncture 12/18/16 Wrist Right (Active) Number of days: 765 Elimination: Continence: Bowel: {YES / NO:} Bladder: {YES / NO:} Urinary Catheter: {Urinary Catheter:819620657} Colostomy/Ileostomy/Ileal Conduit: {YES / NO:} Date of Last BM: Intake/Output Summary (Last 24 hours) at 01/22/2019 1552 Last data filed at 01/21/2019 2334 Gross per 24 hour Intake 100 ml Output Net 100 ml I/O last 3 completed shifts: In: 100 [P.O.:100] Out: - Safety Concerns: { SLICK Safety Concerns:407053733} Impairments/Disabilities: { SLICK Impairments/Disabilities:912802279} Nutrition Therapy: Current Nutrition Therapy: { SLICK Diet List:665320525} Routes of Feeding: {CHP DME Other Feedings:296625782} Liquids: {Packing Shed Supervisor liquid thickness:38231} Daily Fluid Restriction: {CHP DME Yes amt example:730964877} Last Modified Barium Swallow with Video (Video Swallowing Test): {Done Not Done Date:} Treatments at the Time of Hospital Discharge: Respiratory Treatments: Oxygen Therapy: {Therapy; copd oxygen:05138} Ventilator: {[facility] Vent List:068720986} Rehab Therapies: {THERAPEUTIC INTERVENTION:3565801457} Weight Bearing Status/Restrictions: {[facility] Weight Bearin} Other Medical Equipment (for information only, NOT a DME order): {EQUIPMENT:877826035} Other Treatments: Patient's personal belongings (please select all that are sent with patient): {[facility] DME Belongings:575137723} RN SIGNATURE: {Esignature:001949120} CASE MANAGEMENT/SOCIAL WORK SECTION Inpatient Status Date: Readmission Risk Assessment Score: Readmission Risk Risk of Unplanned Readmission: 11 Discharging to Facility/ Agency Name: Address: Phone: Fax: Dialysis Facility (if applicable) Name: Address: Dialysis Schedule: Phone: Fax: Corporate Legal Assistant/Roll Over Loader signature: {Esignature:973537101} PHYSICIAN SECTION Prognosis: Good Condition at Discharge: Stable Rehab Potential (if transferring to Rehab): Good Recommended Labs or Other Treatments After Discharge: Outpatient PT. Vestibular exercises. Physician Certification: I certify the above information and transfer of Cynthia Robertson is necessary for the continuing treatment of the diagnosis listed and that she requires outpatient physical therapy. Update Admission H&P: No change in H&P PHYSICIAN SIGNATURE: * Additional Instructions* Mirian Encinas RN - 01/21/2019 Refer to the Understanding Stroke Booklet given to you, written material provided to patient/family, addressing all signs & symptoms of a stroke, which are: sudden numbness or weakness, especially on one side of the body sudden confusion sudden difficulty speaking or understanding sudden loss of vision sudden dizziness or loss of balance or coordination sudden severe headache Explained the need to call EMS (911) immediately if signs & symptoms occur. 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 Discussed the patient s personal risk factors for Stroke /TIA with patient/family, and ways to reduce the risk for a recurrent stroke. Patient's personal risk factors which were identified are: [x] High blood pressure [x] High cholesterol [] Atrial fibrillation [] Diabetes [] Smoking [x] Overweight [] Lack of Exercise [] Sleep apnea [] Prior heart disease or heart attack [] Excessive alcohol use [] Use of illicit drugs [x] Personal history of previous TIA or stroke [] Family history of stroke or heart disease [x] Carotid stenosis [] Heart failure [] Migraine [] Hormone replacement therapy [] Current (up to six weeks post ) [] Depression [] Sickle Cell [] Renal insufficiency - chronic [] None Refer to Understanding Stroke Booklet. Advised patient that risk for stroke/TIA can be reduced by modifying/controlling risk factors. Patient advised to take medications as prescribed, which will be detailed in the discharge instructions, and to not stop taking them without consulting a physician. In addition, pt. advised to maintain a healthy diet, exercise regularly and to not smoke. documented in this encounter Assessments Diagnosis Other nonsuppurative otitis media of left ear, unspecified chronicity- Primary Diagnosis Other chronic suppurative otitis media of left ear- Primary Dizziness Dizziness and giddiness Diagnosis Sprain of right ankle, unspecified ligament, initial encounter Sprain of left knee, unspecified ligament, initial encounter Diagnosis Dizziness- Primary Dizziness and giddiness Unsteady gait Abnormality of gait History of multiple cerebrovascular accidents (CVAs) Hospital Course * Vaishali Winston MD - 01/22/2019 3:50 PM EDT Discharge Summary Cynthia Robertson : 1945 ADMIT DATE: 01/21/2019 DISCHARGE DATE: 01/22/2019 PRIMARY CARE PHYSICIAN: STEW QUINTANA DO VISIT STATUS: Observation CODE STATUS: Full Code DISCHARGE DIAGNOSES: Principal Problem: BPPV (benign paroxysmal positional vertigo) Active Problems: Dizziness Resolved Problems: * No resolved hospital problems. * HOSPITAL COURSE: Ms. Robertson was observed in hospital since last night for dizziness, with following pertinent HPI: The patient is a 73 y.o. female with significant past medical history below who presents with dizziness. She feels like she is spinning when she changes positions. Last admission for stroke was in November 2016. MRI at that time showed recent posterior cerebral artery and left posterior MCA terrortories effected. She has intermittent blurred vision that she states is an a chronic issue. She denies weakness, slurred speech or headache. She is on asa, plavix and statin. Course: MRI/MRA head and neck was negative for acute CVA. Prior changes+. Left carotid 50% stenosis, same as prior. Seen by neuro. OK to discharge, continue plavix and Eliquis, and Lipitor 80. PT recommended outpt PT. I think vestibular exercises may help. Will need follow up of left carotid stenosis 50% with ultrasound in 6-12 months. D/w patient. Meclizine prn script written. Outpt follow up with PCP in 3 days.\ SIGNIFICANT DIAGNOSTIC STUDIES: MRI/MRA head and neck CONSULTANTS: Stroke neurologist MEDICATION CHANGES: Meclizine 25 mg tid prn dizziness added. RECOMMENDED NEXT STEPS: Outpatient physical therapy with vestibular exercises. Need to follow up with Dr. Quintana, PCP in 2-3days for that. DISCHARGE MEDICATIONS: Cynthia Robertson Home Medication Instructions PAMELA:[id number] Printed on:01/22/19 2811 Medication Information acetaminophen (TYLENOL) 500 MG tablet Take 500 mg by mouth every 6 hours as needed for Pain adalimumab (HUMIRA) 40 MG/0.8ML injection Inject 40 mg into the skin every 14 days atorvastatin (LIPITOR) 80 MG tablet Take 1 tablet by mouth daily calcipotriene (DOVONEX) 0.005 % solution Apply topically BID to hands and scalp. carvedilol (COREG) 12.5 MG tablet Take 0.5 tablets by mouth 2 times daily (with meals) Clobetasol Propionate Emulsion 0.05 % FOAM Apply apringly to scaly/itchy areas on hands and scalp BID Mon-Fri, takings weekends off. clopidogrel (PLAVIX) 75 MG tablet TAKE ONE TABLET BY MOUTH EVERY DAY ELIQUIS 5 MG TABS tablet TAKE ONE TABLET BY MOUTH TWO TIMES A DAY escitalopram (LEXAPRO) 20 MG tablet Take 20 mg by mouth daily ketoconazole (NIZORAL) 2 % shampoo Apply to scalp as shampoo, lather and leave on for 5-10 minutes, then rinse. Use 3-4 times per week. meclizine (ANTIVERT) 25 MG tablet Take 1 tablet by mouth 3 times daily as needed for Dizziness nitroGLYCERIN (NITROSTAT) 0.[address] 1 tablet under the tongue every 5 minutes as needed for Chest pain up to max of 3 total doses. If no relief after 1 dose, call 911. omeprazole (PRILOSEC) 20 MG delayed release capsule Take 1 capsule by mouth daily ondansetron (ZOFRAN ODT) 4 MG disintegrating tablet Take 1 tablet by mouth every 8 hours as needed for Nausea DIET: DIET CARDIAC; ACTIVITY: No restriction. up with assist COMPLEXITY OF FOLLOW UP: [] Moderate Complexity: follow up within 7-14 calendar days (68960) [] Severe Complexity: follow up within 7 calendar days (92648) FOLLOW UP TESTING, PENDING RESULTS OR REFERRALS AT TRANSITIONAL CARE VISIT: [] Yes [] No PENDING STUDIES: No DISPOSITION: Outpatient Therapy FACILITY/HOME CARE AGENCY NAME: Follow up with Stew Quintana DO [address] [facility] [address] in 3 days. INSTRUCTIONS TO MA/SW: Please call patient on day after discharge (must document patient contacted within 2 business days of discharge). FOLLOW UP QUESTIONS FOR MA/SW: 1. Did you get medications filled and taking them as instructed from discharge? 2. Are you following your discharge instructions from your hospital stay? 3. Please confirm patient is scheduled for a follow up appointment within the above time frame. DISCHARGE TIME: < 30 minutes SIGNED: Vaishali Winston MD 01/22/2019, 3:50 PM documented in this encounter History of Present Illness * Flo Dial, PT - 01/22/2019 11:57 AM EDT Physical Therapy Facility/Department: [facility] Initial Assessment NAME: Cynthia Robertson : 1945 Date of Service: 01/22/2019 Discharge Recommendations: Outpatient PT, Home independently Assessment Assessment: pt amb slowly but safely without assist or LOB; states she is not dizzy when she amb, but mostly when she rolls in bed or changes positions; pt with h/o strokes, diagnostic testing not completed; if pt still dizzy after disch, recommend outpt PT for vertigo; disch PT Prognosis: Fair Decision Making: Low Complexity REQUIRES PT FOLLOW UP: No Activity Tolerance Activity Tolerance: Patient Tolerated treatment well Patient Diagnosis(es): The primary encounter diagnosis was Dizziness. Diagnoses of Unsteady gait and History of multiple cerebrovascular accidents (CVAs) were also pertinent to this visit. has a past medical history of Arthritis, Blurry vision, CAD (coronary artery disease), Cerebral artery occlusion with cerebral infarction (HCC), Decreased vision, H/O left heart catheterization by cutdown, Headache, Heart disease, Hyperlipidemia, Hypertension, Ischemic cardiomyopathy, Morbid obesity (HCC), PFO (patent foramen ovale), and Sleep apnea. has a past surgical history that includes Tonsillectomy; fracture surgery (Left); Hysterectomy; eyesurgery (Bilateral); Coronary angioplasty with stent (12/21/2016); and Hysterectomy. Restrictions Vision/Hearing Subjective General Chart Reviewed: Yes Patient assessed for rehabilitation services?: Yes Diagnosis: Dizziness Follows Commands: Within Functional Limits Other (Comment): admitted with c/o dizziness with change in position General Comment Comments: pt just returned from MRI; pt with h/o multiple strokes; pt just had Antivert prior to PT Subjective Subjective: pleasant and cooperative Pain Screening Patient Currently in Pain: Denies Vital Signs Patient Currently in Pain: Denies Orientation Orientation Overall Orientation Status: Within Normal Limits Social/Functional History Social/Functional History Lives With: Spouse Type of Home: House Home Layout: Two level, 1/2 bath on main level Home Access: Stairs to enter with rails Entrance Stairs - Number of Steps: 4 ADL Assistance: Independent Homemaking Assistance: Independent Ambulation Assistance: Independent Transfer Assistance: Independent Cognition Objective PROM RLE (degrees) RLE PROM: WNL AROM RLE (degrees) RLE AROM: WNL PROM LLE (degrees) LLE PROM: WNL AROM LLE (degrees) LLE AROM : WNL Strength RLE Strength RLE: WNL Strength LLE Strength LLE: WNL Sensation Overall Sensation Status: (Denies any numbness or tingling Сергей LEs) Bed mobility Rolling to Left: Independent Supine to Sit: Independent Comment: pt had to sit at EOB for a moment due to dizziness Transfers Sit to Stand: Independent Stand to sit: Independent Ambulation Ambulation?: Yes Ambulation 1 Surface: level tile Device: No Device Assistance: Supervision Gait Deviations: Slow Sade Distance: 70 feet Stairs/Curb Stairs?: Yes Stairs # Steps : 4 Stairs Height: 6 Rails: Right ascending Assistance: Modified independent Balance Posture: Good Sitting - Static: Good Sitting - Dynamic: Good Standing - Static: Good Standing - Dynamic: Good;- Plan Plan Plan Comment: Disch PT Safety Devices Type of devices: All fall risk precautions in place, Gait belt, Left in bed, Call light within reach AM-PAC Score AM-PAC Inpatient Mobility Raw Score : 24 (01/22/19 1148) AM-PAC Inpatient T-Scale Score : 61.14 (01/22/19 1148) Mobility Inpatient CMS 0-100% Score: 0 (01/22/19 1148) Mobility Inpatient [facility] G-Code Modifier : CH (01/22/19 1148) Goals Therapy Time Individual Concurrent Group Co-treatment Time In 1130 Time Out 1143 Minutes 13 Flo Dial PT * Vaishali Winston MD - 01/22/2019 9:44 AM EDT Hospitalist Progress Note 01/22/2019 4:01 PM [phone]: Please page me for patient care issues. [phone]: Please page [facility] night Hospitalist for any issues. Subjective: Admit Date: 01/21/2019 PCP: STEW QUINTANA, DO Room#: 1339/1339B Interval History: Admitted with dizziness for about 5 days. Initially severe which improved, but then on and off. Meclizine did help some. Still has dizziness on changing position. No chest pain, sob or palpitation. Able to ambulate. DIET CARDIAC; Patient Vitals for the past 96 hrs (Last 3 readings): Weight 01/21/19 1422 236 lb (107 kg) Medications: pantoprazole 40 mg Oral QAM AC clopidogrel 75 mg Oral Daily carvedilol 6.25 mg Oral BID WC atorvastatin 80 mg Oral Nightly sodium chloride flush 10 mL Intravenous 2 times per day enoxaparin 40 mg Subcutaneous Daily aspirin 81 mg Oral Daily Or aspirin 300 mg Rectal Daily LABS: CBC: Recent Labs 01/21/19151501/22/19 004 WBC 5.0 5.9 RBC 5.17 4.91 HGB 14.5 14.1 HCT 44.3 41.7 MCV 85.6 85.0 RDW 14.9* 14.9* PLT 163 136* BMP: Recent Labs 01/21/19151501/22/190 NA 142 142 K 4.2 3.7 CL 110* 110* CO2 22 24 BUN 16 15 CREATININE 0.74 0.72 GLUCOSE 101* 91 CALCIUM 9.7 9.3 ANIONGAP 10 8 LIVER PROFILE: Recent Labs 01/21/19151501/22/19 004 AST 30 27 ALT 31 33 BILITOT 0.9 0.8 ALKPHOS 92 89 LABALBU 4.3 3.7 PROT 7.3 6.5 PT/INR: Recent Labs 01/21/191515 PROTIME 10.5 INR 1.1 CARDIAC ENZYMES: Recent Labs 01/21/19151501/22/19 0040 TROPONINI <0.012 <0.012 Procalcitonin: No results found for: PROCAL Objective: Vitals: BP 130/74 Pulse 57 Temp 98.2 F (36.8 C) (Temporal) Resp 20 Ht 5' 4 (1.626 m) Wt 236 lb (107 kg) SpO2 94% BMI 40.51 kg/m Pulse Ox: SpO2 Av % Min: 91 % Max: 96 % Supplemental O2: General appearance: No apparent distress, appears stated age and cooperative with exam HEENT: Eyes: No scleral icterus Oral: Tongue is semi-moist Cardiovascular: S1S2 heard, RRR Respiratory: Clear to auscultation bilaterally Abdomen: Soft, non-tender, non-distended with normal bowel sounds. Musculoskeletal: No obvious deformities seen Skin: No visible rashes or lesions. Neuro: intact, grossly non-focal. Assessment Dizziness - likely BPPV H/o CVA with RUE weakness Plan MRI/MRA negative for acute CVA. Prior changes+. Left carotid 50% stenosis, same as prior. Seen by neuro. OK to discharge, continue plavix and Eliquis, and Lipitor 80. PT recommended outpt PT. I think vestibular exercises may help. Will need follow up of left carotid stenosis 50% with ultrasound in 6-12 months. D/w patient. Meclizine prn script written. Outpt follow up with PCP in 3 days. Advance Directive: Full Code Discharge planning: Home today. Vaishali Winston MD Division of Hospitalist Medicine Inpatient Medical Services PAGER: [phone] * Luz Castorena, CLINIC RECEPTIONIST - 01/22/2019 8:03 AM EDT Speech Language Pathology Patient passed the Nursing Swallowing Screening and is on a Cardiac diet. Completed speech orders as per stroke protocol. Luz Castorena MA, CCC-CLINIC RECEPTIONIST 01/22/19 documented in this encounter Reason for Referral Status Reason Specialty Diagnoses / Procedures Re ferred By Contact Referred To Contact Closed Radiology Diagnoses H/O non-ST elevation myocardial infarction (NSTEMI) Hyperlipidemia, unspecified hyperlipidemia type CAD in [place] artery Chest wall symptom Procedures NM Myocardial Spect Rest Exercise or Rx Nona Stein MD [address] [place] [address] [address] [place] [address] Specialty Diagnoses / Procedures Referred By Erick saul Referred To Contact Cardiology Diagnoses Bilateral carotid artery stenosis Procedures Vascular US carotid artery duplex bilateral Ernestina Potter PA-C [address] [place] [address] Referral ID Status Reason Start Date Expiration Date V isits Requested Visits Authorized [id number] Closed Perform Procedure 08/11/2022 11/08/2022 1 1 Specialty Diagnoses / Procedures Referred By Contac t Referred To Contact Cardiology Diagnoses 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) Abnormal EKG Procedures Nuclear REGADENOSON stress test with myocardial perfusion Ernestina Potter PA-C [address] [place] [address] Referral ID Status Reason Start Date Expiration Date Visits Re quested Visits Authorized [id number] Closed 08/11/2022 11/08/2022 1 1 Specialty Diagnoses / Procedures Referred By Contac t Referred To Contact Cardiology Diagnoses Carotid stenosis, left S/P carotid endarterectomy Procedures Vascular US carotid artery duplex bilateral Rowan Chavez MD [address] [place] [address] Referral ID Status Reason Start Date Expiration Date Visits Requested Visits Authorized [id number] Pending Review Perform Procedure 10/05/2022 04/03/2023 1 1 Referral ID Status Reason Start Date Expiration Date Visits Requested Visits Authorized [id number] Pending Review Perform Procedure 10/05/2022 04/03/2023 1 1 Referral ID Status Reason Start Date Expiration Date V isits Requested Visits Authorized [id number] Closed Perform Procedure 10/05/2022 04/03/2023 1 1 Specialty Diagnoses / Procedures Referred By Contac t Referred To Contact Cardiology Diagnoses PVD (peripheral vascular disease) (HCC) Unequal blood pressure in upper extremities Procedures Vascular US upper extremity arterial PVR Ernestina Potter PA-C [address] [place] [address] Referral ID Status Reason Start Date Expiration Date V isits Requested Visits Authorized [id number] Pending Review 02/09/2023 08/08/2023 1 1 Additional Source Comments INFORMATION SOURCE (unrecogn ized section and content) DATE CREATED AUTHOR AUTHOR'S ORGANIZ ATION 09/03/2018 [facility] DATE CREATED AUTHOR AUTHOR'S ORGANIZ ATION 08/06/2020 [facility] DATE CREATED AUTHOR AUTHOR'S ORGANIZ ATION 10/23/2020 [facility] DATE CREATED AUTHOR AUTHOR'S ORGANIZ ATION 06/20/2021 [facility] DATE CREATED AUTHOR AUTHOR'S ORGANIZ ATION 09/03/2021 [facility] DATE CREATED AUTHOR AUTHOR'S ORGANIZ ATION 04/30/2023 [facility] Reason for Visit (unrecogniz ed section and content) Reason Comments Otalgia patient has left ear infection currently being treated with amoxicillin and tylenol patient has had increased pain Reason Comments Fall Knee Pain Ankle Pain Reason Comments Dizziness Nausea Otalgia Reason Onset Date Comments Results 08/24/2022 Carotid duplex Specialty Diagnoses / Procedures Referred By Contac t Referred To Contact Cardiology Diagnoses Bilateral carotid artery stenosis Procedures Vascular US carotid artery duplex bilateral Ernestina Potter PA-C [address] [place] [address] Referral ID Status Reason Start Date Expiration Date V isits Requested Visits Authorized [id number] Closed Perform Procedure 08/11/2022 11/08/2022 1 1 Specialty Diagnoses / Procedures Referred By Contac t Referred To Contact Cardiology Diagnoses 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) Abnormal EKG Procedures Nuclear REGADENOSON stress test with myocardial perfusion Ernestina Potter PA-C [address] [place] [address] Referral ID Status Reason Start Date Expiration Date Visits Re quested Visits Authorized [id number] Closed 08/11/2022 11/08/2022 1 1 Reason Comments New Patient Ernestina Tariq PA/ [place] carotid stenosis/CU 08/24/22 Specialty Diagnoses / Procedures Referred By Contac t Referred To Contact Vascular Surgery Diagnoses Carotid stenosis, left Procedures ND OFFICE/OUTPATIENT NEW HIGH MDM 60-74 MINUTES Ernestina Potter PA-C [address] [place] [address] Delio Valerio MD [address] [place] [address], [address] [place] [address] Referral ID Status Reason Start Date Expiration Date V isits Requested Visits Authorized [id number] Closed Specialty Services Required 08/24/2022 08/24/2023 1 1 Reason Onset Date Comments Cardiac Clearance 09/03/2022 Specialty Diagnoses / Procedures Referred By Erick saul Referred To Contact Diagnoses Occlusion and stenosis of left carotid artery Occlusion and stenosis of left carotid artery [I65.22] Procedures ND TEAEC W/PATCH GRF CAROTID VERTB SUBCLAV NECK INC LEFT CAROTID ENDARTERECTOMY Rowan Chavez MD [address] [place] [address] [address] [place] [address] Referral ID Status Reason Start Date Expiration Date Visits Re quested Visits Authorized [id number] 1 1 Reason Comments Post-op 1ST PO LEFT CAROTID ENDARTERECTOMY 09/22/2022 Specialty Diagnoses / Procedures Referred By Erick saul Referred To Contact Cardiology Diagnoses Carotid stenosis, left S/P carotid endarterectomy Procedures Vascular US carotid artery duplex bilateral Rowan Chavez MD [address] [place] [address] Referral ID Status Reason Start Date Expiration Date V isits Requested Visits Authorized [id number] Closed Perform Procedure 10/05/2022 04/03/2023 1 1 Reason Onset Date Comments schedule appt 11/16/2022 Reason Comments Chest Pain Reason Comments Follow-up Reason Onset Date Comments OTHER 02/10/2023 Reason Onset Date Comments OTHER 02/09/2023 CATH schedule Reason Onset Date Comments OTHER 01/04/2023 Reason Comments Med Refill Care Teams (unrecognized sec tion and content) Grocery Clerk Marking Relationship Specialty Start Date End Date Stew Quintana, DO [address] [facility] [address] [place] [address] PCP - General 06/02/16 Grocery Clerk Marking Relationship Specialty Start Date End Date Stew Quintana, DO [address] [facility] [address] [place] [address] PCP - General 06/02/16 Grocery Clerk Marking Relationship Specialty Start Date End Date Stew Quintana, DO [address] [facility] [address] [place] [address] PCP - General 06/02/16 Grocery Clerk Marking Relationship Specialty Start Date End Date Stew Quintana, DO [address] [facility] [address] [place] [address] PCP - General 06/02/16 Grocery Clerk Marking Relationship Specialty Start Date End Date Stew Quintana, DO [address] [facility] [address] [place] [address] PCP - General 06/02/16 Grocery Clerk Marking Relationship Specialty Start Date End Date Stew Quintana, DO [address] [facility] [address] [place] [address] PCP - General 06/02/16 Ernestina Potter PA-C [address] [facility] [address] [place] [address] Physician Licensing Director Physician Licensing Director 08/28/22 Grocery Clerk Marking Relationship Specialty Start Date End Date Stew Quintana, DO [address] [facility] [address] [place] [address] PCP - General 06/02/16 Ernestina Potter PA-C [address] [facility] [address] [place] [address] Physician Licensing Director Physician Licensing Director 08/28/22 Grocery Clerk Marking Relationship Specialty Start Date End Date Stew Quintana, DO [address] [facility] [address] [place] [address] PCP - General 06/02/16 Ernestina Potter PA-C [address] [facility] [address] [place] [address] Physician Licensing Director Physician Licensing Director 08/28/22 Grocery Clerk Marking Relationship Specialty Start Date End Date Stew Quintana, DO [address] [place] [address] PCP - General 06/02/16 Ernestina Potter PA-C [address] [facility] [address] [place] [address] Physician Licensing Director Physician Licensing Director 08/28/22 Grocery Clerk Marking Relationship Specialty Start Date End Date Stew Quintana DO [address] [place] [address] PCP - General 06/02/16 Ernestina Potter PA-C [address] [facility] [address] [place] [address] Physician Licensing Director Physician Licensing Director 08/28/22 Rowan Chavez MD [address] [facility] [address] [place] [address] Consulting Physician Vascular Surgery 10/05/22 Grocery Clerk Marking Relationship Specialty Start Date End Date Stew Quintana DO [address] [facility] [address] [place] [address] PCP - General 06/02/16 Ernestina Potter PA-C [address] [facility] [address] [place] [address] Physician Licensing Director Physician Licensing Director 08/28/22 Rowan Chavez MD [address] [facility] [address] [place] [address] Consulting Physician Vascular Surgery 10/05/22 Grocery Clerk Marking Relationship Specialty Start Date End Date Stew Quintana DO [address] [place] [address] PCP - General 06/02/16 Ernestina Potter PA-C [address] [facility] [address] [place] [address] Physician Licensing Director Physician Licensing Director 08/28/22 Rowan Chavez MD [address] [facility] [address] [place] [address] Consulting Physician Vascular Surgery 10/05/22 Grocery Clerk Marking Relationship Specialty Start Date End Date Stew Quintana DO [address] [place] [address] PCP - General 06/02/16 Ernestina Potter PA-C [address] [place] [address] [place] [address] Physician Licensing Director Physician Licensing Director 08/28/22 Rowan Chavez MD [address] [facility] [address] [place] [address] Consulting Physician Vascular Surgery 10/05/22 Grocery Clerk Marking Relationship Specialty Start Date End Date Stew Quintana DO [address] [facility] [address] [place] [address] PCP - General 06/02/16 Ernestina Potter PA-C [address] [place] [address] [address] [place] [address] Physician Licensing Director Physician Licensing Director 08/28/22 Rowan Chavez MD [address] [facility] [address] [place] [address] Consulting Physician Vascular Surgery 10/05/22 Grocery Clerk Marking Relationship Specialty Start Date End Date Stew Quintana DO [address] [facility] [address] [place] [address] PCP - General 06/02/16 Ernestina Potter PA-C [address] [place] [address] Physician Licensing Director Physician Licensing Director 08/28/22 Rowan Chavez MD [address] [place] [address] Consulting Physician Vascular Surgery 10/05/22 Grocery Clerk Marking Relationship Specialty Start Date End Date Stew Quintana DO [address] [place] [address] PCP - General 06/02/16 Ernestina Potter PA-C [address] [facility] [address] [place] [address] Physician Licensing Director Physician Licensing Director 08/28/22 Rowan Chavez MD [address] [place] [address] Consulting Physician Vascular Surgery 10/05/22 Grocery Clerk Marking Relationship Specialty Start Date End Date Stew Quintana DO [address] [place] [address] PCP - General 06/02/16 Ernestina Potter PA-C [address] [place] [address] Physician Licensing Director Physician Licensing Director 08/28/22 Rowan Chavez MD [address] [place] [address] Consulting Physician Vascular Surgery 10/05/22 Grocery Clerk Marking Relationship Specialty Start Date End Date Stew Quintana DO [address] [place] [address] PCP - General 06/02/16 Ernestina Potter PA-C [address] [facility] [address] [place] [address] Physician Licensing Director Physician Licensing Director 08/28/22 Rowan Chavez MD [address] [facility] [address] [place] [address] Consulting Physician Vascular Surgery 10/05/22 Grocery Clerk Marking Relationship Specialty Start Date End Date Stew Quintana DO [address] [place] [address] PCP - General 06/02/16 Ernestina Potter PA-C [address] [facility] [address] [place] [address] Physician Licensing Director Physician Licensing Director 08/28/22 Rowan Chavez MD [address] [facility] [address] [place] [address] Consulting Physician Vascular Surgery 10/05/22 Scheduled Active and Recently Administ ered Medications (unrecognized section and content) Continuous Medication Order 09/21/2022 09/22/2022 09/23/2022 lactated Ringer's (LR) infusion (CANCELED) 50 mL/hr, IntraVENous, Continuous, Starting on Wed09/22/22 at 0600, Preprocedure, Upon admission to sameday - please start iv if patient does not have iv access. Use 500ml NS for patients on dialysis. 0600 (New Bag - Provider: Sa ra Lelo RN)[id number] (Continued by Anesthesia - Provider: TRISTIN Vásquez SEAM SEWER)1018 (Stopped - Provider: TRISTIN Vásquez CRNA) PRN Medication Order 09/21/2022 09/22/2022 09/23/2022 fentaNYL (Sublimaze) injection 50 mcg (CANCELED) 50 mcg, IntraVENous, Every 5 min PRN, severe pain (7-10), Starting on Wed09/22/22 at 1056, For 3 doses, Recovery (only), Phase I and Phase II- Initial therapy for severe pain (7-10). Restricted to a 90 minute time frame starting when the patient can verbally state their pain score. If after 2 doses the pain score does not decrease by more than one point, then call the provider. If oral meds are utilized, do not return to initial therapy medications. 1104 (Given - Provider: Margaret Santizo, BUCK)1124 (Given - Provider: Margaret Santizo RN) heparin 5,000 Units in sodium chloride 0.9 % 500 mL OR irrigation (CANCELED) As needed, Starting on Wed09/22/22 at 0835, Intraprocedure 0835 (Given - Provider: Rowan Chavez MD) hydrALAZINE (Apresoline) injection 10 mg 10 mg, IntraVENous, Every 1 hour PRN, high blood pressure, Starting on Wed09/22/22 at 1308, Phase II/On Unit, 2nd Line: Give for SBP GREATER than 140 mmHG and HR LESS than 110 BPM 1318 (Given - Provider: Liliam Palacios RN) labetalol (Normodyne,Trandate) injection 10 mg 10 mg, IntraVENous, Every 2 hour PRN, high blood pressure, Starting on Wed09/22/22 at 1308, Phase II/On Unit, 1st Line: Give for SBP GREATER than 140 mmHG and HR GREATER than 60 BPM labetalol (Normodyne,Trandate) injection 5 mg (CANCELED) 5 mg, IntraVENous, Every 10 min PRN, high blood pressure, for SBP greater than 160 mmHg for 2 consecutive measurements taken from different sites., Starting on Wed09/22/22 at 1056, For 2 doses, Recovery (only), PRN for SBP >160 for 2 consecutive measurements, if HR is 60 or greater. If beta uriel is contraindicated (HR less than 60, heart block, COPD or asthma) use hydralazine IV order. 1117 (Given - Provider: Margaret Santizo RN) ondansetron (Zofran) injection 4 mg(Linked Group 1) 4 mg, IntraVENous, Every 6 hours PRN, nausea, vomiting, Starting on Wed09/22/22 at 1308, Phase II/On Unit, 1st Line. Give IV if patient is unable to take orally. If inadequate response within 60 minutes, proceed to next-line agent or contact provider if no further options ordered. 1344 (Given - Provider: Liliam Palacios RN) ondansetron ODT (Zofran-ODT) disintegrating tablet 4 mg(Linked Group 1) 4 mg, Oral, Every 8 hours PRN, nausea, vomiting, Starting on Wed09/22/22 at 1308, Phase II/On Unit, 1st Line. If inadequate response within 60 minutes, proceed to next-line agent or contact provider if no further options ordered. Patient should allow tablet to dissolve on tongue. Do not remove from blister pack until just before administering. 1344 (See Alternative - Provider: Liliam Palacios RN) oxyCODONE (Roxicodone) immediate release tablet 10 mg(Linked Group 2) 10 mg, Oral, Every 4 hours PRN, severe pain (7-10), Starting on Wed09/22/22 at 1308, Phase II/On Unit 1956 (See Alternative - Provider: Tasha Rabago RN)2353 (Given - Provider: Tasha Rabago RN) oxyCODONE (Roxicodone) immediate release tablet 5 mg(Linked Group 2) 5 mg, Oral, Every 4 hours PRN, moderate pain (4-6), Starting on Wed09/22/22 at 1308, Phase II/On Unit 1956 (Given - Provider: Tasha Rabago RN)2353 (See Alternative - Provider: Tasha Rabago RN) polyethylene glycol (PEG) 3350 (Miralax) packet 17 g 17 g, Oral, Daily PRN, constipation, Starting on Wed09/22/22 at 1308, Phase II/On Unit, 1st line for treatment of constipation - give scheduled if no bowel movement in past 24 hours. sodium chloride 0.9 % infusion 5-250 mL/hr, IntraVENous, PRN, if patient receiving piggyback infusions and maintenance fluids are not ordered OR KVO fluids to protect IV site / prevent frequent line interruptions/ long duration, Starting on Wed09/22/22 at 1308, Phase II/On Unit, For piggyback infusion, administer at same rate as piggyback for a total of 25 mL. Enter 25 mL into dose field and piggyback rate into rate field of order. If piggyback is infusing at a rate less than 100 mL/hr, enter 25 mL into dose field and 100 mL/hr into rate field of order. For KVO fluids, enter rate of 20 mL/hr or less into rate field of order. sodium chloride 0.9% (NS) flush 10 mL 10 mL, IntraVENous, PRN, line care, Starting on Wed09/22/22 at 1308, Phase II/On Unit, After every IV line use Linked Groups Order Group 1: ondansetron ODT (Zofran-ODT) disintegrating tablet 4 mgJump to med 4 mg, Oral, Every 8 hours PRN, nausea, vomiting, Starting on Wed09/22/22 at 1308, Phase II/On Unit
1st Line. If inadequate response within 60 minutes, proceed to next-line agent or contact provider if no further options ordered. Patient should allow tablet to dissolve on tongue. Do not remove from blister pack until just before administering.
Or ondansetron (Zofran) injection 4 mgJump to med 4 mg, IntraVENous, Every 6 hours PRN, nausea, vomiting, Starting on Wed09/22/22 at 1308, Phase II/On Unit
1st Line. Give IV if patient is unable to take orally. If inadequate response within 60 minutes, proceed to next-line agent or contact provider if no further options ordered.
Group 2: oxyCODONE (Roxicodone) immediate release tablet 5 mgJump to med 5 mg, Oral, Every 4 hours PRN, moderate pain (4-6), Starting on Wed09/22/22 at 1308, Phase II/On Unit Or oxyCODONE (Roxicodone) immediate release tablet 10 mgJump to med 10 mg, Oral, Every 4 hours PRN, severe pain (7-10), Starting on Wed09/22/22 at 1308, Phase II/On Unit FOR RECORDS PERTAINING TO PATIENTS WHO ARE OR HAVE BEEN ENROLLED IN A CHEMICAL DEPENDENCY/SUBSTANCEABUSE PROGRAM, SOME INFORMATION MAY BE OMITTED. This clinical summary was aggregated from multiple sources. Caution should be exercised in using it in the provision of clinical care. This summary normalizes information from multiple sources, and as a consequence, information in this document may materially change the coding, format and clinical context of patient data. In addition, data may be omitted in some cases. CLINICAL DECISIONS SHOULD BE BASED ON THE PRIMARY CLINICAL RECORDS. [facility] [employer] [facility]. provides no warranty or guarantee of the accuracy or completeness of information in this document.
[2023-06-17 17:03] LABS: Reflex Troponin-HS? (from REC) Y
[2023-06-17 17:58] LABS: Troponin-I HS 6 pg/mL (3.0-54.0)
--- NOTE | 2023-06-17 18:26 | PCM.HP.STD ---
HPI - General General Date of Admission: 06/17/23 Date of Service: 06/17/23 Chief Complaint: Chest pain HPI Narrative VINITA PHILLIPS, is a 78 F who presented to [facility] ED on 06/17/2023 with chest pain. Patient seen at bedside in the ED, present. Patient was sitting up comfortably in bed, conversing normally, no acute distress. Satting well on room air, no increased work of breathing noted. Patient has a significant history of CAD, has had 6 stents placed in the past. Follows with [facility], last office visit with Sona Valdovinos was on 03/26/23. Patient was hospitalized at [facility] from 02/17-02/19/23 for chest pain. Left heart cath done at that time by Dr. Molina showed 40 to 50% in-stent restenosis of ostial circumflex, 60 to 65% stenosis of proximal RCA, LMCA/LAD stents patent. TTE showed EF 50%, mild inferior and inferoseptal hypokinesis, mild concentric LV hypertrophy, severely enlarged LA, no significant valve issues. Her Coreg dose was decreased and isosorbide dose was increased on discharge at that time. At office appointment in March, patient was doing well and no changes were made to her medications. Starting several days ago, she began to have episodes of chest pain with dizziness and nausea that occurred at rest. She describes them as a hot sensation in her right lower chest that radiated up to her epigastrium. She called the cardiology office and they prescribed her ranolazine. She has been taking this now for several days. Prior to starting ranolazine, she was taking sublingual nitro 3-4 times daily. Since starting the nausea, she has only had to take 1 sublingual nitro. However, with her episode today she became lightheaded and dizzy and felt near syncopal, so she came in for further evaluation. does state that patient has a history of depression. He notes that her depressive symptoms have seemed to worsen since starting the ranolazine and he was wondering if this is a known side effect of ranolazine. Patient otherwise lives at home with and has been completing most ADLs without issue. She does have a history of mild cognitive impairment and does the cooking at home. No other acute concerns this time. [facility] Medical History (Updated 06/17/23 @ 19:34 by Janelle Mariscal) Arthritis Coronary artery disease Depression Diarrhea Diverticulosis of colon GI bleed History of echocardiogram History of GI bleed History of stress test Ischemic cardiomyopathy Loss of hearing Migraines Morbid obesity Myocardial infarction Patent foramen ovale Psoriasis Sleep apnea Stroke/cerebrovascular accident Wears dentures Wears glasses Home Medications atorvastatin 80 mg tablet (Lipitor) 80 mg PO DAILY cholesterol 07/05/21 [History Last Taken 10/20/22 08:00] apixaban 5 mg tablet (Eliquis) 5 mg PO BID blood thinner #1 TAB 10/22/22 [Rx Last Taken 04/16/23] clopidogrel 75 mg tablet (Plavix) 75 mg PO DAILY anti platelet #1 TAB 10/22/22 [Rx Last Taken 04/15/23] acetaminophen 500 mg capsule 500 mg PO Q6H PRN Pain 02/16/23 [History Last Taken Unknown] escitalopram oxalate 10 mg tablet 10 mg PO DAILY mental health 02/16/23 [History Last Taken Unknown] carvedilol 3.125 mg tablet 3.125 mg PO BID 30 days #60 tabs 02/19/23 [Rx Last Taken Unknown] isosorbide mononitrate 60 mg tablet,extended release 24 hr 60 mg PO DAILY 30 days #30 tabs 02/19/23 [Rx Last Taken Unknown] calcitriol 3 mcg/gram topical ointment 1 applic topical Q12H 03/18/23 [History Last Taken Unknown] nitroglycerin 0.4 mg sublingual tablet 0.4 mg sublingual Q5M PRN chest pain #25 tabs 03/26/23 [Rx Last Taken Unknown] ranolazine 500 mg tablet,extended release,12 hr 500 mg PO BID #60 tabs 06/09/23 [Rx Last Taken Unknown] Allergy/AdvReac Type Severity Reaction Status Date / Time amoxicillin Allergy NEEDS Verified 06/17/23 14:30 FOLLOW-UP lisinopril Allergy unknown Verified 06/17/23 14:30 pravastatin Allergy unknown Verified 06/17/23 14:30 promethazine Allergy unknown Verified 06/17/23 14:30 rosuvastatin Allergy unknown Verified 06/17/23 14:30 ticagrelor Allergy unknown Verified 06/17/23 14:30 Family History Father Heart disease Cataracts, bilateral Mother Cataracts, bilateral Surgical History History of bilateral cataract extraction History of cardiac catheterization History of carotid endarterectomy History of colonoscopy History of coronary angioplasty with insertion of stent History of coronary artery stent placement History of hysterectomy History of left heart catheterization (LHC) by cutdown History of surgery on left wrist History of tonsillectomy Social History household members: spouse housing: other number of children: 3 pets and animals: Yes Smoking Status: Never smoker alcohol intake: current substance use type: does not use caffeine: No ROS Constitutional Constitutional: Denies chills, fatigue, fever(s) or weakness Eyes Eyes: Denies change in vision Cardiovascular Cardiovascular: Reports chest pain; Denies dyspnea on exertion, edema or lightheadedness Respiratory/Chest Respiratory/Chest: Denies cough, productive cough, shortness of breath at rest, shortness of breath with exertion or wheezing Gastrointestinal Gastrointestinal: Denies abdominal pain, constipation, diarrhea, nausea or vomiting Genitourinary Genitourinary: Denies dysuria Musculoskeletal Musculoskeletal: Denies arthralgias or back pain Neurologic Neurologic: Denies dizziness, focal weakness, headache(s), numbness or paresthesias Vital Signs Vital Signs Vital Signs: 06/17/23 14:30 06/17/23 14:42 06/17/23 15:30 Temperature 98.4 F Temperature Source Temporal Pulse Rate 82 69 66 Respiratory Rate 18 12 17 Blood Pressure 124/87 H 154/79 H 127/68 H Blood Pressure Mean 99 104 87 Pulse Ox 100 96 94 Oxygen Delivery Method 06/17/23 15:08 06/17/23 16:39 06/17/23 18:25 Temperature Temperature Source Pulse Rate 65 67 Respiratory Rate 12 13 Blood Pressure 127/72 H 148/73 H Blood Pressure Mean 90 98 Pulse Ox 95 94 Oxygen Delivery Method Room Air Room Air Room Air Weight Weight: 83.461 kg Body Mass Index (BMI) 31.6 Physical Exam Const alert, oriented x3 and no apparent distress Constitutional Narrative: Elderly female, obese, sitting up comfortably in bed, conversing normally, no acute distress. General Appearance: cooperative and comfortable HEENT normocephalic, head/scalp atraumatic, hearing grossly normal bilaterally, nasal mucous membranes and turbinates normal and moist oral mucous membranes Eyes PERRL, EOMs intact bilaterally and conjunctivae normal Neck full ROM, no lymphadenopathy and supple Lymph Lymphatic: no lymphadenopathy noted Chest inspection of chest normal Resp normal respiratory effort, normal air movement, no use of accessory muscles and clear to auscultation bilaterally Cardio regular rate, regular rhythm, no murmurs and peripheral pulses 2+ throughout GI normal to inspection, nondistended, normoactive bowel sounds, soft to palpation, non-tender and non-distended Back/Spine normal ROM Extremity normal to inspection, full ROM and no pedal edema Skin no rashes or lesions noted Neuro moves all extremities and no focal motor deficits Speech: speech normal Psych mental status grossly normal Results Lab / Micro Data 06/17/23 14:45 06/17/23 14:45 Labs: Laboratory Results - last 24 hr 06/17/23 14:45: WBC 5.1, RBC 4.86, Hgb 13.7, Hct 42.4, MCV 87.2, MCH 28.2, MCHC 32.3, RDW Std Deviation 44.9 H, RDW Coeff of Nafisa 14.0, Plt Count 179, MPV 12.1 H, Immature Gran % (Auto) 0.400, Neut % (Auto) 54.7, Lymph % (Auto) 25.6, Towns % (Auto) 7.9, Eos % (Auto) 10.0 H, Baso % (Auto) 1.4 H, Absolute Neuts (auto) 2.8, Absolute Lymphs (auto) 1.30, Nucleated RBC % 0, D-Dimer Quant (PE/DVT) 0.30, Sodium 143, Potassium 3.6, Chloride 113 H, Carbon Dioxide 26.0, Anion Gap 4 L, BUN 13, Creatinine 0.94, Estim Creat Clear Calc 52.38, Est GFR (MDRD) Af Amer 74, Est GFR (MDRD) Non-Af 61, BUN/Creatinine Ratio 13.8, Glucose 112 H, Calcium 9.4, Total Bilirubin 0.80, Direct Bilirubin 0.27, AST 13 L, ALT 17, Alkaline Phosphatase 94, Troponin I High Sens 7, Total Protein 6.8, Albumin 3.6, Globulin 3.2, Lipase 39 06/17/23 17:24: Troponin I High Sens 6 Imagaing Radiology Impression Chest X-Ray 06/17/23 15:18 IMPRESSION: Stable elevation of the right hemidiaphragm. No acute abnormality is seen. Electronically Signed: Jose Castle MD at 15:37 EST , Assessment & Plan Assessment/Plan (1) Chest pain: PLAN: Plan Patient is a 78-year-old female who presented to [facility] ED on 06/17/2023 with chest pain. 1. Atypical chest pain; history of CAD with stenting x 6 Presented with intermittent episodes of chest pain at rest and worsening over the past 2 weeks. EKG with normal sinus rhythm, no ST changes. Troponin negative x 2, third troponin pending. Hospitalized in 01/2023 for similar symptoms. Left heart cath at that time showed 40 to 50% in-stent restenosis of ostial circumflex, 60 to 65% stenosis of proximal RCA, LMCA/LAD stents patent. TTE showed EF 50%, mild inferior and inferoseptal hypokinesis, mild concentric LV hypertrophy, severely enlarged LA, no significant valve issues. ? Admit under observation status to PCU. Cardiology consulted. Continue cardiac monitoring. Will defer need for any further workup to cardiology. Continue home high intensity statin, Coreg, Plavix, Eliquis, nitrate. Holding home ranolazine. 2. Depression ? On home escitalopram 10 mg daily. Patient and think she has been on this medication for the past several years, do not remember any dosage changes. Managed by PCP. Patient reports worsening depressive symptoms since starting ranolazine; on literature review search, no adverse effect of depression noted with ranolazine. Could consider increasing escitalopram to 20 mg daily in outpatient setting versus trying a different SSRI medication, but will defer to PCP for further management. Chronic medical conditions: ? Obesity: BMI 31 on admit. Complicates hospital course, care and prognosis. ? History of carotid artery disease s/p carotid endarterectomy DVT prophylaxis: Eliquis CODE STATUS: Full code, verified Expected disposition: Home, 1 to 2 days Total clinical time spent by myself addressing the patient's medical issues, reviewing all the data, and collaborating with patient's care team: 40 minutes. Charges/Coding Visit Charges Inpatient E&M: 45460 Init Hosp L1
--- OUTSIDE RECORDS SUMMARY | 2023-06-17 19:00 | XMS RPT_ITS | CCD ---
Author Name Unknown Address 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 Role Phone Stew Quintana Unavailable Unavailable PROVIDER, UNKNOWN Unavailable Unavailable Stew Quintana Unavailable Unavailable STEW QUINTANA Attending Unavailable PROVIDER, UNKNOWN Referring Unavailable STEW QUINTANA Primary Care Unavailable Rodriguez Barone Attending Unavailable PROVIDER, UNKNOWN Referring Unavailable STEW QUINTANA Primary Care Unavailable STEW QUINTANA Attending Unavailable PROVIDER, UNKNOWN Referring Unavailable STEW QUINTANA Primary Care Unavailable Raoul Breaux Attending Unavailable PROVIDER, UNKNOWN Referring Unavailable STEW QUINTANA Primary Care Unavailable Trev Huff Attending [...] Unavailable Stew Quintana DO Primary Care Provider [phone] Ernestina Potter PA-C Unavailable Kathy HERRON, Rowan [...] Unavailable Stew Quintana DO Primary Care Provider [phone] Allergies Allergy Classification Reported Allergen(s) Allergy Type Date of Onset Reaction(s) Facility Angiotensin Converting Enzyme (BRIELLE) Inhibitors (2 sources) Lisinopril Drug Allergy 7 Other (See Comments) [facility] Work Phone: HMG-CoA Reductase Inhibitors (statins) (2 sources) rosuvastatin Drug Allergy 7 Diarrhea [facility] Nitrate Vasodilator (2 sources) Nitroglycerin Drug Allergy 2 Other (See Comments) [facility] Penicillins (antibiotic) (2 sources) Amoxicillin Drug Allergy 7 [facility] Promethazine (2 sources) Promethazine Drug Allergy 7 Anxiety [facility] Ticagrelor (2 sources) Ticagrelor Drug Allergy 7 Other (See Comments) [facility] Work Phone: (20 sources) Amoxicillin Drug Allergy 7 Other (See Comments), Other [place], [place] (7 sources) Lisinopril Drug Allergy 7 Other (See Comments) [place] (7 sources) Nitroglycerin Drug Allergy 2 Other (See Comments) [place] (7 sources) Promethazine Drug Allergy 7 Anxiety [place] (7 sources) rosuvastatin Drug Allergy 7 Diarrhea [place] (7 sources) Ticagrelor Drug Allergy 7 Other (See Comments) [place] (20 sources) Lisinopril Propensity to adverse reactions 7 Other [facility] (10 sources) Nitroglycerin Propensity to adverse reactions 2 Other [facility] (20 sources) Pravastatin Drug Allergy 2 Other [facility] (20 sources) Promethazine Drug Allergy 7 Anxiety [facility] (20 sources) Rosuvastatin calcium Propensity to adverse reactions 7 Diarrhea [facility] (20 sources) Ticagrelor Propensity to adverse reactions 7 Other [facility] Medications Current Medications Medication Drug [...] Ischemic cardiomyopathy; Translations: [Atherosclerotic heart disease of [place] coronary artery without angina pectoris] Onset: 0 [...] Onset: 9 Chronic Other aftercare (2 sources) 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; Translations: [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] Onset: 9 [...] 04-07-2011 01-09-2020 Episodic Other aftercare (2 sources) assisted (current) use of anticoagulants; Translations: [assisted (current) use of anticoagulants] Onset: 12-13-2017 Episodic [...] 62 mm[Hg] Ernestina Potter PA-C Work Phone: [employer] 02-09-2023 10:23-0400 Systolic blood pressure 98 mm[Hg] Ernestina SILVERIOWakie/BudistC Work Phone: [employer] 02-09-2023 09:49-0400 Body height 162.6 cm Ernestina Potter NUSRATWakie/[employer]ist[employer] Work Phone: [employer] 02-09-2023 09:49-0400 Body mass index (BMI) [Ratio] 30.95 kg/m2 Ernestina Potter PA-C Work Phone: [employer] 02-09-2023 09:49-0400 Body weight 81.78 kg Ernestina Potter PA-C Work Phone: [employer] 02-09-2023 09:49-0400 Heart rate 61 /min Ernestina Potter PA-C Work Phone: [facility] 02-09-2023 09:49-0400 SaO2% (BldA) [Mass fraction] 96 % Ernestina Potter PA-C Work Phone: [facility] 01-07-2023 08:51-0400 Diastolic blood pressure 60 mm[Hg] Ernestina Potter PA-C Work Phone: [facility] 01-07-2023 08:51-0400 Heart rate 70 /min Ernestina Potter PA-C Work Phone: [facility] 01-07-2023 08:51-0400 SaO2% (BldA) [Mass fraction] 94 % Ernestina Potter PA-C Work Phone: [facility] 01-07-2023 08:51-0400 Systolic blood pressure 90 mm[Hg] Ernestina Potter PA-C Work Phone: [facility] 01-07-2023 08:49-0400 Body height 162.6 cm Ernestina Potter PA-C Work Phone: [facility] 01-07-2023 08:49-0400 Body mass index (BMI) [Ratio] 31.62 kg/m2 Ernestina Potter PA-C Work Phone: [facility] 01-07-2023 08:49-0400 Body weight 83.55 kg Ernestina Potter PA-C Work Phone: [facility] 10-05-2022 14:37-0400 Body height 162.6 cm Rowan Chavez MD Work Phone: [facility] 10-05-2022 14:37-0400 Body mass index (BMI) [Ratio] 30.9 kg/m2 Rowan Chavez MD Work Phone: [facility] 10-05-2022 14:37-0400 Body weight 81.65 kg Rowan Chavez MD Work Phone: [facility] 10-05-2022 14:37-0400 Respiratory rate 18 /min Rowan Chavez MD Work Phone: [facility] 09-23-2022 07:52-0400 Body temperature 97.5 [degF] Rowan Chavez MD Work Phone: [facility] 09-23-2022 07:52-0400 Heart rate 71 /min Rowan Chavez MD Work Phone: [facility] 09-23-2022 07:52-0400 SaO2% (BldA) [Mass fraction] 93 % Rowan Chavez MD Work Phone: [facility] 09-23-2022 07:46-0400 Diastolic blood pressure 56 mm[Hg] Rowan Chavez MD Work Phone: [facility] 09-23-2022 07:46-0400 Respiratory rate 17 /min Rowan Chavez MD Work Phone: [facility] 09-23-2022 07:46-0400 Systolic blood pressure 141 mm[Hg] Rowan Chavez MD Work Phone: [facility] 09-22-2022 05:52-0400 Body height 162.6 cm Rowan Chavez MD Work Phone: [facility] 09-22-2022 05:52-0400 Body mass index (BMI) [Ratio] 30.9 kg/m2 Rowan Chavez MD Work Phone: [facility] 09-22-2022 05:52-0400 Body weight 81.65 kg Rowan Chavez MD Work Phone: [facility] 09-02-2022 11:15-0400 Body mass index (BMI) [Ratio] 33.27 kg/m2 Rowan Chavez MD Work Phone: [facility] 09-02-2022 11:15-0400 Body temperature 96.91 [degF] Rowan Chavez MD Work Phone: [facility] 09-02-2022 11:15-0400 Body weight 87.91 kg Rowan Chavez MD Work Phone: [facility] 09-02-2022 11:15-0400 Diastolic blood pressure 87 mm[Hg] Rowan Chavez MD Work Phone: [facility] 09-02-2022 11:15-0400 Heart rate 89 /min Rowan Chavez MD Work Phone: [facility] 09-02-2022 11:15-0400 Systolic blood pressure 150 mm[Hg] Rowan Chavez MD Work Phone: [facility] 12-01-2019 14:11-0400 BMI (Body Mass Index) 38.45 kg/m2 Stew Lopez [facility], [place] 12-01-2019 14:11-0400 Body Temperature 99.81 [degF] [facility] [place] 12-01-2019 14:11-0400 Body weight 101.61 kg Stew Quintana [facility] , [place] 12-01-2019 14:11-0400 BP Diastolic 82 mm[Hg] [facility] [place] 12-01-2019 14:11-0400 BP Systolic 128 mm[Hg] [facility] [place] 12-01-2019 14:11-0400 Pulse (Heart Rate) 82 /min Stew Lopez [place], [place] 12-01-2019 14:11-0400 Pulse Oximetry 100 % Stew Quintana [place], [place] 12-01-2019 14:11-0400 Respiratory Rate 18 /min Stew Quintana [place], [place] 05-02-2019 13:12-0500 Diastolic blood pressure 72 mm[Hg] Av Martinez MD Work Phone: [facility] Work Phone: 05-02-2019 13:12-0500 Heart rate 70 /min Av Martinez MD Work Phone: [facility] Work Phone: 05-02-2019 13:12-0500 Respiratory rate 18 /min Av Martinez MD Work Phone: [facility] Work Phone: 05-02-2019 13:12-0500 SaO2% (BldA) [Mass fraction] 99 % Av Martinez MD Work Phone: [employer] Work Phone: 05-02-2019 13:12-0500 Systolic blood pressure 139 mm[Hg] Av Martinez MD Work Phone: [facility] Work Phone: 05-02-2019 11:21-0500 Body height 162.6 cm Av Martinez MD Work Phone: [employer] Work Phone: 05-02-2019 11:21-0500 Body mass index (BMI) [Ratio] 39.82 kg/m2 Av Martinez MD Work Phone: [employer] Work Phone: 05-02-2019 11:21-0500 Body temperature 98.1 [degF] Av Martinez MD Work Phone: [employer] Work Phone: 05-02-2019 11:21-0500 Body weight 105.23 kg Av Martinez MD Work Phone: [employer] Work Phone: 02-07-2019 06:36-0400 BP Diastolic 74 mm[Hg] Willam Brainient [facility] , [place] 02-07-2019 06:36-0400 BP Systolic 127 mm[Hg] [facility] [place] 02-07-2019 06:36-0400 Pulse (Heart Rate) 52 /min Willam Art [facility], [place] 02-07-2019 06:36-0400 Pulse Oximetry 93 % [facility] [place] 02-07-2019 06:36-0400 Respiratory Rate 16 /min Willam [facility] [place] 02-07-2019 05:06-0400 BMI (Body Mass Index) 39.48 kg/m2 [facility], [place] 02-07-2019 05:06-0400 Body Temperature 97.59 [degF] Willam [facility] [place] 02-07-2019 05:06-0400 Body weight 104.33 kg Willam Art [facility] , [place] 02-07-2019 05:06-0400 Height 162.6 cm Willam Art [facility] , [place] 01-27-2019 20:17-0400 Pulse Oximetry 94 % Stew Quintana [facility] , [place] 01-27-2019 20:17-0400 Respiratory Rate 16 /min Stew Lopez [facility], [place] 01-27-2019 19:33-0400 BP Diastolic 56 mm[Hg] Stew Quintana [facility] , [place] 01-27-2019 19:33-0400 BP Systolic 124 mm[Hg] Stew Quintana [facility] , [place] 01-27-2019 19:31-0400 Pulse (Heart Rate) 59 /min Stew Quintana [facility], [place] 01-27-2019 17:44-0400 BMI (Body Mass Index) 41.71 kg/m2 Stew Lopez [facility], [place] 01-27-2019 17:44-0400 Body Temperature 98.4 [degF] Stew Quintana [facility], [place] 01-27-2019 17:44-0400 Body weight 110.22 kg Stew Quintana [facility] , [place] 01-27-2019 17:44-0400 Height 162.6 cm Stew Lopez [facility] , [place] 01-22-2019 11:26-0400 Body Temperature 98.2 [degF] Jose Lopez [facility], [place] 01-22-2019 11:26-0400 BP Diastolic 74 mm[Hg] Jose Lopez [facility] , [place] 01-22-2019 11:26-0400 BP Systolic 130 mm[Hg] Jose Roman [facility] , [place] 01-22-2019 11:26-0400 Pulse Oximetry 94 % Jose Lopez [facility] , [place] 01-22-2019 11:26-0400 Respiratory Rate 20 /min Jose Lopez [facility], [place] 01-22-2019 08:00-0400 Pulse (Heart Rate) 57 /min Jose Lopez [facility], [place] 01-21-2019 14:22-0400 BMI (Body Mass Index) 40.51 kg/m2 Jose Lopez [facility], [place] 01-21-2019 14:0400 Body weight 107.05 kg Jose Roman [facility] , [place] 01-21-2019 14:-0400 Height 162.6 cm Jose Lopez [facility] , [place] Encounters Encounter Date Encounter Type Care Provider Facility Start: 05-10-2023 Refill Ernestina rahman PA-C Work Phone: [facility] Start: 02-17-2023 ambulatory DEAN ASHTON [facility] Start: 02-10-2023 Telephone encounter Trev benjamin MD Work Phone: [facility] Procedures Date Procedure Procedure Detail Performing [...] encounter procedure 03/01/2023 10:20 AM EDT Appointment [facility] [address] [place] [address] [facility] Start: 02-25-2023 End: 02-25-2023 Admission to [facility] Cath/EP Lab Immunizations Immunization Date Immunization Notes Care Provider Aranza saqib 01-28-2022 influenza virus vaccine, unspecified formulation Nicole Henson RN [facility] 04-03-2019 influenza, high dose seasonal, preservative-free Nona Stein MD Work Phone: [facility] Work Phone: 03-02-2012 influenza virus vaccine, unspecified formulation Nona Stein MD Work Phone: [facility] Work Phone: Payers Date Payer Category Payer Medicare [id number] 2017 Medicare BCBS MEDICARE AN THEM MEDIBLUE ESSENTIAL/PLUS xxxxxxxxxxxx 2017-Present [address] [address] [place] [address] xxxxxxxxxxxx [id number] 2017 Medicare [id number] 1945 Unknown [id number] 1945 Unknown [id number] 1945 Unknown [id number] 1945 Unknown [id number] 1945 Unknown [id number] Unknown Social History Date Type Detail Facility Start: 06-11-2016 End: 01-22-2019 Tobacco smoking status NHIS [facility] Start: 01-22-2019 End: 02-09-2023 Alcohol intake Yes [facility] Start: 12-14-2016 Alcohol Comment occassionally Jessica [facility] SANCHEZ Start: 1945 Sex Assigned At Not on file M rachael [facility] SANCHE[facility] Start: 05-02-2019 End: 02-09-2023 Alcohol intake Current drinker of alcohol (finding) [employer] Phone: Exposure to SARS-CoV-2 (event) Unable to assess [facility] Start: 06-11-2016 End: 10-22-2020 Tobacco use and exposure Never used [facility] Start: 08-14-2022 End: 02-09-2023 Exposure to SARS-CoV-2 (event) Not sure [facility] Start: 08-06-2022 Alcohol Comment 1 time a month [facility] Start: 10-05-2022 End: 02-09-2023 History of Social function [facility] Clinical Notes 07-18-2020 to 02-22-2023 Telephone Encounter - Ernestina Potter PA-C - 02/22/2023 3:54 PM EDTTelephone Encounter - Ernestina Potter PA-C - 02/22/2023 3:54 PM SUDHAKAR Jackman - 02/09/2023 10:00 AM EDTAttachments Note Date & Type Note Facility 02-22-2023 Telephone encounter Note I called and spoke with the patient. She reports she underwent LHC at [place]. She states that she was told that there was no evidence of restenosis or need for additional PCI. She was subsequently advised medical therapy per the patient. She is already scheduled then to follow with brine tank operator, Dr. Luna in [place] as she was already planning on establishing with him after the LHC secondary to location as she and her now live in [place]. She was appreciative of the care she received in [place] and just wanted us to be updated. [facility] 02-22-2023 Miscellaneous Notes I called and spoke with the patient. She reports she underwent LHC at [place]. She states that she was told that there was no evidence of restenosis or need for additional PCI. She was subsequently advised medical therapy per the patient. She is already scheduled then to follow with brine tank operator, Dr. Luna in [place] as she was already planning on establishing with him after the LHC secondary to location as she and her now live in [place]. She was appreciative of the care she received in [place] and just wanted us to be updated. Patient's called and is cancelling CATH with Nils on 02/25, patient went to hospital sooner at [place] and had CATH there instead due to other issues patient had, spoke with Reyna in surgery scheduling and case cancelled Surg/ proc orders done You are scheduled for LHC with Dr Ashton on 02/25/23 at 9:00 am. Report to [facility], 1st Floor [facility] by 7:30am. You can park in the [address] De[address] or use [employer] parking (for a nominal fee of $6-7) and enter the hospital using the [address] across from the parking deck You will need a designated new car driver for the day of your procedure [...] into chart. Please call the office at [phone] if you have any questions. Reviewed allergies-No iodine allergy. Dx: CAD Procedure: [facility] Date/Time: 02/25/23 at 9am Surgeon: Nils Location: [facility] Admission: OUTPATIENT Per Ernestina, [facility] scheduled with Dr Ashton on 02-25-23 9 am. Patient had recent labs at [place] ER to be scanned in [place] will do teaching. documented in this encounter [facility] 02-22-2023 Telephone encounter Note Patient's called and is cancelling CATH with Nils on 02/25, patient went to hospital sooner at [place] and had CATH there instead due to other issues patient had, spoke with Reyna in surgery scheduling and case cancelled [facility] 02-10-2023 Telephone encounter Note I scheduled vascular ultrasound upper extremity 03-01-23 10:20 am [facility] Patient notified. [facility] 02-10-2023 Miscellaneous Notes I scheduled vascular ultrasound upper extremity 03-01-23 10:20 am [facility] Patient notified. documented in this encounter [facility] 02-09-2023 Note [facility] Cardiology Office Note DATE [...] and subsequently went to the ER in [place] 2 days ago. She states that she was diagnosed with a urinary tract infection for which she is currently on antibiotic therapy. She states she has not had diarrhea in the last 2 days. She states now that she and her are living in [place], she is planning on establishing with a primary care physician closer to home and a new brine tank operator in the area, Dr. Luna for which [...] to scalp o (more content not included)... [facility] 02-09-2023 Telephone encounter Note Surg/ proc orders done [facility] 02-09-2023 Miscellaneous Notes Surg/ proc orders done You are scheduled for [facility] with Dr Ashton on 02/25/23 at 9:00 am. Report to [facility], 1st [facility] by 7:30am. You can park in the [address] or use [employer] parking (for a nominal fee of $6-7) and enter the hospital using the [address] across from the parking deck You will need a designated new car driver for the day of your procedure [...] into chart. Please call the office at [phone] if you have any questions. Reviewed allergies-No iodine allergy. Dx: CAD Procedure: [facility] Date/Time: 02/25/23 at 9am Surgeon: Nils Location: [facility] Admission: OUTPATIENT Per Ernestina, [facility] scheduled with Dr Ashton on 02-25-23 9 am. Patient had recent labs at [facility] to be scanned in [employer] schultz do teaching. documented in this encounter [facility] 02-09-2023 Note Dx: CAD Procedure: [facility] Date/Time: 02/25/23 at 9am Surgeon: Nils Location: [facility] Admission: OUTPATIENT [facility] 02-09-2023 Telephone encounter Note You are scheduled for [facility] with Dr Ashton on 02/25/23 at 9:00 am. Report to [facility], 1st Floor [facility] by 7:30am. You can park in the [address] or use [employer] parking (for a nominal fee of $6-7) and enter the hospital using the [address] across from the parking deck You will need a designated new car driver for the day of your procedure [...] into chart. Please call the office at [phone] if you have any questions. Reviewed allergies-No iodine allergy. [facility] 02-09-2023 Telephone encounter Note Dx: CAD Procedure: [facility] Date/Time: 02/25/23 at 9am Surgeon: Nils Location: [facility] Admission: OUTPATIENT [facility] 02-09-2023 Telephone encounter Note Per Ernestina, [facility] scheduled with Dr Ashton on 02-25-23 9 am. Patient had recent labs at [facility] to be scanned in [place]. [facility] 02-09-2023 History of Present illness Narrative Images from the original note were not included. [facility] Cardiology Office Note [...] and subsequently went to the ER in [place] 2 days ago. She states that she was diagnosed with a urinary tract infection for which she is currently on antibiotic therapy. She states she has not had diarrhea in the last 2 days. She states now that she and her are living in [place], she is planning on establishing with a primary care physician closer to home and a new brine tank operator in the area, Dr. Luna for which [...] results found for: CHOLHDLRATIO Laboratory data from [facility] 02/05/2023 shows white blood cell 5.4, hemoglobin [...] or percutaneous valve procedure (select one): [facility] Frailty Score :4 Cardiac Tests: ECG: EKG in the office shows sinus rhythm with old anterior NE and T wave abnormality with a heart [...] despite dual antianginal therapy she was advised [facility] for further assessment. The risks and benefits were discussed with the patient. She is agreeable to proceed. The patient would like to have the procedure done with Dr. Ashton as he previously performed her PCI in 2017. Recent BMP and CBC from [facility] 02/05/2023 will order stable and therefore she [...] patient ultimately plans on establishing with local brine tank operator, Dr. Luna, in [place] due to location as she and her now live in [place] but has requested to undergo her current recommended cardiac testing/invasive cardiac evaluation in [place] prior to establishing in [place]. documented in this encounter [facility] 02-09-2023 Instructions Ernestina Potter PA-C - 02/09/2023 10:00 AM EDT -the carvedilol should be 1/2 pill in the morning and 1/2 pill at night -check blood pressure in right arm -bring home blood pressure monitor to next appointment -heart cath soon -test on arteries in your upper extremities soon documented in this encounter [facility] 01-07-2023 History of Present illness Narrative [facility] Cardiology Office Note [...] had rectal bleeding and was [facility] [facility] She states she had an EGD performed and 2 areas were cauterized. She believes they may have changed her stomach pill although she is not sure. Records are unavailable at the time of dictation. She also states she had a follow-up blood test done with her primary care physician. 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 She is currently on PPI therapy-pending review of records may increase dosage of PPI therapy. In the absence of further cardiac complaints, the patient is to return for cardiac reassessment in 3-4 weeks. documented in this encounter [facility] 01-07-2023 Instructions Ernestina Potter PA-C - 01/07/2023 8:30 AM EDT -stop the amlodipine -start Imdur (isosorbide) 30 mg- 1 pill each morning -increase water intake -appointment in 4 weeks documented in this encounter [facility] 01-04-2023 Telephone encounter Note You can add on to my schedule at 8:30 on . Mehdi Bacon [facility] 01-04-2023 Miscellaneous Notes You can [...] triage. Please call Familia on his cell [phone] documented in this encounter [facility] 01-04-2023 Telephone encounter Note Spoke [...] ER. Pt and pt's spouse verbalized understanding. [facility] 01-04-2023 Telephone encounter Note Patient's [...] triage. Please call Familia on his cell [phone] [facility] 11-16-2022 Telephone encounter Note S: Patient's spoke with [facility] nurse regarding making an appt for his . B: Onset of symptoms/concern N/A A: Pt calling requesting to schedule an appt for his on Monday 11/20. Declined sharing reason for appt; just states there are some things we want to discuss with her doctor. No acute symptoms. R: Unable to schedule with [facility] office per practice page (only acute visits). Offered to send message, but pt's states he will back back tomorrow morning. No further needs at this time. [facility] 11-16-2022 Miscellaneous Notes S: Patient's spoke with [facility] nurse regarding making an appt for his . B: Onset of symptoms/concern N/A A: Pt calling requesting to schedule an appt for his on Monday 11/20. Declined sharing reason for appt; just states there are some things we want to discuss with her doctor. No acute symptoms. R: Unable to schedule with [facility] office per practice page (only acute visits). Offered to send message, but pt's states he will back back tomorrow morning. No further needs at this time. documented in this encounter [facility] 10-05-2022 History of Present illness [...] MD Vascular Surgery documented in this encounter [facility] 09-23-2022 Note Discharge Summary Cynthia [...] Your Medications These medications were sent to [facility] [address] [place] [address], [facility] [address] Hours: Wednesday to Wednesday 10 am to 6 pm ondansetron 4 MG tablet oxyCODONE-acetaminophen 5-325 MG tablet DIET: Adult diet Regular ACTIVITY: No heavy lifting. COMPLEXITY OF FOLLOW UP: [x] Moderate Complexity: follow up within 7-14 calendar days (09332) [] Severe Complexity: follow up within 7 calendar days (68265) FOLLOW UP TESTING, PENDING RESULTS OR REFERRALS AT TRANSITIONAL CARE VISIT: [] Yes [x] No PENDING STUDIES: None DISPOSITION: Home FACILITY/HOME CARE AGENCY NAME: Follow up with Rowan Chavez MD [address] [place] [address] [phone] Schedule an appointment as soon as possible [...] SIGNED: Petey Renteria MD 09/23/2022, 12:51 PM [facility] 09-23-2022 Hospital course Narrative Discharge Summary Cynthia [...] Your Medications These medications were sent to [facility] [address] [place] [address] Hours: Wednesday to Wednesday 10 am to 6 pm ondansetron 4 MG tablet oxyCODONE-acetaminophen 5-325 MG tablet DIET: Adult diet Regular ACTIVITY: No heavy lifting. COMPLEXITY OF FOLLOW UP: [x] Moderate Complexity: follow up within 7-14 calendar days (97022) [] Severe Complexity: follow up within 7 calendar days (06811) FOLLOW UP TESTING, PENDING RESULTS OR REFERRALS AT TRANSITIONAL CARE VISIT: [] Yes [x] No PENDING STUDIES: None DISPOSITION: Home FACILITY/HOME CARE AGENCY NAME: MARY JO Follow up with Rowan Chavez MD [address] [address] Schedule an appointment as soon as possible [...] 09/23/2022, 12:51 PM documented in this encounter [facility] 09-23-2022 Nurse Note 1105 pt IV access removed, discharge instructions and stroke booklet given, pt states she does not have any questions at this time. All belonging with patient, meds to beds delivered from pharmacy. 1220 pt assisted off unit in wheelchair, no questions at time of discharge. [facility] 09-23-2022 Nurse Note 1105 pt [...] line for BP. documented in this encounter [facility] 09-23-2022 Hospital Discharge instructions Annabelle [...] and the need for follow-up with a physician/CABLE SPLICER HELPER/PA after discharge. Annabelle Drummond RN on 09/23/22 [...] through Care Everywhere.Carotid Artery Endarterectomy Discharge Instructions (Emirati)documented in this encounter [facility] 09-23-2022 History of Present illness [...] to monitor neck documented in this encounter [facility] 09-22-2022 Note Problem: Knowledge D eficit Goal: Patient/family/caregiver demonstrates understanding of disease process, treatment plan, medications, and discharge instructions Outcome: Progressing [facility] 09-22-2022 Plan of care note Problem: Knowledge Deficit Goal: Patient/family/caregiver demonstrates understanding of disease process, treatment plan, medications, and discharge instructions Outcome: Progressing [facility] 09-22-2022 Miscellaneous Notes Problem: Knowledge [...] carotid artery [I65.22] Procedures LEFT CAROTID ENDARTERECTOMY 57339 - [place] TEAEC W/PATCH GRF CAROTID VERTB SUBCLAV NECK [...] Serial No. Shunt SHUNT CAROTID 14-9F - [id number] Used, Not Implanted Staff: Film Color Tester: Lindsey Faustin RN Scrub Person: Vania Kwok [...] PRE-PROCEDURE ROUNDING COMPLETE. documented in this encounter [facility] 09-22-2022 Nurse Note 1325 Nurse from PACU came to assist in assessing pt neck, states that it is more swollen then when pt was in PACU. Ice applied to incision site, hob elevated Pt given PRN hydralazine for bp 173/73 Dr Orellana notified via secure chat. Dr Orellana at bedside, states okay to follow arterial line for BP. [facility] 09-22-2022 Note Patient: Cynthia martini Procedure Summary Date: 09/22/22 Room / Location: [facility] Operating Room Anesthesia Start: 736 Anesthesia Stop: [...] once all PACU criteria has been met. [facility] 09-22-2022 Note Patient: Cynthia martini Procedure Summary Date: 09/22/22 Room / Location: [facility] Operating Room Anesthesia Start: 736 Anesthesia Stop: [...] opportunity for questions and acknowledgement of understanding. [facility] 09-22-2022 Note Formatting of this n ote might be different from the original. Family updated via phone call [facility] 09-22-2022 Note Formatting of this n ote might be different from the original. Family updated via phone call [facility] 09-22-2022 Note Airway Date/Time: 09/22/2022 7:45 AM Urgency: scheduled Airway not difficult General Information and Staff Patient location during procedure: Procedural Anesthesiologist: Kurtis Bolivar MD Resident/SENIOR PRICING ANALYST: Sona Rogers APRN - SENIOR PRICING ANALYST Performed: anesthesiologist Indications and Patient Condition Indications [...] 21 Number of attempts at approach: 1 [facility] 09-22-2022 Note H&P reviewed. The pa tient [...] arms and legs yes Normal Speech yes [facility] 09-22-2022 Note OPERATIVE REPORT DATE OF SERVICE: [...] was used to (more content not included)... [facility] 09-22-2022 Note PRE-PROCEDURE ROUNDING COMPLETE. [facility] 09-22-2022 Attending History and physical note H&P [...] Procedure: LEFT CAROTID ENDARTERECTOMY (Left: Neck) Location: [facility] Operating Room Surgeons: Rowan Chavez MD [...] Screen and Sleep Clinic Referral (if appropriate) [facility] Phone: 09-22-2022 History and physical note H&P [...] Procedure: LEFT CAROTID ENDARTERECTOMY (Left: Neck) Location: [facility] Operating Room Surgeons: Rowan Chavez MD Chief [...] Referral (if appropriate) documented in this encounter [facility] 09-22-2022 Note Formatting of this [...] the case. Rowan Chavez MD Vascular Surgery [facility] 09-22-2022 Note Formatting of this n ote is different from the original. Date: 09/22/2022 Location: [facility] Name: Cynthia Robertson, : 1945, Diagnosis Pre-op Diagnosis * Occlusion and stenosis of left carotid artery [I65.22] Post-op Diagnosis * Occlusion and stenosis of left carotid artery [I65.22] Procedures LEFT CAROTID ENDARTERECTOMY 89359 - [place] TEAEC W/PATCH GRF CAROTID VERTB SUBCLAV NECK INC Surgeons * Rowan Chavez - Primary Petey Renteria, PGY-5 (Assisting) Procedure Summary Anesthesia: General ASA: III Estimated Blood Loss: 150 mL Drains: * None in log * Specimens ID Source Type Tests Collected By Collected At [facility]? Priority Lab ID 1 Neck Other TISSUE EXAM Rowan Chavez MD 09/22/22 0918 No Routine Description: LEFT CAROTID PLAQUE Implants Type Name Action Serial No. Shunt SHUNT CAROTID 14-9F - [id number] Used, Not Implanted Staff: Film Color Tester: Lindsey Faustin RN Scrub Person: Vania Kwok [...] (two hours if receiving Vancomycin or flouroquinolone) [facility] 09-22-2022 Note Formatting of this [...] the case. Rowan Chavez MD Vascular Surgery [facility] 09-22-2022 Note Formatting of this n ote is different from the original. Date: 09/22/2022 Location: [facility] OR Name: Cynthia Robertson, : 1945, Diagnosis Pre-op Diagnosis * Occlusion and stenosis of left carotid artery [I65.22] Post-op Diagnosis * Occlusion and stenosis of left carotid artery [I65.22] Procedures LEFT CAROTID ENDARTERECTOMY 97377 - [place] TEAEC W/PATCH GRF CAROTID VERTB SUBCLAV NECK [...] Serial No. Shunt SHUNT CAROTID 14-9F - [id number] Used, Not Implanted Staff: Film Color Tester: Lindsey Faustin RN Scrub Person: Vania Kwok [...] hours if receiving Vancomycin or flouroquinolone) [facility] 09-22-2022 Note Formatting of this n ote might be different from the original. PRE-PROCEDURE ROUNDING COMPLETE. [facility] 09-22-2022 Note Formatting of this n ote might be different from the original. PRE-PROCEDURE ROUNDING COMPLETE. [facility] 09-11-2022 Note Patient: Cynthia martini Procedure Information Date/Time: 09/22/22729 Procedure: LEFT CAROTID ENDARTERECTOMY (Left: Neck) Location: [facility] Operating Room Surgeons: Rowan Chavez MD Past [...] Trev Huff MD on 08/17/2022 4:42 PM [facility] 09-11-2022 Note Comprehensive PreSur gical History and Physical ? Name: Cynthia Robertson : 1945 (Age-77 y.o.) Date of Service: Pt seen/examined on 09/11/2022 Procedure Information Date/Time: 09/22/22729 Procedure: LEFT CAROTID ENDARTERECTOMY (Left: Neck) Location: [facility] Operating Room Surgeons: Rowan Chavez MD [...] and dry. Neur (more content not included)... [facility] 09-11-2022 Note Comprehensive PreSur gical History and Physical ? Name: Cynthia Robertson : 1945 (Age-77 y.o.) Date of Service: Pt seen/examined on 09/11/2022 Procedure Information Date/Time: 09/22/22 6927 Procedure: LEFT CAROTID ENDARTERECTOMY (Left: Neck) Location: [facility] Operating Room Surgeons: Rowan Chavez MD [...] and dry. Neur (more content not included)... [facility] 09-04-2022 Telephone encounter Note I faxed this encounter to fax number provided. [facility] 09-04-2022 Miscellaneous Notes I faxed this encounter to fax number provided. I faxed letter to [facility] [phone] Recent stress test showed no evidence of ischemia. No cardiac contraindication for patient to proceed with the proposed carotid surgery. Ok to hold Eliquis therapy 2 days prior and continue plavix therapy. Thanks, Ernestina Potter PA-C Received a fax from [facility] for clearance/optimization for left carotid endarterectomy by Dr Rowan Chavez. Patient will hold 2 doses of Eliquis for surgery and will continue Plavix. I generated a letter to Dr Huff documented in this encounter [facility] 09-03-2022 Telephone encounter Note I faxed letter to [facility] [phone] [facility] 09-03-2022 Telephone encounter Note Recent stress test showed no evidence of ischemia. No cardiac contraindication for patient to proceed with the proposed carotid surgery. Ok to hold Eliquis therapy 2 days prior and continue plavix therapy. Thanks, Ernestina Potter PA-C [facility] 04-13-2023 Telephone encounter Note Received a fax from [facility] for clearance/optimization for left carotid endarterectomy by Dr Rowan Chavez. Patient will hold 2 doses of Eliquis for surgery and will continue Plavix. [phone] I generated a letter to Dr Huff [facility] 09-02-2022 Note Vascular Surgery Out [...] MCV 88.0 07/22 (more content not included)... [facility] 09-02-2022 History of Present illness Narrative Vascular [...] MD Vascular Surgery documented in this encounter [facility] 08-25-2022 Telephone encounter Note Pt informed. [facility] 08-25-2022 Miscellaneous Notes Pt informed. [...] within 1 week. documented in this encounter [facility] 08-25-2022 Telephone encounter Note Please let her know that is fine that she is scheduled with [address] Valerio's partners. ThanksErnestina [facility] 08-25-2022 Telephone encounter Note Patient called asking to talk to Ernestina. She was referred to Dr Valerio and he is not available, so she was schedule with another provider in their office. She is asking if this is ok? [facility] 08-24-2022 Telephone encounter Note I [...] not hear from them within 1 week. [facility] 08-24-2022 Miscellaneous Notes I called [...] within 1 week. documented in this encounter [facility] 08-24-2022 Miscellaneous Notes Spoke with patient and gave instructions for nuclear stress test. documented in this encounter [facility] 08-24-2022 Note Formatting of this n ote might be different from the original. Spoke with patient and gave instructions for nuclear stress test. [facility] 07-18-2020 Note HNO ID: [id number] Author: Carissa Dallas Service: ? Author Type: [...] patient was offered a surgery/procedure at a [facility] facility. The surgeon/proceduralist and patient have [...] PAST MEDICAL HISTORY Diagnosis Date - Acute NE (HCC) 1996 mild per pt - Diaphragmatic [...] HX x2 - COLONOSCOP W/ OR W/O [facility] SPEC 15 to 20 years ago Colonoscopy - COLONOSCOP W/ OR W/O [facility] SPEC 05/26/2011 Colonoscopy - DANDC, DIAG AND/OR [...] (Patient not taking: (more content not included)... [facility] 07-18-2020 Note HNO ID: [id number] Author: Ainsley German LPN Service: ? Author [...] of dysuria, frequency or incontinence. ENDOCRINE: None ORE TESTER:Denies any concerns ORE TESTER: Age of first period: 17 Number of pregnancies: 5 Number of live births: 3 Your age at of first child: 21 Your age at start of menopause: Hysterectomy Taking hormone replacement: No Family History of Cancer: None MUSCULOSKELETAL: Positive for:, back pain NEUROLOGIC:Negative for focal numbness or weakness, headaches and dizziness or syncope. HEMATOLOGIC/LYMPHATIC/IMMUNOLOGIC: Positive for: and Bleeding or bruising tendancy [facility] documented in this encounter [facility] Work Phone: Evaluation note* Diagnosis Carotid stenosis, left- Primary Occlusion and stenosis of carotid artery without mention of cerebral infarction [facility] Diagnosis Bilateral carotid artery stenosis Occlusion and stenosis of carotid artery without mention of cerebral infarction [facility]* Diagnosis 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) Abnormal EKG Nonspecific abnormal electrocardiogram (ECG) (EKG) documented in this encounter [facility]* Diagnosis Carotid stenosis, left Occlusion and stenosis of carotid artery without mention of cerebral infarction documented in this encounter [facility]* Diagnosis Stenosis of left carotid artery- Primary Occlusion and stenosis of carotid artery without mention of cerebral infarction Occlusion and stenosis of left carotid artery documented in this encounter [facility]* Diagnosis Stenosis of left carotid artery- Primary Occlusion and stenosis of carotid artery without mention of cerebral infarction Stenosis of left carotid artery Occlusion and stenosis of carotid artery without mention of cerebral infarction Occlusion and stenosis of left carotid artery documented in this encounter [facility]* Diagnosis Carotid stenosis, left- Primary Occlusion and stenosis of carotid artery without mention of cerebral infarction S/P carotid endarterectomy Other postprocedural status documented in this encounter [facility]* Diagnosis Carotid stenosis, left Occlusion and stenosis of carotid artery without mention of cerebral infarction S/P carotid endarterectomy Other postprocedural status documented in this encounter [facility]* Diagnosis 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)- Primary Orthostatic hypotension Mixed hyperlipidemia H/O: upper GI bleed Personal history of other diseases of digestive disease documented in this encounter [facility]* Diagnosis 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)- Primary Abnormal EKG Nonspecific abnormal electrocardiogram (ECG) (EKG) Unequal blood pressure in upper extremities PVD (peripheral vascular disease) (HCC) Unspecified peripheral vascular disease Essential hypertension, benign 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) Abnormal EKG Nonspecific abnormal electrocardiogram (ECG) (EKG) 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) Abnormal EKG Nonspecific abnormal electrocardiogram (ECG) (EKG) documented in this encounter [facility] Discharge instructions* Instructions* Isabel Marshall RN - [...] TO NEAREST EMERGENCY DEPARTMENT [facility] Work [facility]: Reason for referral (narrative)* Consultation (Routine) - Pending Review Specialty Diagnoses / Procedures Referred By Erick saul Referred To Contact Vascular Surgery Diagnoses Carotid stenosis, left Procedures [place] OFFICE/OUTPATIENT [facility] 60-74 MINUTES Ernestina Potter PAWallace [address] [place] [address] Delio Valerio MD [address] [facility] [place] [address] Referral ID Status Reason Start Date Expiration Date Visits Requested Visits Authorized [id number] Pending Review Specialty Services Required 08/24/2022 08/24/2023 1 1 [facility] Summary Purpose Family History No Family History Records FoundNo Family History Records FoundNo Family History Records FoundNo Family History Records FoundNo Family History Records FoundNo Family History Records FoundNo Family History Records Found Advance Directives Documents on File Type Date Recorded 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 Expl 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 Advance Directives and Living Will Power of Cork Cutter Latest Code Status on File Code Status [...] Documents on File Type Date Recorded 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 * Otitis Media (Emirati) documented in this encounter* Instructions* Rangel Hooks PA-C - 02/07/2019 Please follow-up with your primary physician Dr. Quintana in the next 2-3 days to be reevaluated. If you have any significant new or worsening of symptoms please contact your doctor or return to the ED if necessary. * Attachments The following attachments cannot be sent through Care Everywhere. * Vertigo: Exercises (Emirati) documented in this encounter* Attachments The following attachments cannot be sent through Care Everywhere. * Knee Sprain (Emirati) * Ankle Sprain (Emirati) * RICE: General Info (Emirati) documented in this encounter* Discharge Instr - [...] Information Primary Emergency Contact: Familia Robertson [address]: [address] [place] [address] Relation: Spouse Secondary Emergency Contact: Murali Lawler [facility] Relation: Child Past Surgical History: Past Surgical [...] Active Problem List Diagnosis Code Acute left INTRANET SPECIALIST stroke (HCC) I63.532 Hypertension I10 Hyperlipidemia E78.5 Sleep apnea G47.30 Obesity (BMI 35.0-39.9 without comorbidity) E66.9 Other localized visual field defect, right eye H53.451 Enlarged LA (left atrium) I51.7 Gastritis K29.70 Homonymous bilateral field defects, 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 H/O bilateral cataract extraction Z98.41, Z98.42 NSTEMI (non-ST elevated myocardial infarction) ([facility]) I21.4 Hyperglycemia R73.9 QT prolongation [...] MENTAL STATUS:} IV Access: { SLICK IV ACCESS:399406909} Nursing Mobility/ADLs: Walking {CHP DME ADLs:987114548} Transfer {CHP DME ADLs:132366414} Bathing {CHP DME ADLs:812704200} Dressing {CHP DME ADLs:324001043} Toileting {CHP DME ADLs:235237714} Feeding {CHP DME ADLs:241984986} Acid Correction Hand {CHP DME ADLs:644530761} Med Delivery { SLICK MED Delivery:686116911} Wound Care Documentation and Therapy: Puncture 12/18/16 Wrist Right (Active) Number of days: 765 Elimination: Continence: Bowel: {YES / NO:} Bladder: {YES / NO:} Urinary Catheter: {Urinary Catheter:078046338} Colostomy/Ileostomy/Ileal Conduit: {YES / NO:} Date of Last BM: Intake/Output Summary (Last 24 hours) at 01/22/2019 1552 Last data filed at 01/21/2019 2334 Gross per 24 hour Intake 100 ml Output Net 100 ml I/O last 3 completed shifts: In: 100 [P.O.:100] Out: - Safety Concerns: { SLICK Safety Concerns:718165146} Impairments/Disabilities: { SLICK Impairments/Disabilities:098283857} Nutrition Therapy: Current Nutrition Therapy: { SLICK Diet List:311587504} Routes of Feeding: {[facility] DME Other Feedings:791417056} Liquids: {Zoning Administrator liquid thickness:78452} Daily Fluid Restriction: {[facility]P DME Yes amt example:760708206} Last Modified Barium Swallow with Video (Video Swallowing Test): {Done Not Done Date:} Treatments at the Time of Hospital Discharge: Respiratory Treatments: Oxygen Therapy: {Therapy; copd oxygen:59056} Ventilator: {[facility] Vent List:271141229} Rehab Therapies: {THERAPEUTIC INTERVENTION:5184476732} Weight Bearing Status/Restrictions: {[facility] Weight Bearin} Other Medical Equipment (for information only, NOT a DME order): {EQUIPMENT:867463505} Other Treatments: Patient's personal belongings (please select all that are sent with patient): {[facility] DME Belongings:115929070} RN SIGNATURE: {Esignature:727696183} CASE MANAGEMENT/SOCIAL WORK SECTION Inpatient Status Date: Readmission Risk Assessment Score: Readmission Risk Risk of Unplanned Readmission: 11 Discharging to Facility/ Agency Name: Address: Phone: Fax: Dialysis Facility (if applicable) Name: Address: Dialysis Schedule: Phone: Fax: Tmh Teacher/Decorative Engraver signature: {Esignature:001425796} PHYSICIAN SECTION Prognosis: Good Condition at Discharge: [...] and the need for follow-up with a physician/CABLE SPLICER HELPER/PA after discharge. Discussed the patient s personal [...] DISCHARGE MEDICATIONS: Cynthia Robertson Home Medication Instructions PAMELA:[id number] Printed on:01/22/19 6392 Medication Information acetaminophen (TYLENOL) 500 MG tablet [...] Complexity: follow up within 7-14 calendar days (93640) [] Severe Complexity: follow up within 7 calendar days (38868) FOLLOW UP TESTING, PENDING RESULTS OR REFERRALS AT TRANSITIONAL CARE VISIT: [] Yes [] No PENDING STUDIES: No DISPOSITION: Outpatient Therapy FACILITY/HOME CARE AGENCY NAME: Follow up with Stew Quintana DO [address] [facility] [id number] in 3 days. INSTRUCTIONS TO MA/SW: [...] 01/22/2019 11:57 AM EDT Physical Therapy Facility/Department: [facility] Initial Assessment NAME: Cynthia Robertson : [...] 0-100% Score: 0 (01/22/19 1148) Mobility Inpatient [facility] G-Code Modifier : CH (01/22/19 1148) Goals Therapy Time Individual Concurrent Group Co-treatment Time In 1130 Time Out 1143 Minutes 13 Flo Dial PT * Vaishali Winston MD - 01/22/2019 9:44 AM EDT Hospitalist Progress Note 01/22/2019 4:01 PM [phone]: Please page me for patient care issues. [phone]: Please page IMS night Hospitalist for any [...] of Hospitalist Medicine Inpatient Medical Services PAGER: [phone] * Luz Castorena, FEDERAL AGENT - 01/22/2019 8:03 AM EDT Speech Language Pathology Patient passed the Nursing Swallowing Screening and is on a Cardiac diet. Completed speech orders as per stroke protocol. Luz Castorena MA, CCC-FEDERAL AGENT 01/22/19 documented in this encounter Reason for Referral Status Reason Specialty Diagnoses / Procedures Re ferred By Contact Referred To Contact Closed Radiology Diagnoses H/O non-ST elevation myocardial infarction (NSTEMI) Hyperlipidemia, unspecified hyperlipidemia type CAD in grand traverse artery Chest wall symptom Procedures NM Myocardial Spect Rest Exercise or Rx Nona Stein MD [address] [place] [address] [address] [place] [address] Specialty Diagnoses / Procedures Referred By Erick saul Referred To Contact Cardiology Diagnoses Bilateral carotid artery stenosis Procedures Vascular US carotid artery duplex bilateral Ernestina Potter PA-C [address] [place] [address] Referral ID Status Reason Start Date Expiration Date V isits Requested Visits Authorized [id number] Closed Perform Procedure 08/11/2022 11/08/2022 1 1 Specialty Diagnoses / Procedures Referred By Contac t Referred To Contact Cardiology Diagnoses 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) Abnormal EKG Procedures Nuclear REGADENOSON stress test with myocardial perfusion Ernestina Potter PA-C [address] [place] [address] Referral ID Status Reason Start Date Expiration Date Visits Re quested Visits Authorized [id number] Closed 08/11/2022 11/08/2022 1 1 Specialty Diagnoses / Procedures Referred By Contac t Referred To Contact Cardiology Diagnoses Carotid stenosis, left S/P carotid endarterectomy Procedures Vascular US carotid artery duplex bilateral Rowan Chavez MD [address] [place] [address] Referral ID Status Reason Start Date Expiration Date Visits Requested Visits Authorized [id number] Pending Review Perform Procedure 10/05/2022 04/03/2023 1 1 Referral ID Status Reason Start Date Expiration Date Visits Requested Visits Authorized [id number] Pending Review Perform Procedure 10/05/2022 04/03/2023 1 1 Referral ID Status Reason Start Date Expiration Date V isits Requested Visits Authorized [id number] Closed Perform Procedure 10/05/2022 04/03/2023 1 1 Specialty Diagnoses / Procedures Referred By Contac t Referred To Contact Cardiology Diagnoses PVD (peripheral vascular disease) (HCC) Unequal blood pressure in upper extremities Procedures Vascular US upper extremity arterial PVR Ernestina Potter PA-C [address] [place] [address] Referral ID Status Reason Start Date Expiration Date V isits Requested Visits Authorized [id number] Pending Review 02/09/2023 08/08/2023 1 1 Additional Source Comments INFORMATION SOURCE (unrecogn ized section and content) DATE CREATED AUTHOR AUTHOR'S ORGANIZ ATION 09/03/2018 [facility] DATE CREATED AUTHOR AUTHOR'S ORGANIZ ATION 08/06/2020 [facility] DATE CREATED AUTHOR AUTHOR'S ORGANIZ ATION 10/23/2020 [facility] DATE CREATED AUTHOR AUTHOR'S ORGANIZ ATION [facility]/20/20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) Abnormal EKG Procedures Nuclear REGADENOSON stress test with myocardial perfusion Ernestina Potter PA-C [address] [place] [address] Referral ID Status Reason Start Date Expiration Date Visits Re quested Visits Authorized [id number] Closed 08/11/2022 11/08/2022 1 1 Reason Comments New Patient Ernestina Tariq PA/ [place] carotid stenosis/CU 08/24/22 Specialty Diagnoses / Procedures Referred By Contac t Referred To Contact Vascular Surgery Diagnoses Carotid stenosis, left Procedures NH OFFICE/OUTPATIENT NEW HIGH MDM 60-74 MINUTES Ernestina Potter PA-C [address] [place] [address] Delio Valerio MD [address] [place] [address], [address] [place] [address] Referral ID Status Reason Start Date Expiration Date V isits Requested Visits Authorized [id number] Closed Specialty Services Required 08/24/2022 08/24/2023 1 1 Reason Onset Date Comments Cardiac Clearance 09/03/2022 Specialty Diagnoses / Procedures Referred By Ercik saul Referred To Contact Diagnoses Occlusion and stenosis of left carotid artery Occlusion and stenosis of left carotid artery [I65.22] Procedures NH TEAEC W/PATCH GRF CAROTID VERTB SUBCLAV NECK INC LEFT CAROTID ENDARTERECTOMY Rowan Chavez MD [address] [place] [address] [address] [place] [address] Referral ID Status Reason Start Date Expiration Date Visits Re quested Visits Authorized [id number] 1 1 Reason Comments Post-op 1ST PO LEFT CAROTID ENDARTERECTOMY 09/22/2022 Specialty Diagnoses / Procedures Referred By Eirck saul Referred To Contact Cardiology Diagnoses Carotid stenosis, left S/P carotid endarterectomy Procedures Vascular US carotid artery duplex bilateral Rowan Chavez MD [address] [place] [address] Referral ID Status Reason Start Date Expiration Date V isits Requested Visits Authorized [id number] Closed Perform Procedure 10/05/2022 04/03/2023 1 1 Reason Onset Date Comments schedule appt 11/16/2022 Reason Comments Chest Pain Reason Comments Follow-up Reason Onset Date Comments OTHER 02/10/2023 Reason Onset Date Comments OTHER 02/09/2023 CATH schedule Reason Onset Date Comments OTHER 01/04/2023 Reason Comments Med Refill Care Teams (unrecognized sec tion and content) 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 Relationship Specialty Start Date End Date Stew Quintana, DO [address] [facility] [address] [place] [address] PCP - General 06/02/16 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 Relationship Specialty Start Date End Date Stew Quintana, DO [address] [facility] [address] [place] [address] PCP - General 06/02/16 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 Relationship Specialty Start Date End Date Stew Quintana, DO [address] [facility] [address] [place] [address] PCP - General 06/02/16 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 Relationship Specialty Start Date End Date Stew Quintana, DO [address] [facility] [address] [place] [address] PCP - General 06/02/16 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 Relationship Specialty Start Date End Date Stew Quintana, DO [address] [facility] [address] [place] [address] PCP - General 06/02/16 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 Relationship Specialty Start Date End Date Stew Quintana, DO [address] [facility] [address] [place] [address] PCP - General 06/02/16 Ernestina Potter PA-C [address] [facility] [address] [place] [address] Physician Supervisor Coffee Physician Supervisor Coffee 08/28/22 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 Relationship Specialty Start Date End Date Stew Quintana, DO [address] [facility] [address] [place] [address] PCP - General 06/02/16 Ernestina Potter PA-C [address] [facility] [address] [place] [address] Physician Supervisor Coffee Physician Supervisor Coffee 08/28/22 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 Relationship Specialty Start Date End Date Stew Quintana, DO [address] [facility] [address] [place] [address] PCP - General 06/02/16 Ernestina Potter PA-C [address] [facility] [address] [place] [address] Physician Supervisor Coffee Physician Supervisor Coffee 08/28/22 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 Relationship Specialty Start Date End Date Stew Quintana, DO [address] [place] [address] PCP - General 06/02/16 Ernestina Potter PA-C [address] [facility] [address] [place] [address] Physician Supervisor Coffee Physician Supervisor Coffee 08/28/22 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 Relationship Specialty Start Date End Date Stew Quintana DO [address] [place] [address] PCP - General 06/02/16 Ernestina Potter PA-C [address] [facility] [address] [place] [address] Physician Supervisor Coffee Physician Supervisor Coffee 08/28/22 Rowan Chavez MD [address] [facility] [address] [place] [address] Consulting Physician Vascular Surgery 10/05/22 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 Relationship Specialty Start Date End Date Stew Quintana DO [address] [facility] [address] [place] [address] PCP - General 06/02/16 Ernestina Potter PA-C [address] [facility] [address] [place] [address] Physician Supervisor Coffee Physician Supervisor Coffee 08/28/22 Rowan Chavez MD [address] [facility] [address] [place] [address] Consulting Physician Vascular Surgery 10/05/22 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 Relationship Specialty Start Date End Date Stew Quintana DO [address] [place] [address] PCP - General 06/02/16 Ernestina Potter PA-C [address] [facility] [address] [place] [address] Physician Supervisor Coffee Physician Supervisor Coffee 08/28/22 Rowan hCavez MD [address] [facility] [address] [place] [address] Consulting Physician Vascular Surgery 10/05/22 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 Relationship Specialty Start Date End Date Stew Quintana DO [address] [place] [address] PCP - General 06/02/16 Ernestina Potter PA-C [address] [place] [address] [place] [address] Physician Supervisor Coffee Physician Supervisor Coffee 08/28/22 Rowan Chavez MD [address] [facility] [address] [place] [address] Consulting Physician Vascular Surgery 10/05/22 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 Relationship Specialty Start Date End Date Stew Quintana DO [address] [facility] [address] [place] [address] PCP - General 06/02/16 Ernestina Potter PA-C [address] [place] [address] [address] [place] [address] Physician Supervisor Coffee Physician Supervisor Coffee 08/28/22 Rowan Chavez MD [address] [facility] [address] [place] [address] Consulting Physician Vascular Surgery 10/05/22 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 Relationship Specialty Start Date End Date Stew Quintana DO [address] [facility] [address] [place] [address] PCP - General 06/02/16 Ernestina Potter PA-C [address] [place] [address] Physician Supervisor Coffee Physician Supervisor Coffee 08/28/22 Rowan Chavez MD [address] [place] [address] Consulting Physician Vascular Surgery 10/05/22 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 Relationship Specialty Start Date End Date Stew Quintana DO [address] [place] [address] PCP - General 06/02/16 Ernestina Potter PA-C [address] [facility] [address] [place] [address] Physician Supervisor Coffee Physician Supervisor Coffee 08/28/22 Rowan Chavez MD [address] [place] [address] Consulting Physician Vascular Surgery 10/05/22 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 Relationship Specialty Start Date End Date Stew Quintana DO [address] [place] [address] PCP - General 06/02/16 Ernestina Potter PA-C [address] [place] [address] Physician Supervisor Coffee Physician Supervisor Coffee 08/28/22 Rowan Chavez MD [address] [place] [address] Consulting Physician Vascular Surgery 10/05/22 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 Relationship Specialty Start Date End Date Stew Quintana DO [address] [place] [address] PCP - General 06/02/16 Ernestina Potter PA-C [address] [facility] [address] [place] [address] Physician Supervisor Coffee Physician Supervisor Coffee 08/28/22 Rowan Chavez MD [address] [facility] [address] [place] [address] Consulting Physician Vascular Surgery 10/05/22 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 Relationship Specialty Start Date End Date Stew Quintana DO [address] [place] [address] PCP - General 06/02/16 Ernestina Potter PA-C [address] [facility] [address] [place] [address] Physician Supervisor Coffee Physician Supervisor Coffee 08/28/22 Rowan Chavez MD [address] [facility] [address] [place] [address] Consulting Physician Vascular Surgery 10/05/22 Scheduled Active [...] (Continued by Anesthesia - Provider: TRISTIN Vásquez SENIOR PRICING ANALYST)1018 (Stopped - Provider: TRISTIN Vásquez CRNA) PRN [...] BE BASED ON THE PRIMARY CLINICAL RECORDS. [facility] [employer] [facility]. provides no warranty or guarantee of the accuracy or completeness of information in this document.
[2023-06-17 21:00] LABS: Troponin-I HS 6 pg/mL (3.0-54.0)
[2023-06-17] MEDS: Carvedilol 3.125 MG TABLET PO (21:19)
[2023-06-17] MEDS: APIXABAN 5 MG TABLET PO (21:19)
[2023-06-17] MEDS: Ranolazine 500 MG Tablet PO (21:19)
[2023-06-18 03:51] VITALS: BP 131/70; PULSE 60; RESP 16; TEMP 36.6; O2SAT 98
[2023-06-18 05:02] LABS: Hematocrit 38.7 % (37-47); Mean Corpuscular Hgb 27.8 pg (27.0-32.0); Mean Corpuscular Volume 89.8 fL (81-99); Mean Platelet Vol. 12.2 fl (6.2-12.0); Platelet Count 142 K/mm3 (150-450); RBC Distribution Width CV 14.1 % (11.6-14.6); RBC Distribution Width SD 46.6 fl (35.1-43.9); Red Blood Count 4.31 M/mm3 (4.2-5.4); White Blood Count 4.5 K/mm3 (4.4-11.0)
[2023-06-18 05:30] LABS: Anion Gap 2 (5-15); BUN 17 mg/dL (7-18); BUN/Creat Ratio 20.6 RATIO (10-20); Calcium,Total 9.1 mg/dL (8.5-10.1); Chloride 118 mmol/L (98-107); Creatinine, Serum 0.83 mg/dL (0.55-1.02); EST Glomerular Filtration Rate 71 mL/min (>60); Est Glom Filt Rate - Afr Amer 86 mL/min (>60); Estimated Creatinine Clearance 59.48 ml/min; Glucose 104 mg/dL (74-106); Potassium 3.7 mmol/L (3.5-5.1); Sodium Level 144 mmol/L (136-145)
--- NOTE | 2023-06-18 07:35 | PCM.PN.HOSP ---
Reason for Visit Reason for Visit: Diagnoses Chest pain, unspecified (06/17/23) Objective Data Objective Data Vital Signs: Vital Signs Temp Pulse Resp BP Pulse Ox O2 Del Method 97.8 F 60 16 131/70 H 98 Room Air 06/18/23 03:51 06/18/23 03:51 06/18/23 03:51 06/18/23 03:51 06/18/23 03:51 06/18/23 03:51 Oxygen Delivery Method Room Air Weight: 184 lb 15.485 oz Body Mass Index (BMI) 31.7 Intake & Output: Intake and Output for Last 24 Hours 06/16/23 06/17/23 06/18/23 23:59 23:59 23:59 Intake Total 1110 / 1110 Balance 1110 / 1110 Lab / Micro Data 06/18/23 04:28 06/18/23 04:28 Labs: Laboratory Results - last 24 hr 06/17/23 14:45: WBC 5.1, RBC 4.86, Hgb 13.7, Hct 42.4, MCV 87.2, MCH 28.2, MCHC 32.3, RDW Std Deviation 44.9 H, RDW Coeff of Nafisa 14.0, Plt Count 179, MPV 12.1 H, Immature Gran % (Auto) 0.400, Neut % (Auto) 54.7, Lymph % (Auto) 25.6, [place] % (Auto) 7.9, Eos % (Auto) 10.0 H, Baso % (Auto) 1.4 H, Absolute Neuts (auto) 2.8, Absolute Lymphs (auto) 1.30, Nucleated RBC % 0, D-Dimer Quant (PE/DVT) 0.30, Sodium 143, Potassium 3.6, Chloride 113 H, Carbon Dioxide 26.0, Anion Gap 4 L, BUN 13, Creatinine 0.94, Estim Creat Clear Calc 52.38, Est GFR (MDRD) Af Amer 74, Est GFR (MDRD) Non-Af 61, BUN/Creatinine Ratio 13.8, Glucose 112 H, Calcium 9.4, Total Bilirubin 0.80, Direct Bilirubin 0.27, AST 13 L, ALT 17, Alkaline Phosphatase 94, Troponin I High Sens 7, Total Protein 6.8, Albumin 3.6, Globulin 3.2, Lipase 39 01/25/24 17:24: Troponin I High Sens 6 06/17/23 20:31: Troponin I High Sens 6 06/18/23 04:28: WBC 4.5, RBC 4.31, Hgb 12.0, Hct 38.7, MCV 89.8, MCH 27.8, MCHC 31.0 L, RDW Std Deviation 46.6 H, RDW Coeff of Nafisa 14.1, Plt Count 142 L, MPV 12.2 H, Sodium 144, Potassium 3.7, Chloride 118 H, Carbon Dioxide 24.0, Anion Gap 2 L, BUN 17, Creatinine 0.83, Estim Creat Clear Calc 59.48, Est GFR (MDRD) Af Amer 86, Est GFR (MDRD) Non-Af 71, BUN/Creatinine Ratio 20.6 H, Glucose 104, Calcium 9.1 Radiography Diagnostic Testing: Radiology Impression Chest X-Ray 06/17/23 15:18 IMPRESSION: Stable elevation of the right hemidiaphragm. No acute abnormality is seen. Electronically Signed: Jose Castle MD at 15:37 EST , Assessment & Plan Assessment/Plan (1) Chest pain: PLAN: Plan Patient is a 78-year-old female who presented to [facility] ED on 06/17/2023 with chest pain along with dizziness and nausea for several days. She described her chest pain as heart sensation from right lower chest with radiation to epigastrium along with the dizziness. She has been taking sublingual nitro 3-4 times daily. 1. Atypical chest pain; history of CAD with stenting x 6 Presented with intermittent episodes of chest pain at rest and worsening over the past 2 weeks. EKG with normal sinus rhythm, no ST changes. Troponin negative x 2, third troponin pending. Hospitalized in 01/2023 for similar symptoms. Left heart cath at that time showed 40 to 50% in-stent restenosis of ostial circumflex, 60 to 65% stenosis of proximal RCA, LMCA/LAD stents patent. TTE showed EF 50%, mild inferior and inferoseptal hypokinesis, mild concentric LV hypertrophy, severely enlarged LA, no significant valve issues. ? Admit under observation status to PCU. Cardiology consulted. Continue cardiac monitoring. Will defer need for any further workup to cardiology. Continue home high intensity statin, Coreg, Plavix, Eliquis, nitrate. Holding home ranolazine. 2. Depression ? On home escitalopram 10 mg daily. Patient and think she has been on this medication for the past several years, do not remember any dosage changes. Managed by PCP. Patient reports worsening depressive symptoms since starting ranolazine; on literature review search, no adverse effect of depression noted with ranolazine. Could consider increasing escitalopram to 20 mg daily in outpatient setting versus trying a different SSRI medication, but will defer to PCP for further management. Chronic medical conditions: ? Obesity: BMI 31 on admit. Complicates hospital course, care and prognosis. ? History of carotid artery disease s/p carotid endarterectomy DVT prophylaxis: Michelle CODE STATUS: Full code, verified Expected disposition: Home, 1 to 2 days Total clinical time spent by myself addressing the patient's medical issues, reviewing all the data, and collaborating with patient's care team: 40 minutes.
--- NOTE | 2023-06-18 08:47 | CON.PCM.CA_ITS ---
Assessment & Plan Assessment/Plan (1) Chest pain: QUALIFIERS: Chest pain type: unspecified Qualified Code(s): R07.9 - Chest pain, unspecified PLAN: The patient's chest discomfort is somewhat atypical. She has a difficulty remembering things but has not been officially diagnosed with any type of dementia. The patient seems to remember and her validates that the symptoms are different than the symptoms that led to her stenting procedure in 2017. The current symptoms are described as noted in the HPI. Recommend pharmacologic stress testing with Lexiscan nuclear stress. The patient is not able to walk a flight of stairs. Her EKG shows some nonspecific T wave changes. Enzymes are negative. (2) Carotid artery disease: QUALIFIERS: Carotid artery disease type: stenosis Laterality: left Qualified Code(s): I65.22 - Occlusion and stenosis of left carotid artery PLAN: Status post recent left internal carotid endarterectomy within the past 6 months. She tolerated this without incident. She has no carotid bruits. (3) Dyslipidemia: PLAN: The patient is been intolerant of pravastatin and rosuvastatin. She is currently tolerating atorvastatin 80 mg daily. This should be continued given her known carotid and coronary artery disease. (4) History of CAD (coronary artery disease): PLAN: Status post 3 stents in 2017 at [facility]. I do not have a copy of the cath report. I contacted the previous provider and they are supposed to fax me the cath report and the last dobutamine stress test. The patient should be continued on aggressive secondary risk factor modifications. (5) HTN (hypertension): QUALIFIERS: Hypertension type: primary hypertension Qualified Code(s): I10 - Essential (primary) hypertension PLAN: Blood pressure is adequately controlled in her home environment by the 's report. Her systolic pressures are slightly elevated in the hospital. PLAN: Plan 1. To scan nuclear stress test today. 2. Continue aggressive secondary risk factor modifications. 3. Consider outpatient formal dementia evaluation. 4. Patient be followed up in the cardiology office pending the outcome of the stress test. HPI Consult Data Date of Consult: 06/18/23 HPI Narrative Reason for Consultation: Chest pain. Known CAD HPI Narrative: VINITA PHILLIPS, is a 78 F who presents with some atypical type chest discomfort. She describes this as a sensation that starts out as a cold wave and crosses across from right to left on her anterior precordium. It then progresses to be a hot sensation and resolve spontaneously. This occurs at night when she is resting in the bed or when she is seated but has not occurred with activity. The patient does struggle to go up a flight of stairs but she is able to climb stairs without added assistance. The patient repeatedly look to her to answer questions. And volunteered that she does have a problems remembering things. The patient has a history of remote stenting in 2017 were usually received 3 stents to an unknown vessel. She was subsequent followed up by Dr. Trev Burleson and Kimberly Potter in the [facility] office. The patient underwent left carotid endarterectomy about 6 months ago at [facility] by Dr. Herrera. Prior to that she underwent a dobutamine stress test which showed no evidence of ischemia as she was cleared for surgical intervention. The patient tolerated the surgery without incident. The patient's hypertension is treated. She is on intensive statin therapy with atorvastatin 80 mg daily she remains on Plavix and Eliquis. She does not know why she is on Eliquis she nor her have heard the term atrial fibrillation. She reports she was placed on it in 2017 when she had the stents placed. The patient denies diabetes mellitus. The patient was seen in the [facility] office by one of the nurse practitioners. At that time ranolazine 500 mg was added to her medical regiment but really has not changed any of the symptoms. The symptoms have been occurring for several weeks. The patient is also on Imdur 60 mg daily carvedilol for beta-uriel therapy. [facility] Medical History Arthritis Coronary artery disease Depression Diarrhea Diverticulosis of colon GI bleed History of echocardiogram History of GI bleed History of stress test Ischemic cardiomyopathy Loss of hearing Migraines Morbid obesity Myocardial infarction Patent foramen ovale Psoriasis Sleep apnea Stroke/cerebrovascular accident Wears dentures Wears glasses Home Medications atorvastatin 80 mg tablet (Lipitor) 80 mg PO DAILY cholesterol 07/05/21 [History Last Taken 10/20/22 08:00] apixaban 5 mg tablet (Eliquis) 5 mg PO BID blood thinner #1 TAB 10/22/22 [Rx Last Taken 04/16/23] clopidogrel 75 mg tablet (Plavix) 75 mg PO DAILY anti platelet #1 TAB 10/22/22 [Rx Last Taken 04/15/23] acetaminophen 500 mg capsule 500 mg PO Q6H PRN Pain 02/16/23 [History Last Taken Unknown] escitalopram oxalate 10 mg tablet 10 mg PO DAILY mental health 02/16/23 [History Last Taken Unknown] carvedilol 3.125 mg tablet 3.125 mg PO BID 30 days #60 tabs 02/19/23 [Rx Last T aken Unknown] isosorbide mononitrate 60 mg tablet,extended release 24 hr 60 mg PO DAILY 30 days #30 tabs 02/19/23 [Rx Last Taken Unknown] calcitriol 3 mcg/gram topical ointment 1 applic topical Q12H 03/18/23 [History Last Taken Unknown] nitroglycerin 0.4 mg sublingual tablet 0.4 mg sublingual Q5M PRN chest pain #25 tabs 03/26/23 [Rx Last Taken Unknown] ranolazine 500 mg tablet,extended release,12 hr 500 mg PO BID #60 tabs 06/09/23 [Rx Last Taken Unknown] Allergy/AdvReac Type Severity Reaction Status Date / Time amoxicillin Allergy NEEDS Verified 06/17/23 14:30 FOLLOW-UP lisinopril Allergy unknown Verified 06/17/23 14:30 pravastatin Allergy unknown Verified 06/17/23 14:30 promethazine Allergy unknown Verified 06/17/23 14:30 rosuvastatin Allergy unknown Verified 06/17/23 14:30 ticagrelor Allergy unknown Verified 06/17/23 14:30 Family History Father Heart disease Cataracts, bilateral Mother Cataracts, bilateral Surgical History History of bilateral cataract extraction History of cardiac catheterization History of carotid endarterectomy History of colonoscopy History of coronary angioplasty with insertion of stent History of coronary artery stent placement History of hysterectomy History of left heart catheterization (LHC) by cutdown History of surgery on left wrist History of tonsillectomy Social History household members: spouse housing: other number of children: 3 pets and animals: Yes Smoking Status: Never smoker alcohol intake: current substance use type: does not use caffeine: No ROS Review of Systems ROS Unobtainable: due to mental condition and other Details: Difficult to obtain review of systems. The patient had repeatedly asked her to answer the questions. Constitutional Constitutional: Reports as per HPI Eyes Eyes: Reports systems reviewed and no addt'l complaints, except as documented ENT HEENT: Reports systems reviewed and no addt'l complaints, except as documented Cardiovascular Cardiovascular: Reports as per HPI Respiratory/Chest Respiratory/Chest: Reports as per HPI Gastrointestinal Gastrointestinal: Reports systems reviewed and no addt'l complaints, except as documented Genitourinary Genitourinary: Reports systems reviewed and no addt'l complaints, except as documented Musculoskeletal Musculoskeletal: Reports systems reviewed and no addt'l complaints, except as documented Integumentary Integumentary: Reports systems reviewed and no addt'l complaints, except as documented Neurologic Neurologic: Reports as per HPI Psychiatric Psychiatric: Reports as per HPI Allergic/Immunologic Allergic/Immunologic: Reports as per HPI Physical Exam Const alert and oriented x3 HEENT normocephalic Eyes EOMs intact bilaterally Neck no JVD and no carotid bruits Neck Narrative: Left carotid endarterectomy scar. Chest inspection of chest normal Resp normal respiratory effort Auscultation: Negative for crackles, rales, rhonchi or wheezes Cardio regular rate, regular rhythm, S1 normal heart sound, S2 normal heart sound, no murmurs, no rub and no gallops Bruits: Negative for carotid bruit or femoral bruit Peripheral Pulses: pulses 2+ throughout GI soft to palpation, non-tender and no bruits Extremity normal to inspection and no pedal edema Skin no rashes or lesions noted Psych cooperative Psych Narrative: The patient's had to answer most questions. She volunteers that she does not do good with remembering things. Risk Stratification Risk Stratification Applicable: Yes Age >/= 65: Yes >/= 3 CAD Risk Factors (HTN, HLD, DM, family hx of CAD, or current smoker): No Aspirin Use in the Past 7 Days: No Severe Angina (>/= episodes in 24 hours): No EKG ST Changes >/= 0.5mm: No Positive Cardiac Marker: No ANDRZEJ Risk Stratification Score: 1 ANDRZEJ % Risk: 5% Risk Charges/Coding Visit Charges Inpatient E&M: 03644 Init Hosp L3 Objective Data Vital Signs: Vital Signs Temp Pulse Resp BP Pulse Ox O2 Del Method 97.8 F 60 16 131/70 H 98 Room Air 06/18/23 03:51 06/18/23 03:51 06/18/23 03:51 06/18/23 03:51 06/18/23 03:51 06/18/23 07:47 Oxygen Delivery Method Room Air Weight: 184 lb 15.485 oz Body Mass Index (BMI) 31.7 Intake & Output: Intake and Output for Last 24 Hours 06/16/23 06/17/23 06/18/23 23:59 23:59 23:59 Intake Total 1110 / 1110 Balance 1110 / 1110 Lab / Micro Data Attestation: I reviewed the patient's lab results. 06/18/23 04:28 06/18/23 04:28 Labs: Laboratory Results - last 24 hr 06/17/23 14:45: WBC 5.1, RBC 4.86, Hgb 13.7, Hct 42.4, MCV 87.2, MCH 28.2, MCHC 32.3, RDW Std Deviation 44.9 H, RDW Coeff of Nafisa 14.0, Plt Count 179, MPV 12.1 H , Immature Gran % (Auto) 0.400, Neut % (Auto) 54.7, Lymph % (Auto) 25.6, Maury % (Auto) 7.9, Eos % (Auto) 10.0 H, Baso % (Auto) 1.4 H, Absolute Neuts (auto) 2.8, Absolute Lymphs (auto) 1.30, Nucleated RBC % 0, D-Dimer Quant (PE/DVT) 0.30, Sodium 143, Potassium 3.6, Chloride 113 H, Carbon Dioxide 26.0, Anion Gap 4 L, BUN 13, Creatinine 0.94, Estim Creat Clear Calc 52.38, Est GFR (MDRD) Af Amer 74, Est GFR (MDRD) Non-Af 61, BUN/Creatinine Ratio 13.8, Glucose 112 H, Calcium 9.4, Total Bilirubin 0.80, Direct Bilirubin 0.27, AST 13 L, ALT 17, Alkaline Phosphatase 94, Troponin I High Sens 7, Total Protein 6.8, Albumin 3.6, Globulin 3.2, Lipase 39 06/17/23 17:24: Troponin I High Sens 6 06/17/23 20:31: Troponin I High Sens 6 06/18/23 04:28: WBC 4.5, RBC 4.31, Hgb 12.0, Hct 38.7, MCV 89.8, MCH 27.8, MCHC 31.0 L, RDW Std Deviation 46.6 H, RDW Coeff of Nafisa 14.1, Plt Count 142 L, MPV 12.2 H, Sodium 144, Potassium 3.7, Chloride 118 H, Carbon Dioxide 24.0, Anion Gap 2 L, BUN 17, Creatinine 0.83, Estim Creat Clear Calc 59.48, Est GFR (MDRD) Af Amer 86, Est GFR (MDRD) Non-Af 71, BUN/Creatinine Ratio 20.6 H, Glucose 104, Calcium 9.1 Cardiology Labs/Tests 06/17/23 14:45: WBC 5.1, RBC 4.86, Hgb 13.7, Hct 42.4, MCV 87.2, MCH 28.2, MCHC 32.3, Plt Count 179, MPV 12.1 H, Immature Gran % (Auto) 0.400, Neut % (Auto) 54.7, Lymph % (Auto) 25.6, Maury % (Auto) 7.9, Eos % (Auto) 10.0 H, Baso % (Auto) 1.4 H, Absolute Neuts (auto) 2.8, Nucleated RBC % 0, D-Dimer Quant (PE/DVT) 0.30, Sodium 143, Potassium 3.6, Chloride 113 H, Carbon Dioxide 26.0, Anion Gap 4 L, BUN 13, Creatinine 0.94, Est GFR (MDRD) Af Amer 74, Est GFR (MDRD) Non-Af 61, BUN/Creatinine Ratio 13.8, Glucose 112 H, Calcium 9.4, Total Bilirubin 0.80, Direct Bilirubin 0.27 06/18/23 04:28: WBC 4.5, RBC 4.31, Hgb 12.0, Hct 38.7, MCV 89.8, MCH 27.8, MCHC 31.0 L, Plt Count 142 L, MPV 12.2 H, Sodium 144, Potassium 3.7, Chloride 118 H, Carbon Dioxide 24.0, Anion Gap 2 L, BUN 17, Creatinine 0.83, Est GFR (MDRD) Af Amer 86, Est GFR (MDRD) Non-Af 71, BUN/Creatinine Ratio 20.6 H, Glucose 104, Calcium 9.1 Rhythm: EKG: ECHO: Stress Test: Cardiac Cath: PCI: CT Surgery: Holter monitor: EPS: PPM: CXR: Chest CT Scan: Radiography Diagnostic Testing: Radiology Impression Chest X-Ray 06/17/23 15:18 IMPRESSION: Stable elevation of the right hemidiaphragm. No acute abnormality is seen. Electronically Signed: Jose Castle MD at 15:37 EST , EKG Initial EKG: Attestation: I personally reviewed and interpreted this EKG as follows: Prior EKG tracings: not available for review Interpretation: Normal sinus rhythm left axis deviation nonspecific T wave changes. No significant ST changes.
[2023-06-18] MEDS: 0.9% Saline Lock 10 ML Syringe IV (09:01)
[2023-06-18] MEDS: Clopidogrel Bisulfate 75 MG Tablet PO (09:01)
[2023-06-18 10:55] VITALS: BP 150/78; PULSE 63; RESP 18; TEMP 36.6; O2SAT 97
[2023-06-18] MEDS: Escitalopram Oxalate 10 MG Tablet PO (11:02)
[2023-06-18] MEDS: Atorvastatin Calcium 80 MG Tablet PO (11:02)
[2023-06-18] MEDS: Carvedilol 3.125 MG TABLET PO (11:02)
[2023-06-18] MEDS: Ranolazine 500 MG Tablet PO (11:02)
[2023-06-18] MEDS: Isosorbide Mononitrate 60 MG Tablet PO (11:02)
--- NOTE | 2023-06-18 13:59 | STRESSREP ---
Stress Test Report Date: 06/18/2023 Procedure: Pharmacologic stress nuclear imaging study Indications: Chest pain Consent: Per the patient Procedure: The patient underwent pharmacologic (Regadenoson) evaluation with a peak heart rate of 89 beats per minute (62%predicted maximal heart rate) and a peak blood pressure of 158/88 mmHg. The baseline ECG demonstrated normal sinus rhythm. EKG during lexiscan infusion revealed no significant ischemic changes. EKG post infusion revealed no significant ischemic changes [There were no cardiac dysrhythmias pretest, during pharmacologic infusion, or recovery]. Patient had chest heaviness with Lexiscan infusion which is likely a nonspecific response. The examination was discontinued secondary to completion of protocol. Impression: 1. Lexiscan stress test test is negative for Lexiscan infusion induced EKG changes of ischemia. 2. Lexiscan stress test test is positive for Lexiscan infusion induced chest pain which is likely a nonspecific response 3. Results of the nuclear portion of the test is as below Myocardial perfusion imaging study: Technique: The patient was injected with 14.1 millicuries of technetium 99m Cardiolite and subsequently rest SPECT Cardiolite nuclear imaging was obtained in the horizontal long, vertical long, and short axis views. The patient underwent pharmacologic [Regadenoson 0.4mg] evaluation. Please see above for details. The patient was injected with 44.6 millicuries of technetium 99m Cardiolite and subsequently stress SPECT Cardiolite nuclear imaging was obtained in the horizontal long, vertical long, and short axis views. A gated Cardiolite study at peak stress was obtained. Interpretation: Rest and stress SPECT Cardiolite nuclear imaging status post realignment, normalization, and attenuation correction demonstrate no evidence of significant ischemia or infarction. Gated images reveal no significant regional wall motion abnormalities. The reported LVEF is greater than 70%. Impression: 1. There is no evidence of significant ischemia or infarction. 2. Estimated ejection fraction is greater than 70%. This note was generated with [employer] software. It may contain incorrect words, spelling, and punctuation that were not noted in checking the note before signing.
--- NOTE | 2023-06-18 15:35 | DCINST_ITS ---
Discharge Instructions Diet Discharge Diet: No restrictions, Low fat / Low cholesterol and 2000 mg Sodium Diet Activity Discharge Activity: Return to Normal Activity Weight Bearing Status: Weight bearing as tolerated Dressing / Incision Call your doctor if you observe: Fever of 101 or Higher, Coldness, Increased Pain, Numbness or Tingling, Change in Color, Inability to urinate, Inability to have a bowel movement, Using more than 1 pad per hour, Shortness of breath, Dizziness, Fainting spells, Swelling in the ankles, Chest pain, Prolonged hiccupping, Increased palpitations (irregular heartbeat) and Calf discomfort Follow Up Care When: IN 2 WEEKS Test Results: Test results from this visit will be discussed in further detail at your follow- up appointment, if applicable. Discharge Plan Admission Admit Date/Time: 06/17/23 18:31 Primary Reason for Your Visit: Atypical chest pain. ACS ruled out. Attending Provider: Tristian Calvillo Primary Care Provider: Thanh Rush Consulting Providers: Flo Rodriguez; Efrain Ruth Discharge Orders/Prescriptions Prescriptions: Continued escitalopram oxalate 10 mg tablet 10 mg PO DAILY nitroglycerin 0.4 mg tablet, sublingual 0.4 mg sublingual Q5M PRN (Reason: chest pain) Qty: 25 3RF Rx Instructions: do not exceed 3 doses per episode calcitriol 3 mcg/gram ointment 1 applic topical Q12H Patient Comments: apply topically to affected area twice a day atorvastatin [Lipitor] 80 mg Tablet 80 mg PO DAILY clopidogrel [Plavix] 75 mg Tablet 75 mg PO DAILY Qty: 1 0RF Rx Instructions: Patient to hold Plavix for 5 days Eliquis 5 mg Tablet 5 mg PO BID Qty: 1 0RF Rx Instructions: Patient to hold Eliquis for 5 days and to follow-up with primary care physician/steam service inspector to determine ongoing indication acetaminophen 500 mg capsule 500 mg PO Q6H PRN (Reason: Pain) isosorbide mononitrate 60 mg Tablet Extended Release 24 Hr 60 mg PO DAILY 30 Days Qty: 30 0RF carvedilol 3.125 mg Tablet 3.125 mg PO BID 30 Days Qty: 60 0RF ranolazine 500 mg tablet extended release 12 hr 500 mg PO BID Qty: 60 11RF Referrals / Follow Up: Thanh Rush MD [Primary Care Provider] - Flo Rodriguez MD [Med Staff - Active Staff] - Within 1 Month Disposition Disposition (needs filled in before D/C Order can be placed): Home, Self Care
--- NOTE | 2023-06-18 15:37 | DS.PCM_ITS ---
Providers Date of Admission: 06/17/23 Date of Discharge: 06/18/23 Primary Care Physician: Thanh Rush MD Consultations 06/17/23 19:37 Consult: Cardiology Routine Consulting Provider: Flo Rodriguez Reason for Consult: chest pain, ACS r/o, h/o CAD w/ stents x 6 EMERGENT Consult: No MD Notified: Yes Date Notified: 06/18/23 Time Notified: 06:20 Method of Notification: Text Reason For Visit: CHEST PAIN, ACS RULE OUT Diagnosis Discharge Diagnosis (1) Chest pain: Status: Acute Code(s): R07.9 - Chest pain, unspecified Qualifiers: Chest pain type: unspecified Qualified Code(s): R07.9 - Chest pain, unspecified (2) Carotid artery disease: Status: Acute Code(s): I77.9 - Disorder of arteries and arterioles, unspecified Qualifiers: Carotid artery disease type: stenosis Laterality: left Qualified Code(s): I65.22 - Occlusion and stenosis of left carotid artery (3) Dyslipidemia: Status: Acute Code(s): E78.5 - Hyperlipidemia, unspecified (4) History of CAD (coronary artery disease): Status: Acute Code(s): Z86.79 - Personal history of other diseases of the circulatory system (5) HTN (hypertension): Status: Chronic Code(s): I10 - Essential (primary) hypertension Qualifiers: Hypertension type: primary hypertension Qualified Code(s): I10 - Essential (primary) hypertension Plan Patient is a 78-year-old female who presented to [facility] ED on 06/17/2023 with chest pain along with dizziness and nausea for several days. She described her chest pain as heart sensation from right lower chest with radiation to epigastrium along with the dizziness. She has been taking sublingual nitro 3-4 times daily. 1. Atypical chest pain; history of CAD with stenting x 6: Patient admitted with intermittent episodes of burning chest pain from right to left for past 2 weeks. Was admitted in PCU. EKG with normal sinus rhythm, no ST changes. Troponin negative x 2, third troponin pending. Hospitalized in 01/2023 for similar symptoms. Left heart cath at that time showed 40 to 50% in-stent restenosis of ostial circumflex, 60 to 65% stenosis of proximal RCA, LMCA/LAD stents patent. TTE showed EF 50%, mild inferior and inferoseptal hypokinesis, mild concentric LV hypertrophy, severely enlarged LA, no significant valve issues. ? Admit under observation status to PCU. Cardiology consulted. Continue cardiac monitoring. Patient had pharmacological nuclear stress test which was negative. Reported no stress-induced EKG changes or imaging shows no evidence of significant ischemia or infarction. Patient is discharged home. Follow-up with Dr. Flo Rodriguez. 2. Depression ? On home escitalopram 10 mg daily. Patient and think she has been on this medication for the past several years, do not remember any dosage changes. Managed by PCP. Patient reports worsening depressive symptoms since starting ranolazine; on literature review search, no adverse effect of depression noted with ranolazine. Could consider increasing escitalopram to 20 mg daily in outpatient setting versus trying a different SSRI medication, but will defer to PCP for further management. Chronic medical conditions: ? Obesity: BMI 31 on admit. Complicates hospital course, care and prognosis. ? History of carotid artery disease s/p carotid endarterectomy DVT prophylaxis: Eliquis CODE STATUS: Full code, verified Discharge medication reconciliation done. Discharge follow-up instructions completed. Discharge process discussed with the patient and all questions were answered to patient's satisfaction. Follow with PCP in 1 to 2 weeks Total time spent, exact 35 minutes on discharge meds reconciliation, examination, coordination of care with nurses and ancillary staff, review of imaging and blood test and discussion with the patient on follow-up instructions. Medications at Discharge Home Medications atorvastatin 80 mg tablet (Lipitor) 80 mg PO DAILY cholesterol 07/05/21 apixaban 5 mg tablet (Eliquis) 5 mg PO BID blood thinner #1 TAB 10/22/22 clopidogrel 75 mg tablet (Plavix) 75 mg PO DAILY anti platelet #1 TAB 10/22/22 acetaminophen 500 mg capsule 500 mg PO Q6H PRN Pain 02/16/23 escitalopram oxalate 10 mg tablet 10 mg PO DAILY mental health 02/16/23 carvedilol 3.125 mg tablet 3.125 mg PO BID 30 days #60 tabs 02/19/23 isosorbide mononitrate 60 mg tablet,extended release 24 hr 60 mg PO DAILY 30 days #30 tabs 02/19/23 calcitriol 3 mcg/gram topical ointment 1 applic topical Q12H 03/18/23 nitroglycerin 0.4 mg sublingual tablet 0.4 mg sublingual Q5M PRN chest pain #25 tabs 03/26/23 ranolazine 500 mg tablet,extended release,12 hr 500 mg PO BID #60 tabs 06/09/23 Physical Exam Narrative Seen and examined. History taken from the patient. Chest pain has resolved. No shortness of breath. Patient feels at baseline. General: Alert, Oriented x3, Cooperative HEENT: Atraumatic, PERRLA, EOMI, Normocephalic Oral: No Gingival or Mucosal Lesions/ Ulcerations Neck: Supple, No JVD, Negative Carotid Bruits Chest wall/Lungs: Air entry diminished in bilateral lung bases. No crepitati on/rhonchi Cardiovascular: Regular rate, Regular Rhythm, Normal S1, Normal S2, systolic murmur, right second ICS LLSB. Abdomen: Bowel Sounds Present, Soft, Non Tender, Non-Distended : No dysuria.No renal angle tenderness. No suprapubic tenderness. Extremities: No edema, Capillary Refill Less than 3 Seconds Skin: No rashes, No breakdown Musculoskeletal: No Tenderness to Palpation of Joints or Extremities Neurological: Cranial nerves II-XII grossly intact, DTR 2+/4. No acute focal neurological deficit. Psych/Mental Status: Normal Affect, Appropriate. Weight / BMI Weight Weight: 184 lb 15.485 oz Body Mass Index (BMI) 31.7 ABG / Lab / Microbiology Data 06/18/23 04:28 06/18/23 04:28 Laboratory: Laboratory Results - last 24 hr 06/17/23 17:24: Troponin I High Sens 6 06/17/23 20:31: Troponin I High Sens 6 06/18/23 04:28: WBC 4.5, RBC 4.31, Hgb 12.0, Hct 38.7, MCV 89.8, MCH 27.8, MCHC 31.0 L, RDW Std Deviation 46.6 H, RDW Coeff of Nafisa 14.1, Plt Count 142 L, MPV 12.2 H, Sodium 144, Potassium 3.7, Chloride 118 H, Carbon Dioxide 24.0, Anion Gap 2 L, BUN 17, Creatinine 0.83, Estim Creat Clear Calc 59.48, Est GFR (MDRD) Af Amer 86, Est GFR (MDRD) Non-Af 71, BUN/Creatinine Ratio 20.6 H, Glucose 104, Calcium 9.1 Radiography Diagnostic Testing: Radiology Impression Chest X-Ray 06/17/23 15:18 IMPRESSION: Stable elevation of the right hemidiaphragm. No acute abnormality is seen. Electronically Signed: Jose Caslte MD at 15:37 EST , D/C Instructions Discharge Diet: No restrictions, Low fat / Low cholesterol and 2000 mg Sodium Diet Weight Bearing Status: Weight bearing as tolerated Call your doctor if you observe: Fever of 101 or Higher, Coldness, Increased P ain, Numbness or Tingling, Change in Color, Inability to urinate, Inability to have a bowel movement, Using more than 1 pad per hour, Shortness of breath, Dizziness, Fainting spells, Swelling in the ankles, Chest pain, Prolonged hiccupping, Increased palpitations (irregular heartbeat) and Calf discomfort When: IN 2 WEEKS Meaningful Use Info Meaningful Use Diagnoses (Choose all that apply): None applicable Discharge Plan Admission Admit Date/Time: 06/17/23 18:31 Primary Reason for Your Visit: Atypical chest pain. ACS ruled out. Attending Provider: Tristian Calvillo Primary Care Provider: Thanh Rush Consulting Providers: Flo Rodriguez; Efrain Ruth Discharge Orders/Prescriptions Prescriptions: Continued escitalopram oxalate 10 mg tablet 10 mg PO DAILY nitroglycerin 0.4 mg tablet, sublingual 0.4 mg sublingual Q5M PRN (Reason: chest pain) Qty: 25 3RF Rx Instructions: do not exceed 3 doses per episode calcitriol 3 mcg/gram ointment 1 applic topical Q12H Patient Comments: apply topically to affected area twice a day atorvastatin [Lipitor] 80 mg Tablet 80 mg PO DAILY clopidogrel [Plavix] 75 mg Tablet 75 mg PO DAILY Qty: 1 0RF Rx Instructions: Patient to hold Plavix for 5 days Eliquis 5 mg Tablet 5 mg PO BID Qty: 1 0RF Rx Instructions: Patient to hold Eliquis for 5 days and to follow-up with primary care physician/pediatric physiatrist to determine ongoing indication acetaminophen 500 mg capsule 500 mg PO Q6H PRN (Reason: Pain) isosorbide mononitrate 60 mg Tablet Extended Release 24 Hr 60 mg PO DAILY 30 Days Qty: 30 0RF carvedilol 3.125 mg Tablet 3.125 mg PO BID 30 Days Qty: 60 0RF ranolazine 500 mg tablet extended release 12 hr 500 mg PO BID Qty: 60 11RF Referrals / Follow Up: Thanh Rush MD [Primary Care Provider] - Flo Rodriguez MD [Med Staff - Active Staff] - Within 1 Month Disposition Disposition (needs filled in before D/C Order can be placed): Home, Self Care Charges/Coding Visit Charges Inpatient E&M: 79956 SNF Subs L1
[2023-06-18 15:46] VITALS: BP 130/72; PULSE 61; RESP 18; TEMP 36.8; O2SAT 95
[2023-06-18] MEDS: APIXABAN 5 MG TABLET PO (15:47)
--- NOTE | 2023-06-18 16:08 | CASEMGMT ---
Patient has order for discharge. RN CM in to discuss needs at [facility]. Patient denies needs at discharge. Patient had no further questions or concerns at this time.
== END 2023-06-18 15:37 | disposition home or self-care (01) ==
LOC: ED 18:21 → PCU 18:55
PROVIDERS: Admitting Provider Hospitalist; Emergency Provider Emergency Medicine; PCP Family Medicine; Visit Provider Internal Medicine
DX: R07.89 Other chest pain (principal); I10 Essential (primary) hypertension; Z95.5 Presence of coronary angioplasty implant and graft; E78.5 Hyperlipidemia, unspecified; I25.5 Ischemic cardiomyopathy; Z79.01 Long term (current) use of anticoagulants; I25.10 Atherosclerotic heart disease of native coronary artery without angina pectoris; Z79.02 Long term (current) use of antithrombotics/antiplatelets; I65.22 Occlusion and stenosis of left carotid artery; Z68.31 Body mass index [BMI] 31.0-31.9, adult; E66.9 Obesity, unspecified; F32.A Depression, unspecified; R42 Dizziness and giddiness; R11.0 Nausea; Z79.899 Other long term (current) drug therapy
CPT/HCPCS: 36415; 71045; 78452; 80048; 80076; 83690; 84484; 85025; 85027; 85379; 93005; 93017; 96361; 96365; 99221; 99285; A9500; J7030; A4216; G0378; J2785

== ENCOUNTER → 2023-06-22 | Outpatient (CLI) | payer MEDICARE, SELFPAY ==
--- OUTSIDE RECORDS SUMMARY | 2023-06-22 15:20 | XMS RPT_ITS | CCD ---
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 Name Role Phone Stew Quintana Unavailable Unavailable [...] Primary Care Provider Ernestina Potter PA-C Unavailable Marlene Chavez MDline Unavailable Stew Quintana DO Primary Care Provider Ernestina Potter PA-C Unavailable [phone] Marlene Chavez MDline Unavailable Stew Quintana DO Primary Care Provider ROWAN CHAVEZ Attending Unavailable STEW QUINTANA Primary Care Unavailable KATHY, ROWAN Admitting Unavailable SILVER, DEAN Attending Unavailable SILVER, DEAN Admitting Unavailable MARIANO, STEW Primary Care Unavailable POTTER, ERNESTINA Referring Unavailable POTTER, ERNESTINA Attending Unavailable MARIANO, STEW Primary Care Unavailable POTTER, ERNESTINA Attending Unavailable MARIANO, STEW Primary Care Unavailable POTTER, ERNESTINA Attending Unavailable MARIANO, STEW Primary Care Unavailable MARIANO, STEW Primary Care Unavailable KATHY, ROWAN Attending Unavailable MARIANO, STEW Primary Care Unavailable KATHY, ROWAN Attending Unavailable POTTER, ERNESTINA Referring Unavailable KATHY, ROWAN Attending Unavailable MARIANO, STEW Primary Care Unavailable POTTER, ERNESTINA Attending Unavailable MARIANO, STEW Primary Care Unavailable KATHY, ROWAN Admitting Unavailable MARIANO, STEW Primary Care Unavailable KATHY, ROWAN Referring Unavailable KATHY, ROWAN Attending Unavailable POTTER, ERNESTINA Referring Unavailable MARIANO, STEW Primary Care Unavailable Allergies Allergy Classification Reported Allergen(s) Allergy Type Date of Onset Reaction(s) Facility Angiotensin Converting Enzyme (BRIELLE) Inhibitors (2 sources) Lisinopril Drug Allergy 7 Other (See Comments) [facility] Work Phone: HMG-CoA Reductase Inhibitors (statins) (2 sources) rosuvastatin Drug Allergy 7 Diarrhea [facility] Nitrate Vasodilator (2 sources) Nitroglycerin Drug Allergy 2 Other (See Comments) [facility] Penicillins (antibiotic) (2 sources) Amoxicillin Drug Allergy 7 [facility] Promethazine (2 sources) Promethazine Drug Allergy 7 Anxiety [facility] Ticagrelor (2 sources) Ticagrelor Drug Allergy 7 Other (See Comments[facility] Work Phone: (20 sources) Amoxicillin Drug Allergy 7 Other (See Comments), Other [place] (7 sources) Lisinopril Drug Allergy 7 Other (See Comments) [place] (7 sources) Nitroglycerin Drug Allergy 2 Other (See Comments) [place] (7 sources) Promethazine Drug Allergy 7 Anxiety [place] (7 sources) rosuvastatin Drug Allergy 7 Diarrhea [place] (7 sources) Ticagrelor Drug Allergy 7 Other (See Comments) [place] (20 sources) Lisinopril Propensity to adverse reactions 7 Other [facility] (10 sources) Nitroglycerin Propensity to adverse reactions 2 Other [facility] (20 sources) Pravastatin Drug Allergy 2 Other [facility] (20 sources) Promethazine Drug Allergy 7 Anxiety [facility] (20 sources) Rosuvastatin calcium Propensity to adverse reactions 7 Diarrhea [facility] (20 sources) Ticagrelor Propensity to adverse reactions 7 Other [facility] (1 source) rosuvastatin Drug Allergy 7 Diarrhea [facility] Medications Current Medications Medication Drug Class(es) Dates [...] Ischemic cardiomyopathy; Translations: [Atherosclerotic heart disease of [place] coronary artery without angina pectoris] Onset: 0 [...] Onset: 9 Chronic Other aftercare (2 sources) 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; Translations: [FPC (current) use of antithrombotics/antipl atelets] Onset: 9 [...] circulatory and respiratory systems] 02-09-2023 Episodic Other ear and sense organ disorders [...] Translations: [Obesity, unspecified] Onset: 7 11-26-2016 Chronic Otitis media and related conditions (1 [...] Onset: 7 11-24-2016 Chronic Residual codes; unclassified (17 sources) Obstructive sleep apnea syndrome; Translations: [Obstructive [...] 04-07-2011 01-09-2020 Episodic Other aftercare (2 sources) 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; Translations: [FPC (current) use of anticoagulants] Onset: 12-13-2017 Episodic Other bone disease and musculoskeletal deformities (2 sources) Other specified disorders of bone density and structure, unspecified site; Translations: [Oth disrd of bone density and structure, unspecified site] Onset: 04-18-2018 Episodic Other circulatory disease (1 source) History of cerebrovascular accident; Translations: [History of multiple cerebrovascular accidents (CVAs)] Episodic Other circulatory disease (2 sources) Other specified symptoms and signs involving the circulatory and respiratory systems; Translations: [Other specified symptoms and signs involving the circulatory and respiratory systems] Onset: 02-09-2023 Episodic Other ear and sense organ disorders [...] Unsteady gait; Translations: [Unsteady gait] Episodic Other screening for suspected conditions (not mental disorders or infectious disease) (20 sources) Encounter for screening mammogram for malignant neoplasm of breast; Translations: [Encounter for screening for osteoporosis] Onset: 12-20-2016 12-20-2016 Episodic Other upper respiratory infections (20 sources) [...] 62 mm[Hg] Ernestina Potter PA-C Work Phone: [facility] 02-09-2023 10:23-0400 Systolic blood pressure 98 mm[Hg] Ernestina Potter PA-C Work Phone: [facility] 02-09-2023 09:49-0400 Body height 162.6 cm Ernestina Potter PA-C Work Phone: [facility] 02-09-2023 09:49-0400 Body mass index (BMI) [Ratio] 30.95 kg/m2 Ernestina Potter PA-C Work Phone: [facility] 02-09-2023 09:49-0400 Body weight 81.78 kg Ernestina DE LA FUENTEC Work Phone: [facility] 02-09-2023 09:49-0400 Heart rate 61 /min Ernestina Potter PA-C Work Phone: [facility] 02-09-2023 09:49-0400 SaO2% (BldA) [Mass fraction] 96 % Ernestina Potter PA-C Work Phone: [facility] 01-07-2023 08:51-0400 Diastolic blood pressure 60 mm[Hg] Ernestina Potter PA-C Work Phone: [facility] 01-07-2023 08:51-0400 Heart rate 70 /min Ernestina Potter PA-C Work Phone: [facility] 01-07-2023 08:51-0400 SaO2% (BldA) [Mass fraction] 94 % Ernestina Potter PA-C Work Phone: [facility] 01-07-2023 08:51-0400 Systolic blood pressure 90 mm[Hg] Ernestina Potter PA-C Work Phone: [facility] 01-07-2023 08:49-0400 Body height 162.6 cm Ernestina Potter PA-C Work Phone: [facility] 01-07-2023 08:49-0400 Body mass index (BMI) [Ratio] 31.62 kg/m2 Ernestina Potter PA-C Work Phone: [facility] 01-07-2023 08:49-0400 Body weight 83.55 kg Ernestina Potter PA-C Work Phone: [facility] 10-05-2022 14:37-0400 Body height 162.6 cm Rowan Chavez MD Work Phone: [facility] 10-05-2022 14:37-0400 Body mass index (BMI) [Ratio] 30.9 kg/m2 Rowan Chavez MD Work Phone: [facility] 10-05-2022 14:37-0400 Body weight 81.65 kg Rowan Chavez MD Work Phone: [facility] 10-05-2022 14:37-0400 Respiratory rate 18 /min Rowan Chavez MD Work Phone: [facility] 09-23-2022 07:52-0400 Body temperature 97.5 [degF] Rowan Chavez MD Work Phone: [facility] 09-23-2022 07:52-0400 Heart rate 71 /min Rowan Chavez MD Work Phone: [facility] 09-23-2022 07:52-0400 SaO2% (BldA) [Mass fraction] 93 % Rowan Chavez MD Work Phone: [facility] 09-23-2022 07:46-0400 Diastolic blood pressure 56 mm[Hg] Rowan Chavez MD Work Phone: [facility] 09-23-2022 07:46-0400 Respiratory rate 17 /min Rowan Chavez MD Work Phone: [facility] 09-23-2022 07:46-0400 Systolic blood pressure 141 mm[Hg] Rowan Chavez MD Work Phone: [facility] 09-22-2022 05:52-0400 Body height 162.6 cm Rowan Chavez MD Work Phone: [facility] 09-22-2022 05:52-0400 Body mass index (BMI) [Ratio] 30.9 kg/m2 Rowan Chavez MD Work Phone: [facility] 09-22-2022 05:52-0400 Body weight 81.65 kg Rowan Chavez MD Work Phone: [facility] 09-02-2022 11:15-0400 Body mass index (BMI) [Ratio] 33.27 kg/m2 Rowan Chavez MD Work Phone: [facility] 09-02-2022 11:15-0400 Body temperature 96.91 [degF] Rowan Chavez MD Work Phone: [facility] 09-02-2022 11:15-0400 Body weight 87.91 kg Rowan Chavez MD Work Phone: [facility] 09-02-2022 11:15-0400 Diastolic blood pressure 87 mm[Hg] Rowan Chavez MD Work Phone: [facility] 09-02-2022 11:15-0400 Heart rate 89 /min Rowan Chavez MD Work Phone: [facility] 09-02-2022 11:15-0400 Systolic blood pressure 150 mm[Hg] Rowan Chavez MD Work Phone: [facility] 12-01-2019 14:11-0400 BMI (Body Mass Index) 38.45 kg/m2 Stew Lopez [facility], [place] 12-01-2019 14:11-0400 Body Temperature 99.81 [degF] Stew Quintana [place], [place] 12-01-2019 14:11-0400 Body weight 101.61 kg Stew Quintana [facility] , [place] 12-01-2019 14:11-0400 BP Diastolic 82 mm[Hg] [facility] [place] 12-01-2019 14:11-0400 BP Systolic 128 mm[Hg] [facility] [place] 12-01-2019 14:11-0400 Pulse (Heart Rate) 82 /min Stew Quintana [place], [place] 12-01-2019 14:11-0400 Pulse Oximetry 100 % Stew Quintana [place], [place] 12-01-2019 14:11-0400 Respiratory Rate 18 /min Stew Quintana [place], [place] 05-02-2019 13:12-0500 Diastolic blood pressure 72 mm[Hg] Av Martinez MD Work Phone: [facility] Work Phone: 05-02-2019 13:12-0500 Heart rate 70 /min Av Martinez MD Work Phone: [facility] Work Phone: 05-02-2019 13:12-0500 Respiratory rate 18 /min Av Martinez MD Work Phone: [employer] Work Phone: 05-02-2019 13:12-0500 SaO2% (BldA) [Mass fraction] 99 % Av Martinez MD Work Phone: [employer] Work Phone: 05-02-2019 13:12-0500 Systolic blood pressure 139 mm[Hg] Av Martinez MD Work Phone: [employer] Work Phone: 05-02-2019 11:21-0500 Body height 162.6 cm Av Martinez MD Work Phone: [employer] Work Phone: 05-02-2019 11:21-0500 Body mass index (BMI) [Ratio] 39.82 kg/m2 Av Martinez MD Work Phone: [employer] Work Phone: 05-02-2019 11:21-0500 Body temperature 98.1 [degF] Av Martinez MD Work Phone: [employer] Work Phone: 05-02-2019 11:21-0500 Body weight 105.23 kg Av Martinez MD Work Phone: [employer] Work Phone: 02-07-2019 06:36-0400 BP Diastolic 74 mm[Hg] [facility] [place] 02-07-2019 06:36-0400 BP Systolic 127 mm[Hg] [facility] , [place] 02-07-2019 06:36-0400 Pulse (Heart Rate) 52 /min [facility] [place] 02-07-2019 06:36-0400 Pulse Oximetry 93 % [facility] [place] 02-07-2019 06:36-0400 Respiratory Rate 16 /min [facility] [place] 02-07-2019 05:06-0400 BMI (Body Mass Index) 39.48 kg/m2 Willamvictor m Art [facility], [place] 02-07-2019 05:06-0400 Body Temperature 97.59 [degF] [facility], [place] 02-07-2019 05:06-0400 Body weight 104.33 kg [facility] , [place] 02-07-2019 05:06-0400 Height 162.6 cm Willam Lopez [facility] , [place] 01-27-2019 20:17-0400 Pulse Oximetry 94 % Stew Lopez [facility] , [place] 01-27-2019 20:17-0400 Respiratory Rate 16 /min Stew Lopez [facility], [place] 01-27-2019 19:33-0400 BP Diastolic 56 mm[Hg] Stew Quintana [facility] , [place] 01-27-2019 19:33-0400 BP Systolic 124 mm[Hg] Stew Lopez [facility] , [place] 01-27-2019 19:31-0400 Pulse (Heart Rate) 59 /min Stew Quint[facility], [place] 01-27-2019 17:44-0400 BMI (Body Mass Index) 41.71 kg/m2 Stew Lopez [facility], [place] 01-27-2019 17:44-0400 Body Temperature 98.4 [degF] Stew Quintana [facility], [place] 01-27-2019 17:44-0400 Body weight 110.22 kg Stew Quintana [facility] , [place] 01-27-2019 17:44-0400 Height 162.6 cm Stew Lopez [facility] , [place] 01-22-2019 11:26-0400 Body Temperature 98.2 [degF] Jose Lopez [facility], [place] 01-22-2019 11:26-0400 BP Diastolic 74 mm[Hg] Jose Lopez [facility] , [place] 01-22-2019 11:26-0400 BP Systolic 130 mm[Hg] Jose Lopez [facility] , [place] 01-22-2019 11:26-0400 Pulse Oximetry 94 % Jose Lopez [facility] , [place] 01-22-2019 11:26-0400 Respiratory Rate 20 /min Jose Lopez [facility], [place] 01-22-2019 08:00-0400 Pulse (Heart Rate) 57 /min Jose Lopez [facility], [place] 01-21-2019 14:0400 BMI (Body Mass Index) 40.51 kg/m2 Jose Lopez [facility], [place] 01-21-2019 14:0400 Body weight 107.05 kg Jose Lopez [facility] , [place] 01-21-2019 14:220400 Height 162.6 cm Jose Lopez [facility] , [place] Encounters Encounter Date Encounter Type Care Provider Facility Start: 06-18-2023 Telephone encounter Ernestina Potter PA-C Work Phone: [facility] Cardiology Procedures Date Procedure Procedure Detail Performing [...] Work Phone: Start: 01-22-2019 Hemoglobin glycosylated a1c Gabrielaleodan Stratton Work Phone: Start: 01-22-2019 Lipid panel Gabriela Stratton Work Phone: Start: 01-21-2019 Speech and language therapy regime Gabriela Stratton Work Phone: Start: 01-21-2019 Ecg routine [...] cancer screen colonoscopy [facility] Work Phone: Start: 05-02-2029 Screening for malign ant neoplasm of colon [facility] Start: 03-15-2029 Colon cancer screen colonoscopy Colon cancer screen colonoscopy [facility] Work Phone: Start: 01-23-2024 Lipid screen Lipid screen Jessica Herrera - [place], [place] Start: 03-01-2023 End: 03-01-2023 Patient encounter procedure 03/01/2023 10:20 AM EDT Appointment [facility] Vascular Lab [address] [place] [address] [facility] Vascular Lab Start: 02-25-2023 End: 02-25-2023 Admission to [facility] Cath/EP Lab Immunizations Immunization Date Immunization Notes Care Provider Fa saqib 01-28-2022 influenza virus vaccine, unspecified formulation Nicole Henson RN [facility] 04-03-2019 influenza, high dose seasonal, preservative-free Nona Stein MD Work Phone: [facility] Work Phone: 03-02-2012 influenza virus vaccine, unspecified formulation Nona Stein MD Work Phone: [facility] Work Phone: Payers Date Payer Category Payer Medicare [id number] 2017 Medicare BCBS MEDICARE AN THEM MEDIBLUE ESSENTIAL/PLUS xxxxxxxxxxxx 2017-Present [address] [address] [place] [address] xxxxxxxxxxxx [id number] 2017 Medicare [id number] 1945 Unknown [id number] 1945 Unknown [id number] 1945 Unknown [id number] 1945 Unknown [id number] 1945 Unknown [id number] Unknown Social History Date Type Detail Facility Start: 06-11-2016 End: 01-22-2019 Tobacco smoking status NHIS Never smoker [place] Start: 01-22-2019 End: 02-09-2023 Alcohol intake Yes [place] Start: 12-14-2016 Alcohol Comment [facility] Start: 1945 Sex Assigned At Not on file [facility] Start: 05-02-2019 End: 02-09-2023 Alcohol intake Current drinker of alcohol (finding) [facility] Work Phone: Exposure to SARS-CoV-2 (event) Unable to assess [facility] Start: 06-11-2016 End: 10-22-2020 Tobacco use and exposure Never used [facility] Start: 08-14-2022 End: 02-09-2023 Exposure to SARS-CoV-2 (event) Not sure [facility] Start: 08-06-2022 Alcohol Comment 1 time a month [facility] Start: 10-05-2022 End: 02-09-2023 History of Social function [facility] Clinical Notes 07-18-2020 to 06-18-2023 Telephone Encounter - Glendy Almendarez - 06/18/2023 9:16 AM ESTTelephone Encounter - Glendy Almendarez - 06/18/2023 9:16 AM ESTTelephone Encounter - Elinor Sood - 02/22/2023 12:23 PM EDT Note Date & Type Note Facility 06-18-2023 Telephone encounter Note Per request from Ernestina, I faxed cath and stress test report to [phone] Dr Rodriguez [facility] 06-18-2023 Miscellaneous Notes Per request from Ernestina, I faxed cath and stress test report to [phone] Dr Rodriguez documented in this encounter [facility] 02-22-2023 Telephone encounter Note I called and spoke with the patient. She reports she underwent LHC at [place]. She states that she was told that there was no evidence of restenosis or need for additional PCI. She was subsequently advised medical therapy per the patient. She is already scheduled then to follow with outreach specialist, Dr. Luna in [place] as she was already planning on establishing with him after the LHC secondary to location as she and her now live in [place]. She was appreciative of the care she received in [place] and just wanted us to be updated. [facility] 02-22-2023 Miscellaneous Notes I called and spoke with the patient. She reports she underwent LHC at [place]. She states that she was told that there was no evidence of restenosis or need for additional PCI. She was subsequently advised medical therapy per the patient. She is already scheduled then to follow with outreach specialist, Dr. Luna in [place] as she was already planning on establishing with him after the LH secondary to location as she and her now live in [place]. She was appreciative of the care she received in [place] and just wanted us to be updated. Patient's called and is cancelling CATH with Nils on 02/25, patient went to hospital sooner at [place] and had CATH there instead due to other issues patient had, spoke with Reyan in surgery scheduling and case cancelled Surg/ proc orders done You are scheduled for LHC with Dr Wray on 02/25/23 at 9:00 am. Report to [facility] by 7:30am. You can park in the [address] De[address] or use [employer] parking (for a nominal fee of $6-7) and enter the hospital using the [address] across from the parking deck You will need a designated hammer driver for the day of your procedure to take you home Nothing to eat or drink after midnight Please take your am medications with sips of water prior to leaving for the hospital. Please take your Plavix as usual before leaving for the hospital. Hold Eliquis 2 days prior to [facility]. Get blood work done by NA- was done and will be scanned into chart. Please call the office at [phone] if you have any questions. Reviewed allergies-No iodine allergy. Dx: CAD Procedure: [facility] Date/Time: 02/25/23 at 9am Surgeon: Nils Location: [facility] Admission: OUTPATIENT Per Ernestina, [facility] scheduled with Dr Wray on 02-25-23 9 am. Patient had recent labs at [place] ER to be scanned in [place]. documented in this encounter [facility] 02-22-2023 Telephone encounter Note Patient's called and is cancelling CATH with Nils on 02/25, patient went to hospital sooner at [place] and had CATH there instead due to other issues patient had, spoke with Reyna in surgery scheduling and case cancelled [facility] 02-10-2023 Telephone encounter Note I scheduled vascular ultrasound upper extremity 03-01-23 10:20 am [facility] Patient notified. [facility] 02-10-2023 Miscellaneous Notes I scheduled vascular ultrasound upper extremity 03-01-23 10:20 am [facility] Patient notified. documented in this encounter [facility] 02-09-2023 Note [facility] Cardiov [facility] Cardiology Office Note DATE of SERVICE: [...] ostial and proximal second diagonal (kissing balloon) 2016, history of stroke, hypertension, hyperlipidemia, recovered ischemic [...] and subsequently went to the ER in [place] 2 days ago. She states that she was diagnosed with a urinary tract infection for which she is currently on antibiotic therapy. She states she has not had diarrhea in the last 2 days. She states now that she and her are living in [place], she is planning on establishing with a primary care physician closer to home and a new outreach specialist in the area, Dr. Luna for which [...] to scalp o (more content not included)... [facility] 02-09-2023 Telephone encounter Note Surg/ proc orders done [facility] 02-09-2023 Miscellaneous Notes Surg/ proc orders done You are scheduled for [facility] with Dr Wray on 02/25/23 at 9:00 am. Report to [facility], [address] [place] [address] by 7:30am. You can park in the [address] or use [employer] parking (for a nominal fee of $6-7) and enter the hospital using the [address] across from the parking deck You will need a designated hammer driver for the day of your procedure [...] into chart. Please call the office at [phone] if you have any questions. Reviewed allergies-No iodine allergy. Dx: CAD Procedure: C Date/Time: 02/25/23 at 9am Surgeon: Nils Location: [facility] Dr Wray on 02-25-23 9 am. Patient had recent labs at [facility] to be scanned in [place] will do teaching. documented in this encounter [facility] 02-09-2023 Note Dx: CAD Procedure: [facility] Date/Time: 02/25/23 at 9am Surgeon: Nils Location: [facility] Admission: OUTPATIENT [facility] 02-09-2023 Telephone encounter Note You are scheduled for [facility] with Dr Wray on 02/25/23 at 9:00 am. Report to [facility] by 7:30am. You can park in the [address] or use [employer] parking (for a nominal fee of $6-7) and enter the hospital using the [address] across from the parking deck You will need a designated hammer driver for the day of your procedure [...] into chart. Please call the office at [phone] if you have any questions. Reviewed allergies-No iodine allergy. [facility] 02-09-2023 Telephone encounter Note Dx: CAD Procedure: [facility] Date/Time: 02/25/23 at 9am Surgeon: Nils Location: [facility] Admission: OUTPATIENT [facility] 02-09-2023 Telephone encounter Note [facility] with Dr Wray on 02-25-23 9 am. Patient had recent labs at [facility] to be scanned in [place] will do teaching. [facility] 02-09-2023 History of Present illness Narrative Images from the original note were not included. [facility] Cardiovascular Group Cardiology Office Note DATE of [...] ostial and proximal second diagonal (kissing balloon) 2016, history of stroke, hypertension, hyperlipidemia, recovered ischemic [...] and subsequently went to the ER in [place] 2 days ago. She states that she was diagnosed with a urinary tract infection for which she is currently on antibiotic therapy. She states she has not had diarrhea in the last 2 days. She states now that she and her are living in [place], she is planning on establishing with a primary care physician closer to home and a new outreach specialist in the area, Dr. Luna for which [...] results found for: CHOLHDLRATIO Laboratory data from [facility] 02/05/2023 shows white blood cell 5.4, [...] or percutaneous valve procedure (select one): No [facility] Classificaton : I Frailty Score :4 Cardiac Tests: ECG: EKG in the office shows sinus rhythm with old anterior NC and T wave abnormality with a heart [...] ostial and proximal diag 2 (kissing balloon) 2017-the patient currently reports typical anginal/exertional chest pain [...] despite dual antianginal therapy she was advised [facility] for further assessment. The risks and benefits were discussed with the patient. She is agreeable to proceed. The patient would like to have the procedure done with Dr. Wray as he previously performed her PCI in 2017. Recent BMP and CBC from [facility] 02/05/2023 will order stable and therefore [...] patient ultimately plans on establishing with local outreach specialist, Dr. Luna, in [place] due to location as she and her now live in [place] but has requested to undergo her current recommended cardiac testing/invasive cardiac evaluation in [place] prior to establishing in [place]. documented in this encounter [facility] 02-09-2023 Instructions Ernestina Potter PA-C - 02/09/2023 10:00 AM EDT -the carvedilol should be 1/2 pill in the morning and 1/2 pill at night -check blood pressure in right arm -bring home blood pressure monitor to next appointment -heart cath soon -test on arteries in your upper extremities soon documented in this encounter [facility] 01-07-2023 History of Present illness Narrative [facility] Cardiology Office Note DATE of [...] had rectal bleeding and was hospitalized at [facility]. She states she had an EGD performed and 2 areas were cauterized. She believes they may have changed her stomach pill although she is not sure. Records are unavailable at the time of dictation. She also states she had a follow-up blood test done with her primary care physician. 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 Hypertension-borderline on today's physical examination-she had evidence [...] physician's office and records were requested from [facility]. She is currently on PPI therapy-pending review of records may increase dosage of PPI therapy. In the absence of further cardiac complaints, the patient is to return for cardiac reassessment in 3-4 weeks. documented in this encounter [facility] 01-07-2023 Instructions Ernestina Potter PA-C - 01/07/2023 8:30 AM EDT -stop the amlodipine -start Imdur (isosorbide) 30 mg- 1 pill each morning -increase water intake -appointment in 4 weeks documented in this encounter [facility] 01-04-2023 Telephone encounter Note You can add on to my schedule at 8:30 on . Mehdi Bacon [facility] 01-04-2023 Miscellaneous Notes You can add on [...] Patient's called requesting an appt with Dr Daria Harris on this week. Currently, we do not have any openings, but I said that I can watch for cancellations. Familia states that his has taken 2 Nitroglycerin in the last couple of days for chest pain. I advised that I will have a nurse call back to triage. Please call Familia on his cell [phone] documented in this encounter [facility] 01-04-2023 Telephone encounter Note Spoke with patient [...] ER. Pt and pt's spouse verbalized understanding. [facility] 01-04-2023 Telephone encounter Note Patient's called requesting an appt with Dr Daria Harris on this week. Currently, we do not have any openings, but I said that I can watch for cancellations. Familia states that his has taken 2 Nitroglycerin in the last couple of days for chest pain. I advised that I will have a nurse call back to triage. Please call Familia on his cell [phone] [facility] 11-16-2022 Telephone encounter Note S: Patient's spoke with [facility] nurse regarding making an appt for his . B: Onset of symptoms/concern N/A A: Pt calling requesting to schedule an appt for his on Monday 11/20. Declined sharing reason for appt; just states there are some things we want to discuss with her doctor. No acute symptoms. R: Unable to schedule with [facility] office per practice page (only acute visits). Offered to send message, but pt's states he will back back tomorrow morning. No further needs at this time. [facility] 11-16-2022 Miscellaneous Notes S: Patient's spoke with [facility] nurse regarding making an appt for his . B: Onset of symptoms/concern N/A A: Pt calling requesting to schedule an appt for his on Monday 11/20. Declined sharing reason for appt; just states there are some things we want to discuss with her doctor. No acute symptoms. R: Unable to schedule with [facility] office per practice page (only acute visits). Offered to send message, but pt's states he will back back tomorrow morning. No further needs at this time. documented in this encounter [facility] 10-05-2022 History of Present illness Narrative 10/05/2022 [...] MD Vascular Surgery documented in this encounter [facility] 09-23-2022 Note Discharge Summary Cynthia Robertson : [...] Your Medications These medications were sent to [facility] [address] [place], [place] [phone] Hours: Wednesday to Wednesday 10 am to 6 pm ondansetron 4 MG tablet oxyCODONE-acetaminophen 5-325 MG tablet DIET: Adult diet Regular ACTIVITY: No heavy lifting. COMPLEXITY OF FOLLOW UP: [x] Moderate Complexity: follow up within 7-14 calendar days (50255) [] Severe Complexity: follow up within 7 calendar days (94834) FOLLOW UP TESTING, PENDING RESULTS OR REFERRALS AT TRANSITIONAL CARE VISIT: [] Yes [x] No PENDING STUDIES: None DISPOSITION: Home FACILITY/HOME CARE AGENCY NAME: Follow up with Rowan Chavez MD [address] [place] [address] [address] [phone] Schedule an appointment as soon as possible [...] SIGNED: Petey Renteria MD 09/23/2022, 12:51 PM [facility] 09-23-2022 Hospital course Narrative Discharge Summary Cynthia Robertson : 1945 ADMIT [...] Your Medications These medications were sent to [facility] [address] [place] [address] Hours: Wednesday to Wednesday 10 am to 6 pm ondansetron 4 MG tablet oxyCODONE-acetaminophen 5-325 MG tablet DIET: Adult diet Regular ACTIVITY: No heavy lifting. COMPLEXITY OF FOLLOW UP: [x] Moderate Complexity: follow up within 7-14 calendar days (28724) [] Severe Complexity: follow up within 7 calendar days (89183) FOLLOW UP TESTING, PENDING RESULTS OR REFERRALS AT TRANSITIONAL CARE VISIT: [] Yes [x] No PENDING STUDIES: None DISPOSITION: Home FACILITY/HOME CARE AGENCY NAME: NA Follow up with Rowan Chavez MD [address] [place] [id number] Schedule an appointment as soon as possible [...] 09/23/2022, 12:51 PM documented in this encounter [facility] 09-23-2022 Nurse Note 1105 pt IV access removed, discharge instructions and stroke booklet given, pt states she does not have any questions at this time. All belonging with patient, meds to beds delivered from pharmacy. 1220 pt assisted off unit in wheelchair, no questions at time of discharge. [facility] 09-23-2022 Nurse Note 1105 pt IV access [...] line for BP. documented in this encounter [facility] 09-23-2022 Hospital Discharge instructions Annabelle Drummond RN [...] and the need for follow-up with a physician/SENIOR PARTNER/PA after discharge. Annabelle Drummond RN on 09/23/22 [...] through Care Everywhere.Carotid Artery Endarterectomy Discharge Instructions (Chadian)documented in this encounter [facility] 09-23-2022 History of Present illness Narrative Department [...] to monitor neck documented in this encounter [facility] 09-22-2022 Note Problem: Knowledge D eficit Goal: Patient/family/caregiver demonstrates understanding of disease process, treatment plan, medications, and discharge instructions Outcome: Progressing [facility] 09-22-2022 Plan of care note Problem: Knowledge Deficit Goal: Patient/family/caregiver demonstrates understanding of disease process, treatment plan, medications, and discharge instructions Outcome: Progressing [facility] 09-22-2022 Miscellaneous Notes Problem: Knowledge Deficit Goal: [...] carotid artery [I65.22] Procedures LEFT CAROTID ENDARTERECTOMY 72598 - MA TEAEC W/PATCH GRF CAROTID VERTB SUBCLAV NECK [...] Serial No. Shunt SHUNT CAROTID 14-9F - [id number] Used, Not Implanted Staff: [employer] Farmworker: Lindsey Faustin RN Scrub Person: Vania Kwok [...] PRE-PROCEDURE ROUNDING COMPLETE. documented in this encounter [facility] 09-22-2022 Nurse Note 1325 Nurse from PACU came to assist in assessing pt neck, states that it is more swollen then when pt was in PACU. Ice applied to incision site, hob elevated Pt given PRN hydralazine for bp 173/73 Dr Orellana notified via secure chat. Dr Orellana at bedside, states okay to follow arterial line for BP. [facility] 09-22-2022 Note Patient: Cynthia martini Procedure Summary Date: 09/22/22 Room / Location: [facility] Operating Room Anesthesia Start: 736 Anesthesia Stop: 1050 Procedure: LEFT CAROTID ENDARTERECTOMY (Left: Neck) Diagnosis: Occlusion and stenosis of left carotid artery (Occlusion and stenosis of left carotid artery [I65.22]) Surgeons: Rowan Chavez MD Responsible Provider: Sona Rogers APRN - HOLE FILLER Anesthesia Type: general ASA Status: 3 Anesthesia [...] once all PACU criteria has been met. [facility] 09-22-2022 Note Patient: Cynthia martini Procedure Summary Date: 09/22/22 Room / Location: [facility] Operating Room Anesthesia Start: 0737 Anesthesia Stop: 1051 Procedure: LEFT CAROTID ENDARTERECTOMY (Left: Neck) Diagnosis: [...] opportunity for questions and acknowledgement of understanding. [facility] 09-22-2022 Note Formatting of this n ote might be different from the original. Family updated via phone call [facility] 09-22-2022 Note Formatting of this n ote might be different from the original. Family updated via phone call [facility] 09-22-2022 Note Airway Date/Time: 09/22/2022 7:45 AM Urgency: scheduled Airway not difficult General Information and Staff Patient location during procedure: Procedural Anesthesiologist: Kurtis Bolivar MD Resident/HOLE FILLER: Sona Rogers APRN - HOLE FILLER Performed: anesthesiologist Indications and Patient Condition Indications [...] 21 Number of attempts at approach: 1 [facility] 09-22-2022 Note H&P reviewed. The pa tient [...] arms and legs yes Normal Speech yes [facility] 09-22-2022 Note OPERATIVE REPORT DATE OF SERVICE: [...] was used to (more content not included)... [facility] 09-22-2022 Note PRE-PROCEDURE ROUNDING COMPLETE. [facility] 09-22-2022 Attending History and physical note H&P [...] seen/examined on 09/11/2022 Procedure Information Date/Time: 09/22/22 07 Procedure: LEFT CAROTID ENDARTERECTOMY (Left: Neck) Location: [facility] OR Operating Room Surgeons: Rowan Chavez [...] Screen and Sleep Clinic Referral (if appropriate) [facility] Phone: 09-22-2022 History and physical note H&P [...] seen/examined on 09/11/2022 Procedure Information Date/Time: 09/22/22 5420 Procedure: LEFT CAROTID ENDARTERECTOMY (Left: Neck) Location: [facility] OR Operating Room Surgeons: Rowan Chavez [...] Referral (if appropriate) documented in this encounter [facility] 09-22-2022 Note Formatting of this n ote [...] and in circulation held in place by Zahc clamps proximally and distally. Of note, there [...] the case. Rowan Chavez MD Vascular Surgery [facility] 09-22-2022 Note Formatting of this n ote is different from the original. Date: 09/22/2022 Location: [facility] OR Name: Cynthia Robertson, : 1945, Diagnosis Pre-op Diagnosis * Occlusion and stenosis of left carotid artery [I65.22] Post-op Diagnosis * Occlusion and stenosis of left carotid artery [I65.22] Procedures LEFT CAROTID ENDARTERECTOMY 44197 - MA TEAEC W/PATCH GRF CAROTID VERTB SUBCLAV NECK INC Surgeons * Rowan Chavez - Primary Petey Renteria, PGY-5 (Assisting) Procedure Summary Anesthesia: General ASA: III Estimated Blood Loss: 150 mL Drains: * None in log * Specimens ID Source Type Tests Collected By Collected At Frozen? Priority Lab ID 1 Neck Other TISSUE EXAM Rowan Chavez MD 09/22/22 5766 No Routine Description: LEFT CAROTID PLAQUE Implants Type Name Action Serial No. Shunt SHUNT CAROTID 14-9F - [id number] Used, Not Implanted Staff: [employer] Farmworker: Lindsey Faustin, RN Scrub Person: Vania Kwok RN Findings: [...] (two hours if receiving Vancomycin or flouroquinolone) [facility] 09-22-2022 Note Formatting of this n ote [...] the case. Rowan Chavez MD Vascular Surgery [facility] 09-22-2022 Note Formatting of this n ote is different from the original. Date: 09/22/2022 Location: [facility] OR Name: Cynthia Robertson, : 1945, Diagnosis Pre-op Diagnosis * Occlusion and stenosis of left carotid artery [I65.22] Post-op Diagnosis * Occlusion and stenosis of left carotid artery [I65.22] Procedures LEFT CAROTID ENDARTERECTOMY 46318 - MA TEAEC W/PATCH GRF CAROTID VERTB SUBCLAV NECK [...] Serial No. Shunt SHUNT CAROTID 14-9F - [id number] Used, Not Implanted Staff: [employer] Farmworker: Lindsey Faustin RN Scrub Person: Vania Kwok [...] left carotid artery [I65.22] Collected By: Rowan Chaevz MD 09/22/2022 9:19 AM Wound Class: Class I: Clean Blood Products: None Prophylactic Antibiotics: Procedure appropriate prophylactic antibiotic(s) given within 1 hour of surgical incision (two hours if receiving Vancomycin or flouroquinolone) [facility] 09-22-2022 Note Formatting of this n ote might be different from the original. PRE-PROCEDURE ROUNDING COMPLETE. [facility] 09-22-2022 Note Formatting of this n ote might be different from the original. PRE-PROCEDURE ROUNDING COMPLETE. [facility] 09-11-2022 Note Patient: Cynthia martini Procedure Information Date/Time: 09/22/22 0730 Procedure: LEFT CAROTID ENDARTERECTOMY (Left: Neck) Location: [facility] OR Operating Room Surgeons: Rowan Chavez MD Past Medical History: Past Medical History: No date: Arthritis No date: Blurry vision No date: CAD (coronary artery disease) No date: Cerebral artery occlusion with cerebral infarction (HCC) Comment: peripheral vision defect bilaterally No date: Decreased vision No date: H/O left heart catheterization by yuki Comment: no stents No date: Headache No [...] Trev Huff MD on 08/17/2022 4:42 PM [facility] 09-11-2022 Note Comprehensive PreSur gical History and Physical ? Name: Cynthia Robertson : 1945 (Age-77 y.o.) Date of Service: Pt seen/examined on 09/11/2022 Procedure Information Date/Time: 09/22/22729 Procedure: LEFT CAROTID ENDARTERECTOMY (Left: Neck) Location: [facility] OR Operating Room Surgeons: Rowan Chavez [...] and dry. Neur (more content not included)... [facility] 09-11-2022 Note Comprehensive PreSur gical History and Physical ? Name: Cynthia Robertson : 1945 (Age-77 y.o.) Date of Service: Pt seen/examined on 09/11/2022 Procedure Information Date/Time: 09/22/22 8411 Procedure: LEFT CAROTID ENDARTERECTOMY (Left: Neck) Location: [facility] OR Operating Room Surgeons: Rowan Chavez [...] and dry. Neur (more content not included)... [facility] 09-04-2022 Telephone encounter Note I faxed this encounter to fax number provided. [facility] 09-04-2022 Miscellaneous Notes I faxed this encounter to fax number provided. I [facility]ed [facility] to [facility] [phone] Recent stress test showed no evidence of ischemia. No cardiac contraindication for patient to proceed with the proposed carotid surgery. Ok to hold Eliquis therapy 2 days prior and continue plavix therapy. Thanks, Ernestina Potter PA-C Received a fax from [facility] for clearance/optimization for left carotid endarterectomy by Dr Rowan Chavez. Patient will hold 2 doses of Eliquis for surgery and will continue Plavix. I generated a letter to Dr Huff documented in this encounter [facility] 09-03-2022 Telephone encounter Note I faxed letter to [facility] [phone] [facility] 09-03-2022 Telephone encounter Note Recent stress test showed no evidence of ischemia. No cardiac contraindication for patient to proceed with the proposed carotid surgery. Ok to hold Eliquis therapy 2 days prior and continue plavix therapy. Thanks, Ernestina Potter PA-C [facility] 09-03-2022 Telephone encounter Note Received a fax from [facility] for clearance/optimization for left carotid endarterectomy by Dr Rowan Chavez. Patient will hold 2 doses of Eliquis for surgery and will continue Plavix. [phone] I generated a letter to Dr Huff [facility] 09-02-2022 Note Vascular Surgery Out patient Consultation [...] Neg Hx Cataracts Father Heart disease Father mipacer Strabismus Neg Hx Blindness Neg Hx Retinal [...] MCV 88.0 07/22 (more content not included)... [facility] 09-02-2022 History of Present illness Narrative Vascular Surgery Outpatient Consultation Chief Complaint Patient presents with New Patient Ernestina SILVERIO/ [place] carotid stenosis/CU 08/24/22 Reason for Consult: Carotid [...] Neg Hx Cataracts Father Heart disease Father mipacer Strabismus Neg Hx Blindness Neg Hx Retinal [...] MD Vascular Surgery documented in this encounter [facility] 08-25-2022 Telephone encounter Note Pt informed. [facility] 08-25-2022 Miscellaneous Notes Pt informed. Please let her know that is fine that she is scheduled with [address] Valerio's partners. Ernestina Bacon Patient called asking to talk to Ernestina. [...] within 1 week. documented in this encounter [facility] 08-25-2022 Telephone encounter Note Please let her know that is fine that she is scheduled with [address] Valerio's partners. Thanks, Ernestina [facility] 08-25-2022 Telephone encounter Note Patient called asking to talk to Ernestina. She was referred to Dr Valerio and he is not available, so she was schedule with another provider in their office. She is asking if this is ok? [facility] 08-24-2022 Telephone encounter Note I called the [...] not hear from them within 1 week. [facility] 08-24-2022 Miscellaneous Notes I called the patient [...] within 1 week. documented in this encounter [facility] 08-24-2022 Miscellaneous Notes Spoke with patient and gave instructions for nuclear stress test. documented in this encounter [facility] 08-24-2022 Note Formatting of this n ote might be different from the original. Spoke with patient and gave instructions for nuclear stress test. [facility] 07-18-2020 Note HNO ID: [id number] Author: Carissa Dallas Service: ? Author Type: [...] patient was offered a surgery/procedure at a [facility] facility. The surgeon/proceduralist and patient have discussed [...] PAST MEDICAL HISTORY Diagnosis Date - Acute NC (HCC) 1996 mild per pt - Diaphragmatic [...] HX x2 - COLONOSCOP W/ OR W/O [facility] 15 to 20 years ago Colonoscopy - COLONOSCOP W/ OR W/O [facility] 05/26/2011 Colonoscopy - [facility], DIAG AND/OR [...] (Patient not taking: (more content not included)... [facility] 07-18-2020 Note HNO ID: [id number] Author: Ainsley German LPN Service: ? Author [...] of dysuria, frequency or incontinence. ENDOCRINE: None STEWARD/STEWARDESS SMOKE ROOM:Denies any concerns STEWARD/STEWARDESS SMOKE ROOM: Age of first period: 17 Number of pregnancies: 5 Number of live births: 3 Your age at of first child: 21 Your age at start of menopause: Hysterectomy Taking hormone replacement: No Family History of Cancer: None MUSCULOSKELETAL: Positive for:, back pain NEUROLOGIC:Negative for focal numbness or weakness, headaches and dizziness or syncope. HEMATOLOGIC/LYMPHATIC/IMMUNOLOGIC: Positive for: and Bleeding or bruising tendancy [facility] documented in this encounter [facility] Work Phone: Evaluation note* Diagnosis Carotid stenosis, left- Primary Occlusion and stenosis of carotid artery without mention of cerebral infarction documented in this encounter [facility]* Diagnosis Bilateral carotid artery stenosis Occlusion and stenosis of carotid artery without mention of cerebral infarction documented in this encounter [facility]* Diagnosis 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) Abnormal EKG Nonspecific abnormal electrocardiogram (ECG) (EKG) documented in this encounter [facility]* Diagnosis Carotid stenosis, left Occlusion and stenosis of carotid artery without mention of cerebral infarction documented in this encounter [facility]* Diagnosis Stenosis of left carotid artery- Primary Occlusion and stenosis of carotid artery without mention of cerebral infarction Occlusion and stenosis of left carotid artery documented in this encounter [facility]* Diagnosis Stenosis of left carotid artery- Primary Occlusion and stenosis of carotid artery without mention of cerebral infarction Stenosis of left carotid artery Occlusion and stenosis of carotid artery without mention of cerebral infarction Occlusion and stenosis of left carotid artery documented in this encounter [facility]* Diagnosis Carotid stenosis, left- Primary Occlusion and stenosis of carotid artery without mention of cerebral infarction S/P carotid endarterectomy Other postprocedural status documented in this encounter [facility]* Diagnosis Carotid stenosis, left Occlusion and stenosis of carotid artery without mention of cerebral infarction S/P carotid endarterectomy Other postprocedural status documented in this encounter [facility]* Diagnosis 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)- Primary Orthostatic hypotension Mixed hyperlipidemia H/O: upper GI bleed Personal history of other diseases of digestive disease documented in this encounter [facility]* Diagnosis 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)- Primary Abnormal EKG Nonspecific abnormal electrocardiogram (ECG) (EKG) Unequal blood pressure in upper extremities PVD (peripheral vascular disease) (HCC) Unspecified peripheral vascular disease Essential hypertension, benign 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) Abnormal EKG Nonspecific abnormal electrocardiogram (ECG) (EKG) 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) Abnormal EKG Nonspecific abnormal electrocardiogram (ECG) (EKG) documented in this encounter [facility] Discharge instructions* Instructions* Isabel Marshall RN - [...] TO NEAREST EMERGENCY DEPARTMENT [facility]: Reason for referral (narrative)* Consultation (Routine) - Pending Review Specialty Diagnoses / Procedures Referred By Contjose t Referred To Contact Vascular Surgery Diagnoses Carotid stenosis, left Procedures [place] OFFICE/OUTPATIENT NEW HIGH MDM 60-74 MINUTES Ernestina Potter PA-C [address] [place] [address] Delio Valerio MD [address] [place] [address], [address] [place] [address] Referral ID Status Reason Start Date Expiration Date Visits Requested Visits Authorized [id number] Pending Review Specialty Services Required 08/24/2022 08/24/2023 1 1 [facility] Summary Purpose Family History No Family History Records FoundNo Family History Records FoundNo Family History Records FoundNo Family History Records FoundNo Family History Records FoundNo Family History Records FoundNo Family History Records Found Advance Directives No Advanced Directives Records FoundDocuments on File Type Date Recorded 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 Advance Directives and Living Will Power of Fuel Oil Clerk Latest Code Status on File Code Status [...] Documents on File Type Date Recorded 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 * Otitis Media (Chadian) documented in this encounter* Instructions* Rangel Hooks PA-C - 02/07/2019 Please follow-up with your primary physician Dr. Quintana in the next 2-3 days to be reevaluated. If you have any significant new or worsening of symptoms please contact your doctor or return to the ED if necessary. * Attachments The following attachments cannot be sent through Care Everywhere. * Vertigo: Exercises (Chadian) documented in this encounter* Attachments The following attachments cannot be sent through Care Everywhere. 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 ([facility]) I63.532 Hypertension I10 Hyperlipidemia E78.5 Sleep apnea G47.30 Obesity (BMI 35.0-39.9 without comorbidity) E66.9 Other localized visual field defect, right eye H53.451 Enlarged LA (left atrium) I51.7 Gastritis K29.70 Homonymous bilateral field defects, 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 H/O bilateral cataract extraction Z98.41, Z98.42 NSTEMI (non-ST elevated myocardial infarction) ([facility]) I21.4 Hyperglycemia R73.9 QT prolongation [...] MENTAL STATUS:} IV Access: { SLICK IV ACCESS:680494119} Nursing Mobility/ADLs: Walking {CHP DME ADLs:921090394} Transfer {CHP DME ADLs:672712587} Bathing {CHP DME ADLs:101294859} Dressing {CHP DME ADLs:379879076} Toileting {CHP DME ADLs:326080013} Feeding {CHP DME ADLs:950392903} Chemical Compounder {CHP DME ADLs:142969544} Med Delivery { SLICK MED Delivery:543244657} Wound Care Documentation and Therapy: Puncture 12/18/16 Wrist Right (Active) Number of days: 765 Elimination: Continence: Bowel: {YES / NO:} Bladder: {YES / NO:} Urinary Catheter: {Urinary Catheter:928767851} Colostomy/Ileostomy/Ileal Conduit: {YES / NO:} Date of Last BM: Intake/Output Summary (Last 24 hours) at 01/22/2019 1552 Last data filed at 01/21/2019 2334 Gross per 24 hour Intake 100 ml Output Net 100 ml I/O last 3 completed shifts: In: 100 [P.O.:100] Out: - Safety Concerns: { SLICK Safety Concerns:718548727} Impairments/Disabilities: {[facility] Impairments/Disabilities:720556163} Nutrition Therapy: Current Nutrition Therapy: { SLICK Diet List:908202951} Routes of Feeding: {[facility] DME Other Feedings:905635915} Liquids: {[facility] liquid thickness:74313} Daily Fluid Restriction: {[facility] DME Yes amt example:730743644} Last Modified Barium Swallow with Video (Video Swallowing Test): {Done Not Done Date:} Treatments at the Time of Hospital Discharge: Respiratory Treatments: Oxygen Therapy: {Therapy; copd oxygen:29687} Ventilator: {[facility] Vent List:008807781} Rehab Therapies: {THERAPEUTIC INTERVENTION:7232401046} Weight Bearing Status/Restrictions: {[facility] Weight Bearin} Other Medical Equipment (for information only, NOT a DME order): {EQUIPMENT:562868186} Other Treatments: Patient's personal belongings (please select all that are sent with patient): {[facility] DME Belongings:921134476} RN SIGNATURE: {Esignature:737459564} CASE MANAGEMENT/SOCIAL WORK SECTION Inpatient Status Date: Readmission Risk Assessment Score: Readmission Risk Risk of Unplanned Readmission: 11 Discharging to Facility/ Agency Name: Address: Phone: Fax: Dialysis Facility (if applicable) Name: Address: Dialysis Schedule: Phone: Fax: Seam Presser/Insole Coverer signature: {Esignature:442942182} PHYSICIAN SECTION Prognosis: Good Condition at Discharge: [...] and the need for follow-up with a physician/SENIOR PARTNER/PA after discharge. Discussed the patient s personal [...] 01/22/2019 3:50 PM EDT Discharge Summary Cynthia Cummings Marcelo : 1945 ADMIT DATE: 01/21/2019 DISCHARGE DATE: [...] DISCHARGE MEDICATIONS: Cynthia Robertson Home Medication Instructions PAMELA:[id number] Printed on:01/22/19 8081 Medication Information acetaminophen (TYLENOL) 500 MG tablet [...] Complexity: follow up within 7-14 calendar days (31346) [] Severe Complexity: follow up within 7 calendar days (25723) FOLLOW UP TESTING, PENDING RESULTS OR REFERRALS AT TRANSITIONAL CARE VISIT: [] Yes [] No PENDING STUDIES: No DISPOSITION: Outpatient Therapy FACILITY/HOME CARE AGENCY NAME: Follow up with Stew Quintana, DO [address] [facility] [address] [facility] [address] in 3 days. INSTRUCTIONS TO [...] 01/22/2019 11:57 AM EDT Physical Therapy Facility/Department: [facility] Initial Assessment NAME: Cynthia Robertson : [...] AM-PAC Inpatient T-Scale Score : 61.14 (01/22/19 114) Mobility Inpatient CMS 0-100% Score: 0 (01/22/191147) Mobility Inpatient CMS G-Code Modifier : CH (01/22/191147) Goals Therapy Time Individual Concurrent Group Co-treatment Time In 1130 Time Out 1143 Minutes 13 Flo Dial PT * Vaishali Winston MD - 01/22/2019 9:44 AM EDT Hospitalist Progress Note 01/22/2019 4:01 PM [phone]: Please page me for patient care issues. [phone]: Please page IMS night Hospitalist for any [...] 14.9* PLT 163 136* BMP: Recent Labs 01/21/19151501/22/19 0040 NA 142 142 K 4.2 3.7 CL 110* 110* CO2 22 24 BUN 16 15 CREATININE 0.74 0.72 GLUCOSE 101* 91 CALCIUM 9.7 9.3 ANIONGAP 10 8 LIVER PROFILE: Recent Labs 01/21/19151501/22/19 0040 AST 30 27 ALT 31 33 BILITOT [...] of Hospitalist Medicine Inpatient Medical Services PAGER: [phone] * Luz Castorena, [facility] [employer] [facility] - 01/22/2019 8:03 AM EDT Speech Language Pathology Patient passed the Nursing Swallowing Screening and is on a Cardiac diet. Completed speech orders as per stroke protocol. Luz Castorena MA, CCC-[facility] 01/22/19 documented in this encounter Reason for Referral Status Reason Specialty Diagnoses / Procedures Re ferred By Contact Referred To Contact Closed Radiology Diagnoses H/O non-ST elevation myocardial infarction (NSTEMI) Hyperlipidemia, unspecified hyperlipidemia type CAD in paskenta artery Chest wall symptom Procedures NM Myocardial Spect Rest Exercise or Rx Nona Stein MD 1 [facility] [place] [address] [place] [address] Specialty Diagnoses / Procedures Referred By Contac t Referred To Contact Cardiology Diagnoses Bilateral carotid artery stenosis Procedures Vascular US carotid artery duplex bilateral Ernestina Potter PA-C [address] [place] [address] Referral ID Status Reason Start Date Expiration Date V isits Requested Visits Authorized [id number] Closed Perform Procedure 08/11/2022 11/08/2022 1 1 Specialty Diagnoses / Procedures Referred By Contac t Referred To Contact Cardiology Diagnoses 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) Abnormal EKG Procedures Nuclear REGADENOSON stress test with myocardial perfusion Ernestina Potter PA-C [address] [place] [address] Referral ID Status Reason Start Date Expiration Date Visits Re quested Visits Authorized [id number] Closed 08/11/2022 11/08/2022 1 1 Specialty Diagnoses / Procedures Referred By Contac t Referred To Contact Cardiology Diagnoses Carotid stenosis, left S/P carotid endarterectomy Procedures Vascular US carotid artery duplex bilateral Rowan Chavez MD [address] [place] [address] Referral ID Status Reason Start Date Expiration Date Visits Requested Visits Authorized [id number] Pending Review Perform Procedure 10/05/2022 04/03/2023 1 1 Referral ID Status Reason Start Date Expiration Date Visits Requested Visits Authorized [id number] Pending Review Perform Procedure 10/05/2022 04/03/2023 1 1 Referral ID Status Reason Start Date Expiration Date V isits Requested Visits Authorized [id number] Closed Perform Procedure 10/05/2022 04/03/2023 1 1 Specialty Diagnoses / Procedures Referred By Contac t Referred To Contact Cardiology Diagnoses PVD (peripheral vascular disease) (HCC) Unequal blood pressure in upper extremities Procedures Vascular US upper extremity arterial PVR Ernestina Potter PA-C [address] [place] [address] Referral ID Status Reason Start Date Expiration Date V isits Requested Visits Authorized [id number] Pending Review 02/09/2023 08/08/2023 1 1 Additional Source Comments INFORMATION SOURCE (unrecogn ized section and content) DATE CREATED AUTHOR AUTHOR'S ORGANIZ ATION 09/03/2018 [facility] DATE CREATED AUTHOR AUTHOR'S ORGANIZ ATION 08/06/2020 [facility] DATE CREATED AUTHOR AUTHOR'S ORGANIZ ATION 10/23/2020 [facility] DATE CREATED AUTHOR AUTHOR'S ORGANIZ ATION 06/20/2021 [facility] DATE CREATED AUTHOR AUTHOR'S ORGANIZ ATION 09/03/2021 [facility] DATE CREATED AUTHOR AUTHOR'S ORGANIZ ATION 06/19/2023 [facility] Reason for Visit [...] carotid artery duplex bilateral Ernestina Potter PA-C [address] [place] [id number] Referral ID Status Reason Start Date Expiration Date V isits Requested Visits Authorized [id number] Closed Perform Procedure 08/11/2022 11/08/2022 1 1 Specialty Diagnoses / Procedures Referred By Contac t Referred To Contact Cardiology Diagnoses 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) Abnormal EKG Procedures Nuclear REGADENOSON stress test with myocardial perfusion Ernestina Potter PA-C [address] [place] [address] Referral ID Status Reason Start Date Expiration Date Visits Re quested Visits Authorized [id number] Closed 08/11/2022 11/08/2022 1 1 Reason Comments New Patient Ernestina SILVERIO/ L carotid stenosis/CU 08/24/22 Specialty Diagnoses / Procedures Referred By Astridac t Referred To Contact Vascular Surgery Diagnoses Carotid stenosis, left Procedures MA OFFICE/OUTPATIENT [facility] 60-74 MINUTES Ernestina Potter PA-C [address] [place] [address] Delio Valerio MD [address] [facility], [address] [place] [address] Referral ID Status Reason Start Date Expiration Date V isits Requested Visits Authorized [id number] Closed Specialty Services Required 08/24/2022 08/24/2023 1 1 Reason Onset Date Comments Cardiac Clearance 09/03/2022 Specialty Diagnoses / Procedures Referred By Astridac t Referred To Contact Diagnoses Occlusion and stenosis of left carotid artery Occlusion and stenosis of left carotid artery [I65.22] Procedures MA TEAEC W/PATCH GRF CAROTID VERTB SUBCLAV NECK INC LEFT CAROTID ENDARTERECTOMY Rowan Chavez MD [address] [place] [address] [place] [address] [address] [place] [address] Referral ID Status Reason Start Date Expiration Date Visits Re quested Visits Authorized [id number] 1 1 Reason Comments Post-op 1ST PO LEFT CAROTID ENDARTERECTOMY 09/22/2022 Specialty Diagnoses / Procedures Referred By Erick t Referred To Contact Cardiology Diagnoses Carotid stenosis, left S/P carotid endarterectomy Procedures Vascular US carotid artery duplex bilateral Rowan Chavez MD [address] [place] [address] [place] [address] Referral ID Status Reason Start Date Expiration Date V isits Requested Visits Authorized [id number] Closed Perform Procedure 10/05/2022 04/03/2023 1 1 Reason Onset Date Comments schedule appt 11/16/2022 Reason Comments Chest Pain Reason Comments Follow-up Reason Onset Date Comments OTHER 02/10/2023 Reason Onset Date Comments OTHER 02/09/2023 CATH schedule Reason Onset Date Comments OTHER 01/04/2023 Reason Comments Med Refill Reason Onset Date Comments OTHER 06/18/2023 Care Teams (unrecognized sec tion and content) Rotary Drum Tanner Relationship Specialty Start Date End Date Mariano, Stew Moran, DO [address] [place] [address] PCP - General 06/02/16 Rotary Drum Tanner Relationship Specialty Start Date End Date Mariano Stew Moran, DO [address] [place] [address] PCP - General 06/02/16 Rotary Drum Tanner Relationship Specialty Start Date End Date Mariano Stew Moran, DO [address] [place] [address] PCP - General 06/02/16 Rotary Drum Tanner Relationship Specialty Start Date End Date Mariano Stew Moran, DO [address] [facility] [address] [place] [address] PCP - General 06/02/16 Rotary Drum Tanner Relationship Specialty Start Date End Date MarianoStew, DO [address] [facility] [address] [place] [address] PCP - General 06/02/16 Rotary Drum Tanner Relationship Specialty Start Date End Date Mariano Stew Moran, DO [address] [place] [address] PCP - General 06/02/16 Ernestina Potter PA-C [address] [facility] [address] [place] [address] Physician Assistant Infant Toddler Teacher Physician Assistant Infant Toddler Teacher 08/28/22 Rotary Drum Tanner Relationship Specialty Start Date End Date Stew Quintana, DO [address] [facility] [address] [place] [address] PCP - General 06/02/16 Ernestina Potter PA-C [address] [facility] [address] [place] [address] Physician Assistant Infant Toddler Teacher Physician Assistant Infant Toddler Teacher 08/28/22 Rotary Drum Tanner Relationship Specialty Start Date End Date Mariano Stew Moran, DO [address] [place] [address] PCP - General 06/02/16 Ernestina Potter PA-C [address] [facility] [address] [place] [address] Physician Assistant Infant Toddler Teacher Physician Assistant Infant Toddler Teacher 08/28/22 Rotary Drum Tanner Relationship Specialty Start Date End Date MarianoStew, DO [address] [place] [address] PCP - General 06/02/16 Ernestina Potter PA-C [address] [facility] [address] [place] [address] Physician Assistant Infant Toddler Teacher Physician Assistant Infant Toddler Teacher 08/28/22 Rotary Drum Tanner Relationship Specialty Start Date End Date Stew Quintana, DO [address] [place] [address] PCP - General 06/02/16 Ernestina Potter PA-C [address] [facility] [address] [place] [address] Physician Assistant Infant Toddler Teacher Physician Assistant Infant Toddler Teacher 08/28/22 Rowan Chavez MD [address] [facility] [address] [place] [address] Consulting Physician Vascular Surgery 10/05/22 Rotary Drum Tanner Relationship Specialty Start Date End Date Stew Quintana, DO [address] [facility] [address] [place] [address] PCP - General 06/02/16 Ernestina Potter PA-C [address] [facility] [address] [place] [address] Physician Assistant Infant Toddler Teacher Physician Assistant Infant Toddler Teacher 08/28/22 Rowan Chavez MD [address] [facility] [address] [place] [address] Consulting Physician Vascular Surgery 10/05/22 Rotary Drum Tanner Relationship Specialty Start Date End Date Stew Quintana DO [address] [place] [address] PCP - General 06/02/16 Ernestina Potter PA-C [address] [place] [address] [address] [place] [address] Physician Assistant Infant Toddler Teacher Physician Assistant Infant Toddler Teacher 08/28/22 Rowan Chavez MD [address] [facility] [address] [place] [address] Consulting Physician Vascular Surgery 10/05/22 Rotary Drum Tanner Relationship Specialty Start Date End Date Stew Quintana DO [address] [place] [address] PCP - General 06/02/16 Ernestina Potter PA-C [address] [place] [address] [place] [address] Physician Assistant Infant Toddler Teacher Physician Assistant Infant Toddler Teacher 08/28/22 Rowan Chavez MD [address] [facility] [address] [place] [address] Consulting Physician Vascular Surgery 10/05/22 Rotary Drum Tanner Relationship Specialty Start Date End Date Stew Quintana DO [address] [place] [address] PCP - General 06/02/16 Ernestina Potter PA-C [address] [place] [address] [address] [place] [address] Physician Assistant Infant Toddler Teacher Physician Assistant Infant Toddler Teacher 08/28/22 Rowan Chavez MD [address] [facility] [address] [place] [address] Consulting Physician Vascular Surgery 10/05/22 Rotary Drum Tanner Relationship Specialty Start Date End Date Stew Quintana DO [address] [facility] [address] [place] [address] PCP - General 06/02/16 Ernestina Potter PA-C [address] [place] [address] [place] [address] Physician Assistant Infant Toddler Teacher Physician Assistant Infant Toddler Teacher 08/28/22 Rowan Chavez MD [address] [facility] [address] [place] [address] Consulting Physician Vascular Surgery 10/05/22 Rotary Drum Tanner Relationship Specialty Start Date End Date Stew Quintana DO [address] [facility] [address] [place] [address] PCP - General 06/02/16 Ernestina Potter PA-C [address] [place] [address] [address] [place] [address] Physician Assistant Infant Toddler Teacher Physician Assistant Infant Toddler Teacher 08/28/22 Rowan Chavez MD [address] [facility] [address] [place] [address] Consulting Physician Vascular Surgery 10/05/22 Rotary Drum Tanner Relationship Specialty Start Date End Date Stew Quintana DO [address] [facility] [address] [place] [address] PCP - General 06/02/16 Ernestina Potter PA-C [address] [place] [address] Physician Assistant Infant Toddler Teacher Physician Assistant Infant Toddler Teacher 08/28/22 Rowan Chavez MD [address] [facility] [address] [place] [address] Consulting Physician Vascular Surgery 10/05/22 Rotary Drum Tanner Relationship Specialty Start Date End Date Stew Quintana DO [address] [facility] [address] [place] [address] PCP - General 06/02/16 Ernestina Potter PA-C [address] [facility] [address] [place] [address] Physician Assistant Infant Toddler Teacher Physician Assistant Infant Toddler Teacher 08/28/22 Rowan Chavez MD [address] [facility] [address] [place] [address] Consulting Physician Vascular Surgery 10/05/22 Rotary Drum Tanner Relationship Specialty Start Date End Date Stew Quintana DO [address] [place] [address] PCP - General 06/02/16 Ernestina Potter PA-C [address] [place] [address] Physician Assistant Infant Toddler Teacher Physician Assistant Infant Toddler Teacher 08/28/22 Rowan Chavez MD [address] [facility] [address] [place] [address] Consulting Physician Vascular Surgery 10/05/22 Scheduled Active [...] Lelo RN)[phone] (Continued by Anesthesia - Provider: Sona Rogers APRN - KAEL)1018 (Stopped - Provider: Sona Rogers APRN - KAEL) PRN Medication Order 09/21/2022 09/22/2022 09/23/2022 [email or web address] [...] therapy medications. 1104 (Given - Provider: Margaret Santizo RN)1124 (Given - Provider: Margaret Santizo RN) heparin [...] on Wed09/22/22 at 1308, Phase II/On Unit 195 (See Alternative - Provider: Tasha Rabago RN)2353 (Given - Provider: Tasha Rabago RN) oxyCODONE (Roxicodone) immediate release tablet 5 mg(Linked Group 2) 5 mg, Oral, Every 4 hours PRN, moderate pain (4-6), Starting on Wed09/22/22 at 1308, Phase II/On Unit 1956 (Given - Provider: Tasha Rabago RN)2352 (See Alternative - Provider: Tasha Rabago RN) [...] BE BASED ON THE PRIMARY CLINICAL RECORDS. [employer] provides no warranty or guarantee of the accuracy or completeness of information in this document.
[2023-06-22 18:39] LABS: Thyroid Stim Hormone (TSH) 0.79 uIU/mL (0.358-3.74)
== END | disposition home or self-care (01) ==
LOC: MTLAB 14:48
PROVIDERS: PCP Family Medicine; Referring Provider Family Medicine; Visit Provider Family Medicine
DX: R68.89 Other general symptoms and signs (principal)
CPT/HCPCS: 36415; 84443

== ENCOUNTER → 2023-07-26 | Outpatient (CLI) | payer MEDICARE, SELFPAY ==
--- NOTE | 2023-07-26 09:40 | CDU_ITS ---
Reason For Study: S/P Lt CEA Rt. Velocities/BP Lt. Velocities/BP Prox CCA 70.2/9.7 cm/sec. Prox CCA 76.8/11.6 cm/sec. Mid CCA 58.9/9.7 cm/sec. Mid CCA 61.7/9.7 cm/sec. Dist CCA 52.2/8.8 cm/sec. Dist CCA 67.4/12.6 cm/sec. Prox ICA 48.5/13.5 cm/sec. Prox ICA 59.6/16 cm/sec. Mid ICA 64.5/16.3 cm/sec. Mid ICA 67.1/16.4 cm/sec. Dist ICA 55.2/13.8 cm/sec. Dist ICA 45.7/11.5 cm/sec. Rt. ICA/CCA = 1.10. Lt. ICA/CCA = 1.00. Prox ECA 109.1/8 cm/sec. Prox ECA 248.3/16.9 cm/sec. Rt. Vert. 28.2/8.1 cm/sec. Lt. Vert. 35.1/9.5 cm/sec. Right Extracranial There is heterogeneous, smooth atherosclerotic plaque noted in the right common carotid artery. There is heterogeneous, irregular atherosclerotic plaque noted in the right internal carotid artery. There is heterogeneous, irregular atherosclerotic plaque noted in the right external carotid artery. Antegrade flow is noted in the right vertebral artery. Left Extracranial There is homogeneous, smooth atherosclerotic plaque noted in the left common carotid artery. There is homogeneous, smooth atherosclerotic plaque noted in the left internal carotid artery. There is heterogeneous, irregular atherosclerotic plaque noted in the left external carotid artery. Antegrade flow is noted in the left vertebral artery. Procedure Carotid Duplex 21028. This is a Carotid Duplex examination using B-mode, color flow and specral Doppler. Exam performed in department. VL/Carotid Duplex Ultrasound Interpretation Summary Mild (<50%) stenosis right extracranial internal carotid. Mild (<50%) stenosis left extracranial internal carotid. Patent and antegrade vertebrals bilaterally. Ordering Physician: Flo Rodriguez Referring Physician: Thanh Rush Performed By: Roxana De Leon RVT
--- NOTE | 2023-07-26 09:40 | ART_ITS ---
Reason For Study: Known carotid PVD with unequal BP in arms Procedure A bilateral upper extremity continuous wave Doppler with analog waveform analysis and segmental pressures. Left Segmental Pressures Left brachial= 138mmHg. Left ulnar= 166mmHg. Left radial= 159mmHg. Left digit = 152 mmHg. The left radial waveforms are triphasic. The left ulnar waveforms are triphasic. Right Segmental Pressures Right brachial= 134mmHg. Right ulnar= 173mmHg. Right radial= 167mmHg. Right digit = 165 mmHg. The right radial waveforms are triphasic. The right ulnar waveforms are triphasic. Indices The right wrist-brachial index by the radial artery is 1.21. The right wrist-brachial index by the ulnar artery is 1.25. The right digital-brachial index is 1.20. The left wrist-brachial index by the radial artery is 1.15. The left wrist-brachial index by the ulnar artery is 1.20. The left digital- brachial index is 1.10. VL/Upper Extremity Arterial Study Interpretation Summary Right wrist-brachial index 1.25, normal. Digit-brachial index and Doppler/PVR w aveforms normal at rest. Left wrist-brachial index 1.2, normal. Digit-brachial index and Doppler/PVR wav eforms normal at rest. Ordering Physician: Flo Rodriguez Referring Physician: Thanh Rush Performed By: Roxana De Leon RVT
== END | disposition home or self-care (01) ==
PROVIDERS: PCP Family Medicine; Referring Provider Internal Medicine Cardiovascular Disease; Visit Provider Internal Medicine Cardiovascular Disease
DX: I65.22 Occlusion and stenosis of left carotid artery (principal); I73.89 Other specified peripheral vascular diseases
CPT/HCPCS: 93880; 93923

== ENCOUNTER 2023-08-26 11:14 | Emergency (ER) | payer MEDICARE, SELFPAY ==
[2023-08-26 11:14] VITALS: BP 133/81; PULSE 92; RESP 16; TEMP 35.6; O2SAT 96; BMI 30.7
--- NOTE | 2023-08-26 11:32 | EX.ED.DYSGE1 ---
HPI <RORY Nascimento - Last Filed: 08/26/23 14:20> History of Present Illness Chief Complaint: Palpitations Narrative Narrative: Patient is a 78-year-old female with a long history of cardiac disease, CAD, 2-3 stents, on Plavix, Eliquis, GERD, hypertension, anxiety depression who presents to the emergency department with 2 to 3 months of generalized feelings of chest heaviness, intermittent nausea and dizziness. Per the , the patient can be sitting there when she developed this burning-like in her chest, she feels dizzy and nauseated. Per the , this might have been getting worse over the last 1 to 2 weeks, they did call the biofuels technology development manager, came up there today however the biofuels technology development manager wanted them to get seen in the emergency department. Patient is not having any symptoms at this time. PFS <RORY Nascimento - Last Filed: 08/26/23 14:20> [facility] Medical History Arthritis Coronary artery disease Depression Diarrhea Diverticulosis of colon GI bleed History of echocardiogram History of GI bleed History of stress test Ischemic cardiomyopathy Loss of hearing Migraines Morbid obesity Myocardial infarction Patent foramen ovale Psoriasis Sleep apnea Stroke/cerebrovascular accident Wears dentures Wears glasses Home Medications atorvastatin 80 mg tablet (Lipitor) 80 mg PO DAILY cholesterol 07/05/21 [History Last Taken 10/20/22 08:00] apixaban 5 mg tablet (Eliquis) 5 mg PO BID blood thinner #1 TAB 10/22/22 [Rx Last Taken 04/16/23] clopidogrel 75 mg tablet (Plavix) 75 mg PO DAILY anti platelet #1 TAB 10/22/22 [Rx Last Taken 04/15/23] acetaminophen 500 mg capsule 500 mg PO Q6H PRN Pain 02/16/23 [History Last Taken Unknown] escitalopram oxalate 10 mg tablet 10 mg PO DAILY mental health 02/16/23 [History Last Taken Unknown] nitroglycerin 0.4 mg sublingual tablet 0.4 mg sublingual Q5M PRN chest pain #25 tabs 03/26/23 [Rx Last Taken Unknown] ranolazine 500 mg tablet,extended release,12 hr 500 mg PO BID #60 tabs 06/09/23 [Rx Last Taken Unknown] pantoprazole 40 mg tablet,delayed release 40 mg PO DAILY 08/11/23 [History Last Taken Unknown] ranolazine 500 mg tablet,extended release,12 hr 500 mg PO BID 08/11/23 [History Last Taken Unknown] isosorbide mononitrate 30 mg tablet,extended release 24 hr 30 mg PO DAILY #90 tabs 08/24/23 [Rx Last Taken Unknown] Allergy/AdvReac Type Severity Reaction Status Date / Time promethazine AdvReac Intermediate unknown Verified 08/26/23 11:15 ticagrelor AdvReac Mild unknown Verified 08/26/23 11:15 pravastatin AdvReac unknown Verified 08/26/23 11:15 rosuvastatin AdvReac unknown Verified 08/26/23 11:15 Family History Father Heart disease Cataracts, bilateral Mother Cataracts, bilateral Surgical History History of bilateral cataract extraction History of cardiac catheterization History of carotid endarterectomy History of colonoscopy History of coronary angioplasty with insertion of stent History of coronary artery stent placement History of hysterectomy History of left heart catheterization (LHC) by cutdown History of surgery on left wrist History of tonsillectomy Social History household members: spouse housing: other number of children: 3 pets and animals: Yes Smoking Status: Never smoker alcohol intake: current substance use type: does not use caffeine: No ROS <RORY Nascimento - Last Filed: 08/26/23 14:20> ROS ED ROS Narrative Constitutional: Negative for fever, chills, weight loss, weakness Eyes: Negative for vision loss, vision change, double vision ENT: Negative for any sore throat, ear pain, congestion Cardiovascular: Negative for any chest pain, tightness, palpitations. Positive for chest burning, heaviness Respiratory: Negative for any cough, sputum production, hemoptysis, dyspnea, dyspnea on exertion, orthopnea Gastrointestinal: Negative for any abdominal pain, vomiting, diarrhea, constipation, blood in stool, blood in vomit. Positive for nausea : Negative for any urinary frequency, dysuria, retention, blood in urine Muscle skeletal: Negative for any neck pain, back pain Neurological: Negative for any headache, syncope. Positive for dizziness Skin: Negative for any rashes, itching, abrasions, lacerations Psychiatric: Negative for any depression, anxiety, stress, suicidal ideation, homicidal ideation Hematologic: Negative for any excessive bruising, easy bleeding EXAM <RORY Nascimento - Last Filed: 08/26/23 14:20> Physical Exam Narrative Exam Narrative: Vital signs reviewed. HEET: Head normocephalic atraumatic, TMs clear bilaterally. Posterior pharynx is clear, moist mucous membranes. Nares clear bilaterally. Neck: Supple with no lymphadenopathy or tenderness. No signs of meningismus. Cardiac: Regular rate and rhythm no murmurs gallops or rubs, equal peripheral pulses bilaterally. Respiratory: Lungs clear to auscultation bilaterally. No chest tenderness. Abdomen: Soft, nontender, nondistended. No abdominal bruit or pulsatile masses. No hepatosplenomegaly Extremities: No peripheral edema, no signs of gross trauma or deformity. Active full range of motion of all extremities. Neuro: Cranial nerves II through XII intact, no focal neurological deficits. Skin: Clean dry and intact with no rash, purpura, petechiae, vesicles or pustules. Backs/flank: No CVA tenderness, no midline spinal tenderness, no deformity. Psych: Normal mood and affect. No SI, HI or acute psychosis. Const Vital Signs: 08/26/23 11:14 08/26/23 11:21 08/26/23 11:41 Temperature 96.1 F L Temperature Source Temporal Pulse Rate 92 Respiratory Rate 16 Respiratory Effort Normal Blood Pressure 133/81 H Blood Pressure Mean 98 Pulse Ox 96 92 Oxygen Delivery Method Room Air Room Air 08/26/23 13:14 08/26/23 14:25 Temperature 98.2 F Temperature Source Pulse Rate 67 78 Respiratory Rate 19 H 19 H Respiratory Effort Blood Pressure 130/73 H 128/73 H Blood Pressure Mean 92 91 Pulse Ox 94 96 Oxygen Delivery Method Room Air Positive well nourished and well developed General Appearance ED: well developed <Dr. Kolton Sandoval DO - Last Filed: 08/26/23 14:29> Physical Exam Const Vital Signs: 08/26/23 11:14 08/26/23 11:21 08/26/23 11:41 Temperature 96.1 F L Temperature Source Temporal Pulse Rate 92 Respiratory Rate 16 Respiratory Effort Normal Blood Pressure 133/81 H Blood Pressure Mean 98 Pulse Ox 96 92 Oxygen Delivery Method Room Air Room Air 08/26/23 13:14 08/26/23 14:25 Temperature 98.2 F Temperature Source Pulse Rate 67 78 Respiratory Rate 19 H 19 H Respiratory Effort Blood Pressure 130/73 H 128/73 H Blood Pressure Mean 92 91 Pulse Ox 94 96 Oxygen Delivery Method Room Air MDM <Rosendo Rodriguez DELIMBER OPERATOR-C - Last Filed: 08/26/23 14:20> [facility] Lab Data Labs: Laboratory Results - last 24 hr 08/26/23 08/26/23 11:30 13:30 WBC 4.7 RBC 4.90 Hgb 13.9 Hct 43.5 MCV 88.8 MCH 28.4 MCHC 32.0 RDW Std Deviation 48.0 H RDW Coeff of Nafisa 14.8 H Plt Count 203 MPV 11.3 Immature Gran % (Auto) 0.400 Neut % (Auto) 66.3 Lymph % (Auto) 23.4 [place] % (Auto) 7.4 Eos % (Auto) 1.7 Baso % (Auto) 0.8 Absolute Neuts (auto) 3.1 Absolute Lymphs (auto) 1.10 Nucleated RBC % 0 Sodium 141 Potassium 3.9 Chloride 113 H Carbon Dioxide 21.0 Anion Gap 7 BUN 15 Creatinine 0.89 Estim Creat Clear Calc 56.53 Est GFR (MDRD) Af Amer 79 Est GFR (MDRD) Non-Af 65 BUN/Creatinine Ratio 16.8 Glucose 116 H Calcium 9.3 Troponin I High Sens 6 6 B-Natriuretic Peptide 71.5 TSH 0.90 Radiography Diagnostic Testing: Clinical Impression(s) from Imaging Studies Chest X-Ray 08/26/23 11:43 IMPRESSION: Stable elevation of the right hemidiaphragm. Possible enlarged right lobe of the thyroid. Stable examination. Electronically Signed: Jose Castle MD at 12:08 EDT , EKG Normal sinus rhythm: Attestation: I personally reviewed and interpreted this EKG as follows: Interpretation: Sinus Rhythm Comments: Normal sinus rhythm, rate of 82 bpm, KS interval 158 ms, QRS duration 90 ms, no acute ST elevation, no acute infarct noted. Treatment and Re-Evaluation :: Differential diagnosis includes however is not limited to: ACS, DC, PE, stable angina, anxiety Patient appears to be in no obvious distress vital signs are stable, patient is in no discomfort and having no symptoms at this time. Patient will receive a full cardiac workup including 2 troponins, laboratory values EKG chest x-ray. Patient be given 4 mg IV Zofran. Patient will be reevaluated. Patient on reevaluation remained asymptomatic. Patient's CBC was unremarkable, patient's chemistries showed a normal BMP, BNP was negative, TSH within normal limits. Patient's initial troponin was 6, repeat was 6, secondary to a negative EKG, I do not believe the patient suffered from any ACS or DC. Patient has been asymptomatic here. At this time, I did reach out and speak with the cardiology group, I spoke with the DELIMBER OPERATOR, secondary to the negative cardiac workup, the other laboratory values are drawn that were negative, they feel comfortable discharging the patient, the patient will follow-up outpatient for a Holter monitor. I spoke with the patient as well as the patient , they are all in agreement. The patient feels well and like to be discharged. They were given strict return precaution. Stable for discharge. <Dr. Kolton Sandoval, DO - Last Filed: 08/26/23 14:29> [facility] History & Record Review Discussion w/independent historian: Patient and Significant other Lab Data Attestation: I reviewed the patient's lab results. Labs: Laboratory Results - last 24 hr 08/26/23 08/26/23 11:30 13:30 WBC 4.7 RBC 4.90 Hgb 13.9 Hct 43.5 MCV 88.8 MCH 28.4 MCHC 32.0 RDW Std Deviation 48.0 H RDW Coeff of Nafisa 14.8 H Plt Count 203 MPV 11.3 Immature Gran % (Auto) 0.400 Neut % (Auto) 66.3 Lymph % (Auto) 23.4 [place] % (Auto) 7.4 Eos % (Auto) 1.7 Baso % (Auto) 0.8 Absolute Neuts (auto) 3.1 Absolute Lymphs (auto) 1.10 Nucleated RBC % 0 Sodium 141 Potassium 3.9 Chloride 113 H Carbon Dioxide 21.0 Anion Gap 7 BUN 15 Creatinine 0.89 Estim Creat Clear Calc 56.53 Est GFR (MDRD) Af Amer 79 Est GFR (MDRD) Non-Af 65 BUN/Creatinine Ratio 16.8 Glucose 116 H Calcium 9.3 Troponin I High Sens 6 6 B-Natriuretic Peptide 71.5 TSH 0.90 Radiography Diagnostic Testing: Clinical Impression(s) from Imaging Studies Chest X-Ray 08/26/23 11:43 IMPRESSION: Stable elevation of the right hemidiaphragm. Possible enlarged right lobe of the thyroid. Stable examination. Electronically Signed: Jose Castle MD at 12:08 EDT , Management Discussion w/another healthcare provider: Plastic Mould Maker (Cardiology DIANA Lawson)) Treatment and Re-Evaluation :: Differential diagnosis includes however is not limited to: ACS, DC, PE, stable angina, anxiety Patient appears to be in no obvious distress vital signs are stable, patient is in no discomfort and having no symptoms at this time. Patient will receive a full cardiac workup including 2 troponins, laboratory values EKG chest x-ray. Patient be given 4 mg IV Zofran. Patient will be reevaluated. Patient on reevaluation remained asymptomatic. Patient's CBC was unremarkable, patient's chemistries showed a normal BMP, BNP was negative, TSH within normal limits. Patient's initial troponin was 6, repeat was 6, secondary to a negative EKG, I do not believe the patient suffered from any ACS or DC. Patient has been asymptomatic here. At this time, I did reach out and speak with the cardiology group, I spoke with the DELIMBER OPERATOR, secondary to the negative cardiac workup, the other laboratory values are drawn that were negative, they feel comfortable discharging the patient, the patient will follow-up outpatient for a Holter monitor. I spoke with the patient as well as the patient , they are all in agreement. The patient feels well and like to be discharged. They were given strict return precaution. Stable for discharge. I have personally performed a face to face assessment of the patient and have reviewed the LUZ Note. I performed a substantive portion of the visit including all aspects of the following. My mejia findings include: History is 78-year-old female reporting days 2 weeks of episodes that last around 45 minutes where her chest gets cold and then warm. She states she feels her heart racing. She tells me she took her heart rate during the episodes but then she tells me that it was 82 and tells me that that was after the episode. At first she describes hypertension during the episode but then the numbers are in the 130s systolically and she states again that that was after the episode. She was on her way to see cardiology today to apparently get set up for Holter monitor when she began to have an episode of feel dizzy so she was brought to emergency. Currently denying any chest pain or dyspnea. Exam is patient no acute distress lying on the bed. Heart is regular without murmur. Lung sounds are clear and equal. No peripheral edema. Medical Decison Making EKG is normal sinus rhythm. My independent interpretation of the chest x-ray is no acute process. She has remained in a sinus rhythm. 2 sets of cardiac enzymes are normal. Case was discussed with cardiology and should be discharged home with further evaluation as they are setting up a Holter monitor. Discharge Plan Triage Chief Complaint: Palpitations ED Midlevel Provider: Rosendo Rodriguez ED Provider: Kolton Sandoval Dx/Rx/DC Orders Clinical Impression: Palpitation, Chest pressure, Nausea Instructions: ED Chest Pain, Uncertain Cause, ED Palpitations Prescriptions: No Action escitalopram oxalate 10 mg tablet 10 mg PO DAILY nitroglycerin 0.4 mg tablet, sublingual 0.4 mg sublingual Q5M PRN (Reason: chest pain) Qty: 25 3RF Rx Instructions: do not exceed 3 doses per episode atorvastatin [Lipitor] 80 mg Tablet 80 mg PO DAILY clopidogrel [Plavix] 75 mg Tablet 75 mg PO DAILY Qty: 1 0RF Rx Instructions: Patient to hold Plavix for 5 days Eliquis 5 mg Tablet 5 mg PO BID Qty: 1 0RF Rx Instructions: Patient to hold Eliquis for 5 days and to follow-up with primary care physician/biofuels technology development manager to determine ongoing indication acetaminophen 500 mg capsule 500 mg PO Q6H PRN (Reason: Pain) ranolazine 500 mg tablet extended release 12 hr 500 mg PO BID Qty: 60 11RF isosorbide mononitrate 30 mg tablet extended release 24 hr 30 mg PO DAILY Qty: 90 3RF Primary Care Provider: Thanh Rush: Thanh Rush MD [Primary Care Provider] - Flo Rodriguez MD [Med Staff - Active Staff] - Activity Restrictions/Additional Instructions: Continue to follow-up with cardiology. Return here for any worsening symptoms Disposition Disposition: Home, Self Care Discharge Date/Time: 08/26/23 14:25
[2023-08-26 11:41] VITALS: O2SAT 92
--- NOTE | 2023-08-26 11:43 | RAD_ITS ---
STUDY: X-RAY CHEST REASON FOR EXAM: Female, 78 years old. Chest pain and palpitations. TECHNIQUE: Single AP portable view of the chest. COMPARISON: Comparison is made with prior examination dated June 17, 2023. FINDINGS: EKG electrodes are seen. Prominence of the right paratracheal region suggestive of thyroid enlargement. Stable elevation of the right hemidiaphragm. Bowel is seen interposed between the right hemidiaphragm and the liver. There is no demonstrated pleural abnormality. Normal size heart. Normal mediastinum and debbie. Normal visualized pulmonary arteries. There is atherosclerotic calcification of the aortic arch with tortuosity. There are diffuse degenerative changes of the visualized thoracic spine. Normal visualized ribs, clavicles, and shoulders. There is no demonstrated abnormality of the visualized soft tissue structures of the upper abdomen. RAD/Chest 1 View (Portable) IMPRESSION: Stable elevation of the right hemidiaphragm. Possible enlarged right lobe of the thyroid. Stable examination. Electronically Signed: Jose Castle MD at 12:08 EDT ,
[2023-08-26 11:46] LABS: Absolute Neutrophil Count 3.1 X10^3/uL (2.0-7.7); Basophil# 0.04 X10^3/uL; Basophil% 0.8 % (0-1); Eosinophil# 0.08 X10^3/uL; Eosinophils% 1.7 % (0-5); Hematocrit 43.5 % (37-47); Hemoglobin 13.9 g/dL (12.0-15.0); Lymphocyte % 23.4 % (19-41); Mean Corpuscular Hgb 28.4 pg (27.0-32.0); Mean Corpuscular Volume 88.8 fL (81-99); Mean Platelet Vol. 11.3 fl (6.2-12.0); Monocyte# 0.35 X10^3/uL; Monocyte% 7.4 % (0-10); NRBC Flagged by Analyzer 0 % (0-5); Neutrophil # 3.12 X10^3/uL (2.7-7.7); Neutrophil % 66.3 % (47-70); Platelet Count 203 K/mm3 (150-450); RBC Distribution Width CV 14.8 % (11.6-14.6); White Blood Count 4.7 K/mm3 (4.4-11.0)
[2023-08-26] MEDS: Ondansetron 4 MG/2 ML Vial IV (11:47)
[2023-08-26 12:21] LABS: BNP,B-Type NATRIURETIC PEPTIDE 71.5 pg/mL (0-100)
[2023-08-26 12:24] LABS: Anion Gap 7 (5-15); BUN 15 mg/dL (7-18); BUN/Creat Ratio 16.8 RATIO (10-20); Calcium,Total 9.3 mg/dL (8.5-10.1); Chloride 113 mmol/L (98-107); Creatinine, Serum 0.89 mg/dL (0.55-1.02); EST Glomerular Filtration Rate 65 mL/min (>60); Est Glom Filt Rate - Afr Amer 79 mL/min (>60); Estimated Creatinine Clearance 56.53 ml/min; Glucose 116 mg/dL (74-106); Potassium 3.9 mmol/L (3.5-5.1); Sodium Level 141 mmol/L (136-145); Troponin-I HS (w/2H Reflex) 6 pg/mL (3.0-54.0)
[2023-08-26 13:14] VITALS: BP 130/73; PULSE 67; RESP 19; O2SAT 94
[2023-08-26 13:41] LABS: Reflex Troponin-HS? (from REC) Y
[2023-08-26 14:11] LABS: Troponin-I HS 6 pg/mL (3.0-54.0)
[2023-08-26 14:25] VITALS: BP 128/73; PULSE 78; RESP 19; TEMP 36.8; O2SAT 96
== END 2023-08-26 14:25 | disposition home or self-care (01) ==
PROVIDERS: Nurse Practitioner; Emergency Provider Emergency Medicine; PCP Family Medicine; Visit Provider Emergency Medicine
DX: R07.89 Other chest pain (principal); R11.0 Nausea; I10 Essential (primary) hypertension; I25.10 Atherosclerotic heart disease of native coronary artery without angina pectoris; R42 Dizziness and giddiness; R00.2 Palpitations; K21.9 Gastro-esophageal reflux disease without esophagitis; Z79.01 Long term (current) use of anticoagulants; Z79.02 Long term (current) use of antithrombotics/antiplatelets; Z79.899 Other long term (current) drug therapy; Z95.5 Presence of coronary angioplasty implant and graft
CPT/HCPCS: 71045; 80048; 83880; 84443; 84484; 85025; 93005; 96374; 99284; A4216; J2405

== ENCOUNTER → 2023-09-13 | Outpatient (CLI) | payer MEDICARE, SELFPAY | END | disposition home or self-care (01) | LOC: PSN 09:05 | PROVIDERS: PCP Family Medicine; Referring Provider Nurse Practitioner Family; Visit Provider Nurse Practitioner Family | DX: R23.2 Flushing (principal); R42 Dizziness and giddiness; R00.2 Palpitations | CPT/HCPCS: 93225; 93226 ==

== ENCOUNTER 2023-10-02 14:51 | Emergency (ER) | payer MEDICARE, SELFPAY ==
[2023-10-02 14:53] VITALS: BP 121/81; PULSE 80; RESP 18; TEMP 36.4; O2SAT 95; BMI 30.4
--- NOTE | 2023-10-02 15:16 | EDS_ITS ---
HPI History of Present Illness Chief Complaint: Chest Pain Detail of Chief Complaint: Warm sensation starts left sternum migrates inferior to the right lower Informant: patient and spouse/S.O. Onset/Context/Timing Onset: - (Probably for 2 years) Activity at onset: sudden Timing: Intermittent (Duration 5 to 10 minutes) Quality: Positive for - (Hot sensation that migrates to the RLQ and is cold by the time it reaches the RLQ) Location: Left Parasternal Current Severity: Gone Maximum Severity: Moderate Worsened By: Nothing Relieved By: Nothing Associated Symptoms: Positive for Dyspnea; Negative for Nausea, Vomiting, Diaphoresis, Cough, Fever, Lightheadedness, Acid Reflux or Palpitations Narrative Narrative: Patient is a 78-year-old woman who has significant past medical history of myocardial infarction with placement of 6 stents, ischemic cardiomyopathy, hypertension, dyslipidemia and peripheral vascular disease. She is status post carotid endarterectomy. Patient was seen by Dr. Rodriguez August 26. His assessment and plan was reviewed. Patient was scheduled for nuclear stress test. Also recommended aggressive secondary risk factor modification. Also documented to consider outpatient dementia evaluation. For approximately 2+ years patient's been having a warm sensation and her chest left of sternum that occurs intermittently with no provoking incident. Nothing makes it better or worse. Lasts 5 to 10 minutes. Migrates to the right lower quadrant. Patient states by time it reached the right lower quadrant it feels cold. She denies pain rating to her back, jaw or shoulders. Patient denies diaphoresis. She does report shortness of breath. This has not changed in severity, duration for 2 years. She has had several episodes since yesterday. She denies black or maroon-colored stool. She denies heartburn or indigestion. There is no history of VTE. She denies leg pain, swelling discoloration. Prior Similar Symptoms: Yes Recent Illness/Hospitalization: Yes (August 26.) CVD Risk Factors: Positive for Hypertension and Hypercholesterolemia; Negative for Diabetes, Family History 1' </=55 or Smoking PE Risk Factors: Negative for Recent Travel/Surgery, Recent Immobilization, Prior DVT or PE, Cancer or OCP + Smoking + >/=35 TAD Risk Factors: Positive for Hypertension; Negative for Marfan's Syndrome or Family History PFSH [facility] Medical History Arthritis Coronary artery disease Depression Diarrhea Diverticulosis of colon GI bleed History of echocardiogram History of GI bleed History of stress test Ischemic cardiomyopathy Loss of hearing Migraines Morbid obesity Myocardial infarction Patent foramen ovale Psoriasis Sleep apnea Stroke/cerebrovascular accident Wears dentures Wears glasses Home Medications atorvastatin 80 mg tablet (Lipitor) 80 mg PO DAILY cholesterol 07/05/21 [History Last Taken 10/20/22 08:00] apixaban 5 mg tablet (Eliquis) 5 mg PO BID blood thinner #1 TAB 10/22/22 [Rx Last Taken 04/16/23] clopidogrel 75 mg tablet (Plavix) 75 mg PO DAILY anti platelet #1 TAB 10/22/22 [Rx Last Taken 04/15/23] acetaminophen 500 mg capsule 500 mg PO Q6H PRN Pain 02/16/23 [History Last Taken Unknown] nitroglycerin 0.4 mg sublingual tablet 0.4 mg sublingual Q5M PRN chest pain #25 tabs 03/26/23 [Rx Last Taken Unknown] pantoprazole 40 mg tablet,delayed release 40 mg PO DAILY 08/11/23 [History Last Taken Unknown] isosorbide mononitrate 30 mg tablet,extended release 24 hr 30 mg PO DAILY #90 tabs 08/24/23 [Rx Last Taken Unknown] ranolazine 1,000 mg tablet,extended release,12 hr 1,000 mg PO BID #180 tabs 09/24/23 [Rx Last Taken Unknown] fluoxetine 40 mg capsule (Prozac) 40 mg PO DAILY 09/30/23 [History Last Taken Unknown] Allergy/AdvReac Type Severity Reaction Status Date / Time promethazine AdvReac Intermediate unknown Verified 10/02/23 14:53 ticagrelor AdvReac Mild unknown Verified 10/02/23 14:53 pravastatin AdvReac unknown Verified 10/02/23 14:53 rosuvastatin AdvReac unknown Verified 10/02/23 14:53 Family History Father Heart disease Cataracts, bilateral Mother Cataracts, bilateral Surgical History History of bilateral cataract extraction History of cardiac catheterization History of carotid endarterectomy History of colonoscopy History of coronary angioplasty with insertion of stent History of coronary artery stent placement History of hysterectomy History of left heart catheterization (LHC) by cutdown History of surgery on left wrist History of tonsillectomy Social History household members: spouse housing: other number of children: 3 pets and animals: Yes Smoking Status: Never smoker alcohol intake: current substance use type: does not use caffeine: No ROS ROS ED Constitutional Constitutional ED: Denies chills, fever(s), subjective or sweats Eyes Eyes: Reports none ENT ENT ED: Denies rhinorrhea or sore throat Cardiovascular Cardiovascular: Reports as per HPI Respiratory/Chest Respiratory/Chest: Denies cough, dyspnea or dyspnea on exertion Gastrointestinal Gastrointestinal: Denies abdominal pain, nausea or vomiting Genitourinary Genitourinary ED: Denies dysuria or urinary frequency Musculoskeletal Musculoskeletal: Denies arthralgias, back pain or myalgias Integumentary Denies rash Psychiatric Psychiatric: Denies anxiety Endocrine Endocrinology: Denies cold intolerance or heat intolerance EXAM Physical Exam Const Vital Signs: 10/02/23 14:53 10/02/23 15:17 10/02/23 15:30 Temperature 97.6 F L Temperature Source Temporal Pulse Rate 80 73 Respiratory Rate 18 18 Respiratory Effort Normal Non-Labored Blood Pressure 121/81 H 139/76 H Blood Pressure Mean 94 93 Pulse Ox 95 91 Oxygen Delivery Method Room Air 10/02/23 16:00 10/02/23 17:00 10/02/23 18:00 Temperature Temperature Source Pulse Rate 69 61 65 Respiratory Rate 16 10 L 16 Respiratory Effort Blood Pressure 140/74 H 157/74 H 150/82 H Blood Pressure Mean 96 96 102 Pulse Ox 94 93 97 Oxygen Delivery Method Room Air Positive well nourished and well developed Constitutional Narrative: BMI is 30.5. General Appearance ED: well developed and NAD; Negative for pallor HEENT Reports moist mucous membranes normocephalic and atraumatic Eyes PERRL and EOMs intact bilaterally General Eye ED: Negative for pale conjunctiva or scleral icterus Neck no lymphadenopathy, supple and no JVD Chest Wall palpation of chest normal Resp normal respiratory effort and clear to auscultation bilaterally Cardio regular rate, regular rhythm, S1 normal heart sound, S2 normal heart sound and no murmurs Peripheral Pulses: pulses 2+ throughout GI normal to inspection, nondistended, normoactive bowel sounds, soft to palpation, non-tender, non-distended and no masses; Negative for hepatosplenomegaly Back/Spine no CVA tenderness and no thoracic nor lumbar tenderness Extremity normal to inspection General Extremety ED: Negative for edema or pulses abnormal General Extremity: Negative for edema or pulses abnormal Neuro oriented x3 and CN's II-XII intact bilaterally Sensorium / Orientation: awake and alert Motor Exam: strength 5/5 throughout Psych mental status grossly normal Skin no rashes or lesions noted and no wounds General Skin Exam: Negative for jaundice or pallor Heart Score History: Slightly/Non-Suspicious ECG: Normal Age: >/= 65 years Risk Factors: 1 or 2 Risk Factors Score: 3 MDM MDM MDM Narrative Medical decision making narrative: Differential diagnosis is cardiac versus noncardiac. Since patient had a recent nuclear scan we will review results. Stress test read by Dr. Ba. There was no evidence of significant ischemia or infarction. Estimated ejection fraction was greater than 70%. Lab Data Attestation: I reviewed the patient's lab results. Lab results narrative: CBC is unremarkable. BMP is normal. First troponin was 4 with second of 5 and delta of +1. Since both are under 7 patient be discharged home. This is noncardiac pain. Labs: Laboratory Results - last 24 hr 10/02/23 10/02/23 15:00 17:05 WBC 5.0 RBC 4.97 Hgb 14.4 Hct 43.9 MCV 88.3 MCH 29.0 MCHC 32.8 RDW Std Deviation 45.7 H RDW Coeff of Nafisa 14.1 Plt Count 207 MPV 11.5 Immature Gran % (Auto) 0.200 Neut % (Auto) 71.0 H Lymph % (Auto) 18.5 L [place] % (Auto) 8.9 Eos % (Auto) 0.8 Baso % (Auto) 0.6 Absolute Neuts (auto) 3.5 Absolute Lymphs (auto) 0.92 Nucleated RBC % 0 Sodium 138 Potassium 3.6 Chloride 107 Carbon Dioxide 25.0 Anion Gap 6 BUN 14 Creatinine 0.88 Estim Creat Clear Calc 54.94 Est GFR (MDRD) Af Amer 80 Est GFR (MDRD) Non-Af 66 BUN/Creatinine Ratio 15.8 Glucose 103 Calcium 9.4 Troponin I High Sens 4 5 EKG Initial EKG: Attestation: I personally reviewed and interpreted this EKG as follows: Interpretation: Sinus Rhythm (Normal sinus rhythm rate of 75. [place] to left. [place] interval is 154 ms. QS duration 92 ms. QT duration 362 ms. [place] to the left. This is unchanged from August 26.) Discharge Plan Triage Chief Complaint: Chest Pain ED Provider: Philipp Anne Dx/Rx/DC Orders Clinical Impression: Intermittent left-sided chest pain, Ischemic cardiomyopathy, History of CAD ( coronary artery disease), Peripheral vascular disease, HTN (hypertension) Instructions: ED Chest Pain, Noncardiac, ED Chest Pain, Uncertain Cause Prescriptions: No Action nitroglycerin 0.4 mg tablet, sublingual 0.4 mg sublingual Q5M PRN (Reason: chest pain) Qty: 25 3RF Rx Instructions: do not exceed 3 doses per episode ranolazine 1,000 mg tablet extended release 12 hr 1,000 mg PO BID Qty: 180 3RF atorvastatin [Lipitor] 80 mg Tablet 80 mg PO DAILY clopidogrel [Plavix] 75 mg Tablet 75 mg PO DAILY Qty: 1 0RF Rx Instructions: Patient to hold Plavix for 5 days Eliquis 5 mg Tablet 5 mg PO BID Qty: 1 0RF Rx Instructions: Patient to hold Eliquis for 5 days and to 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
[2023-10-02 15:28] LABS: Absolute Lymphocyte Count 0.92 X10^3/uL (0.83-4.51); Absolute Neutrophil Count 3.5 X10^3/uL (2.0-7.7); Basophil# 0.03 X10^3/uL; Basophil% 0.6 % (0-1); Eosinophil# 0.04 X10^3/uL; Eosinophils% 0.8 % (0-5); Hematocrit 43.9 % (37-47); Hemoglobin 14.4 g/dL (12.0-15.0); Lymphocyte # 0.92 X10^3/ul (0.83-4.51); Lymphocyte % 18.5 % (19-41); Mean Corp Hgb Conc 32.8 g/dL (32-36); Mean Corpuscular Volume 88.3 fL (81-99); Mean Platelet Vol. 11.5 fl (6.2-12.0); Monocyte# 0.44 X10^3/uL; Monocyte% 8.9 % (0-10); NRBC Flagged by Analyzer 0 % (0-5); Neutrophil # 3.53 X10^3/uL (2.7-7.7); Platelet Count 207 K/mm3 (150-450); RBC Distribution Width CV 14.1 % (11.6-14.6); RBC Distribution Width SD 45.7 fl (35.1-43.9); Red Blood Count 4.97 M/mm3 (4.2-5.4)
[2023-10-02 15:30] VITALS: BP 139/76; PULSE 73; RESP 18; O2SAT 91
[2023-10-02 15:46] LABS: Anion Gap 6 (5-15); BUN 14 mg/dL (7-18); BUN/Creat Ratio 15.8 RATIO (10-20); Calcium,Total 9.4 mg/dL (8.5-10.1); Chloride 107 mmol/L (98-107); Creatinine, Serum 0.88 mg/dL (0.55-1.02); EST Glomerular Filtration Rate 66 mL/min (>60); Est Glom Filt Rate - Afr Amer 80 mL/min (>60); Estimated Creatinine Clearance 54.94 ml/min; Glucose 103 mg/dL (74-106); Potassium 3.6 mmol/L (3.5-5.1); Sodium Level 138 mmol/L (136-145); Troponin-I HS (w/2H Reflex) 4 pg/mL (3.0-54.0)
[2023-10-02 16:00] VITALS: BP 140/74; PULSE 69; RESP 16; O2SAT 94
[2023-10-02 17:00] VITALS: BP 157/74; PULSE 61; RESP 10; O2SAT 93
[2023-10-02 17:19] LABS: Reflex Troponin-HS? (from REC) Y
[2023-10-02 18:00] VITALS: BP 150/82; PULSE 65; RESP 16; O2SAT 97
[2023-10-02 18:09] LABS: Troponin-I HS 5 pg/mL (3.0-54.0)
[2023-10-02 18:37] VITALS: BP 154/73; PULSE 62; RESP 16; TEMP 36.6; O2SAT 99
== END 2023-10-02 18:38 | disposition home or self-care (01) ==
PROVIDERS: Emergency Provider Emergency Medicine; PCP Family Medicine; Visit Provider Emergency Medicine
DX: R07.9 Chest pain, unspecified (principal); I25.5 Ischemic cardiomyopathy; I10 Essential (primary) hypertension; R06.02 Shortness of breath; I25.10 Atherosclerotic heart disease of native coronary artery without angina pectoris; I73.9 Peripheral vascular disease, unspecified; E78.00 Pure hypercholesterolemia, unspecified; I25.2 Old myocardial infarction; Z79.01 Long term (current) use of anticoagulants; Z79.02 Long term (current) use of antithrombotics/antiplatelets; Z79.899 Other long term (current) drug therapy; Z95.5 Presence of coronary angioplasty implant and graft
CPT/HCPCS: 80048; 84484; 85025; 93005; 99283; A4216

== ENCOUNTER → 2023-10-22 | Outpatient (CLI) | payer MEDICARE, SELFPAY ==
[2023-10-22 18:08] LABS: Vitamin D,25 Hydroxy 17.7 ng/mL
[2023-10-22 18:17] LABS: ALB/GLOB Ratio 1.2 RATIO (0.9-2.4); AST(SGOT) 15 U/L (15-37); Alanine Aminotransfer ALT/SGPT 16 U/L (13-56); Albumin, Serum 3.7 g/dL (3.2-5.0); Alkaline Phosphatase 64 U/L (45-117); Anion Gap 6 (5-15); BUN 12 mg/dL (7-18); BUN/Creat Ratio 13.1 RATIO (10-20); Calcium,Total 9.1 mg/dL (8.5-10.1); Chloride 107 mmol/L (98-107); Creatinine, Serum 0.92 mg/dL (0.55-1.02); EST Glomerular Filtration Rate 63 mL/min (>60); Est Glom Filt Rate - Afr Amer 77 mL/min (>60); Glucose 97 mg/dL (74-106); Potassium 3.5 mmol/L (3.5-5.1); Protein, Total 6.7 g/dL (6.4-8.2); Sodium Level 138 mmol/L (136-145)
== END | disposition home or self-care (01) ==
LOC: MTLAB 15:38
PROVIDERS: PCP Family Medicine; Referring Provider Family Medicine; Visit Provider Family Medicine
DX: R53.83 Other fatigue (principal)
CPT/HCPCS: 36415; 80053; 82306; 84443

== ENCOUNTER 2023-10-29 14:58 | Emergency (ER) | payer MEDICARE, SELFPAY ==
[2023-10-29 14:59] VITALS: BP 117/75; PULSE 105; RESP 14; RESP 16; TEMP 36.1; O2SAT 96
[2023-10-29 15:00] VITALS: BMI 30.4
--- NOTE | 2023-10-29 15:24 | EKG12_ITS ---
Test Reason : DIZZY Blood Pressure : / mmHG Vent. Rate : 078 BPM Atrial Rate : 078 BPM P-R Int : 148 ms QRS Dur : 096 ms QT Int : 508 ms P-R-T Axes : -07 -51 029 degrees QTc Int : 579 ms Critical Test Result: Long QTc Normal sinus rhythm Left axis deviation Abnormal ECG Confirmed by JOLLY HERRON, ROQEU ([id number]), film editor supervisor CLOVIS DIAZ ([id number]) on 11/01/2023 8:35:06 AM Referred By: Confirmed By:ROQUE AZEVEDO MD
--- NOTE | 2023-10-29 15:25 | EX.ED.DYSGE1 ---
HPI History of Present Illness Chief Complaint: Dizziness Informant: patient and spouse/S.O. Narrative Narrative: Worsening lightheaded symptoms in the last few days. Has not had intermittent symptoms since being started on amlodipine 2.5 mg by her PCP Dr. Rush. This was started 3 months ago per spouse due to blood pressure systolic 170s in the office. Recently has changed more nighttime however still has symptoms in the morning. She almost passed out 3 times today. No chest pains no shortness of breath no vomiting or diarrhea. No urinary symptoms. She saw cardiology Dr. Rodriguez a week ago, she was started on Ranexa for her intermittent chest symptoms. None currently. She is on chronic Imdur 30 mg with no recent changes. No other medications that would lower her blood pressure. Reports was told to hold her amlodipine over the weekend for which she did and felt better. Since restarting has had recurrent symptoms. There have not checked her blood pressure in the mornings when she had the symptoms. She is on Eliquis for paroxysmal A-fib. [facility] Medical History Depression Migraines Diverticulosis of colon Loss of hearing Wears glasses Wears dentures History of GI bleed History of echocardiogram History of stress test Diarrhea GI bleed Arthritis Patent foramen ovale Sleep apnea Psoriasis Morbid obesity Ischemic cardiomyopathy Myocardial infarction Coronary artery disease Stroke/cerebrovascular accident Home Medications ?Medication ?Instructions ?Recorded ?Last Taken ?Type atorvastatin 80 mg tablet (Lipitor) 80 mg PO DAILY cholesterol 07/05/21 10/20/22 08:00 History apixaban 5 mg tablet (Eliquis) 5 mg PO BID blood thinner #1 TAB 10/22/22 04/16/23 Rx clopidogrel 75 mg tablet (Plavix) 75 mg PO DAILY anti platelet #1 TAB 10/22/22 04/15/23 Rx acetaminophen 500 mg capsule 500 mg PO Q6H PRN Pain 02/16/23 Unknown History nitroglycerin 0.4 mg sublingual 0.4 mg sublingual Q5M PRN chest 03/26/23 Unknown Rx tablet pain #25 tabs pantoprazole 40 mg tablet,delayed 40 mg PO DAILY 08/11/23 Unknown History release isosorbide mononitrate 30 mg 30 mg PO DAILY #90 tabs 08/24/23 Unknown Rx tablet,extended release 24 hr ranolazine 1,000 mg 1,000 mg PO BID #180 tabs 09/24/23 Unknown Rx tablet,extended release,12 hr fluoxetine 40 mg capsule (Prozac) 40 mg PO DAILY 09/30/23 Unknown History pantoprazole 40 mg tablet,delayed 40 mg PO DAILY 10/05/23 Unknown History release Allergy/AdvReac Type Severity Reaction Status Date / Time promethazine AdvReac Intermediate unknown Verified 10/29/23 14:58 ticagrelor AdvReac Mild unknown Verified 10/29/23 14:58 pravastatin AdvReac unknown Verified 10/29/23 14:58 rosuvastatin AdvReac unknown Verified 10/29/23 14:58 Family History Father Heart disease Cataracts, bilateral Mother Cataracts, bilateral Surgical History History of coronary artery stent placement History of cardiac catheterization History of surgery on left wrist History of tonsillectomy History of hysterectomy History of bilateral cataract extraction History of coronary angioplasty with insertion of stent History of colonoscopy History of carotid endarterectomy History of left heart catheterization (LHC) by cut[employer] Social History household members: spouse housing: other number of children: 3 pets and animals: Yes Smoking Status: Never smoker alcohol intake: current substance use type: does not use caffeine: No ROS ROS ED Constitutional Constitutional ED: Denies chills, fever(s) or sweats Eyes Eyes: Denies change in vision ENT ENT ED: Denies dysphagia or sore throat Cardiovascular Cardiovascular: Reports other Details: Lightheaded ; Denies chest pain, leg edema, palpitations or racing heartbeat Respiratory/Chest Respiratory/Chest: Denies cough, dyspnea or dyspnea on exertion Gastrointestinal Gastrointestinal: Denies abdominal pain, diarrhea, nausea or vomiting Genitourinary Genitourinary ED: Denies dysuria, hematuria or urinary frequency Musculoskeletal Musculoskeletal: Denies back pain, extremity pain or neck pain Integumentary Denies rash or wounds Neurologic Neurologic: Denies headache(s), paresthesias or weakness EXAM Physical Exam Const Vital Signs: 10/29/23 14:59 10/29/23 14:59 10/29/23 15:58 Temperature 96.9 F L Temperature Source Temporal Pulse Rate 105 H 105 H 71 Respiratory Rate 14 16 15 Blood Pressure 117/75 117/75 122/74 H Blood Pressure Mean 89 89 90 Pulse Ox 96 96 96 Oxygen Delivery Method Room Air Room Air Room Air 10/29/23 16:00 10/29/23 17:00 10/29/23 18:00 Temperature Temperature Source Pulse Rate 71 58 L 60 Respiratory Rate 16 16 16 Blood Pressure 122/74 H 123/96 H 145/85 H Blood Pressure Mean 90 105 105 Pulse Ox 98 98 98 Oxygen Delivery Method Room Air Room Air 10/29/23 18:19 Temperature 98.4 F Temperature Source Pulse Rate 78 Respiratory Rate 16 Blood Pressure 144/76 H Blood Pressure Mean 98 Pulse Ox 98 Oxygen Delivery Method Positive well nourished and well developed General Appearance ED: well developed and NAD HEENT HEENT Narrative: Mild dry mucosal membranes normocephalic and atraumatic Eyes EOMs intact bilaterally and conjunctivae normal General Eye ED: Yes normal appearance of both eyes Neck no lymphadenopathy and supple General: Negative for tenderness Chest Wall Chest: Negative for tenderness Resp normal respiratory effort and normal air movement Effort and Inspection: symmetric chest movement; Negative for respiratory distress Cardio regular rate, regular rhythm and no murmurs Peripheral Pulses: pulses 2+ throughout GI normal to inspection, nondistended, normoactive bowel sounds and non-tender Palpation: Negative for guarding or rebound tenderness present Back/Spine no CVA tenderness and no thoracic nor lumbar tenderness Extremity normal to inspection General Extremety ED: Negative for edema or tenderness General Extremity: Negative for edema Neuro oriented x3, CN's II-XII intact bilaterally and no sensory deficits noted Neuro Narrative: No focal deficits Sensorium / Orientation: awake and alert Skin no rashes or lesions noted and no wounds MDM MDM MDM Narrative Medical decision making narrative: Interventions / MDM: Differential diagnosis: Near syncope, medication side effect, orthostasis Diagnosis considered but do not suspect: Cardiac dysrhythmia or EKG normal. My EKG interpretation: Sinus rate of 78, no ST changes there is isolated T wave inversion lead III nonspecific to artifact at baseline. Reported QTc 579 however corrected is 456 calculated. Imaging independently reviewed and interpreted by myself: N/A External documents reviewed: N/A Test considered but not ordered:N/A ED course: Patient reporting orthostatic symptoms with her new medication. Current blood pressure is normal range however lower than her typical. EKG no acute findings reported prolonged QTc however there is artifact and corrected by myself was normal. Started on some fluids check for basic labs. Hemoglobin electrolytes normal except for slight hypokalemia with potassium 3.3. Oral replacement was given. Reevaluation clinically better, had nursing ambulate, they state upon standing she was slightly lightheaded and blood pressure 120s to 90s. She is given additional fluids on reevaluation she was able to ambulate. Attempted to call her PCP Dr. Rush for discussion to hold amlodipine there is no callback. Discussed with patient and spouse will hold amlodipine at this time as she had no symptoms for 2 days while off of it. They agree with plan will call after the weekend for follow-up. After being discharged, received call back from on-call physician Dr. East, discussed the findings and she agrees with plan she will relay to patient's PCP and get the patient seen next week. Re-evaluation: stable Disposition discussed with patient/family/significant other: Patient Case discussed with consulting clinician: Primary care office This note was generated with [employer] dictation software. It may contain incorrect words, spelling, and punctuation that were not noted in checking the note before signing. Lab Data Attestation: I reviewed the patient's lab results. Labs: Laboratory Results - last 24 hr 10/29/23 15:10 WBC 5.8 RBC 5.04 Hgb 14.7 Hct 44.6 MCV 88.5 MCH 29.2 MCHC 33.0 RDW Std Deviation 45.3 H RDW Coeff of Nafisa 14.1 Plt Count 202 MPV 12.0 Immature Gran % (Auto) 0.300 Neut % (Auto) 60.6 Lymph % (Auto) 26.8 [place] % (Auto) 9.8 Eos % (Auto) 1.5 Baso % (Auto) 1.0 Absolute Neuts (auto) 3.5 Absolute Lymphs (auto) 1.56 Nucleated RBC % 0 Sodium 138 Potassium 3.3 L Chloride 106 Carbon Dioxide 23.0 Anion Gap 9 BUN 12 Creatinine 0.92 Estim Creat Clear Calc 52.53 Est GFR (MDRD) Af Amer 76 Est GFR (MDRD) Non-Af 63 BUN/Creatinine Ratio 13.1 Glucose 102 Calcium 9.8 Discharge Plan Triage Chief Complaint: Dizziness ED Provider: Mikey Vigil Dx/Rx/DC Orders Clinical Impression: Near syncope, History of CAD (coronary artery disease), Orthostasis, Hypokalemia Instructions: Orthostatic Hypotension, ED Near-Fainting, Uncertain Cause Prescriptions: No Action nitroglycerin 0.4 mg tablet, sublingual 0.4 mg sublingual Q5M PRN (Reason: chest pain) Qty: 25 3RF Rx Instructions: do not exceed 3 doses per episode pantoprazole 40 mg tablet,delayed release (DR/EC) 40 mg PO DAILY pantoprazole 40 mg tablet,delayed release (DR/EC) 40 mg PO DAILY ranolazine 1,000 mg tablet extended release 12 hr 1,000 mg PO BID Qty: 180 3RF atorvastatin [Lipitor] 80 mg Tablet 80 mg PO DAILY clopidogrel [Plavix] 75 mg Tablet 75 mg PO DAILY Qty: 1 0RF Rx Instructions: Patient to hold Plavix for 5 days Eliquis 5 mg Tablet 5 mg PO BID Qty: 1 0RF Rx Instructions: Patient to hold Eliquis for 5 days and to 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 Blood pressure stable, you were orthostatic positive you are given fluids. Your symptoms improved. Continue oral fluids for hydration, hold your amlodipine at this time keep a monitor of your blood pressure. Follow-up with your doctor. Return if any recurrent or worsening symptoms for reevaluation. Print Language: Bengali Disposition Disposition: Home, Self Care Discharge Date/Time: 10/29/23 18:24
[2023-10-29 15:33] LABS: Absolute Lymphocyte Count 1.56 X10^3/uL (0.83-4.51); Absolute Neutrophil Count 3.5 X10^3/uL (2.0-7.7); Basophil# 0.06 X10^3/uL; Eosinophil# 0.09 X10^3/uL; Eosinophils% 1.5 % (0-5); Hematocrit 44.6 % (37-47); Hemoglobin 14.7 g/dL (12.0-15.0); Lymphocyte # 1.56 X10^3/ul (0.83-4.51); Lymphocyte % 26.8 % (19-41); Mean Corpuscular Hgb 29.2 pg (27.0-32.0); Mean Corpuscular Volume 88.5 fL (81-99); Monocyte# 0.57 X10^3/uL; Monocyte% 9.8 % (0-10); NRBC Flagged by Analyzer 0 % (0-5); Neutrophil # 3.53 X10^3/uL (2.7-7.7); Neutrophil % 60.6 % (47-70); Platelet Count 202 K/mm3 (150-450); RBC Distribution Width CV 14.1 % (11.6-14.6); RBC Distribution Width SD 45.3 fl (35.1-43.9); Red Blood Count 5.04 M/mm3 (4.2-5.4); White Blood Count 5.8 K/mm3 (4.4-11.0)
[2023-10-29] MEDS: 0.9% Normal Saline (500mL Bag) 500 ML 1000 ML IV (15:40)
[2023-10-29 15:53] LABS: Anion Gap 9 (5-15); BUN 12 mg/dL (7-18); BUN/Creat Ratio 13.1 RATIO (10-20); Calcium,Total 9.8 mg/dL (8.5-10.1); Chloride 106 mmol/L (98-107); Creatinine, Serum 0.92 mg/dL (0.55-1.02); EST Glomerular Filtration Rate 63 mL/min (>60); Est Glom Filt Rate - Afr Amer 76 mL/min (>60); Estimated Creatinine Clearance 52.53 ml/min; Glucose 102 mg/dL (74-106); Potassium 3.3 mmol/L (3.5-5.1); Sodium Level 138 mmol/L (136-145)
[2023-10-29 15:58] VITALS: BP 122/74; PULSE 71; RESP 15; O2SAT 96
[2023-10-29 16:00] VITALS: BP 122/74; PULSE 71; RESP 16; O2SAT 98
[2023-10-29] MEDS: Potassium Chloride Oral Tablet 20 MEQ 40 MEQ PO (16:55)
[2023-10-29] MEDS: 0.9% Normal Saline (1000mL) 1,000 ML 999 ML IV (16:56)
[2023-10-29 17:00] VITALS: BP 123/96; PULSE 58; RESP 16; O2SAT 98
[2023-10-29 18:00] VITALS: BP 145/85; PULSE 60; RESP 16; O2SAT 98
[2023-10-29 18:19] VITALS: BP 144/76; PULSE 78; RESP 16; TEMP 36.9; O2SAT 98
== END 2023-10-29 18:24 | disposition home or self-care (01) ==
PROVIDERS: Emergency Provider Emergency Medicine; PCP Family Medicine; Visit Provider Emergency Medicine
DX: R42 Dizziness and giddiness (principal); I48.0 Paroxysmal atrial fibrillation; I25.10 Atherosclerotic heart disease of native coronary artery without angina pectoris; E87.6 Hypokalemia; R55 Syncope and collapse; I25.2 Old myocardial infarction; Z86.73 Personal history of transient ischemic attack (TIA), and cerebral infarction without residual deficits; Z79.01 Long term (current) use of anticoagulants; Z79.899 Other long term (current) drug therapy; Z79.02 Long term (current) use of antithrombotics/antiplatelets; Z95.5 Presence of coronary angioplasty implant and graft; Z90.710 Acquired absence of both cervix and uterus; I95.2 Hypotension due to drugs; T46.1X5A Adverse effect of calcium-channel blockers, initial encounter
CPT/HCPCS: 80048; 85025; 93005; 96360; 99284; J7030; J7040; A4216

== ENCOUNTER → 2023-11-16 | Outpatient (CLI) | payer MEDICARE, SELFPAY ==
[2023-11-16 18:41] LABS: ALB/GLOB Ratio 1.3 RATIO (0.9-2.4); AST(SGOT) 22 U/L (15-37); Alanine Aminotransfer ALT/SGPT 21 U/L (13-56); Albumin, Serum 3.9 g/dL (3.2-5.0); Alkaline Phosphatase 69 U/L (45-117); Anion Gap 8 (5-15); BUN 12 mg/dL (7-18); BUN/Creat Ratio 12.1 RATIO (10-20); CRP < 2.90 mg/L (0.0-3.0); Calcium,Total 10.1 mg/dL (8.5-10.1); Chloride 111 mmol/L (98-107); Creatinine, Serum 0.99 mg/dL (0.55-1.02); EST Glomerular Filtration Rate 58 mL/min (>60); Est Glom Filt Rate - Afr Amer 70 mL/min (>60); Ferritin 134 ng/mL (8-252); Globulin 3.1 g/dL (2.2-4.2); Glucose 103 mg/dL (74-106); Lipase 48 U/L (13-75); Sodium Level 142 mmol/L (136-145)
== END | disposition home or self-care (01) ==
LOC: MFPLAB 16:09
PROVIDERS: PCP Family Medicine; Visit Provider Family Medicine
DX: R43.2 Parageusia (principal); K27.9 Peptic ulcer, site unspecified, unspecified as acute or chronic, without hemorrhage or perforation; R10.13 Epigastric pain
CPT/HCPCS: 36415; 80053; 82525; 82728; 83690; 84590; 84630; 86140

== ENCOUNTER 2023-11-17 16:03 | Outpatient (CLI) | payer MEDICARE, SELFPAY ==
[2023-11-19 15:09] LABS: H. PYLORI STOOL AG Negative (Negative)
== END 2023-11-17 23:59 | disposition home or self-care (01) ==
LOC: LABSPEC 16:04
PROVIDERS: PCP Family Medicine; Visit Provider Family Medicine
DX: K27.9 Peptic ulcer, site unspecified, unspecified as acute or chronic, without hemorrhage or perforation (principal)
CPT/HCPCS: 87338

== ENCOUNTER → 2023-11-29 | Outpatient (CLI) | payer MEDICARE, SELFPAY ==
--- NOTE | 2023-11-29 19:07 | CT_ITS ---
STUDY: CT ABDOMEN WITH AND WITHOUT CONTRAST REASON FOR EXAM: Female, 78 years old. Epigastric pain, concern for PUD, pancreatitis RADIATION DOSAGE (If Supplied By Facility): CTDIvol = ( 13.43 ) mGy, DLP = ( 907.51 ) mGycm TECHNIQUE: Transaxial images were obtained pre and post I.V. administration of IV 100mL Isovue-370, and with oral contrast. Sagittal and coronal images were reconstructed. Individualized dose optimization techniques were used for this CT. COMPARISON: Comparison is made with prior study dated February 05, 2023. FINDINGS: The visualized lung bases are unremarkable. Coronary artery calcification. Normal liver. Normal gallbladder and extrahepatic biliary system. Normal spleen. Normal pancreas. Normal bilateral adrenal glands. Bilateral renal cortical thinning. There is a 5.6 mm spiculated calcification in the left renal pelvis. Mild left hydronephrosis. There is a small hiatal hernia. Normal small intestine. Moderate amount of fecal material is seen in the colon. The appendix is visualized and appears normal. There is diffuse atherosclerotic calcification of the abdominal aorta and its major visceral branches, without a demonstrated aneurysm. Normal inferior vena cava. Normal retroperitoneum. Normal abdominal wall. There are mild degenerative changes of the visualized lumbar spine. CT/Abdomen W/WO IV Contrast IMPRESSION: Small hiatal hernia. 5.6 mm spiculated calcification in the left renal pelvis. Minimal left hydronephrosis. Bilateral renal cortical thinning. Electronically Signed: Jose Castle MD at 13:14 EDT ,
== END | disposition home or self-care (01) ==
LOC: CT 19:06
PROVIDERS: PCP Family Medicine; Referring Provider Family Medicine; Visit Provider Family Medicine
DX: R10.13 Epigastric pain (principal)
CPT/HCPCS: 74170; Q9967; A4216